=== PATIENT | female | born 1965 | race Native Hawaiian/Other Pacific Islander ===

== ENCOUNTER 2020-06-27 10:41 | Outpatient (REF) | payer OTHER, SELFPAY ==
--- NOTE | 2020-06-27 10:45 | MM_ITS ---
EXAMINATION: MM SCREENING DIGITAL BREAST TOMOSYNTHESIS, BILATERAL CLINICAL INFORMATION: Screening. Asymptomatic. The lifetime risk of breast cancer based on the Tyrer-Cuzick Model is 6%. COMPARISON: Mammography: 02/14/2019, 09/03/2016 TECHNIQUE: Digital breast tomosynthesis is performed in both the craniocaudal and mediolateral oblique views along with computer-aided detection (CAD). Synthesized 2D images are generated from the tomosynthesis. FINDINGS: The breasts are heterogeneously dense, which may obscure small masses (ACR BI-RADS breast composition Category c). There are no significant masses, abnormal calcifications, or other abnormalities. Breast tissue composition borders on average fibroglandular. No significant changes. MM/MM tomosynthesis screening BI IMPRESSION: No mammographic evidence of malignancy. ASSESSMENT: BI-RADS 1: Negative RECOMMENDATION: Routine annual mammography screening. This patient's information was entered into a reminder system with a target due date for their next mammogram.
== END 2020-06-27 10:42 | disposition home or self-care (01) ==
LOC: HO.MAMMO 10:41
PROVIDERS: PCP Internal Medicine; Visit Provider Internal Medicine
DX: Z12.31 Encounter for screening mammogram for malignant neoplasm of breast (principal)
CPT/HCPCS: 77063; 77067

== ENCOUNTER 2020-08-17 11:20 | Outpatient (REF) | payer OTHER, SELFPAY | END 2020-08-17 11:21 | disposition home or self-care (01) | LOC: HO.LNP 11:20 | PROVIDERS: Visit Provider Hospitalist | DX: Z20.822 Contact with and (suspected) exposure to COVID-19 (principal) | CPT/HCPCS: U0003; U0005 ==

== ENCOUNTER 2020-09-11 09:08 | Outpatient (REF) | payer OTHER, SELFPAY ==
[2020-09-11 11:33] LABS: Estimated Average Glucose 117 mg/dL; Hemoglobin A1c % 5.7 %
[2020-09-11 11:40] LABS: Alanine Aminotransferase 9 U/L (0-31); Anion Gap 10 (12-20); Aspartate Amino Transferase 20 U/L (5-31); Blood Urea Nitrogen 13 mg/dL (9-16); Calcium 9.2 mg/dL (8.4-10.2); Carbon Dioxide 27 mmol/L (22-29); Chloride 108 mmol/L (96-108); Cholesterol 188 mg/dL; Estimated Glomerular Filt Rate > 60; Glucose Fasting 96 mg/dL (60-99); HDL Cholesterol 51 mg/dL; LDL Cholesterol Calculated 113 mg/dl; Sodium 141 mmol/L (135-145); Triglycerides 122 mg/dL
[2020-09-11 12:07] LABS: Microalbum/Creatinine Ratio Ur 5.7 ug/mg cr
== END 2020-09-11 09:09 | disposition home or self-care (01) ==
LOC: HO.HMGCLDS 09:08
PROVIDERS: PCP Internal Medicine; Visit Provider Internal Medicine
DX: E11.9 Type 2 diabetes mellitus without complications (principal); I10 Essential (primary) hypertension; E78.5 Hyperlipidemia, unspecified; F41.1 Generalized anxiety disorder
CPT/HCPCS: 36415; 80048; 80061; 82043; 83036; 84450; 84460

== ENCOUNTER 2020-10-13 12:22 | Emergency (ER) | payer OTHER, SELFPAY ==
[2020-10-13 12:33] VITALS: BP 149/95; PULSE 90; RESP 16; TEMP 36.9; O2SAT 97; BMI 28.1
[2020-10-13 14:20] LABS: MANUAL DIFF FLAG NO
[2020-10-13 14:22] LABS: Basophils Percent Auto 0.5 % (0-2); Eosinophils Absolute Auto 0.1 X10*3/uL (0.0-0.4); Eosinophils Percent Auto 1.2 % (0-4); Hematocrit 40.8 % (37-47); Imm Gran Abs Auto 0.01 X10*3/uL (0.00-0.03); Imm Gran Pct Auto 0.2 % (0.0-0.4); Lymphocytes Absolute Auto 1.9 X10*3/uL (1.2-4.9); Lymphocytes Percent Auto 32.2 % (20-40); Mean Corpuscular HGB Conc 31.9 g/dl (31.0-35.0); Mean Corpuscular Volume 84.8 fL (80-98); Monocytes Absolute Auto 0.5 X10*3/uL (0.1-1.2); Monocytes Percent Auto 8.5 % (2-11); Neutrophils Absolute Auto 3.4 X10*3/uL (2.0-8.3); Neutrophils Percent Auto 57.4 % (45-73); Platelet Count 259 X10*3/uL (160-400); Red Blood Count 4.81 X10*6/uL (4.20-5.50); Red Cell Distribution Width 13.4 % (11.0-16.0); White Blood Count 5.9 X10*3/uL (4.8-10.8)
[2020-10-13 14:25] LABS: Glucose Urine UA NEG (NEG); Leukocyte Esterase Urine NEG (NEG); Nitrite Urine NEG (NEG); Specific Gravity - Urine 1.015 (1.005-1.025); Urine Blood NEG (NEG); Urine Ketones NEG (NEG); Urine Protein NEG (NEG-TRACE)
[2020-10-13 14:37] LABS: Appearance Urine CLEAR; Color Urine YELLOW
[2020-10-13 14:48] LABS: Anion Gap 11 (12-20); Blood Urea Nitrogen 15 mg/dL (9-16); Calcium 9.9 mg/dL (8.4-10.2); Carbon Dioxide 24 mmol/L (22-29); Chloride 113 mmol/L (96-108); Creatinine Clr Calc Pharmacy 74.6; Estimated Glomerular Filt Rate > 60; Glucose Random 83 mg/dL (60-115); Potassium 4.3 mmol/L (3.3-5.1); Sodium 144 mmol/L (135-145)
--- NOTE | 2020-10-13 16:07 | ED_ITS ---
HPI - Abdominal Pain General Chief Complaint: Abdominal Pain Stated Complaint: ABD PAIN Time Seen by Provider: 10/13/20 15:50 Source: patient Mode of arrival: ambulatory Limitations: no limitations History of Present Illness HPI narrative: 55 yo female with past medical history Dyslipidemia, Essential hypertension, GERD (gastroesophageal reflux disease), Insomnia , Migraine, Mild intermittent asthma, Osteoarthritis, NIDDM here with complaints of mid abdominal pain x 3 days described as burning with NO associated with vomiting, diarrhea, urinary problems, fevers, chills. Also c/o bilateral muscle aches in the lower legs with no swelling. Patient had J&J vaccine 7 days ago. Related Data Home Medications Medication Instructions Recorded Confirmed zolpidem 10 mg tablet 10 mg PO BEDTIME PRN 04/04/20 08/17/20 albuterol sulfate 90 mcg/actuation 0 mcg INHALATION 09/14/20 aerosol inhaler escitalopram oxalate 10 mg tablet 10 mg PO DAILY 09/14/20 Previous Rx's Medication Instructions Recorded lisinopril 20 mg tablet 20 mg PO DAILY #90 tab 06/19/20 pantoprazole 40 mg tablet,delayed 40 mg PO DAILY #90 tab 07/13/20 release clonazepam 0.5 mg tablet 0.5 mg PO DAILY PRN #10 tab 07/16/20 albuterol sulfate 2.5 mg INHALATION Q8H PRN #180 ml 07/25/20 topiramate 100 mg tablet 150 mg PO BEDTIME #135 tab 07/31/20 lijupdrraq-gkbowmirmlpag-wrtgakwu 1 cap PO Q8H PRN #10 cap 09/14/20 50 mg-300 mg-40 mg capsule fluticasone 250 mcg-salmeterol 50 1 inh INHALATION BID #60 ea 09/14/20 mcg/dose blistr powdr for inhalation lidocaine 5 % topical ointment 1 appl TOPICAL DAILY PRN #30 g 09/18/20 nabumetone 750 mg tablet 750 mg PO BID PRN #40 tab 09/27/20 atorvastatin 20 mg tablet 20 mg PO DAILY #90 tab 10/03/20 Allergies Allergy/AdvReac Type Severity Reaction Status Date / Time crab [CRAB] Allergy Severe MOURH Verified 10/13/20 11:46 SWELLING cyclobenzaprine Allergy Severe SEIZURE Verified 10/13/20 11:46 [From FLEXERIL] ibuprofen [From MOTRIN] Allergy Intermediate ITCHING, Verified 10/13/20 11:46 severe abdominal pain morphine [Morphine] Allergy Intermediate ITCHING/REDNESS, Verified 10/13/20 11:46 rash Flexeril Allergy Unknown shakey Verified 10/13/20 11:46 Review of Systems Review of Systems Yes all other systems are reviewed and are negative Constitutional: Reports no additional constitutional complaints, Denies body ache(s), Denies chills, Denies fever(s), Denies headache(s) and Denies weakness Eyes: Reports no additional eye complaints and Denies change in vision Reports system reviewed and no additional complaints, except as documented, Denies dizziness, Denies headache(s), Denies nasal congestion, Denies nasal discharge and Denies neck pain Cardiovascular: Reports no additional cardiovascular complaints, Denies chest pain, Denies leg edema and Denies dyspnea Respiratory: Reports no additional respiratory complaints, Denies cough and Denies dyspnea Gastrointestinal: Reports no additional gastrointestinal complaints, Reports abdominal pain, Denies diarrhea, Denies nausea and Denies vomiting Genitourinary: Reports no additional female genitourinary complaints and Denies urinary incontinence Musculoskeletal: Reports no additional musculoskeletal complaints, Denies back pain, Reports myalgias, Denies arthralgias, Denies joint swelling, Denies neck pain, Denies numbness and Denies tingling Comments: +muscle aches Skin/Breast: Reports system reviewed and no additional complaints, except as docu and Denies rash Reports system reviewed and no additional complaints, except as documented, Denies Abnormal speech present, Denies dizziness, Denies headache(s), Denies numbness, Denies tingling and Denies weakness Physical Exam Vital Signs: Vital Signs: Last Vital Signs Temp 98.4 F 10/13/20 17:06 Pulse 73 10/13/20 17:06 Resp 16 10/13/20 17:06 BP 148/74 H 10/13/20 17:06 Pulse Ox 98 10/13/20 17:06 Body Mass Index 28.1 Const: General: cooperative, healthy appearing, comfortable and no acute distress Orientation/consciousness: patient oriented x3 Limitations: no limitations HENMT: Head: Yes normal to inspection Ears: hearing grossly normal bilaterally General nose exam: Normal external nose present Face and sinus: Yes normal facial exam Mouth: Normal oral and palatal mucosa present Throat: Yes posterior oropharynx normal Eyes: General: appearance normal, both eyes and all related structures Pupils: Equal, round and reactive pupils present Neck: Neck: Yes normal visual inspection Chest: Chest palpation & inspection: normal inspection of the chest Resp: Effort & Inspection: normal respiratory effort Auscultation: clear to auscultation bilaterally Cardio: Rate: regular rate Rhythm: regular rhythm Peripheral pulses: Peripheral pulses 2+ throughout GI: Other: Unable to reproduce pain on exam. Inspection: Yes normal to inspection Palpation (GI): Soft to palpation and nontender Auscultation: normal bowel sounds Back/Spine/Pelvis: Thoracic/Lumbar Spine: thoracic and lumbar spine normal to inspection Skin: General skin exam: no rashes or lesions noted Neuro: General: patient oriented x3, no focal motor deficits and normal sensation to monofilament Cranial nerves: Yes Equal, round and reactive pupils present Cognition (Neuro): normal cognition Speech: No Abnormal speech present Gait exam (Neuro): Normal gait present Motor exam (neuro): 5/5 motor strength present throughout Extrem: Other: Tenderness over bilateral thighs with no swelling, erythema or deformity. No bony abnormalty General: Yes normal to inspection, Yes no pedal edema and Yes no calf tenderness Course Course Course Narrative: 55 yo female here with mid abdomen burning x 3 days despite protonix 40mg PO. No nausea, vomiting, diarrhea, urinary symptoms, fevers, chills. Also c/o muscle aches. No pedal edema or calf pain on exam. Will check labs, UA, GI cocktail. 1700-labs and urine are unremarkable. Pain is resolved with GI cocktail. Patient is tolerating p.o. and feels much improved. Reviewed worrisome signs and symptoms and when to return to the emergency department. Comfortable discharge home. MDM - Abdominal Pain MDM Narrative Medical decision making narrative: acute angie, gallstones, pancreatitis, gastritis, gerd rhabdo-less likely with negative cpk, normal renal functio Less likely DVT with no clinical signs.symptoms for dvt Medical Records Attestation: I reviewed the patient's medical records. Lab Data Attestation: I reviewed the patient's lab results. Result diagrams: 10/13/20 14:14 10/13/20 14:14 Labs: Lab Results 10/13/20 10/13/20 10/13/20 Range/Units 14:14 14:14 14:14 WBC 5.9 (4.8-10.8) X10*3/uL RBC 4.81 (4.20-5.50) X10*6/uL Hgb 13.0 (12.0-16.0) g/dl Hct 40.8 (37-47) % MCV 84.8 (80-98) fL MCH 27.0 (27.0-33.0) pg MCHC 31.9 (31.0-35.0) g/dl RDW 13.4 (11.0-16.0) % Plt Count 259 (160-400) X10*3/uL MPV 10.0 (9.4-12.3) fL Immature Gran % (Auto) 0.2 (0.0-0.4) % Neut % (Auto) 57.4 (45-73) % Lymph % (Auto) 32.2 (20-40) % Kinney % (Auto) 8.5 (2-11) % Eos % (Auto) 1.2 (0-4) % Baso % (Auto) 0.5 (0-2) % Lymph # (Auto) 1.9 (1.2-4.9) X10*3/uL Kinney # (Auto) 0.5 (0.1-1.2) X10*3/uL Eos # (Auto) 0.1 (0.0-0.4) X10*3/uL Baso # (Auto) 0.0 (0.0-0.2) X10*3/uL Abs Immat Gran (auto) 0.01 (0.00-0.03) X10*3/uL Absolute Neuts (auto) 3.4 (2.0-8.3) X10*3/uL Absolute Nucleated RBC 0.000 (0.0-0.012) X10*3/uL Nucleated RBC % (auto) 0.0 (0.0-0.2) /100WBC Hold Blue Top SEE NOTE Sodium 144 (135-145) mmol/L Potassium 4.3 (3.3-5.1) mmol/L Chloride 113 H (96-108) mmol/L Carbon Dioxide 24 (22-29) mmol/L Anion Gap 11 L (12-20) BUN 15 (9-16) mg/dL Creatinine 0.81 (0.5-1.4) mg/dL Estim Creat Clear Calc 74.6 Estimated GFR > 60 Random Glucose 83 (60-115) mg/dL Calcium 9.9 D (8.4-10.2) mg/dL Total Bilirubin 0.6 (0.0-1.0) mg/dL Direct Bilirubin 0.2 (0.0-0.5) mg/dL AST 20 (5-31) U/L ALT 12 (0-31) U/L Alkaline Phosphatase 81 (39-117) U/L Total Creatine Kinase 100 (26-140) U/L Total Protein 7.7 (6.5-8.0) g/dL Albumin 4.4 (3.5-5.0) g/dL Lipase 26 (8-78) U/L Urine Color Urine Appearance Urine pH (5.0-8.0) Ur Specific [place] (1.005-1.025) Urine Protein (NEG-TRACE) MG/DL Urine Glucose (UA) (NEG) MG/DL Urine Ketones (NEG) MG/DL Urine Blood (NEG) Urine Nitrite (NEG) Ur Leukocyte Esterase (NEG) 10/13/20 Range/Units 14:17 WBC (4.8-10.8) X10*3/uL RBC (4.20-5.50) X10*6/uL Hgb (12.0-16.0) g/dl Hct (37-47) % MCV (80-98) fL MCH (27.0-33.0) pg MCHC (31.0-35.0) g/dl RDW (11.0-16.0) % Plt Count (160-400) X10*3/uL MPV (9.4-12.3) fL Immature Gran % (Auto) (0.0-0.4) % Neut % (Auto) (45-73) % Lymph % (Auto) (20-40) % Kinney % (Auto) (2-11) % Eos % (Auto) (0-4) % Baso % (Auto) (0-2) % Lymph # (Auto) (1.2-4.9) X10*3/uL Kinney # (Auto) (0.1-1.2) X10*3/uL Eos # (Auto) (0.0-0.4) X10*3/uL Baso # (Auto) (0.0-0.2) X10*3/uL Abs Immat Gran (auto) (0.00-0.03) X10*3/uL Absolute Neuts (auto) (2.0-8.3) X10*3/uL Absolute Nucleated RBC (0.0-0.012) X10*3/uL Nucleated RBC % (auto) (0.0-0.2) /100WBC Hold Blue Top Sodium (135-145) mmol/L Potassium (3.3-5.1) mmol/L Chloride (96-108) mmol/L Carbon Dioxide (22-29) mmol/L Anion Gap (12-20) BUN (9-16) mg/dL Creatinine (0.5-1.4) mg/dL Estim Creat Clear Calc Estimated GFR Random Glucose (60-115) mg/dL Calcium (8.4-10.2) mg/dL Total Bilirubin (0.0-1.0) mg/dL Direct Bilirubin (0.0-0.5) mg/dL AST (5-31) U/L ALT (0-31) U/L Alkaline Phosphatase (39-117) U/L Total Creatine Kinase (26-140) U/L Total Protein (6.5-8.0) g/dL Albumin (3.5-5.0) g/dL Lipase (8-78) U/L Urine Color YELLOW Urine Appearance CLEAR Urine pH 6.0 (5.0-8.0) Ur Specific [place]orn 1.015 (1.005-1.025) Urine Protein NEG (NEG-TRACE) MG/DL Urine Glucose (UA) NEG (NEG) MG/DL Urine Ketones NEG (NEG) MG/DL Urine Blood NEG (NEG) Urine Nitrite NEG (NEG) Ur Leukocyte Esterase NEG (NEG) Discharge Plan Discharge Clinical Impression: GERD without esophagitis Patient Disposition: Home, Self-Care Instructions: Gastroesophageal Reflux Disease (ED) Additional Instructions: [place] diet and advance as tolerated Continue Protonix Follow-up with your doctor if continuing to have symptoms on Thursday Prescriptions: No Action zolpidem 10 mg tablet 10 mg PO BEDTIME PRN (Reason: insomnia) RF: 0 lisinopril 20 mg tablet 20 mg PO DAILY Qty: 90 RF: 1 pantoprazole 40 mg tablet,delayed release (DR/EC) 40 mg PO DAILY Qty: 90 RF: 2 clonazepam 0.5 mg tablet 0.5 mg PO DAILY PRN (Reason: anxiety attacks ) Qty: 10 RF: 0 albuterol sulfate 2.5 mg /3 mL (0.083 %) solution for nebulization 2.5 mg inhalation Q8H PRN (Reason: shortness of breath or wheezing) Qty: 180 RF: 0 topiramate 100 mg tablet 150 mg PO BEDTIME Qty: 135 RF: 1 lidocaine 5 % ointment 1 appl topical DAILY PRN (Reason: pain) Qty: 30 RF: 0 nabumetone 750 mg tablet 750 mg PO BID PRN (Reason: for pain) Qty: 40 RF: 0 atorvastatin 20 mg tablet 20 mg PO DAILY Qty: 90 RF: 0 escitalopram oxalate 10 mg tablet 10 mg PO DAILY RF: 0 albuterol sulfate 90 mcg/actuation HFA aerosol inhaler 0 mcg inhalation RF: 0 fluticasone propion-salmeterol [Wixela Inhub] 250-50 mcg/dose blister with device 1 inh inhalation BID Qty: 60 RF: 5 tsttufhlga-dkpqzcibwefkw-qyes 50-300-40 mg capsule 1 cap PO Q8H PRN (Reason: for headache) Qty: 10 RF: 0 Referrals: Rahel Diaz MD [Primary Care Provider] - 2 days Interventions: ED Discharge Assessment Last Done: 10/13/20 18:15 Discharge Date/Time: 10/13/20 18:16 [facility] Past Medical History Attestation statement: The following information was validated with the patient. Source: old records reviewed and nursing notes reviewed Medical History Dyslipidemia Essential hypertension GERD (gastroesophageal reflux disease) Insomnia Knee pain, right Migraine Mild intermittent asthma Osteoarthritis Type 2 diabetes mellitus without complication, without long-term current use of insulin Surgical History History of appendectomy History of partial hysterectomy Hx laparoscopic cholecystectomy Hx of total knee arthroplasty Family History Family History Father HTN (hypertension) Hyperlipidemia Lung cancer Mother HTN (hypertension) Hyperlipidemia Diabetes mellitus Social History Social History Alcohol intake: never Smoking Status: Never smoker Use of substances other than those prescribed or required for medical reasons: No Advance Directives: No Advance Directives Information Provided: Yes
[2020-10-13 16:28] LABS: Alanine Aminotransferase 12 U/L (0-31); Albumin Level 4.4 g/dL (3.5-5.0); Alkaline Phosphatase 81 U/L (39-117); Aspartate Amino Transferase 20 U/L (5-31); Bilirubin Direct 0.2 mg/dL (0.0-0.5); Bilirubin Total 0.6 mg/dL (0.0-1.0); Lipase 26 U/L (8-78); Total Protein 7.7 g/dL (6.5-8.0)
[2020-10-13] MEDS: Magnesium Hydrox/Alum Hydrox 30 ML ORAL.SUSP PO (17:05)
[2020-10-13] MEDS: Lidocaine HCl Viscous 2 % 15 ML SOLUTION MUCOUS MEM (17:05)
[2020-10-13 17:06] VITALS: BP 148/74; PULSE 73; RESP 16; TEMP 36.9; O2SAT 98
--- NOTE | 2020-10-13 17:34 | PC.NURSE ---
late entry 1700. pt continues to c/o epigastric burning. taking po meds w/o diff. LLE is WNL. strong steady gait.
== END 2020-10-13 18:16 | disposition home or self-care (01) ==
PROVIDERS: Nurse Practitioner Family; Emergency Provider Emergency Medicine; PCP Internal Medicine
DX: K21.9 Gastro-esophageal reflux disease without esophagitis (principal); M79.10 Myalgia, unspecified site; R10.9 Unspecified abdominal pain; Z79.899 Other long term (current) drug therapy
CPT/HCPCS: 36415; 80048; 80076; 81003; 82550; 83690; 85025; 99284

== ENCOUNTER 2020-11-26 14:57 | Emergency (ER) | payer OTHER, SELFPAY ==
--- NOTE | ~2020-11-26 | XR_ITS ---
EXAMINATION: XR HIP, RIGHT XR KNEE, RIGHT CLINICAL INFORMATION: Pain following fall. COMPARISON: Right hip radiographs dated 10/06/2017 as well as right hip and right knee radiographs dated 10/23/2015. TECHNIQUE: AP view of the pelvis as well as AP and frog-leg lateral views of the right hip. AP, bilateral oblique, and lateral views of the right knee. FINDINGS: RIGHT HIP: No acute fracture or dislocation. Lhrf-cc-wanlizsg bilateral hip joint space narrowing with small marginal osteophytes. No osseous erosion. Lobulated dystrophic calcification adjacent to the greater trochanter, increased when compared to the prior examination. New dystrophic calcification lateral to the proximal femoral diaphysis. Phleboliths within the pelvis. RIGHT KNEE: Total right knee arthroplasty. No acute hardware or osseous fracture. No perihardware lucency to suggest loosening or infection. No significant joint effusion. No abnormal soft tissue calcification. XR/XR hip RT min 2V IMPRESSION: Right hip: No acute fracture or dislocation. Kirf-ma-svgfkziz osteoarthritis. Right knee: Total right knee arthroplasty without evidence of complication.
--- NOTE | ~2020-11-26 | XR_ITS ---
EXAMINATION: XR HIP, RIGHT XR KNEE, RIGHT CLINICAL INFORMATION: Pain following fall. COMPARISON: Right hip radiographs dated 10/06/2017 as well as right hip and right knee radiographs dated 10/23/2015. TECHNIQUE: AP view of the pelvis as well as AP and frog-leg lateral views of the right hip. AP, bilateral oblique, and lateral views of the right knee. FINDINGS: RIGHT HIP: No acute fracture or dislocation. Prqa-je-fawkhdgy bilateral hip joint space narrowing with small marginal osteophytes. No osseous erosion. Lobulated dystrophic calcification adjacent to the greater trochanter, increased when compared to the prior examination. New dystrophic calcification lateral to the proximal femoral diaphysis. Phleboliths within the pelvis. RIGHT KNEE: Total right knee arthroplasty. No acute hardware or osseous fracture. No perihardware lucency to suggest loosening or infection. No significant joint effusion. No abnormal soft tissue calcification. XR/XR knee RT 4V IMPRESSION: Right hip: No acute fracture or dislocation. Mshd-ap-fajlkvbn osteoarthritis. Right knee: Total right knee arthroplasty without evidence of complication.
[2020-11-26 15:52] VITALS: BP 147/78; PULSE 72; RESP 18; TEMP 36.4; O2SAT 99; BMI 27.7
--- NOTE | 2020-11-26 17:13 | ED.LOWEXIN ---
HPI - Extremity Injury (Lower) General Chief Complaint: Extremity Injury, Lower Stated Complaint: FALL R LEG PAIN Time Seen by Provider: 11/26/20 16:50 Source: patient Mode of arrival: ambulatory Limitations: no limitations History of Present Illness HPI Narrative: 55-year-old female past medical history of asthma, type 2 diabetes insulin dependent, GERD, osteoarthritis, hypertension, hyperlipidemia presents with right-sided hip and knee pain after a mechanical fall. She was clean her floors yesterday, slipped on the water and landed on her right hip and knee. She does not report hitting her head or losing consciousness and does not report any injuries to any other portions of her body. She states that her hip is so painful that she can barely walk. MD complaint: hip injury, knee injury and fall Onset (ago): day(s) (1) Place: home Severity: moderate Severity scale (1-10): 8 Relieving factors: nothing Exacerbating factors: weight bearing, movement and palpation Context: fall Associated symptoms: able to partially bear weight Other symptoms: none Treatments prior to arrival: cold therapy and NSAIDS Related Data Home Medications Medication Instructions Recorded Confirmed zolpidem 10 mg tablet 10 mg PO BEDTIME PRN 04/04/20 08/17/20 albuterol sulfate 90 mcg/actuation 0 mcg INHALATION 09/14/20 aerosol inhaler escitalopram oxalate 10 mg tablet 10 mg PO DAILY 09/14/20 Previous Rx's Medication Instructions Recorded lisinopril 20 mg tablet 20 mg PO DAILY #90 tab 06/19/20 pantoprazole 40 mg tablet,delayed 40 mg PO DAILY #90 tab 07/13/20 release clonazepam 0.5 mg tablet 0.5 mg PO DAILY PRN #10 tab 07/16/20 topiramate 100 mg tablet 150 mg PO BEDTIME #135 tab 07/31/20 fluticasone 250 mcg-salmeterol 50 1 inh INHALATION BID #60 ea 09/14/20 mcg/dose blistr powdr for inhalation lidocaine 5 % topical ointment 1 appl TOPICAL DAILY PRN #30 g 09/18/20 nabumetone 750 mg tablet 750 mg PO BID PRN #40 tab 09/27/20 atorvastatin 20 mg tablet 20 mg PO DAILY #90 tab 10/03/20 ivymlepugy-evxnscqyqxfen-rgzgrhgl 1 cap PO Q8H PRN #10 cap 11/05/20 50 mg-300 mg-40 mg capsule albuterol sulfate 2.5 mg INHALATION Q8H PRN #180 ml 11/16/20 tramadol 50 mg PO BID PRN #5 tab 11/26/20 Allergies Allergy/AdvReac Type Severity Reaction Status Date / Time crab [CRAB] Allergy Severe MOURH Verified 11/26/20 15:52 SWELLING cyclobenzaprine Allergy Severe SEIZURE Verified 11/26/20 15:52 [From FLEXERIL] ibuprofen [From MOTRIN] Allergy Intermediate ITCHING, Verified 11/26/20 15:52 severe abdominal pain morphine [Morphine] Allergy Intermediate ITCHING/REDNESS, Verified 11/26/20 15:52 rash Flexeril Allergy Unknown shakey Verified 11/26/20 15:52 Review of Systems Review of Systems: Constitutional: No Fever, No Chills ENT/Mouth: No Ear Pain, No Hoarseness, No sore throat Eyes: No Eye Pain, No Swelling, No Redness, No Foreign Body Cardiovascular: No Chest Pain, No SOB Respiratory: No Cough, No Dyspnea Gastrointestinal: No Nausea, No Vomiting, No Diarrhea, No abdominal Pain Genitourinary: No Dysuria, No Hematuria Musculoskeletal: positive right hip and knee pain, No Myalgias, No Joint Swelling Skin: No Skin lacerations, No rash Neuro: No Weakness, No Numbness, No Paresthesias, No Loss of Consciousness, No Dizziness, No Headache Psych: No Anxiety/Panic, No Depression Heme/Lymph: no easy bruising, no Lymphadenopathy Endocrine: No Polyuria, No Polydipsia Yes all other systems are reviewed and are negative PMFSH Past Medical History Attestation statement: The following information was validated with the patient. Source: old records reviewed Medical History Dyslipidemia Essential hypertension GERD (gastroesophageal reflux disease) Insomnia Knee pain, right Migraine Mild intermittent asthma Osteoarthritis Type 2 diabetes mellitus without complication, without long-term current use of insulin Surgical History History of appendectomy History of partial hysterectomy Hx laparoscopic cholecystectomy Hx of total knee arthroplasty Family History Family History Father HTN (hypertension) Hyperlipidemia Lung cancer Mother HTN (hypertension) Hyperlipidemia Diabetes mellitus Social History Social History Alcohol intake: never Smoked in Last 30 Days: No Use of substances other than those prescribed or required for medical reasons: No Advance Directives: No Advance Directives Information Provided: Yes Patient : No Physical Exam Vital Signs: Vital Signs: Last Vital Signs Temp 97.6 F 11/26/20 15:52 Pulse 65 11/26/20 17:41 Resp 16 11/26/20 17:41 BP 148/71 H 11/26/20 17:41 Pulse Ox 99 11/26/20 17:41 Body Mass Index 27.7 Appearance: Alert. Oriented X3. No acute distress. Eyes: Pupils equal, round and reactive to light. ENT: Pharynx normal. Neck: Normal inspection. Neck supple. CVS: Normal heart rate and rhythm. Pulses normal. Respiratory: No respiratory distress. Breath sounds normal. Abdomen: Soft and nontender. Skin: Skin warm and dry. Normal skin color. Normal skin turgor. Extremities: No lower extremity edema. Neuro: No motor deficit. No sensory deficit. Course Course Course Narrative: 55-year-old female presents with injury sustained from a fall. She did not hit her head, lose consciousness, does not have any bruising noted to her body. She does experience significant pain on active and passive range of motion to the right hip, tenderness to flexion extension of the knee, and has hip and thigh tenderness when flexing extending the foot. She does not have any tenderness to the medial or lateral malleolar processes, has full extension flexion inversion and eversion of the ankle. And not appreciate any visible swelling, abrasions, lacerations, or bruising. X-rays are negative for acute findings. Does show some chronic osteoarthritis in the hip. Will send home with crutches. Patient is unable to utilize crutches. Will give walker, script for tramadol, patient is allergic to cyclobenzaprine, cannot take Motrin, and has allergies to morphine. She is advised to follow-up with orthopedics. Patient verbalized understanding of and agrees plan of care discharge home. MDM - Extremity Injury (Lower) Differential Diagnosis Differential diagnosis: Likely acute internal derangement of knee, fracture of femur and fracture of hip Medical Records Attestation: I reviewed the patient's medical records. Lab Data Attestation: I reviewed the patient's lab results. Imaging Data Hip and knee x-ray: Attestation: I personally reviewed and interpreted this imaging study as follows: Radiologist's impression: XR HIP, RIGHT XR KNEE, RIGHT CLINICAL INFORMATION: Pain following fall. COMPARISON: Right hip radiographs dated 10/06/2017 as well as right hip and right knee radiographs dated 10/23/2015. TECHNIQUE: AP view of the pelvis as well as AP and frog-leg lateral views of the right hip. AP, bilateral oblique, and lateral views of the right knee. FINDINGS: RIGHT HIP: No acute fracture or dislocation. Gbre-ju-zwbrfxhj bilateral hip joint space narrowing with small marginal osteophytes. No osseous erosion. Lobulated dystrophic calcification adjacent to the greater trochanter, increased when compared to the prior examination. New dystrophic calcification lateral to the proximal femoral diaphysis. Phleboliths within the pelvis. RIGHT KNEE: Total right knee arthroplasty. No acute hardware or osseous fracture. No perihardware lucency to suggest loosening or infection. No significant joint effusion. No abnormal soft tissue calcification. XR/XR hip RT min 2V IMPRESSION: Right hip: No acute fracture or dislocation. Rgvo-fy-vuzjqjye osteoarthritis. Right knee: Total right knee arthroplasty without evidence of complication. Discharge Plan Discharge Clinical Impression: Knee pain, right Qualifiers: Chronicity: chronic Qualified Code(s): M25.561 - Pain in right knee Contusion of hip, right Qualifiers: Encounter type: initial encounter Qualified Code(s): S70.01XA - Contusion of right hip, initial encounter Fall Qualifiers: Encounter type: initial encounter Qualified Code(s): W19.XXXA - Unspecified fall, initial encounter Patient Disposition: Home, Self-Care Instructions: Knee Pain (ED), Hip Contusion (ED) Additional Instructions: You were evaluated for injury sustained from a mechanical fall. Your x-rays of the hip and knee are negative for acute findings. You do not have any fractures. You have moderate osteoarthritis in the hip. Please follow-up with orthopedics for further care. You may need physical therapy. We prescribed tramadol for pain management. This medication is a narcotic and has high risk for addiction abuse. Do not drive or operate machinery while taking this medication. This medication is constipating, please use MiraLax or Colace as needed to soften stools. This medication can cause drowsiness, delayed reaction time, and increased risk falls. Do not drive or operate machinery while taking this medication. Thank you for choosing this emergency department for evaluation. Please follow-up with primary care physician as needed. Return to the emergency department for any new, concerning, or worsening symptoms. Prescriptions: New tramadol 50 mg tablet 50 mg PO BID PRN (Reason: pain) Qty: 5 RF: 0 No Action zolpidem 10 mg tablet 10 mg PO BEDTIME PRN (Reason: insomnia) RF: 0 lisinopril 20 mg tablet 20 mg PO DAILY Qty: 90 RF: 1 pantoprazole 40 mg tablet,delayed release (DR/EC) 40 mg PO DAILY Qty: 90 RF: 2 clonazepam 0.5 mg tablet 0.5 mg PO DAILY PRN (Reason: anxiety attacks ) Qty: 10 RF: 0 topiramate 100 mg tablet 150 mg PO BEDTIME Qty: 135 RF: 1 lidocaine 5 % ointment 1 appl topical DAILY PRN (Reason: pain) Qty: 30 RF: 0 nabumetone 750 mg tablet 750 mg PO BID PRN (Reason: for pain) Qty: 40 RF: 0 atorvastatin 20 mg tablet 20 mg PO DAILY Qty: 90 RF: 0 uyjcqqqbci-nbszbvnknefvi-syqd 50-300-40 mg capsule 1 cap PO Q8H PRN (Reason: for headache) Qty: 10 RF: 0 albuterol sulfate 2.5 mg /3 mL (0.083 %) solution for nebulization 2.5 mg inhalation Q8H PRN (Reason: shortness of breath or wheezing) Qty: 180 RF: 0 escitalopram oxalate 10 mg tablet 10 mg PO DAILY RF: 0 albuterol sulfate 90 mcg/actuation HFA aerosol inhaler 0 mcg inhalation RF: 0 fluticasone propion-salmeterol [Wixela Inhub] 250-50 mcg/dose blister with device 1 inh inhalation BID Qty: 60 RF: 5 Referrals: Cole Song MD [Physician] - 2 days (Right hip osteoarthritis and right knee pain after right total knee replacement) Interventions: ED Discharge Assessment Last Done: 11/26/20 17:49 Discharge Date/Time: 11/26/20 17:50
[2020-11-26] MEDS: traMADoL HCL 50 MG TABLET PO (17:40)
[2020-11-26 17:41] VITALS: BP 148/71; PULSE 65; RESP 16; O2SAT 99
== END 2020-11-26 17:50 | disposition home or self-care (01) ==
PROVIDERS: Emergency Provider Emergency Medicine; PCP Internal Medicine
DX: M25.561 Pain in right knee (principal); S70.01XA Contusion of right hip, initial encounter; W01.0XXA Fall on same level from slipping, tripping and stumbling without subsequent striking against object, initial encounter; M16.11 Unilateral primary osteoarthritis, right hip; E11.9 Type 2 diabetes mellitus without complications; I10 Essential (primary) hypertension; E78.5 Hyperlipidemia, unspecified; Z79.4 Long term (current) use of insulin; Y93.E5 Activity, floor mopping and cleaning; Y92.010 Kitchen of single-family (private) house as the place of occurrence of the external cause; Y99.9 Unspecified external cause status; Z96.651 Presence of right artificial knee joint
CPT/HCPCS: 73502; 73564; 99284

== ENCOUNTER → 2020-11-30 08:54 | Outpatient (BNVA) | payer OTHER, SELFPAY | PROVIDERS: Visit Provider Physician Assistant | DX: S80.01XA Contusion of right knee, initial encounter (principal); M16.11 Unilateral primary osteoarthritis, right hip; Z96.651 Presence of right artificial knee joint | CPT/HCPCS: 99202 ==

== ENCOUNTER 2020-12-29 07:49 | Outpatient (REF) | payer OTHER, SELFPAY ==
[2020-12-29 11:36] LABS: Estimated Average Glucose 117 mg/dL; Hemoglobin A1c % 5.7 %
[2020-12-29 11:38] LABS: Alanine Aminotransferase 13 U/L (0-31); Anion Gap 12 (12-20); Aspartate Amino Transferase 24 U/L (5-31); Blood Urea Nitrogen 13 mg/dL (9-16); Calcium 9.6 mg/dL (8.4-10.2); Carbon Dioxide 23 mmol/L (22-29); Chloride 112 mmol/L (96-108); Cholesterol 171 mg/dL; Estimated Glomerular Filt Rate > 60; Glucose Fasting 103 mg/dL (60-99); HDL Cholesterol 48 mg/dL; LDL Cholesterol Calculated 102 mg/dl; Sodium 143 mmol/L (135-145); Triglycerides 108 mg/dL
[2020-12-29 12:02] LABS: Vitamin D 25-OH Total 34.9 ng/mL (>30)
[2020-12-29 15:47] LABS: Creatinine Urine 221.39 mg/dL; Microalbum/Creatinine Ratio Ur 5.4 ug/mg cr
== END 2020-12-29 07:50 | disposition home or self-care (01) ==
LOC: HO.HMGCLDS 07:49
PROVIDERS: PCP Internal Medicine; Visit Provider Internal Medicine
DX: E11.9 Type 2 diabetes mellitus without complications (principal); E78.5 Hyperlipidemia, unspecified; I10 Essential (primary) hypertension
CPT/HCPCS: 36415; 80048; 80061; 82043; 82306; 83036; 84450; 84460

== ENCOUNTER 2021-06-12 08:37 | Outpatient (REF) | payer OTHER, SELFPAY ==
[2021-06-12 11:56] LABS: Estimated Average Glucose 120 mg/dL; Hemoglobin A1c % 5.8 %
[2021-06-12 12:24] LABS: Alanine Aminotransferase 10 U/L (0-31); Anion Gap 10 (12-20); Aspartate Amino Transferase 25 U/L (5-31); Blood Urea Nitrogen 15 mg/dL (9-16); Calcium 9.9 mg/dL (8.4-10.2); Carbon Dioxide 26 mmol/L (22-29); Chloride 109 mmol/L (96-108); Cholesterol 180 mg/dL; Estimated Glomerular Filt Rate 59; Glucose Fasting 100 mg/dL (60-99); HDL Cholesterol 49 mg/dL; LDL Cholesterol Calculated 109 mg/dl; Potassium 4.1 mmol/L (3.3-5.1); Sodium 141 mmol/L (135-145); Triglycerides 112 mg/dL
== END 2021-06-12 08:38 | disposition home or self-care (01) ==
LOC: HO.HMGCLDS 08:37
PROVIDERS: PCP Internal Medicine; Visit Provider Internal Medicine
DX: E11.9 Type 2 diabetes mellitus without complications (principal); I10 Essential (primary) hypertension; E78.5 Hyperlipidemia, unspecified
CPT/HCPCS: 36415; 80048; 80061; 83036; 84450; 84460

== ENCOUNTER 2021-06-20 16:00 | Emergency (ER) | payer OTHER, SELFPAY ==
[2021-06-20 16:34] VITALS: BP 170/76; PULSE 73; RESP 20; TEMP 36.8; O2SAT 100; BMI 27.6
[2021-06-20 18:12] VITALS: BP 177/77; PULSE 67; RESP 18; O2SAT 99
[2021-06-20] MEDS: diphenhydrAMINE HCL 25 MG TABLET 50 MG PO (19:06)
[2021-06-20] MEDS: Famotidine 20 MG TABLET PO (19:06)
[2021-06-20 19:27] VITALS: BP 169/77; PULSE 60; RESP 18; TEMP 36.7; O2SAT 100
--- NOTE | 2021-06-20 19:41 | ED_ITS ---
HPI - Allergic Reaction General Chief complaint: Allergic Reaction Stated complaint: allergic reaction Time Seen by Provider: 06/20/21 18:15 Source: patient Mode of arrival: ambulatory Limitations: no limitations History of Present Illness HPI narrative: 56-year-old female who states that yesterday morning at 8:30 a.m. she had cortisone injections in her bilateral hips for osteoarthritis. States she was okay yesterday, but when she woke up this morning her face was red hot and swollen in her hands were cold. 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 Spoke to her doctor who suggested she come to the emergency room. Patient has the allergy history to ibuprofen and morphine complaint: allergic reaction Onset (ago): day(s) (1) Exposure: medication Symptoms: rash, itching and facial swelling Severity: mild Treatment prior to arrival: none Related Data Home Medications Medication Instructions Recorded Confirmed zolpidem 10 mg tablet 10 mg PO BEDTIME PRN 04/04/20 01/03/21 albuterol sulfate 90 mcg/actuation 0 mcg INHALATION 09/14/20 01/03/21 aerosol inhaler escitalopram oxalate 10 mg tablet 10 mg PO DAILY 09/14/20 01/03/21 Previous Rx's Medication Instructions Recorded clonazepam 0.5 mg tablet 0.5 mg PO DAILY PRN #10 tab 07/16/20 albuterol sulfate 2.5 mg (3 mL) INHALATION Q8H PRN 11/16/20 #180 ml lisinopril 20 mg tablet 20 mg PO DAILY #90 tab 12/10/20 atorvastatin 20 mg tablet 20 mg PO DAILY #90 tab 01/04/21 erythromycin 5 mg/gram (0.5 %) eye 1 appl OPHTHALMIC (EYE) QID 7 Days 01/23/21 ointment #3.5 g valacyclovir 1 gram tablet 1,000 mg PO TID 7 Days #21 tab 01/23/21 pantoprazole 40 mg tablet,delayed 40 mg PO DAILY #90 tab 04/03/21 release eszmtayzlo-yxzyljeczwxab-mnpnqoce 1 cap PO Q8H PRN #10 cap 06/03/21 50 mg-300 mg-40 mg capsule celecoxib 200 mg capsule 200 mg PO DAILY PRN #30 cap 06/05/21 fluticasone 250 mcg-salmeterol 50 1 ea INHALATION BID #180 cap 06/05/21 mcg/dose blistr powdr for inhalation (Narcisa Gardner) lidocaine 5 % topical ointment 1 appl TOPICAL DAILY PRN #30 g 06/05/21 nabumetone 750 mg tablet 750 mg PO BID PRN #20 tab 06/05/21 topiramate 100 mg tablet 150 mg PO BEDTIME #135 tab 06/05/21 famotidine 20 mg tablet 20 mg PO DAILY 14 Days #14 tab 06/20/21 Allergies Allergy/AdvReac Type Severity Reaction Status Date / Time crab [CRAB] Allergy Severe MOURH Verified 01/10/21 01:38 SWELLING cyclobenzaprine Allergy Severe SEIZURE Verified 01/10/21 01:38 [From FLEXERIL] ibuprofen [From MOTRIN] Allergy Intermediate ITCHING, Verified 01/10/21 01:38 severe abdominal pain morphine [Morphine] Allergy Intermediate ITCHING/REDNESS, Verified 01/10/21 01:38 rash Flexeril Allergy Unknown shakey Verified 01/10/21 01:38 Review of Systems Constitutional: Constitutional: Denies body ache(s), Denies chills, Denies fatigue, Denies fever(s), Denies headache(s), Denies malaise and Denies weakness Eyes: Eyes: Denies diplopia ENT: Denies change in voice, Denies vertigo, Denies dizziness, Denies otalgia, Denies headache(s), Denies lip swelling, Denies mouth pain, Denies post nasal drip, Denies sinus pain, Denies sinus pressure, Denies sore throat, Denies throat swelling and Denies tongue swelling Cardiovascular: Cardiovascular: Denies chest pain, Denies syncope, Denies leg edema, Denies lightheadedness, Denies Loss of Consciousness, Denies palpitations and Denies dyspnea Respiratory: Respiratory: Denies chest congestion, Denies cough and Denies dyspnea Gastrointestinal: Gastrointestinal: Reports abdominal pain, Denies hematochezia, Denies constipation, Denies diarrhea and Denies vomiting Musculoskeletal: Musculoskeletal: Reports no additional musculoskeletal complaints Integumentary/Breasts: Comments: Red warm flushed cheeks, mild maculopapular rash on bilateral forearms Neurologic: Denies confusion, Denies vertigo, Denies dizziness, Denies syncope, Denies headache(s) and Denies weakness Psychiatric: Psychiatric: Denies anxiety, Denies confusion and Denies depression Endocrine: Endocrine: Denies fatigue and Denies palpitations Allergic/Immunologic: Allergic/Immunologic: Denies lip swelling, Denies throat swelling and Denies tongue swelling PMFSH Past Medical History Medical History Depressed Dyslipidemia Essential hypertension GERD (gastroesophageal reflux disease) Insomnia Knee pain, right Migraine Mild intermittent asthma Osteoarthritis Type 2 diabetes mellitus without complication, without long-term current use of insulin Surgical History History of appendectomy History of partial hysterectomy Hx laparoscopic cholecystectomy Hx of total knee arthroplasty Family History Family History Father HTN (hypertension) Hyperlipidemia Lung cancer Mother HTN (hypertension) Hyperlipidemia Diabetes mellitus Social History Social History Alcohol intake: never Patient Tobacco Use Status: Never used Tobacco Advance Directives: No Advance Directives Information Provided: No Patient : No Current occupational status: unemployed Current occupation: [employer] Handed Physical Exam Vital Signs: Vital Signs: Last Vital Signs Temp 98.1 F 06/20/21 19:27 Pulse 60 06/20/21 19:27 Resp 18 06/20/21 19:27 BP 169/77 H 06/20/21 19:27 Pulse Ox 100 06/20/21 19:27 BMI result Body Mass Index 27.6 Const: General: No confusion Nutritional Appearance: well nourished Orientation/consciousness: No confusion Limitations: no limitations HENMT: Head: Yes normal to inspection, Yes normocephalic and Yes atraumatic Ears: hearing grossly normal bilaterally, external ears normal, TM's normal bilaterally and EAC's normal General nose exam: Normal external nose present Face and sinus: Yes normal facial exam and Yes sinuses nontender Mouth: Normal oral and palatal mucosa present Throat: Yes posterior oropharynx normal Eyes: Conjunctivae: conjunctivae normal Pupils: Equal, round and reactive pupils present EOM: EOMs intact bilaterally Neck: Neck: Yes full ROM, Yes no lymphadenopathy and Yes supple Resp: Effort & Inspection: normal respiratory effort and able to speak in complete sentences Auscultation: clear to auscultation bilaterally, no crackles, no rales, no rhonchi and no wheezes Cardio: Rate: regular rate Rhythm: regular rhythm Heart sounds: S1 normal heart sound present and S2 normal heart sound present GI: Inspection: Yes normal to inspection Palpation (GI): Soft to palpation, nontender, no guarding and not rigid Percussion: Yes normal to percussion Auscultation: normal bowel sounds Skin: Other: Flush bilateral cheeks Mild erythematous maculopapular rash bilateral upper arms Neuro: General: No confusion Cranial nerves: Yes Equal, round and reactive pupils present Extrem: General: Yes normal to inspection and Yes full ROM Psych: Appearance: grossly normal Affect: normal affect Attitude: cooperative Thought process: Normal thought process present Course Course Course Narrative: 56-year-old female presents for mild allergic reaction possibly to cortisone injections in her bilateral hips yesterday. On exam, patient has a patent airway, lungs clear to auscultation bilaterally, has no tongue swelling, lip swelling, no angioedema. Patient is flushed in her bilateral cheeks, and has a very mild maculopapular erythematous rash in her bilateral upper arms. Will treat with Benadryl and famotidine, gave return precautions. Discharge Plan Discharge Clinical Impression: Allergic reaction Qualifiers: Encounter type: initial encounter Qualified Code(s): T78.40XA - Allergy, unspecified, initial encounter Patient Disposition: Home, Self-Care Additional Instructions: You may have had an allergic reaction to cortisone injections in both of your hips. Please take Benadryl at night for the next 3 days, you can buy it [id number]. Please fill the prescription I gave you for the other histamine cordell, famotidine, and take it as prescribed. If you have any shortness of breath, lip swelling, tongue swelling, wheezing, please return to emergency room immediately. Please follow-up with your primary care provider for your high blood pressure reading today Prescriptions: New famotidine 20 mg tablet 20 mg PO DAILY 14 Days Qty: 14 RF: 0 No Action zolpidem 10 mg tablet 10 mg PO BEDTIME PRN (Reason: insomnia) RF: 0 clonazepam 0.5 mg tablet 0.5 mg PO DAILY PRN (Reason: anxiety attacks ) Qty: 10 RF: 0 albuterol sulfate 2.5 mg /3 mL (0.083 %) solution for nebulization 2.5 mg inhalation Q8H PRN (Reason: shortness of breath or wheezing) Qty: 180 RF: 0 lisinopril 20 mg tablet 20 mg PO DAILY Qty: 90 RF: 2 atorvastatin 20 mg tablet 20 mg PO DAILY Qty: 90 RF: 1 pantoprazole 40 mg tablet,delayed release (DR/EC) 40 mg PO DAILY Qty: 90 RF: 2 ukvddsnmdg-piszhivfnliba-aujk 50-300-40 mg capsule 1 cap PO Q8H PRN (Reason: for headache) Qty: 10 RF: 0 fluticasone propion-salmeterol [Wixela Inhub] 250-50 mcg/dose blister with device 1 ea inhalation BID Qty: 180 RF: 1 topiramate 100 mg tablet 150 mg PO BEDTIME Qty: 135 RF: 1 celecoxib 200 mg capsule 200 mg PO DAILY PRN (Reason: pain) Qty: 30 RF: 0 lidocaine 5 % ointment 1 appl topical DAILY PRN (Reason: pain) Qty: 30 RF: 0 nabumetone 750 mg tablet 750 mg PO BID PRN (Reason: pain) Qty: 20 RF: 0 valacyclovir 1 gram tablet 1,000 mg PO TID 7 Days Qty: 21 RF: 0 erythromycin 5 mg/gram (0.5 %) ointment 1 appl ophthalmic (eye) QID 7 Days Qty: 3.5 RF: 0 escitalopram oxalate 10 mg tablet 10 mg PO DAILY RF: 0 albuterol sulfate 90 mcg/actuation HFA aerosol inhaler 0 mcg inhalation RF: 0 Interventions: ED Discharge Assessment Last Done: 06/20/21 19:55 Discharge Date/Time: 06/20/21 20:00
== END 2021-06-20 20:00 | disposition home or self-care (01) ==
PROVIDERS: Emergency Provider Internal Medicine; PCP Internal Medicine
DX: T78.40XA Allergy, unspecified, initial encounter (principal); X58.XXXA Exposure to other specified factors, initial encounter; I10 Essential (primary) hypertension; E11.9 Type 2 diabetes mellitus without complications; J45.20 Mild intermittent asthma, uncomplicated; M16.0 Bilateral primary osteoarthritis of hip; Z98.890 Other specified postprocedural states
CPT/HCPCS: 99283; Q0163

== ENCOUNTER 2021-07-04 13:18 | Emergency (ER) | payer OTHER, SELFPAY ==
--- NOTE | ~2021-07-04 | XR_ITS ---
EXAMINATION: XR CHEST CLINICAL INFORMATION: Chest pain COMPARISON: Chest CT of 09/26/2016, chest x-ray of 09/26/2016 and 05/28/2016 TECHNIQUE: 2 views of the chest were obtained. FINDINGS: The cardiomediastinal silhouette is stable and normal. The lungs are symmetrically well expanded. No focal consolidation, changes of congestion or pleural effusions are seen. No pneumothorax. Regional skeleton is intact. Multiple surgical clips are noted in the upper abdomen on lateral view. XR/XR chest 2V IMPRESSION: No acute pulmonary process. No radiographic evidence of pneumonia.
--- NOTE | 2021-07-04 13:29 | ECG_ITS ---
Test Reason : CHEST PAIN Blood Pressure : / mmHG Vent. Rate : 073 BPM Atrial Rate : 073 BPM P-R Int : 168 ms QRS Dur : 088 ms QT Int : 368 ms P-R-T Axes : 046 019 010 degrees QTc Int : 405 ms Normal sinus rhythm Normal ECG When compared to the previous EKG of Nonspecific T wave abnormality, improved in Anterior leads Referred By: Generic ED Physician Electronically Signed By:JULIANNA JANE MD
[2021-07-04 13:43] VITALS: BP 120/64; BP 123/64; PULSE 72; PULSE 76; RESP 18; TEMP 37.2; O2SAT 100; O2SAT 99; BMI 27.3
--- NOTE | 2021-07-04 14:01 | ED.CHESTPAIN ---
HPI - Chest Pain General Chief Complaint: Chest Pain Stated Complaint: CP Time Seen by Provider: 07/04/21 13:47 Source: patient Mode of arrival: ambulatory Limitations: no limitations History of Present Illness HPI narrative: 56-year-old female history of unstable angina presents to emergency department complaining of chest pain. States she has at home started feels she got 2 nitros by EMS and her pain went from a 9 to a 2. She states she used to be on nitroglycerin but has not had for some time. She denies any falls or injuries denies fevers or cough she is vaccinated back in September by [employer]. Chest pain radiates to her left jaw. She states her pain is never been this s MD complaint: chest pain, chest heaviness and chest discomfort Related Data Home Medications Medication Instructions Recorded Confirmed zolpidem 10 mg tablet 10 mg PO BEDTIME PRN 04/04/20 07/04/21 escitalopram oxalate 20 mg tablet 1 tab PO DAILY 07/04/21 07/04/21 famotidine 20 mg tablet 1 tab PO DAILY 07/04/21 07/04/21 Previous Rx's Medication Instructions Recorded clonazepam 0.5 mg tablet 0.5 mg PO DAILY PRN #10 tab 07/16/20 albuterol sulfate 2.5 mg (3 mL) INHALATION Q8H PRN 11/16/20 #180 ml pantoprazole 40 mg tablet,delayed 40 mg PO DAILY #90 tab 04/03/21 release apyttzoebc-lskadtkotqogf-yghexwvj 1 cap PO Q8H PRN #10 cap 06/03/21 50 mg-300 mg-40 mg capsule fluticasone 250 mcg-salmeterol 50 1 ea INHALATION BID #180 cap 06/05/21 mcg/dose blistr powdr for inhalation (Wixela Inhub) nabumetone 750 mg tablet 750 mg PO BID PRN #20 tab 06/05/21 topiramate 100 mg tablet 150 mg PO BEDTIME #135 tab 06/05/21 albuterol sulfate 90 mcg/actuation 2 inh INHALATION Q6H PRN #8.5 g 07/01/21 aerosol inhaler atorvastatin 20 mg tablet 20 mg PO DAILY #90 tab 07/01/21 benzonatate 200 mg capsule 200 mg PO TID PRN #20 cap 07/01/21 epinephrine 0.3 mg/0.3 mL 0.3 mg (0.3 mL) IM ONCE PRN #2 ea 07/01/21 injection, auto-injector (EpiPen 2-Abilio) lidocaine 5 % topical ointment 1 appl TOPICAL DAILY PRN #30 g 07/01/21 lisinopril 20 mg tablet 20 mg PO DAILY #90 tab 07/01/21 Allergies Allergy/AdvReac Type Severity Reaction Status Date / Time crab [CRAB] Allergy Severe MOURH Verified 07/04/21 13:43 SWELLING cyclobenzaprine Allergy Severe SEIZURE Verified 07/04/21 13:43 [From FLEXERIL] ibuprofen [From MOTRIN] Allergy Intermediate ITCHING, Verified 07/04/21 13:43 severe abdominal pain morphine [Morphine] Allergy Intermediate ITCHING/REDNESS, Verified 07/04/21 13:43 rash Flexeril Allergy Unknown shakey Verified 07/04/21 13:43 Review of Systems Review of Systems: Review of systems: General: Patient denies any fever chills recent illness or falls Musculoskeletal: Denies back pain or body aches or other injuries HEENT: denies headache, runny nose, ear pain Respiratory: denies shortness of breath, cough Cardiovascular: chest pain no palpitations : denies dysuria, frequency Abdomen: no nausea vomiting denies abdominal pain Extremities: no swelling, no pain Skin: no diaphoresis Yes all other systems are reviewed and are negative [facility] Past Medical History Medical History (Updated 07/04/21 @ 15:10 by Henri Dong DO) Allergic to shellfish Depressed Dyslipidemia Essential hypertension GERD (gastroesophageal reflux disease) Hx of renal calculi Insomnia Knee pain, right Migraine Mild intermittent asthma Osteoarthritis Type 2 diabetes mellitus without complication, without long-term current use of insulin Surgical History History of appendectomy History of partial hysterectomy Hx laparoscopic cholecystectomy Hx of total knee arthroplasty Family History Family History (Updated 07/01/21 @ 13:12 by Theresa Rivera CMA) Father HTN (hypertension) Hyperlipidemia Lung cancer Mother HTN (hypertension) Hyperlipidemia Diabetes mellitus Social History Social History Housing: Apartment Alcohol intake: never Patient Tobacco Use Status: Never used Tobacco e-Cigarette/Vaping Use: Never Used Advance Directives: No Advance Directives Information Provided: Yes service: No Current occupational status: unemployed Current occupation: [employer]ed Physical Exam Vital Signs: Vital Signs: Last Vital Signs Temp 99.0 F 07/04/21 13:43 Pulse 76 07/04/21 13:43 Resp 18 07/04/21 13:43 BP 123/64 07/04/21 13:43 Pulse Ox 99 07/04/21 13:43 BMI result Body Mass Index 27.3 General: Well-appearing well-nourished in no signs of distress HEENT: Normocephalic atraumatic Neck: No signs of JVD, no masses no tenderness or lymphadenopathy Cardiovascular: Regular rate and rhythm Respiratory: Clear to auscultation bilaterally Abdomen: Soft nontender no masses Extremities: Normal pedal pulses no signs of edema Skin: Dry warm no rashes Back: No tenderness full ROM MDM - Chest Pain MDM Narrative Medical decision making narrative: Patient with lower chest pain low heart score coming into the emergency department complaining of chest pain it was not responsive patient's last stress test was over 4 years ago. I will give patient fluids aspirin I will put on some nitropaste I will check labs and reassess the patient. patient's pain is well controlled x-ray and labs are unremarkable I will get a stat troponin at 17:00 hours patient will be signed out to Dr. Castillo Differential Diagnosis Differential diagnosis: Likely stable angina, unstable angina pectoris, st elevation myocardial infarction, chest pain and biliary colic Medical Records Data Attestation: I reviewed the patient's medical records. Lab Data Attestation: I reviewed the patient's lab results. Result diagrams: 07/04/21 14:28 07/04/21 14:28 Labs: Lab Results 07/04/21 07/04/21 07/04/21 Range/Units 14:28 14:28 14:28 WBC 7.6 (4.8-10.8) X10*3/uL RBC 4.69 (4.20-5.50) X10*6/uL Hgb 12.8 (12.0-16.0) g/dl Hct 40.2 (37.0-47.0) % MCV 85.7 (80.0-98.0) fL MCH 27.3 (27.0-33.0) pg MCHC 31.8 (31.0-35.0) g/dl RDW 14.2 (11.0-16.0) % Plt Count 271 (160-400) X10*3/uL MPV 10.4 (9.4-12.3) fL Immature Gran % (Auto) 0.1 (0.0-0.4) % Neut % (Auto) 73.5 H (45-73) % Lymph % (Auto) 16.2 L (20-40) % [place] % (Auto) 9.0 (2-11) % Eos % (Auto) 0.7 (0-4) % Baso % (Auto) 0.5 (0-2) % Lymph # (Auto) 1.2 (1.2-4.9) X10*3/uL [place] # (Auto) 0.7 (0.1-1.2) X10*3/uL Eos # (Auto) 0.1 (0.0-0.4) X10*3/uL Baso # (Auto) 0.0 (0.0-0.2) X10*3/uL Abs Immat Gran (auto) 0.01 (0.00-0.03) X10*3/uL Absolute Neuts (auto) 5.6 (2.0-8.3) x10*3/uL Absolute Nucleated RBC 0.000 (0.0-0.012) X10*3/uL Nucleated RBC % (auto) 0.0 (0.0-0.2) /100WBC PT (9.9-13.0) SEC INR (0.9-1.1) Sodium 142 (135-145) mmol/L Potassium 3.7 (3.3-5.1) mmol/L Chloride 109 H (96-108) mmol/L Carbon Dioxide 27 (22-29) mmol/L Anion Gap 10 L (12-20) BUN 19 H (9-16) mg/dL Creatinine 0.85 (0.5-1.4) mg/dL Estim Creat Clear Calc 69.3 Estimated GFR > 60 Random Glucose 100 (60-115) mg/dL Calcium 10.1 (8.4-10.2) mg/dL Total Bilirubin 0.4 (0.0-1.0) mg/dL Direct Bilirubin 0.2 (0.0-0.5) mg/dL AST 24 (5-31) U/L ALT 19 (0-31) U/L Alkaline Phosphatase 101 D (39-117) U/L Troponin I High Sens < 3.5 (<3.5-17.0) ng/L Total Protein 7.2 (6.5-8.0) g/dL Albumin 4.1 (3.5-5.0) g/dL Lipase 41 (8-78) U/L COVID-19 (GRIFFIN) (Negative) COVID-19 Clin Com 07/04/21 07/04/21 Range/Units 14:28 14:28 WBC (4.8-10.8) X10*3/uL RBC (4.20-5.50) X10*6/uL Hgb (12.0-16.0) g/dl Hct (37.0-47.0) % MCV (80.0-98.0) fL MCH (27.0-33.0) pg MCHC (31.0-35.0) g/dl RDW (11.0-16.0) % Plt Count (160-400) X10*3/uL MPV (9.4-12.3) fL Immature Gran % (Auto) (0.0-0.4) % Neut % (Auto) (45-73) % Lymph % (Auto) (20-40) % [place] % (Auto) (2-11) % Eos % (Auto) (0-4) % Baso % (Auto) (0-2) % Lymph # (Auto) (1.2-4.9) X10*3/uL [place] # (Auto) (0.1-1.2) X10*3/uL Eos # (Auto) (0.0-0.4) X10*3/uL Baso # (Auto) (0.0-0.2) X10*3/uL Abs Immat Gran (auto) (0.00-0.03) X10*3/uL Absolute Neuts (auto) (2.0-8.3) x10*3/uL Absolute Nucleated RBC (0.0-0.012) X10*3/uL Nucleated RBC % (auto) (0.0-0.2) /100WBC PT 12.0 (9.9-13.0) SEC INR 1.1 (0.9-1.1) Sodium (135-145) mmol/L Potassium (3.3-5.1) mmol/L Chloride (96-108) mmol/L Carbon Dioxide (22-29) mmol/L Anion Gap (12-20) BUN (9-16) mg/dL Creatinine (0.5-1.4) mg/dL Estim Creat Clear Calc Estimated GFR Random Glucose (60-115) mg/dL Calcium (8.4-10.2) mg/dL Total Bilirubin (0.0-1.0) mg/dL Direct Bilirubin (0.0-0.5) mg/dL AST (5-31) U/L ALT (0-31) U/L Alkaline Phosphatase (39-117) U/L Troponin I High Sens (<3.5-17.0) ng/L Total Protein (6.5-8.0) g/dL Albumin (3.5-5.0) g/dL Lipase (8-78) U/L COVID-19 (GRIFFIN) Negative (Negative) COVID-19 Clin Com See Note Scores Heart Score History: -1- moderately suspicious ECG: -0- normal Age: -0- < or = 45 Risk factory: -1- 1 or 2 risk factors Troponin: -0- < or = normal limit Score: 2 Risk: 1.7% Discharge Plan Discharge Clinical Impression: Chest pain Patient Disposition: Home, Self-Care Instructions: Chest Pain (ED) Additional Instructions: your x-ray and labs are all negative if you have any other concerns please do not hesitate to come back to emergency department. Prescriptions: No Action zolpidem 10 mg tablet 10 mg PO BEDTIME PRN (Reason: insomnia) RF: 0 clonazepam 0.5 mg tablet 0.5 mg PO DAILY PRN (Reason: anxiety attacks ) Qty: 10 RF: 0 albuterol sulfate 2.5 mg /3 mL (0.083 %) solution for nebulization 2.5 mg inhalation Q8H PRN (Reason: shortness of breath or wheezing) Qty: 180 RF: 0 pantoprazole 40 mg tablet,delayed release (DR/EC) 40 mg PO DAILY Qty: 90 RF: 2 hshlnfbfbr-zjgswesngghsu-muwr 50-300-40 mg capsule 1 cap PO Q8H PRN (Reason: for headache) Qty: 10 RF: 0 fluticasone propion-salmeterol [Wixela Inhub] 250-50 mcg/dose blister with device 1 ea inhalation BID Qty: 180 RF: 1 topiramate 100 mg tablet 150 mg PO BEDTIME Qty: 135 RF: 1 nabumetone 750 mg tablet 750 mg PO BID PRN (Reason: pain) Qty: 20 RF: 0 lidocaine 5 % ointment 1 appl topical DAILY PRN (Reason: pain) Qty: 30 RF: 0 lisinopril 20 mg tablet 20 mg PO DAILY Qty: 90 RF: 2 atorvastatin 20 mg tablet 20 mg PO DAILY Qty: 90 RF: 1 famotidine 20 mg tablet 1 tab PO DAILY RF: 0 escitalopram oxalate 20 mg tablet 1 tab PO DAILY RF: 0 albuterol sulfate 90 mcg/actuation HFA aerosol inhaler 2 inh inhalation Q6H PRN (Reason: shortness of breath or wheezing) Qty: 8.5 RF: 3 epinephrine [EpiPen 2-Abilio] 0.3 mg/0.3 mL auto-injector 0.3 mg IM ONCE PRN (Reason: anaphylaxis) Qty: 2 RF: 1 benzonatate 200 mg capsule 200 mg PO TID PRN (Reason: cough) Qty: 20 RF: 0
[2021-07-04 14:37] LABS: MANUAL DIFF FLAG NO
[2021-07-04 14:39] LABS: Basophils Percent Auto 0.5 % (0-2); Eosinophils Absolute Auto 0.1 X10*3/uL (0.0-0.4); Eosinophils Percent Auto 0.7 % (0-4); Hematocrit 40.2 % (37.0-47.0); Hemoglobin 12.8 g/dl (12.0-16.0); Imm Gran Abs Auto 0.01 X10*3/uL (0.00-0.03); Imm Gran Pct Auto 0.1 % (0.0-0.4); Lymphocytes Absolute Auto 1.2 X10*3/uL (1.2-4.9); Lymphocytes Percent Auto 16.2 % (20-40); Mean Corpuscular HGB Conc 31.8 g/dl (31.0-35.0); Mean Corpuscular Hemoglobin 27.3 pg (27.0-33.0); Mean Corpuscular Volume 85.7 fL (80.0-98.0); Mean Platelet Volume 10.4 fL (9.4-12.3); Monocytes Absolute Auto 0.7 X10*3/uL (0.1-1.2); Neutrophils Absolute Auto 5.6 x10*3/uL (2.0-8.3); Neutrophils Percent Auto 73.5 % (45-73); Platelet Count 271 X10*3/uL (160-400); Red Blood Count 4.69 X10*6/uL (4.20-5.50); Red Cell Distribution Width 14.2 % (11.0-16.0); White Blood Count 7.6 X10*3/uL (4.8-10.8)
[2021-07-04 14:45] LABS: INTERNATIONAL NORM RATIO 1.1 (0.9-1.1)
[2021-07-04 14:53] LABS: COVID-19 Test Negative (Negative)
[2021-07-04 14:55] LABS: Alanine Aminotransferase 19 U/L (0-31); Albumin Level 4.1 g/dL (3.5-5.0); Alkaline Phosphatase 101 U/L (39-117); Anion Gap 10 (12-20); Aspartate Amino Transferase 24 U/L (5-31); Bilirubin Direct 0.2 mg/dL (0.0-0.5); Bilirubin Total 0.4 mg/dL (0.0-1.0); Blood Urea Nitrogen 19 mg/dL (9-16); Calcium 10.1 mg/dL (8.4-10.2); Carbon Dioxide 27 mmol/L (22-29); Chloride 109 mmol/L (96-108); Creatinine Clr Calc Pharmacy 69.3; Estimated Glomerular Filt Rate > 60; Glucose Random 100 mg/dL (60-115); Lipase 41 U/L (8-78); Potassium 3.7 mmol/L (3.3-5.1); Sodium 142 mmol/L (135-145); Total Protein 7.2 g/dL (6.5-8.0)
[2021-07-04 14:59] LABS: Troponin-I High Sensitivity < 3.5 ng/L (<3.5-17.0)
[2021-07-04 15:30] VITALS: BP 135/77; PULSE 80; RESP 18; O2SAT 99
[2021-07-04 15:34] VITALS: BP 135/77; PULSE 78
[2021-07-04] MEDS: Nitroglycerin 2 % Oint 1 GM Packet 0.5 INCH TRANSDERMA (15:34)
[2021-07-04] MEDS: 0.9 % Sodium Chloride 1,000 ML 999 ML IV (15:37)
--- NOTE | 2021-07-04 15:52 | PHA.MEDREC ---
Pharmacy Consult ? Medication Reconciliation Pharmacy has completed the medication reconciliation. Patient states that she takes her fluticasone-salmeterol only once a day even though it is prescribed BID. Patient seemed confident in her medications.
[2021-07-04 15:59] VITALS: BP 136/73; PULSE 72; RESP 12; TEMP 37.1; O2SAT 98
[2021-07-04 18:55] LABS: Troponin-I High Sensitivity < 3.5 ng/L (<3.5-17.0)
[2021-07-04 19:02] LABS: Anion Gap 9 (12-20); Blood Urea Nitrogen 17 mg/dL (9-16); Carbon Dioxide 27 mmol/L (22-29); Chloride 110 mmol/L (96-108); Creatinine Clr Calc Pharmacy 70.9; Estimated Glomerular Filt Rate > 60; Glucose Random 109 mg/dL (60-115); Potassium 5.1 mmol/L (3.3-5.1); Sodium 141 mmol/L (135-145)
[2021-07-04 19:27] VITALS: BP 127/70; PULSE 77; RESP 14; O2SAT 96
[2021-07-04 19:55] VITALS: BP 130/79; PULSE 70; RESP 14; O2SAT 100
== END 2021-07-04 19:58 | disposition home or self-care (01) ==
PROVIDERS: Student in an Organized Health Care Education/Training Program; Emergency Provider Emergency Medicine; PCP Internal Medicine
DX: R07.9 Chest pain, unspecified (principal); E78.5 Hyperlipidemia, unspecified; I10 Essential (primary) hypertension; E11.9 Type 2 diabetes mellitus without complications; Z20.822 Contact with and (suspected) exposure to COVID-19; Z79.899 Other long term (current) drug therapy; Z79.02 Long term (current) use of antithrombotics/antiplatelets
CPT/HCPCS: 36415; 71046; 80048; 80076; 83690; 84484; 85025; 85610; 87635; 93005; 96360; 99284

== ENCOUNTER 2021-08-30 07:49 | Outpatient (REF) | payer OTHER, SELFPAY ==
--- NOTE | ~2021-08-30 | US_ITS ---
EXAMINATION: US RETROPERITONEAL LIMITED (RENAL ONLY) CLINICAL INFORMATION: Unspecified abdominal pain. COMPARISON: CT abdomen and pelvis 06/17/2018. Renal ultrasound 12/10/2016. TECHNIQUE: Real-time imaging of the kidneys. FINDINGS: RIGHT KIDNEY: 10.8 x 5.0 x 4.0 cm (SAG x AP x TRV). The kidney is normal in size, contour, and echogenicity. Renal cortical thickness is normal. No calculi or focal parenchymal lesions. No hydronephrosis. LEFT KIDNEY: 11.1 x 5.5 x 5.1 cm (SAG x AP x TRV). The kidney is normal in size, contour, and echogenicity. Renal cortical thickness is normal. No calculi or focal parenchymal lesions. No hydronephrosis. US/US renal BI IMPRESSION: Normal renal ultrasound..
== END 2021-08-30 07:50 | disposition home or self-care (01) ==
LOC: HO.US 07:49
PROVIDERS: Visit Provider Internal Medicine
DX: R10.9 Unspecified abdominal pain (principal); Z87.442 Personal history of urinary calculi
CPT/HCPCS: 76775

== ENCOUNTER 2021-12-09 09:21 | Outpatient (REF) | payer OTHER, SELFPAY ==
[2021-12-09 13:08] LABS: Alanine Aminotransferase 12 U/L (0-31); Anion Gap 10 (12-20); Aspartate Amino Transferase 20 U/L (5-31); Blood Urea Nitrogen 14 mg/dL (9-16); Calcium 9.4 mg/dL (8.4-10.2); Carbon Dioxide 24 mmol/L (22-29); Chloride 110 mmol/L (96-108); Cholesterol 179 mg/dL; Estimated Glomerular Filt Rate > 60; Glucose Fasting 102 mg/dL (60-99); HDL Cholesterol 54 mg/dL; LDL Cholesterol Calculated 109 mg/dl; Potassium 4.2 mmol/L (3.3-5.1); Sodium 140 mmol/L (135-145); Triglycerides 81 mg/dL
[2021-12-09 13:17] LABS: Estimated Average Glucose 117 mg/dL; Hemoglobin A1c % 5.7 %
[2021-12-09 13:32] LABS: Microalbumin Urine < 5.0 mg/L
[2021-12-09 13:33] LABS: Vitamin D 25-OH Total 32.2 ng/mL (>30)
== END 2021-12-09 09:22 | disposition home or self-care (01) ==
LOC: HO.HMGCLDS 09:21
PROVIDERS: Visit Provider Internal Medicine
DX: E89.40 Asymptomatic postprocedural ovarian failure (principal); E78.5 Hyperlipidemia, unspecified; I10 Essential (primary) hypertension; E11.9 Type 2 diabetes mellitus without complications
CPT/HCPCS: 36415; 80048; 80061; 82043; 82306; 83036; 84450; 84460

== ENCOUNTER 2022-03-25 12:33 | Emergency (ER) | payer OTHER, SELFPAY ==
--- NOTE | ~2022-03-25 | XR_ITS ---
EXAMINATION: XR SHOULDER, LEFT CLINICAL INFORMATION: Status post fall COMPARISON: Left shoulder radiograph 02/16/2020 TECHNIQUE: 3 views of the left shoulder FINDINGS: No acute visible fracture or dislocation. Joint spaces and alignment are maintained. Soft tissues are unremarkable. Visualized portions of the left chest are unremarkable. XR/XR shoulder LT min 2V IMPRESSION: No acute visible fracture or dislocation.
--- NOTE | ~2022-03-25 | XR_ITS ---
EXAMINATION: XR ANKLE, LEFT CLINICAL INFORMATION: Fall COMPARISON: None TECHNIQUE: AP, lateral, and mortise views of the left ankle. FINDINGS: No fracture or dislocation. The ankle mortise is congruent. No ankle joint effusion. Moderate hypertrophic spurring of the plantar aponeurosis and Achilles insertion to the calcaneus. The soft tissues appear unremarkable. XR/XR ankle LT 2V IMPRESSION: No fracture or malalignment. Heel spurs.
[2022-03-25 12:51] VITALS: BP 168/75; PULSE 66; RESP 18; TEMP 36.9; O2SAT 98; BMI 26.5
[2022-03-25 18:44] VITALS: BP 172/80; PULSE 88; RESP 18; TEMP 36.8; O2SAT 100
--- NOTE | 2022-03-25 19:15 | ED.EXTPRO ---
HPI - Extremity Problem General Chief complaint: Extremity Problem Stated complaint: left ankle inj and left shoulder injury Time Seen by Provider: 03/25/22 18:51 Source: patient Mode of arrival: ambulatory Limitations: no limitations History of Present Illness HPI Narrative: The patient is a 57 year old female presenting for a complain of left shoulder pain and left ankle pain. The patient reports that 5 days ago, her ankle inverted and she fell against a wall. She reports the pain started immediately after. Left Ankle: She reports while weight bearing she feels a sharp shoot pain at the base of her left heel. Ankle pain currently a 7/10, though increase to a 10/10 pain when weight bearing. She reports that due to the pain she is not able weight bear. Left Shoulder: Shoulder pain is a 6/10 pain though increases to a 10/10 pain with movement. Patient states that her shoulder pain is like a line , and points from the base of the neck across the top of the to the edge of the shoulder. The paint does not radiate down the arm. MD Complaint: joint pain Onset (ago): day(s) (5) Pain Consistency: constant Location: left and other (shoulder and ankle ) Severity scale (1-10): 7 Quality: aching and sharp Radiation: none Relieving factors: immobilization and rest Exacerbating factors: range of motion, weight bearing and walking Associated symptoms: denies other symptoms Related Data Home Medications Medication Instructions Recorded Confirmed zolpidem 10 mg tablet 10 mg PO BEDTIME 04/04/20 07/22/21 clonazepam 0.5 mg tablet 0.5 mg PO BEDTIME 07/04/21 07/22/21 duloxetine 20 mg capsule,delayed 0 mg PO 12/11/21 release Previous Rx's Medication Instructions Recorded epinephrine 0.3 mg/0.3 mL 0.3 mg (0.3 mL) IM ONCE PRN 07/01/21 injection, auto-injector (EpiPen anaphylaxis #2 ea 2-Abilio) lisinopril 20 mg tablet 20 mg PO DAILY #90 tabs 07/01/21 nitroglycerin 0.4 mg sublingual 0.4 mg sublingual Q5M PRN chest 07/04/21 tablet pain #7 tabs dkoaljflzk-nuwpldtzhshfl-rjbbnetg 1 cap PO Q8H PRN for headache #10 09/26/21 50 mg-300 mg-40 mg capsule caps albuterol sulfate 90 mcg/actuation 2 inh inhalation Q6H PRN shortness 10/16/21 aerosol inhaler of breath or wheezing #8.5 grams lidocaine 5 % topical ointment 1 appl topical DAILY PRN pain #30 12/11/21 grams fluticasone 250 mcg-salmeterol 50 1 ea inhalation QAM #60 ea 12/15/21 mcg/dose blistr powdr for inhalation (Wixela Inhub) atorvastatin 20 mg tablet 20 mg PO DAILY #90 tabs 01/01/22 nabumetone 750 mg tablet 750 mg PO BID PRN pain #20 tabs 01/01/22 pantoprazole 40 mg tablet,delayed 40 mg PO DAILY #90 tabs 01/01/22 release topiramate 100 mg tablet 150 mg PO BEDTIME #135 tabs 01/01/22 sucralfate 1 gram tablet (Carafate) 1 g PO BID #60 tabs 02/24/22 acetaminophen 500 mg tablet 1,000 mg PO QID PRN fever or pain 03/25/22 (Tylenol Extra Strength) #14 tabs oxycodone 5 mg tablet 5 mg PO Q6H PRN pain #10 tabs 03/25/22 Allergies Allergy/AdvReac Type Severity Reaction Status Date / Time crab [CRAB] Allergy Severe MOURH Verified 02/24/22 16:24 SWELLING cyclobenzaprine Allergy Severe SEIZURE Verified 02/24/22 16:24 [From FLEXERIL] ibuprofen [From MOTRIN] Allergy Intermediate ITCHING, Verified 02/24/22 16:24 severe abdominal pain morphine [Morphine] Allergy Intermediate ITCHING/REDNESS, Verified 02/24/22 16:24 rash Flexeril Allergy Unknown shakey Verified 02/24/22 16:24 Review of Systems Review of Systems: Constitutional : No Fever, No Night Sweats, No Fatigue, No Malaise Cardiovascular : No Chest Pain, No SOB, No Dyspnea on Exertion, Respiratory : No Cough, No Sputum, No Wheezing, No Smoke Exposure, No Dyspnea Musculoskeletal : + Left shoulder pain, + Left ankle pain, + Left heel pain, No Myalgias, No Joint Swelling, + pain with limit weight bearing Skin : No Skin Lesions, No rash Neuro : No Weakness, No Numbness, No Paresthesias, No Loss of Consciousness, No Dizziness, No Headache Yes all other systems are reviewed and are negative [facility] Past Medical History Attestation statement: The following information was validated with the patient. Source: old records reviewed and nursing notes reviewed Medical History Allergic to shellfish Anxiety and depression Depressed Dyslipidemia Essential hypertension GERD (gastroesophageal reflux disease) Hx of renal calculi Insomnia Knee pain, right Migraine Mild intermittent asthma Osteoarthritis Type 2 diabetes mellitus without complication, without long-term current use of insulin Surgical History History of appendectomy History of partial hysterectomy Hx laparoscopic cholecystectomy Hx of total knee arthroplasty Family History Family History Father HTN (hypertension) Hyperlipidemia Lung cancer Mother HTN (hypertension) Hyperlipidemia Diabetes mellitus Social History Social History Housing: Apartment Alcohol intake: never Patient Tobacco Use Status: Never used Tobacco e-Cigarette/Vaping Use: Never Used Use of substances other than those prescribed or required for medical reasons: No Advance Directives: No Advance Directives Information Provided: Yes service: No Current occupational status: unemployed Current occupation: [employer] Cognitive needs: No Hearing needs: No Vision needs: No Physical Exam Vital Signs: Vital Signs: Last Vital Signs Temp 98.3 F 03/25/22 18:44 Pulse 88 03/25/22 18:44 Resp 18 03/25/22 18:44 BP 172/80 H 03/25/22 18:44 Pulse Ox 100 03/25/22 18:44 O2 Del Method 03/25/22 18:44 BMI result Body Mass Index 26.5 vital signs have been reviewed as normal and appeared to be correct. Blood pressure normal Heart rate normal. Respiration rate normal. Temperature normal. Oxygen saturation normal. Appearance: Alert. Oriented X3. No acute distress. Head: Normal external exam. Normocephalic. Atraumatic. Eyes: EOMI. Conjunctiva and sclera normal. Eyelids normal. ENT: Moist mucous membranes. Neck: Normal inspection. Neck supple. FROM. CVS: Normal heart rate and rhythm. Respiratory: No respiratory distress. Painless inspiration. Skin: Skin warm and dry. Normal skin color. Normal skin turgor. No rashes/lesions/lacerations noted. Extremities: No lower extremity edema. Exam limited due to pain, limited ROM in left ankle and left shoulder. Strength limited in left ankle and left shoulder due to pain. Joint lie tenderness, focal tenderness on heel. No obvious ligamentous or tendon injury noted. Not consistent muscle rupture noted. Not consistent with Achilles tendon rupture. Negative Dorsey's test. Neuro: Oriented X 3. No motor deficit. No sensory deficit. Reflexes normal. Normal steady gait. No focal neuro deficits noted. Vascular: + radial pulses/+ 2 distal pedal pulses/+2 dorsalis pedis b/l. Normal cap refill. No cyanosis noted to upper extremity nails and lower extremity toes nails. Course Course Course Narrative: 7pm -The patient is a 57 year old female presenting for a complaint of left shoulder pain and left ankle pain. The patient reports that 5 days ago, her ankle inverted and she fell against a wall on her shoulder. Left Ankle: She reports while weight bearing she feels a sharp shoot pain at the base of her left heel. Ankle pain currently a 7/10, though increase to a 10/10 pain when weight bearing. She reports that due to the pain she is not able weight bear. Patient's ROM is limited due to pain. Left Shoulder: Shoulder pain is a 6/10 pain though increases to a 10/10 pain with movement. Patient states that her shoulder pain is like a line , and points from the base of the neck across the top of the to the edge of the shoulder. The paint does not radiate down the arm. Patients ROM is limited due to pain. X ray of the shoulder showed no fractures or dislocation. X ray of the ankle significant for a heel spur. Patient was given a walking boot. Will treat symptomatic pain instructed follow-up with PCP and orthopedics if symptoms persist for longer than 3 weeks. Patient understands agrees with this plan. MDM - Extremity (Nontraumatic) Medical Records Attestation: I reviewed the patient's medical records. Imaging Data Left shoulder and left ankle x-ray: Attestation: I personally reviewed and interpreted this imaging study as follows: Radiologist's impression: FINDINGS: No acute visible fracture or dislocation. Joint spaces and alignment are maintained. Soft tissues are unremarkable. Visualized portions of the left chest are unremarkable.? XR/XR shoulder LT min 2V IMPRESSION: No acute visible fracture or dislocation. FINDINGS: No fracture or dislocation. The ankle mortise is congruent. No ankle joint effusion. Moderate hypertrophic spurring of the plantar aponeurosis and Achilles insertion to the calcaneus. The soft tissues appear unremarkable.? XR/XR ankle LT 2V IMPRESSION: No fracture or malalignment. Heel spurs. Procedures Orthopedic Splinting/Casting Injury #1: Side: left Lower Extremity Injury Location: ankle and foot Lower Extremity Immobilizer: post-op shoe Other Orthopedic Equipment: crutches Discharge Plan Discharge Clinical Impression: Heel spur, Sprain of ankle, left, Sprain of left shoulder Patient Disposition: Home, Self-Care Instructions: Crutch Instructions (ED), Sprain (ED), How to Use an Elastic Bandage (ED), R.I.C.E. Treatment (ED), Heel Spur (ED) Prescriptions: New acetaminophen [Tylenol Extra Strength] 500 mg tablet 1,000 mg PO QID PRN (Reason: fever or pain) Qty: 14 0RF oxycodone 5 mg tablet 5 mg PO Q6H PRN (Reason: pain) Qty: 10 0RF Rx Instructions: Partial Fill upon patient request. No Action zolpidem 10 mg tablet 10 mg PO BEDTIME lisinopril 20 mg tablet 20 mg PO DAILY Qty: 90 2RF curieorisu-wtmvnlrphxorn-qtwe 50-300-40 mg capsule 1 cap PO Q8H PRN (Reason: for headache) Qty: 10 0RF albuterol sulfate 90 mcg/actuation HFA aerosol inhaler 2 inh inhalation Q6H PRN (Reason: shortness of breath or wheezing) Qty: 8.5 3RF fluticasone propion-salmeterol [Wixela Inhub] 250-50 mcg/dose blister with device 1 ea inhalation QAM Qty: 60 5RF nabumetone 750 mg tablet 750 mg PO BID PRN (Reason: pain) Qty: 20 0RF pantoprazole 40 mg tablet,delayed release (DR/EC) 40 mg PO DAILY Qty: 90 2RF topiramate 100 mg tablet 150 mg PO BEDTIME Qty: 135 1RF atorvastatin 20 mg tablet 20 mg PO DAILY Qty: 90 1RF clonazepam 0.5 mg tablet 0.5 mg PO BEDTIME nitroglycerin 0.4 mg tablet, sublingual 0.4 mg sublingual Q5M PRN (Reason: chest pain) Qty: 7 0RF Rx Instructions: do not exceed 3 doses per episode sucralfate [Carafate] 1 gram tablet 1 g PO BID Qty: 60 0RF epinephrine [EpiPen 2-Abilio] 0.3 mg/0.3 mL auto-injector 0.3 mg IM ONCE PRN (Reason: anaphylaxis) Qty: 2 1RF duloxetine 20 mg capsule,delayed release(DR/EC) 0 mg PO lidocaine 5 % ointment 1 appl topical DAILY PRN (Reason: pain) Qty: 30 0RF Referrals: [facility] [Provider Group] (If symptoms persist for longer than 2-3 weeks make a follow-up appointMENT) Rahel Diaz MD [Primary Care Provider] - 3 days Zachary Borjas [Physician] - (Follow-up for your heel spurs) Stand Alone Forms: Work/School Release Interventions: ED Discharge Assessment Last Done: 03/25/22 20:01 Discharge Date/Time: 03/25/22 20:01 Print Language: Stateless
== END 2022-03-25 20:01 | disposition home or self-care (01) ==
PROVIDERS: Emergency Provider Emergency Medicine; PCP Internal Medicine
DX: S93.402A Sprain of unspecified ligament of left ankle, initial encounter (principal); S43.402A Unspecified sprain of left shoulder joint, initial encounter; M77.32 Calcaneal spur, left foot; W01.0XXA Fall on same level from slipping, tripping and stumbling without subsequent striking against object, initial encounter; Y93.9 Activity, unspecified; Y92.9 Unspecified place or not applicable; Y99.9 Unspecified external cause status; Z79.899 Other long term (current) drug therapy
CPT/HCPCS: 29515; 73030; 73600; 99283; 99284

== ENCOUNTER → 2022-04-11 10:15 | Outpatient (BNVA) | payer OTHER, SELFPAY | PROVIDERS: PCP Internal Medicine; Visit Provider Physician Assistant | DX: M79.18 Myalgia, other site (principal); M77.8 Other enthesopathies, not elsewhere classified | CPT/HCPCS: 99202 ==

== ENCOUNTER 2022-05-01 13:44 | Outpatient (RCR) | payer OTHER, SELFPAY ==
--- NOTE | 2022-05-01 15:54 | MHC.PT.EP ---
[facility] [place] Office [place] Office [place] Office [address] [phone] F: [phone] F: [phone] F: [phone] F: [phone] Physical Therapy Plan of Care Date of Evaluation: Date of Surgery: Diagnosis: L shoulder Assessment: Pt is a 55 y/o RHD female referred to PT for eval and treat of R shoulder tendonitis who presents with L shoulder dysfunction resulting in decreased tolerance for reaching high shelves, reaching into abduction, reaching her neck and back for hygiene and dressing, as well as lifting, pushing, pulling objects of weight and disturbed sleep secondary to decreased L shoulder ROM and strength, elevation L scapular protective posturing, TTP of superior L shoulder, and pain. Pt is deemed an appropriate candidate to receive skilled PT services in order to address her physical impairments to improve her functional ability. Frequency and Duration: The patient will be seen 2 x / wk x 5 wks. Short Term Goals: Initiate HEP. Improve baseline pain improved to < 5/10; initial: 8/10. [facility] Goals: I with HEP. Pt will be able to reach high shelves with managed Sx; initial: 9/10 pain and difficulty. Pt will be able to dress pullovers with managed Sx; initial: 8/10 pain and difficulty. Symmetrical B shoulder flexion AROM achieved; initial: R 165; L 45 Treatment Plan: Modalities to reduce pain, spasms and effusion. Manual therapy to restore motion and function. Therapeutic exercise to improve strength and flexibility. Neuromuscular re-education for posture and balance. Therapeutic activities to return to functional activities of daily living. Electronically signed by: Rikki Burt PT Please sign and return to therapist. Thank you for your referral.
--- NOTE | 2022-08-20 15:51 | MHC.PT.DC ---
[facility] [place] Office [place] Office [place] Office [address]hil At[address] [phone] F: [phone] F: [phone] F: [phone] F: [phone] Physical Therapy Discharge Report Diagnosis: L shoulder Date of Surgery: Date of Evaluation: 05/01/22 Date of Discharge: 08/20/22 Treatments to Date: 1 Cancellations to Date: No Shows to Date: Discharge Status: Patient Elected to Stop Discharge Summary: Pt did not trial therapy. Electronically signed by: Rikki Burt PT. Please sign and return to therapist. Thank you for your referral.
== END 2022-08-20 15:50 | disposition home or self-care (01) ==
LOC: HO.PTCHIC 13:44
PROVIDERS: PCP Internal Medicine; Visit Provider Physician Assistant
DX: M79.18 Myalgia, other site (principal); M77.8 Other enthesopathies, not elsewhere classified
CPT/HCPCS: 97110; 97161

== ENCOUNTER 2022-05-26 09:10 | Outpatient (REF) | payer OTHER, SELFPAY ==
[2022-05-26 12:01] LABS: Estimated Average Glucose 120 mg/dL; Hemoglobin A1c % 5.8 %
[2022-05-26 12:50] LABS: Alanine Aminotransferase 15 U/L (0-31); Anion Gap 10 (12-20); Aspartate Amino Transferase 30 U/L (5-31); Blood Urea Nitrogen 16 mg/dL (9-16); Calcium 9.9 mg/dL (8.4-10.2); Carbon Dioxide 26 mmol/L (22-29); Chloride 108 mmol/L (96-108); Cholesterol 180 mg/dL; Estimated Glomerular Filt Rate > 60; Glucose Fasting 77 mg/dL (60-99); HDL Cholesterol 55 mg/dL; LDL Cholesterol Calculated 107 mg/dl; Potassium 3.8 mmol/L (3.3-5.1); Sodium 140 mmol/L (135-145); Triglycerides 94 mg/dL; Vitamin D 25-OH Total 22.3 ng/mL (>30)
== END 2022-05-26 09:11 | disposition home or self-care (01) ==
LOC: HO.HMGCLDS 09:10
PROVIDERS: PCP Internal Medicine; Visit Provider Internal Medicine
DX: E11.9 Type 2 diabetes mellitus without complications (principal); E78.5 Hyperlipidemia, unspecified; I10 Essential (primary) hypertension; Z78.0 Asymptomatic menopausal state
CPT/HCPCS: 36415; 80048; 80061; 82306; 83036; 84450; 84460

== ENCOUNTER 2022-07-28 07:21 | Emergency (ER) | payer OTHER, SELFPAY ==
[2022-07-28 07:36] VITALS: BP 127/66; PULSE 92; RESP 17; TEMP 35.9; O2SAT 97; BMI 26.9
--- NOTE | 2022-07-28 08:11 | ED.SKABFB ---
HPI - Skin/Abscess/Foreign Bdy General Chief complaint: Skin/Abscess/Foreign Body Stated complaint: growth in groin area Time Seen by Provider: 07/28/22 07:35 Source: patient Mode of arrival: ambulatory History of Present Illness HPI narrative: 57-year-old female presents with very small ?ball? at the left groin crease that is not been associated with any fever, chills, nausea, vomiting. This is been there for numerous weeks. Related Data Home Medications Medication Instructions Recorded Confirmed zolpidem 10 mg tablet 10 mg PO BEDTIME 04/04/20 07/22/21 clonazepam 0.5 mg tablet 0.5 mg PO BEDTIME 07/04/21 07/22/21 duloxetine 20 mg capsule,delayed 0 mg PO 12/11/21 release Previous Rx's Medication Instructions Recorded epinephrine 0.3 mg/0.3 mL 0.3 mg (0.3 mL) IM ONCE PRN 07/01/21 injection, auto-injector (EpiPen anaphylaxis #2 ea 2-Abilio) nitroglycerin 0.4 mg sublingual 0.4 mg sublingual Q5M PRN chest 07/04/21 tablet pain #7 tabs zbmngejilt-icovkahmwmwqb-hsgldqkv 1 cap PO Q8H PRN for headache #10 09/26/21 50 mg-300 mg-40 mg capsule caps albuterol sulfate 90 mcg/actuation 2 inh inhalation Q6H PRN shortness 10/16/21 aerosol inhaler of breath or wheezing #8.5 grams lidocaine 5 % topical ointment 1 appl topical DAILY PRN pain #30 12/11/21 grams pantoprazole 40 mg tablet,delayed 40 mg PO DAILY #90 tabs 01/01/22 release acetaminophen 500 mg tablet 1,000 mg PO QID PRN fever or pain 03/25/22 (Tylenol Extra Strength) #14 tabs lisinopril 20 mg tablet 20 mg PO DAILY #90 tabs 04/01/22 fluticasone 250 mcg-salmeterol 50 1 ea inhalation QAM #60 ea 06/09/22 mcg/dose blistr powdr for inhalation (Wixela Inhub) Trulance 3 mg tablet (plecanatide) 3 mg PO DAILY #30 tabs 06/11/22 cholecalciferol (vitamin D3) 1,250 1,250 mcg PO QWEEK 3 months #13 06/11/22 mcg (50,000 unit) capsule caps nabumetone 750 mg tablet 750 mg PO BID PRN pain #20 tabs 06/11/22 albuterol sulfate 2.5 mg/3 mL 2.5 mg (3 mL) inhalation Q6H PRN 06/17/22 (0.083 %) solution for nebulization shortness of breath or wheezing #75 mL atorvastatin 20 mg tablet 20 mg PO DAILY #90 tabs 06/27/22 topiramate 100 mg tablet 150 mg PO BEDTIME #135 tabs 06/27/22 sucralfate 1 gram tablet (Carafate) 1 g PO BID #60 tabs 07/06/22 Allergies Allergy/AdvReac Type Severity Reaction Status Date / Time crab [CRAB] Allergy Severe MOURH Verified 06/11/22 10:51 SWELLING cyclobenzaprine Allergy Severe SEIZURE Verified 06/11/22 10:51 [From FLEXERIL] ibuprofen [From MOTRIN] Allergy Intermediate ITCHING, Verified 06/11/22 10:51 severe abdominal pain morphine [Morphine] Allergy Intermediate ITCHING/REDNESS, Verified 06/11/22 10:51 rash Flexeril Allergy Unknown shakey Verified 06/11/22 10:51 Review of Systems Review of Systems: Pertinent positives and negatives as stated in HPI [facility] Past Medical History Source: nursing notes reviewed Medical History Allergic to shellfish Anxiety and depression Constipation Depressed Dyslipidemia Essential hypertension GERD (gastroesophageal reflux disease) Hx of renal calculi Insomnia Knee pain, right Migraine Mild intermittent asthma Osteoarthritis Type 2 diabetes mellitus without complication, without long-term current use of insulin Vitamin D deficiency Surgical History History of appendectomy History of partial hysterectomy Hx laparoscopic cholecystectomy Hx of total knee arthroplasty Family History Family History Father HTN (hypertension) Hyperlipidemia Lung cancer Mother HTN (hypertension) Hyperlipidemia Diabetes mellitus Social History Social History Housing: Apartment Alcohol intake: never Patient Tobacco Use Status: Never used Tobacco Smoked in Last 30 Days: No e-Cigarette/Vaping Use: Never Used Use of substances other than those prescribed or required for medical reasons: No Advance Directives: Yes Advance Directives on File: No service: No Current occupational status: unemployed Current occupation: [employer] Cognitive needs: No Hearing needs: No Vision needs: No Physical Exam Vital Signs: Vital Signs: Last Vital Signs Temp 96.7 F L 07/28/22 07:36 Pulse 92 07/28/22 07:36 Resp 17 07/28/22 07:36 BP 127/66 07/28/22 07:36 Pulse Ox 97 07/28/22 07:36 O2 Del Method 07/28/22 07:36 BMI result Body Mass Index 26.9 VITAL SIGNS: Reviewed. GENERAL: Well developed, well nourished, in no acute distress. HEAD: Normocephalic/atraumatic EYES: PERRLA, EOMI LUNGS: Normal breath sounds. CARDIOVASCULAR: Regular rate and rhythm without noted murmurs ABDOMEN: Soft, non-tender, non-distended with bowel sounds. LEFT GROIN: There is a subcentimeter area at the left groin crease that appears to be a partial ingrown hair verses black comedone. SKIN: Inspection of the skin reveals no rashes NEUROLOGIC: Alert and oriented x 4. Medical Decision Making Medical Decision Making MDM Narrative: 57-year-old female who presents for what appears to be an ingrown hair and ?blackhead?. After significant manipulation I was able to express approximate 1 cc of sebaceous material. Patient tolerated the procedure well and was discharged home with instructions to continue to apply warm compresses and expressed the remaining contents herself. Differential Diagnosis Differential Diagnoses: The differential diagnosis associated with the presentation includes Please see discussion above Discharge Plan Discharge Clinical Impression: Closed follicle comedo Patient Disposition: Home, Self-Care Instructions: Abscess (ED) Additional Instructions: Apply warm compresses and continue to express remaining material from your follicle. Return to the ER for any worsening symptoms. Prescriptions: No Action zolpidem 10 mg tablet 10 mg PO BEDTIME sgpodazijg-ppphfxrhgydnq-lccz 50-300-40 mg capsule 1 cap PO Q8H PRN (Reason: for headache) Qty: 10 0RF albuterol sulfate 90 mcg/actuation HFA aerosol inhaler 2 inh inhalation Q6H PRN (Reason: shortness of breath or wheezing) Qty: 8.5 3RF pantoprazole 40 mg tablet,delayed release (DR/EC) 40 mg PO DAILY Qty: 90 2RF lisinopril 20 mg tablet 20 mg PO DAILY Qty: 90 1RF fluticasone propion-salmeterol [Wixela Inhub] 250-50 mcg/dose blister with device 1 ea inhalation QAM Qty: 60 5RF albuterol sulfate 2.5 mg /3 mL (0.083 %) solution for nebulization 2.5 mg inhalation Q6H PRN (Reason: shortness of breath or wheezing) Qty: 75 0RF atorvastatin 20 mg tablet 20 mg PO DAILY Qty: 90 1RF topiramate 100 mg tablet 150 mg PO BEDTIME Qty: 135 1RF sucralfate [Carafate] 1 gram tablet 1 g PO BID Qty: 60 0RF acetaminophen [Tylenol Extra Strength] 500 mg tablet 1,000 mg PO QID PRN (Reason: fever or pain) Qty: 14 0RF clonazepam 0.5 mg tablet 0.5 mg PO BEDTIME nitroglycerin 0.4 mg tablet, sublingual 0.4 mg sublingual Q5M PRN (Reason: chest pain) Qty: 7 0RF Rx Instructions: do not exceed 3 doses per episode Trulance 3 mg tablet 3 mg PO DAILY Qty: 30 0RF cholecalciferol (vitamin D3) 1,250 mcg (50,000 unit) capsule 1,250 mcg PO QWEEK 90 Days Qty: 13 0RF nabumetone 750 mg tablet 750 mg PO BID PRN (Reason: pain) Qty: 20 0RF epinephrine [EpiPen 2-Abilio] 0.3 mg/0.3 mL auto-injector 0.3 mg IM ONCE PRN (Reason: anaphylaxis) Qty: 2 1RF duloxetine 20 mg capsule,delayed release(DR/EC) 0 mg PO lidocaine 5 % ointment 1 appl topical DAILY PRN (Reason: pain) Qty: 30 0RF Referrals: Rahel Diaz MD [Primary Care Provider] - Interventions: ED Discharge Assessment Last Done: 07/28/22 08:27 Discharge Date/Time: 07/28/22 08:27
== END 2022-07-28 08:27 | disposition home or self-care (01) ==
PROVIDERS: Emergency Provider Student in an Organized Health Care Education/Training Program; PCP Internal Medicine
DX: L70.0 Acne vulgaris (principal); Z79.899 Other long term (current) drug therapy
CPT/HCPCS: 99282; 99283

== ENCOUNTER 2022-08-29 02:26 | Emergency (ER) | payer OTHER, SELFPAY ==
--- NOTE | ~2022-08-29 | XR_ITS ---
EXAMINATION: XR CHEST CLINICAL INFORMATION: Chest pain COMPARISON: 07/04/2021 TECHNIQUE: Frontal view of the chest was obtained. FINDINGS: The lungs are clear with no focal consolidation. No evidence of pneumothorax, pulmonary edema, or pleural effusions. The cardiomediastinal silhouette is unremarkable. No acute osseous findings. XR/XR chest 1V IMPRESSION: No acute cardiopulmonary findings.
--- NOTE | ~2022-08-29 | CT_ITS ---
EXAMINATION: CT ABDOMEN AND PELVIS WITHOUT CONTRAST CLINICAL INFORMATION: Abdominal pain, bloody stools COMPARISON: 06/17/2018 TECHNIQUE: Multidetector volumetric imaging was performed from the superior aspect of the liver through the pubic symphysis. Sagittal and coronal reformatted images were obtained on the technologist's workstation. This CT examination was performed using dose optimization techniques as appropriate, variously including the following: *Automated exposure control *Adjustment of mA and/or kV according to patient size (this includes techniques or standardized protocols for targeted exams where dose is matched to indication/reason for exam; i.e. extremities or head) *Use of iterative reconstruction technique DLP: 556 mGy-cm FINDINGS: LUNG BASES: The visualized lung bases are unremarkable. LIVER, GALLBLADDER, AND BILIARY TREE: The liver is normal in size, shape, and attenuation. No focal hepatic lesion or biliary ductal dilatation is identified. Patient is status post cholecystectomy. PANCREAS: Unremarkable. SPLEEN: Unremarkable. ADRENAL GLANDS: Unremarkable. KIDNEYS AND URETERS: The kidneys are normal in size, shape, and attenuation. No hydronephrosis, hydroureter, or obstructing calculi seen. There is a punctate calculus in the mid left kidney. No perinephric stranding. BLADDER: Unremarkable. GASTROINTESTINAL TRACT: No evidence of bowel obstruction. Fluid is present in the relatively collapsed descending colon, and a component of mild wall thickening is difficult to exclude in this setting. No free fluid or free air is seen. ABDOMINAL WALL: No significant hernia is appreciated. LYMPH NODES: Normal. VASCULAR: Mild atherosclerotic calcification. PELVIC VISCERA: Patient is status post hysterectomy. OSSEOUS STRUCTURES: Unremarkable. CT/CT abdomen pelvis wo IV con IMPRESSION: 1. Fluid is present in the relatively collapsed descending colon, and a component of mild wall thickening from colitis is difficult to entirely exclude in this setting. 2. Punctate left renal calculus without hydronephrosis.
[2022-08-29 02:43] VITALS: BP 130/65; PULSE 83; RESP 17; TEMP 37.1; O2SAT 97; BMI 27.1
--- NOTE | 2022-08-29 02:45 | ECG_ITS ---
Test Reason : CHEST PAIN Blood Pressure : / mmHG Vent. Rate : 084 BPM Atrial Rate : 084 BPM P-R Int : 156 ms QRS Dur : 090 ms QT Int : 366 ms P-R-T Axes : 055 045 010 degrees QTc Int : 432 ms Normal sinus rhythm ST & T wave abnormality, consider inferior ischemia Abnormal ECG When compared with ECG of 04-JUL-2021 13:49, No significant change was found Referred By: Generic ED Physician Electronically Signed By:JULIANNA JANE MD
[2022-08-29 03:09] LABS: MANUAL DIFF FLAG NO
[2022-08-29 03:13] LABS: Basophils Percent Auto 0.6 % (0-2); Eosinophils Absolute Auto 0.1 X10*3/uL (0.0-0.4); Eosinophils Percent Auto 1.6 % (0-4); Hematocrit 40.1 % (37.0-47.0); Hemoglobin 12.8 g/dl (12.0-16.0); Imm Gran Abs Auto 0.01 X10*3/uL (0.00-0.03); Imm Gran Pct Auto 0.2 % (0.0-0.4); Lymphocytes Percent Auto 31.6 % (20-40); Mean Corpuscular HGB Conc 31.9 g/dl (31.0-35.0); Mean Corpuscular Hemoglobin 26.7 pg (27.0-33.0); Mean Corpuscular Volume 83.5 fL (80.0-98.0); Mean Platelet Volume 9.9 fL (9.4-12.3); Monocytes Absolute Auto 0.6 X10*3/uL (0.1-1.2); Monocytes Percent Auto 8.6 % (2-11); Neutrophils Absolute Auto 3.7 x10*3/uL (2.0-8.3); Neutrophils Percent Auto 57.4 % (45-73); Platelet Count 235 X10*3/uL (160-400); Red Cell Distribution Width 13.2 % (11.0-16.0); White Blood Count 6.4 X10*3/uL (4.8-10.8)
[2022-08-29 03:27] LABS: Anion Gap 13 (12-20); Blood Urea Nitrogen 12 mg/dL (9-16); Calcium 9.4 mg/dL (8.4-10.2); Carbon Dioxide 24 mmol/L (22-29); Chloride 110 mmol/L (96-108); Creatinine Clr Calc Pharmacy 76.2; Estimated Glomerular Filt Rate > 60; Glucose Random 120 mg/dL (60-115); Potassium 3.7 mmol/L (3.3-5.1); Sodium 143 mmol/L (135-145)
[2022-08-29 06:14] VITALS: BP 135/67; PULSE 77; RESP 18; TEMP 36.6; O2SAT 98
--- NOTE | 2022-08-29 06:25 | ED.NAVMDI ---
HPI - Nausea/Vomiting/Diarrhea General Chief complaint: Abdominal Pain Stated complaint: Chest/Abd pain Rectal bleeding Time Seen by Provider: 08/29/22 06:22 Source: patient Mode of arrival: ambulatory Limitations: no limitations History of Present Illness HPI Narrative: 57-year-old female who presents emergency department for evaluation of abdominal pain, nausea, bloody stools. The patient states that she got sick yesterday around 07:00 hours. She states that she woke up and went to the bathroom and noticed diarrhea with bright red blood. She states she felt sweaty, dizzy and lightheaded. She had nausea with no vomiting. She then developed abdominal pain. She states the pain is located diffusely throughout her abdomen is increased in the left lower quadrant of her abdomen. The pain is a constant, cramping sensation which waxes and wanes in intensity. The pain is 9/10 at its worst. This is the patient's 1st episode of this type of abdominal pain with bloody diarrhea. She states she did check her blood pressure at home and it was normal. She also checked her glucose and it was normal at 128. She is also complaining of chest pain. She points to her right chest area when asked to localize the pain. States this sharp pain which is worse with breathing and with movement. She denied fever, chills, rhinorrhea, or sore throat. She denied shortness of breath, dyspnea on exertion, cough. She denied myalgias arthralgias. Related Data Home Medications Medication Instructions Recorded Confirmed zolpidem 10 mg tablet 10 mg PO BEDTIME 04/04/20 07/22/21 clonazepam 0.5 mg tablet 0.5 mg PO BEDTIME 07/04/21 07/22/21 duloxetine 20 mg capsule,delayed 0 mg PO 12/11/21 release Previous Rx's Medication Instructions Recorded epinephrine 0.3 mg/0.3 mL 0.3 mg (0.3 mL) IM ONCE PRN 07/01/21 injection, auto-injector (EpiPen anaphylaxis #2 ea 2-Abilio) nitroglycerin 0.4 mg sublingual 0.4 mg sublingual Q5M PRN chest 07/04/21 tablet pain #7 tabs bbnrlrfeep-khjaqytzmwmay-bensxizf 1 cap PO Q8H PRN for headache #10 09/26/21 50 mg-300 mg-40 mg capsule caps albuterol sulfate 90 mcg/actuation 2 inh inhalation Q6H PRN shortness 10/16/21 aerosol inhaler of breath or wheezing #8.5 grams lidocaine 5 % topical ointment 1 appl topical DAILY PRN pain #30 12/11/21 grams pantoprazole 40 mg tablet,delayed 40 mg PO DAILY #90 tabs 01/01/22 release acetaminophen 500 mg tablet 1,000 mg PO QID PRN fever or pain 03/25/22 (Tylenol Extra Strength) #14 tabs lisinopril 20 mg tablet 20 mg PO DAILY #90 tabs 04/01/22 fluticasone 250 mcg-salmeterol 50 1 ea inhalation QAM #60 ea 06/09/22 mcg/dose blistr powdr for inhalation (Wixela Inhub) cholecalciferol (vitamin D3) 1,250 1,250 mcg PO QWEEK 3 months #13 06/11/22 mcg (50,000 unit) capsule caps nabumetone 750 mg tablet 750 mg PO BID PRN pain #20 tabs 06/11/22 albuterol sulfate 2.5 mg/3 mL 2.5 mg (3 mL) inhalation Q6H PRN 06/17/22 (0.083 %) solution for nebulization shortness of breath or wheezing #75 mL atorvastatin 20 mg tablet 20 mg PO DAILY #90 tabs 06/27/22 topiramate 100 mg tablet 150 mg PO BEDTIME #135 tabs 06/27/22 Trulance 3 mg tablet (plecanatide) 3 mg PO DAILY #30 tabs 08/06/22 sucralfate 1 gram tablet (Carafate) 1 g PO BID #60 tabs 08/18/22 ciprofloxacin HCl 500 mg tablet 500 mg PO Q12H 7 days #14 tabs 08/29/22 (Cipro) metronidazole 500 mg tablet 500 mg PO TID 7 days #21 tabs 08/29/22 ondansetron 4 mg disintegrating 4 mg PO Q6-8H PRN nausea and 08/29/22 tablet vomiting #14 tabs oxycodone 5 mg tablet 5 mg PO Q4H PRN pain #10 tabs 08/29/22 Allergies Allergy/AdvReac Type Severity Reaction Status Date / Time crab [CRAB] Allergy Severe MOURH Verified 06/11/22 10:51 SWELLING cyclobenzaprine Allergy Severe SEIZURE Verified 06/11/22 10:51 [From FLEXERIL] ibuprofen [From MOTRIN] Allergy Intermediate ITCHING, Verified 06/11/22 10:51 severe abdominal pain morphine [Morphine] Allergy Intermediate ITCHING/REDNESS, Verified 06/11/22 10:51 rash Flexeril Allergy Unknown shakey Verified 06/11/22 10:51 Review of Systems Review of Systems: Yes all other systems are reviewed and are negative [facility] Past Medical History [facility] Narrative: Social history: She denies tobacco, alcohol and drug use. Medical History Allergic to shellfish Anxiety and depression Constipation Depressed Dyslipidemia Essential hypertension GERD (gastroesophageal reflux disease) Hx of renal calculi Insomnia Knee pain, right Migraine Mild intermittent asthma Osteoarthritis Type 2 diabetes mellitus without complication, without long-term current use of insulin Vitamin D deficiency Surgical History History of appendectomy History of partial hysterectomy Hx laparoscopic cholecystectomy Hx of total knee arthroplasty Family History Family History Father HTN (hypertension) Hyperlipidemia Lung cancer Mother HTN (hypertension) Hyperlipidemia Diabetes mellitus Social History Social History Housing: Apartment Alcohol intake: never Patient Tobacco Use Status: Never used Tobacco Smoked in Last 30 Days: No e-Cigarette/Vaping Use: Never Used Use of substances other than those prescribed or required for medical reasons: No Advance Directives: No Advance Directives Information Provided: Yes Patient : No service: No Current occupational status: unemployed Current occupation: [employer] Cognitive needs: No Hearing needs: No Vision needs: No Physical Exam Vital Signs: Vital Signs: Last Vital Signs Temp 97.8 F 08/29/22 06:14 Pulse 77 08/29/22 06:14 Resp 16 08/29/22 07:00 BP 135/67 08/29/22 06:14 Pulse Ox 98 08/29/22 06:14 O2 Del Method 08/29/22 06:14 BMI result Body Mass Index 27.1 Const: General: cooperative and no acute distress Orientation/consciousness: oriented to person and oriented to place Limitations: no limitations HEENT: Head: Yes normal to inspection, Yes normocephalic and Yes atraumatic Ears: external ears normal General nose exam: Normal external nose present Face and sinus: Yes normal facial exam Mouth: Normal oral and palatal mucosa present Throat: Yes posterior oropharynx normal Eyes: General: appearance normal, both eyes and all related structures Pupils: Equal, round and reactive pupils present Neck: Neck: Yes normal visual inspection, Yes no lymphadenopathy, Yes trachea midline and Yes supple Chest: Chest palpation & inspection: normal inspection of the chest and normal palpation of entire chest wall Resp: Effort & Inspection: normal respiratory effort and able to speak in complete sentences Auscultation: clear to auscultation bilaterally Cardio: Rate: regular rate Rhythm: regular rhythm Heart sounds: S1 normal heart sound present, S2 normal heart sound present and no murmurs GI: Inspection: Yes normal to inspection Palpation (GI): Soft to palpation, Tenderness to palpation present (GI) (Diffuse tenderness) in the LLQ (Moderate) and in the LUQ (Vucy-xh-syzkbngo) and no guarding Auscultation: normal bowel sounds Rectal Exam - Female: visual inspection normal, normal sphincter tone and Abnormal stool present (Watery, brown stool, no obvious blood) : General: Yes no CVA tenderness Back/Spine/Pelvis: Back: no CVA tenderness Skin: General skin exam: no rashes or lesions noted Neuro: General: oriented to person and oriented to place Cranial nerves: Yes Equal, round and reactive pupils present Cognition (Neuro): normal cognition Motor exam (neuro): 5/5 motor strength present throughout Extrem: General: Yes normal to inspection Psych: Appearance: grossly normal Speech and movement: Normal speech and movement present Affect: normal affect Attitude: cooperative Medications Administered Discontinued Medications Generic Name Dose Route Start Last Admin Trade Name Freq PRN Reason Stop Dose Admin Diphenhydramine HCl 25 mg 08/29/22 06:39 08/29/22 07:02 Diphenhydramine Hcl 50 Mg/Ml Vial IVPUSH 08/29/22 06:40 25 mg ONCE STA Administration Hydromorphone HCl 1 mg 08/29/22 06:39 08/29/22 07:00 Hydromorphone Hcl 1 Mg/Ml Syringe IVPUSH 08/29/22 06:40 1 mg ONCE STA Administration Protocol Sodium Chloride 1,000 mls @ 999 mls/hr 08/29/22 06:39 08/29/22 06:54 Ns IV 08/29/22 07:39 999 mls/hr .Q1H1M STA Administration Levofloxacin 500 mg 08/29/22 06:39 08/29/22 06:58 Levofloxacin 500 Mg Tablet PO 08/29/22 06:40 500 mg ONCE ONE Administration Metronidazole 500 mg 08/29/22 06:39 08/29/22 06:58 Metronidazole 500 Mg Tablet PO 08/29/22 06:40 500 mg ONCE ONE Administration Ondansetron HCl 4 mg 08/29/22 06:39 08/29/22 06:58 Ondansetron Hcl 4 Mg/2 Ml Vial IVPUSH 08/29/22 06:40 4 mg ONCE ONE Administration Medical Decision Making Medical Decision Making [facility] Narrative: 57-year-old female who presents emergency department for evaluation diffuse abdominal pain increased in the left lower abdomen with bloody diarrhea times multiple episodes, symptoms starting yesterday at 07:30 hours. Patient's vital signs were normal. Physical examination did reveal diffuse abdominal tenderness and increased left-sided and left lower quadrant tenderness. Rectal exam did reveal brown loose stool, this was sent for occult blood testing. 0649: Patient's physical examination did reveal diffuse abdominal tenderness with increased tenderness in left lower quadrant. Rectal exam revealed loose brown watery stool which was sent for occult testing. There was no external hemorrhoids or obvious blood noted in stool at this time. Patient's laboratory evaluation was unremarkable. Twelve EKG was unchanged from previous 1, high sensitive troponin I was detectable but not elevated-I do not think the patient's pain is caused by cardiac ischemia. The patient's CT scan of the abdomen pelvis without IV contrast is consistent with colitis pain. I did discuss this with the patient. The patient was treated with normal saline IV x1 L, Dilaudid 1 mg IV, Benadryl 25 mg IV and Zofran 4 mg IV. Patient was given Levaquin 500 mg orally and metronidazole 500 mg orally. Patient will be treated for nonspecific colitis with ciprofloxacin 500 mg q.12 hours x7 days and metronidazole 500 mg 3 times a day for 7 days. She was advised to take Tylenol for pain and pain not relieved by Tylenol she was prescribed oxycodone 5 mg every 4-6 hours as needed for pain. She was advised to follow-up with her PCP and her power builder developer for re-evaluation and return if her symptoms get worse. 0642: Stool Hemoccult test was negative. Patient states that her pain went from 10/10 to 5/10. She will be given a 2nd dose of Dilaudid 1 mg IV and discharged home. Differential Diagnosis Differential diagnosis includes was not limited to viral syndrome, viral colitis, bacterial colitis, inflammatory bowel disease, ischemic colitis, internal hemorrhoids, external hemorrhoids, STEMI, NSTEMI Lab Data MDM Lab Attestation statement: I reviewed the patient's lab results. My independent review the patient's laboratory evaluation is as follows: CBC was normal. CMP revealed an elevated chloride of 110 elevated glucose of 120. Troponin was detectable but not elevated at 13. 08/29/22 03:04 08/29/22 03:04 Labs: Lab Results 08/29/22 08/29/22 08/29/22 Range/Units 03:04 03:04 03:04 WBC 6.4 (4.8-10.8) X10*3/uL RBC 4.80 (4.20-5.50) X10*6/uL Hgb 12.8 (12.0-16.0) g/dl Hct 40.1 (37.0-47.0) % MCV 83.5 (80.0-98.0) fL MCH 26.7 L (27.0-33.0) pg MCHC 31.9 (31.0-35.0) g/dl RDW 13.2 (11.0-16.0) % Plt Count 235 (160-400) X10*3/uL MPV 9.9 (9.4-12.3) fL Immature Gran % (Auto) 0.2 (0.0-0.4) % Neut % (Auto) 57.4 (45-73) % Lymph % (Auto) 31.6 (20-40) % [place] % (Auto) 8.6 (2-11) % Eos % (Auto) 1.6 (0-4) % Baso % (Auto) 0.6 (0-2) % Lymph # (Auto) 2.0 (1.2-4.9) X10*3/uL [place] # (Auto) 0.6 (0.1-1.2) X10*3/uL Eos # (Auto) 0.1 (0.0-0.4) X10*3/uL Baso # (Auto) 0.0 (0.0-0.2) X10*3/uL Abs Immat Gran (auto) 0.01 (0.00-0.03) X10*3/uL Absolute Neuts (auto) 3.7 (2.0-8.3) x10*3/uL Absolute Nucleated RBC 0.000 (0.0-0.012) X10*3/uL Nucleated RBC % (auto) 0.0 (0.0-0.2) /100WBC Sodium 143 (135-145) mmol/L Potassium 3.7 (3.3-5.1) mmol/L Chloride 110 H (96-108) mmol/L Carbon Dioxide 24 (22-29) mmol/L Anion Gap 13 (12-20) BUN 12 (9-16) mg/dL Creatinine 0.76 (0.5-1.4) mg/dL Estim Creat Clear Calc 76.2 Estimated GFR > 60 Random Glucose 120 H (60-115) mg/dL Calcium 9.4 (8.4-10.2) mg/dL Troponin I High Sens 13.0 (<3.5-17.0) ng/L Stool Occult Blood (NEGATIVE) 08/29/22 Range/Units 06:42 WBC (4.8-10.8) X10*3/uL RBC (4.20-5.50) X10*6/uL Hgb (12.0-16.0) g/dl Hct (37.0-47.0) % MCV (80.0-98.0) fL MCH (27.0-33.0) pg MCHC (31.0-35.0) g/dl RDW (11.0-16.0) % Plt Count (160-400) X10*3/uL MPV (9.4-12.3) fL Immature Gran % (Auto) (0.0-0.4) % Neut % (Auto) (45-73) % Lymph % (Auto) (20-40) % [place] % (Auto) (2-11) % Eos % (Auto) (0-4) % Baso % (Auto) (0-2) % Lymph # (Auto) (1.2-4.9) X10*3/uL [place] # (Auto) (0.1-1.2) X10*3/uL Eos # (Auto) (0.0-0.4) X10*3/uL Baso # (Auto) (0.0-0.2) X10*3/uL Abs Immat Gran (auto) (0.00-0.03) X10*3/uL Absolute Neuts (auto) (2.0-8.3) x10*3/uL Absolute Nucleated RBC (0.0-0.012) X10*3/uL Nucleated RBC % (auto) (0.0-0.2) /100WBC Sodium (135-145) mmol/L Potassium (3.3-5.1) mmol/L Chloride (96-108) mmol/L Carbon Dioxide (22-29) mmol/L Anion Gap (12-20) BUN (9-16) mg/dL Creatinine (0.5-1.4) mg/dL Estim Creat Clear Calc Estimated GFR Random Glucose (60-115) mg/dL Calcium (8.4-10.2) mg/dL Troponin I High Sens (<3.5-17.0) ng/L Stool Occult Blood NEGATIVE (NEGATIVE) Independent Interpretation I performed an independent interpretation of an: EKG Interpretation: Twelve EKG done at 025: My independent interpretation is as follows, normal sinus rhythm rate of 84, normal AL interval, QRS duration QTC interval, no ST segment elevation, no ST segment depression, inverted T-wave in lead 1 and AVF and V1, no PACs, no PVCs. Compared to EKG dated 07/04/2021 inverted T-waves in lead 3, AVF and V1 are old. Radiology Impression Discussion of test interpretation with radiology: I have reviewed the radiologist's reading. Radiologist Impression: CT abdomen pelvis wo IV con IMPRESSION: 1. Fluid is present in the relatively collapsed descending colon, and a component of mild wall thickening from colitis is difficult to entirely exclude in this setting. 2. Punctate left renal calculus without hydronephrosis. Dictated By:Rafiq Morin MDSigned By:<Electronically signed by Rafiq Morin MD in [place]>08/29/22 0337 External Record Review External record reviewed: Other ([place] prescription monitoring program was reviewed, patient has had prescriptions for Zofran term and oxycodone in the past) Discharge Plan Discharge Clinical Impression: Colitis Patient Disposition: Home, Self-Care Additional Instructions: Your laboratory evaluation was unremarkable. The CT scan of your abdomen pelvis did reveal inflammation of your left descending colon which is consistent with colitis. Colitis can sometimes be caused by a bacterial infection therefore I am treating you with antibiotics Take ciprofloxacin 500 mg, 1 pill every 12 hours x7 days Take metronidazole 500 mg, 1 pill 3 times a day (every 6 hours while awake) for 7 days.. Take Tylenol (acetaminophen) 500 mg pills, 2 pills every 4-6 hours as needed for pain. For pain not relieved by Tylenol take oxycodone 5 mg pills, 1 pill every 4 hours as needed for pain. Do not drive or work while taking this medication since they can cause sleepiness. Oxycodone is a narcotic medication that can be addicting. If you are concerned about addiction you can ask the pharmacist for less pills or do not get this prescription filled. Follow-up with your doctor in 2 days. Please return to the emergency department if your symptoms get worse or if you develop any symptoms that are concerning to you. Prescriptions: New metronidazole 500 mg tablet 500 mg PO TID 7 Days Qty: 21 0RF ciprofloxacin HCl [Cipro] 500 mg tablet 500 mg PO Q12H 7 Days Qty: 14 0RF ondansetron 4 mg tablet,disintegrating 4 mg PO Q6-8H PRN (Reason: nausea and vomiting) Qty: 14 0RF oxycodone 5 mg tablet 5 mg PO Q4H PRN (Reason: pain) Qty: 10 0RF Rx Instructions: Patient may request partial fill; Partial Fill upon patient request. No Action zolpidem 10 mg tablet 10 mg PO BEDTIME cedanzbvog-cnefmzofhbfss-kdlg 50-300-40 mg capsule 1 cap PO Q8H PRN (Reason: for headache) Qty: 10 0RF albuterol sulfate 90 mcg/actuation HFA aerosol inhaler 2 inh inhalation Q6H PRN (Reason: shortness of breath or wheezing) Qty: 8.5 3RF pantoprazole 40 mg tablet,delayed release (DR/EC) 40 mg PO DAILY Qty: 90 2RF lisinopril 20 mg tablet 20 mg PO DAILY Qty: 90 1RF fluticasone propion-salmeterol [Wixela Inhub] 250-50 mcg/dose blister with device 1 ea inhalation QAM Qty: 60 5RF albuterol sulfate 2.5 mg /3 mL (0.083 %) solution for nebulization 2.5 mg inhalation Q6H PRN (Reason: shortness of breath or wheezing) Qty: 75 0RF atorvastatin 20 mg tablet 20 mg PO DAILY Qty: 90 1RF topiramate 100 mg tablet 150 mg PO BEDTIME Qty: 135 1RF Trulance 3 mg tablet 3 mg PO DAILY Qty: 30 0RF sucralfate [Carafate] 1 gram tablet 1 g PO BID Qty: 60 0RF acetaminophen [Tylenol Extra Strength] 500 mg tablet 1,000 mg PO QID PRN (Reason: fever or pain) Qty: 14 0RF clonazepam 0.5 mg tablet 0.5 mg PO BEDTIME nitroglycerin 0.4 mg tablet, sublingual 0.4 mg sublingual Q5M PRN (Reason: chest pain) Qty: 7 0RF Rx Instructions: do not exceed 3 doses per episode cholecalciferol (vitamin D3) 1,250 mcg (50,000 unit) capsule 1,250 mcg PO QWEEK 90 Days Qty: 13 0RF nabumetone 750 mg tablet 750 mg PO BID PRN (Reason: pain) Qty: 20 0RF epinephrine [EpiPen 2-Abilio] 0.3 mg/0.3 mL auto-injector 0.3 mg IM ONCE PRN (Reason: anaphylaxis) Qty: 2 1RF duloxetine 20 mg capsule,delayed release(DR/EC) 0 mg PO lidocaine 5 % ointment 1 appl topical DAILY PRN (Reason: pain) Qty: 30 0RF
--- NOTE | 2022-08-29 06:34 | PC.NURSE ---
Pt A&Ox4, reports 10/10 constant sharp L sided ABD pain, starting yesterday morning. Reports nausea, no vomiting. Reports last BM was last night and was black in color. States there was blood in her stool. Pt guarding ABD and tender to touch.
[2022-08-29 06:46] LABS: OBS Int Ctl Valid YES; OBS1 NEGATIVE (NEGATIVE)
[2022-08-29] MEDS: 0.9 % Sodium Chloride 1,000 ML 999 ML IV (06:54)
[2022-08-29] MEDS: metroNIDAZOLE 500 MG TABLET PO (06:58)
[2022-08-29] MEDS: ondansetron HCL 4 MG/2 ML VIAL IVPUSH (06:58)
[2022-08-29] MEDS: levoFLOXacin 500 MG TABLET PO (06:58)
[2022-08-29 07:00] VITALS: RESP 16
[2022-08-29] MEDS: HYDROmorphone HCl 1 MG/ML SYRINGE IVPUSH ×2 (07:00→08:25)
[2022-08-29] MEDS: diphenhydrAMINE HCL 50 MG/ML VIAL 25 MG IVPUSH ×2 (07:02→08:26)
[2022-08-29 08:29] LABS: Appearance Urine Clear; Color Urine Yellow; Glucose Urine UA Negative (Negative); Leukocyte Esterase Urine Negative (Negative); Nitrite Urine Negative (Negative); Specific Gravity - Urine <= 1.005 (1.005-1.025); Urine Blood Negative (Negative); Urine Ketones Negative (Negative); Urine Protein Negative (Neg-Trace)
[2022-08-29 08:41] VITALS: BP 145/70; PULSE 79; RESP 16; TEMP 36.6; O2SAT 97
== END 2022-08-29 09:00 | disposition home or self-care (01) ==
PROVIDERS: Nurse Practitioner Family; Emergency Provider Emergency Medicine Emergency Medical Services; PCP Internal Medicine
DX: K52.9 Noninfective gastroenteritis and colitis, unspecified (principal); R07.89 Other chest pain; R10.32 Left lower quadrant pain; Z79.899 Other long term (current) drug therapy
CPT/HCPCS: 36415; 71045; 74176; 80048; 81003; 82272; 84484; 85025; 93005; 96374; 96375; 96376; 99284; 99285; J1170; J1200; J2405

== ENCOUNTER 2022-09-11 09:59 | Outpatient (REF) | payer OTHER, SELFPAY ==
[2022-09-11 11:06] LABS: MANUAL DIFF FLAG NO
[2022-09-11 11:18] LABS: Basophils Percent Auto 0.8 % (0-2); Eosinophils Absolute Auto 0.2 X10*3/uL (0.0-0.4); Eosinophils Percent Auto 3.2 % (0-4); Hematocrit 42.3 % (37.0-47.0); Hemoglobin 13.4 g/dl (12.0-16.0); Imm Gran Abs Auto 0.01 X10*3/uL (0.00-0.03); Imm Gran Pct Auto 0.2 % (0.0-0.4); Lymphocytes Absolute Auto 1.7 X10*3/uL (1.2-4.9); Lymphocytes Percent Auto 35.4 % (20-40); Mean Corpuscular HGB Conc 31.7 g/dl (31.0-35.0); Mean Corpuscular Hemoglobin 26.9 pg (27.0-33.0); Mean Corpuscular Volume 84.9 fL (80.0-98.0); Mean Platelet Volume 10.4 fL (9.4-12.3); Monocytes Absolute Auto 0.4 X10*3/uL (0.1-1.2); Monocytes Percent Auto 8.4 % (2-11); Neutrophils Absolute Auto 2.5 x10*3/uL (2.0-8.3); Platelet Count 284 X10*3/uL (160-400); Red Blood Count 4.98 X10*6/uL (4.20-5.50); Red Cell Distribution Width 13.6 % (11.0-16.0); White Blood Count 4.8 X10*3/uL (4.8-10.8)
[2022-09-11 12:30] LABS: Vitamin D 25-OH Total 28.8 ng/mL (>30)
== END 2022-09-11 10:00 | disposition home or self-care (01) ==
LOC: HO.HMGCLDS 09:59
PROVIDERS: PCP Internal Medicine; Visit Provider Internal Medicine
DX: K52.9 Noninfective gastroenteritis and colitis, unspecified (principal); E55.9 Vitamin D deficiency, unspecified
CPT/HCPCS: 36415; 82306; 85025

== ENCOUNTER 2022-09-18 08:05 | Outpatient (REF) | payer OTHER, SELFPAY ==
--- NOTE | ~2022-09-18 | MM_ITS ---
EXAMINATION: MM SCREENING DIGITAL BREAST TOMOSYNTHESIS, BILATERAL CLINICAL INFORMATION: Screening. Asymptomatic. The lifetime risk of breast cancer based on the Tyrer-Cuzick Model is 4.3%. COMPARISON: Mammography: 06/27/2020 and studies dating back to 04/09/2012 TECHNIQUE: Digital breast tomosynthesis is performed in both the craniocaudal and mediolateral oblique views along with computer-aided detection (CAD). Synthesized 2D images are generated from the tomosynthesis. FINDINGS: The breasts are heterogeneously dense, which may obscure small masses (ACR BI-RADS breast composition Category c). There is a stable parenchymal pattern of the left breast. Within the superior aspect of the right breast on mediolateral oblique projection, there is an asymmetric density for which spot compression film in mediolateral oblique projection as well as 90 degree mediolateral view is recommended. MM/MM tomosynthesis screening BI IMPRESSION: Right breast density for further evaluation as described. ASSESSMENT: BI-RADS 0: Incomplete - Need Additional Imaging Evaluation RECOMMENDATION: Routine annual mammography screening. This patient's information was entered into a reminder system with a target due date for their next mammogram.
== END 2022-09-18 08:06 | disposition home or self-care (01) ==
LOC: HO.MAMMO 08:05
PROVIDERS: Visit Provider Internal Medicine
DX: Z12.31 Encounter for screening mammogram for malignant neoplasm of breast (principal)
CPT/HCPCS: 77063; 77067

== ENCOUNTER → 2022-09-19 13:56 | Outpatient (BNVA) | payer OTHER, SELFPAY | PROVIDERS: PCP Internal Medicine; Visit Provider Internal Medicine | DX: K62.5 Hemorrhage of anus and rectum (principal); R19.4 Change in bowel habit; R10.32 Left lower quadrant pain | CPT/HCPCS: 99202 ==

== ENCOUNTER 2022-09-19 15:01 | Outpatient (REF) | payer OTHER, SELFPAY ==
[2022-09-19 18:26] LABS: C Reactive Protein < 0.10 mg/dL (< or = 0.50)
== END 2022-09-19 15:02 | disposition home or self-care (01) ==
LOC: HO.LAB 15:01
PROVIDERS: PCP Internal Medicine; Visit Provider Internal Medicine
DX: R19.7 Diarrhea, unspecified (principal); R19.4 Change in bowel habit; K62.5 Hemorrhage of anus and rectum; R10.32 Left lower quadrant pain
CPT/HCPCS: 36415; 86140

== ENCOUNTER 2022-09-22 09:13 | Outpatient (REF) | payer OTHER, SELFPAY ==
[2022-09-28 18:59] LABS: Calprotectin, Fecal 34 mcg/g
== END 2022-09-22 09:14 | disposition home or self-care (01) ==
LOC: HO.LNP 09:13
PROVIDERS: Visit Provider Internal Medicine
DX: R19.7 Diarrhea, unspecified (principal)
CPT/HCPCS: 83993; 87507

== ENCOUNTER 2022-10-14 12:57 | Outpatient (REF) | payer OTHER, SELFPAY ==
--- NOTE | ~2022-10-14 | MM_ITS ---
EXAMINATION: MM DIAGNOSTIC DIGITAL BREAST TOMOSYNTHESIS, RIGHT CLINICAL INFORMATION: Density superior aspect mediolateral oblique view COMPARISON: Mammography: September 18, 2022 and studies dating back to July 07, 2014 TECHNIQUE: Digital breast tomosynthesis is performed. 2D images are generated from the tomosynthesis. The following views are obtained: 90 degree mediolateral view and spot compression mediolateral oblique view FINDINGS: The breasts are heterogeneously dense, which may obscure small masses (ACR BI-RADS breast composition Category c). Additional views show no significant mass, architectural abnormality, or abnormal calcifications. Results are provided to the patient at time of visit by the technologist. MM/MM tomosynthesis added views R IMPRESSION: No mammographic evidence of malignancy. ASSESSMENT: BI-RADS 1: Negative RECOMMENDATION: Routine annual mammography screening due in 12 months. This patient's information was entered into a reminder system with a target due date for their next mammogram.
== END 2022-10-14 12:58 | disposition home or self-care (01) ==
LOC: HO.MAMMO 12:57
PROVIDERS: PCP Internal Medicine; Visit Provider Internal Medicine
DX: R92.2 Inconclusive mammogram (principal)
CPT/HCPCS: 77061; 77065

== ENCOUNTER 2022-11-28 13:09 | Outpatient (AMB) | payer OTHER, SELFPAY ==
--- NOTE | 2022-11-28 13:13 | A.OFFPC_ITS ---
Vital Signs 11/28/22 13:46 Height 5 ft 3 in Weight 161 lb BMI 28.5 BP 138/86 Blood Pressure Location Lt brachial Position Sitting Pulse 79 Pulse Source Pulse Oximeter Pulse Oximetry (%) 97 Oxygen Delivery Method Room Air Intake Visit Reasons: 5 month f/u lipids, htn, arthritis, dm Intake Note: Pt is here today for her 5mo. f/u lipids, HTN arthritis and DM Allergies crab [CRAB] Allergy (Severe, Verified 08/04/23 08:59) MOURH SWELLING cyclobenzaprine [From FLEXERIL] Allergy (Severe, Verified 08/04/23 08:59) SEIZURE/shakey ibuprofen [From MOTRIN] Allergy (Intermediate, Verified 08/04/23 08:59) ITCHING, severe abdominal pain morphine [Morphine] Allergy (Intermediate, Verified 08/04/23 08:59) ITCHING/REDNESS, rash Medication List - Last Reconciled 11/28/22 by Rahel Diaz MD albuterol sulfate 90 mcg/actuation 2 inhalations inhalation Q6H PRN albuterol sulfate 2.5 mg (3 mL) inhalation Q6H PRN atorvastatin 20 mg PO DAILY zkawiurydl-tuplutibehxdj-vhgp 50-300-40 mg 1 cap PO Q8H PRN clonazepam 0.5 mg PO BEDTIME dicyclomine 10 mg PO TID PRN duloxetine 0 mg PO epinephrine (EpiPen 2-Abilio) 0.3 mg (0.3 mL) IM ONCE PRN fluticasone propion-salmeterol 250-50 mcg/dose (Wixela Inhub) 1 ea inhalation QAM lidocaine 5% 1 appl topical DAILY PRN lisinopril 20 mg PO DAILY nitroglycerin 0.4 mg sublingual Q5M PRN pantoprazole 40 mg PO DAILY peg 3350-electrolytes 236-22.74-6.74 -5.86 gram (Golytely) 240 mL PO Q10M sucralfate (Carafate) 1 g PO BID topiramate 150 mg (1.5 x 100 mg) PO BEDTIME Trulance (plecanatide) 3 mg PO DAILY NS zolpidem 10 mg PO BEDTIME Tobacco use date assessed: 11/28/22 HPI 5 month f/u lipids, htn, arthritis, dm HPI Details 58-year-old lady here today for follow-u p on her hyperlipidemia, hypertension, and diabetes mellitus. She has been compliant with taking medications, but admits to not getting regular exercise these past few months. She has been feeling well with no complaints at present time [facility] Medical History (Updated 08/12/23 @ 01:17 by Rahel Diaz MD) Osteoarthritis of right knee Acute hemorrhagic colitis Vitamin D deficiency Anxiety and depression Hx of renal calculi Allergic to shellfish Insomnia Mild intermittent asthma Type 2 diabetes mellitus without complication, without long-term current use of insulin Migraine GERD (gastroesophageal reflux disease) Osteoarthritis Essential hypertension Dyslipidemia Surgical History (Updated 08/11/23 @ 17:15 by Rahel Diaz MD) H/O colonoscopy History of total right knee replacement Hx laparoscopic cholecystectomy History of appendectomy Hx of total knee arthroplasty History of partial hysterectomy Family History Father HTN (hypertension) Hyperlipidemia Lung cancer Mother HTN (hypertension) Hyperlipidemia Diabetes mellitus Social History Housing: Apartment Alcohol intake: never Patient Tobacco Use Status: Never used Tobacco e-Cigarette/Vaping Use: Never Used service: No Current occupational status: unemployed Current occupation: [employer] Cognitive needs: No Hearing needs: No Vision needs: No Questionnaire Thrive Questionnaire Date Thrive assessed: 12/11/21 AUDIT C Alcohol Use Questionnaire (AUDIT-C) 1. How often do you have a drink containing alcohol?: Never Total Score: 0 RIMA-7 AMB Questionnaire RIMA-7 Date RIMA - 7 assessed: 12/11/21 Source: Developed by Drs. Claudio Courtney, Hannah Mullins, Simón Castro and colleagues, with an educational luis from [employer]. Review of Systems Const Denies fever(s), Denies headache(s) and Denies weakness Eyes Details: Goes to [facility] in [place] for her routine eye exam Denies change in vision ENT Denies dizziness, Denies headache(s), Denies nasal congestion, Denies nasal discharge and Denies sore throat Card Denies chest pain, Denies lightheadedness and Denies dyspnea Resp Denies chest congestion, Denies cough and Denies dyspnea GI Reports as per HPI, Denies abdominal pain, Reports bloating, Reports hematochezia (Due to hemorrhoids, when constipated) and Denies heartburn Denies hematuria, Denies difficulty voiding, Denies nocturia, Denies genital pruritis, Denies genital lesions, Denies nipple discharge, Denies urinary incontinence and Denies urinary urgency Musc Reports arthralgias (Recurrent in knees), Denies joint swelling and Reports stiffness Skin/Breast Denies breast pain, Denies breast mass and Denies nipple discharge Neuro Denies dizziness, Denies headache(s), Denies Sensory deficit (Neuro) and Denies weakness Psych Reports no additional complaints Endo Reports no additional complaints Hilton/Lymph Reports no additional complaints Aller/Immun Reports no additional complaints Physical exam (Primary Care) Vital Signs: Last Vital Signs Pulse 79 11/28/22 13:46 BP 138/86 11/28/22 13:46 Pulse Ox 97 11/28/22 13:46 Oxygen Delivery Method Room Air 11/28/22 13:46 BMI result Body Mass Index 28.5 Tobacco/Smoking Status: Tobacco use Status Tobacco use date assessed 11/28/22 11/28/22 13:52 Patient Tobacco Use Status Never used Tobacco 11/28/22 13:15 e-Cigarette/Vaping Use Never Used 11/28/22 13:15 Thrive Assessment: Date of Thrive Assessment Date Thrive assessed 12/11/21 11/28/22 13:15 Const Other: Alert oriented x3, in mild pain distress , ambulatory normal gait Orientation/consciousness: patient oriented x3 [facility] Mouth: Normal oral and palatal mucosa present, oropharynx normal and moist mucous membranes Eyes General: appearance normal, both eyes and all related structures Neck Neck: Yes full ROM, Yes no lymphadenopathy and Yes supple Chest Breast/axilla palpation: normal palpation of the breasts Resp Auscultation: clear to auscultation bilaterally Cardio Other: S1-S2 present regular rate and rhythm GI Other: Hypoactive bowel sounds, Palpation (GI): Soft to palpation, nontender, no guarding and no masses General: Yes no CVA tenderness Back/Spine/Pelvis Back: no CVA tenderness and No back tenderness Skin Lesions: no lesions Rashes: no rashes Neuro General: patient oriented x3, gait normal, tone normal, Normal light touch and pain sensation, no focal motor deficits and CN's II-XI intact bilaterally Sensory Exam: No Sensory deficit (Neuro) Extrem Other: Decreased range of motion of right knee joint due to pain and stiffness, no joint swelling seen Psych Appearance: grossly normal and well kempt Mental Status: mental status grossly normal Speech and movement: Normal speech and movement present Affect: normal affect Thought process: Normal thought process present Thought content: Normal thought content present Assessment and Plan Assessment & Plan (1) Essential hypertension: Code(s): I10 - Essential (primary) hypertension Plan: Blood pressure goal is less than 130/80. Continue with current medication. Reinforced importance of following a low sodium diet, getting regular exercise, and lowering stress levels. (2) Dyslipidemia: Code(s): E78.5 - Hyperlipidemia, unspecified Plan: Fasting lipid panel ordered today, continue with atorvastatin 20 mg daily in addition to adherence to low-cholesterol diet and getting at least 30 minutes of cardio exercise 3 to 4 times a week to begin with (3) Migraine: Code(s): G43.909 - Migraine, unspecified, not intractable, without status migrainosus Qualifiers: Migraine type: unspecified Status migrainosus presence: without status migrainosus Intractability: not intractable Qualified Code(s): G43.909 - Migraine, unspecified, not intractable, without status migrainosus Plan: Refill prescription sent for butalbital-acetaminophen and caffeine, to be taken only as needed for severe episodes of migraine/headache. Prescription refill sent for topiramate (4) Type 2 diabetes mellitus without complication, without long-term current use of insulin: Code(s): E11.9 - Type 2 diabetes mellitus without complications Plan: Fasting labs ordered. In the meantime continued on adherence to a low carb diet and getting regular exercise. (5) Mild intermittent asthma: Code(s): J45.20 - Mild intermittent asthma, uncomplicated Qualifiers: Asthma complication type: uncomplicated Qualified Code(s): J45.20 - Mild intermittent asthma, uncomplicated Plan: Continue albuterol inhaler as needed for episodes of bronchospasm and wheezing she also has albuterol solutions to use in her nebulizer. Medications: Refilled Trulance (plecanatide) 3 mg PO DAILY 30 tabs 5RF NS K59.00 - Constipation, unspecified topiramate 150 mg (1.5 x 100 mg) PO BEDTIME 135 tabs 1RF asoxfkswhc-uwzypxgihkhom-ikdx 50-300-40 mg 1 cap PO Q8H PRN 10 caps 0RF for headache Coding Level of Care Code Est Pt Level 4 (69750) Est Pt Prev Care 40-64y(52661) Diagnoses Essential hypertension I10 Dyslipidemia E78.5 Migraine without status migrainosus, not intractable, unspecified migraine type G43.909 Migraine type: unspecified Status migrainosus presence: without status migrainosus Intractability: not intractable Type 2 diabetes mellitus without complication, without long-term current use of insulin E11.9 Mild intermittent asthma without complication J45.20 Asthma complication type: uncomplicated
[2022-11-28 13:46] VITALS: BP 138/86; PULSE 79; O2SAT 97; BMI 28.5
== END 2022-11-28 14:45 | disposition home or self-care (01) ==
PROVIDERS: PCP Internal Medicine; Visit Provider Internal Medicine
DX: I10 Essential (primary) hypertension (principal); E78.5 Hyperlipidemia, unspecified; G43.909 Migraine, unspecified, not intractable, without status migrainosus; E11.9 Type 2 diabetes mellitus without complications; J45.20 Mild intermittent asthma, uncomplicated; Z00.01 Encounter for general adult medical examination with abnormal findings
CPT/HCPCS: 99214; 99499

== ENCOUNTER 2022-11-29 07:57 | Outpatient (REF) | payer OTHER, SELFPAY ==
[2022-11-29 11:47] LABS: Estimated Average Glucose 114 mg/dL; Hemoglobin A1c % 5.6 %
[2022-11-29 11:49] LABS: Alanine Aminotransferase 12 U/L (0-31); Anion Gap 12 (12-20); Aspartate Amino Transferase 22 U/L (5-31); Blood Urea Nitrogen 15 mg/dL (9-16); Calcium 9.8 mg/dL (8.4-10.2); Carbon Dioxide 23 mmol/L (22-29); Chloride 114 mmol/L (96-108); Cholesterol 182 mg/dL; Estimated Glomerular Filt Rate > 60; Glucose Fasting 134 mg/dL (60-99); HDL Cholesterol 57 mg/dL; LDL Cholesterol Calculated 107 mg/dl; Potassium 3.8 mmol/L (3.3-5.1); Sodium 145 mmol/L (135-145); Triglycerides 90 mg/dL
[2022-11-29 12:07] LABS: Vitamin D 25-OH Total 24.6 ng/mL (>30)
[2022-11-29 14:09] LABS: Creatinine Urine 175.89 mg/dL; Microalbum/Creatinine Ratio Ur 5.6 ug/mg cr
== END 2022-11-29 07:58 | disposition home or self-care (01) ==
LOC: HO.HMGCLDS 07:57
PROVIDERS: PCP Internal Medicine; Visit Provider Internal Medicine
DX: E11.9 Type 2 diabetes mellitus without complications (principal); E55.9 Vitamin D deficiency, unspecified; I10 Essential (primary) hypertension; K59.00 Constipation, unspecified; E78.5 Hyperlipidemia, unspecified
CPT/HCPCS: 36415; 80048; 80061; 82043; 82306; 83036; 84450; 84460

== ENCOUNTER 2023-01-01 07:46 | Day surgery (SDC) | payer OTHER, SELFPAY ==
[2022-12-29 11:34] VITALS: BMI 28.5
[2023-01-01 08:01] VITALS: BP 139/74; PULSE 71; RESP 16; TEMP 37.2; O2SAT 100; BMI 28.3
--- NOTE | 2023-01-01 08:35 | MHC.SHP ---
Pre-Procedural Eval Section A Date of Service: 01/01/23 Section B Chief Complaint: Change in bowel habits, BRBPR Details of Present Illness: PMH: Acute hemorrhagic colitis Allergic to shellfish Anxiety and depression Constipation Depressed Dyslipidemia Essential hypertension GERD (gastroesophageal reflux disease) Hx of renal calculi Insomnia Knee pain, right Migraine Mild intermittent asthma Osteoarthritis Type 2 diabetes mellitus without complication, without long-term current use of insulin Vitamin D deficiency Surgical History: History of appendectomy History of partial hysterectomy Hx laparoscopic cholecystectomy Hx of total knee arthroplasty Family History: Father HTN (hypertension) Hyperlipidemia Lung cancer Mother HTN (hypertension) Hyperlipidemia Diabetes mellitus Present Medications: see Short Stay Collaborative assessment History of Previous Operations: No relevant previous surgery Allergies: Allergies Allergy/AdvReac Type Severity Reaction Status Date / Time crab [CRAB] Allergy Severe MOURH Verified 11/28/22 13:57 SWELLING cyclobenzaprine Allergy Severe SEIZURE/sha Verified 12/31/22 12:35 [From FLEXERIL] godoy ibuprofen [From MOTRIN] Allergy Intermediate ITCHING, Verified 11/28/22 13:57 severe abdominal pain morphine [Morphine] Allergy Intermediate ITCHING/REDNESS, Verified 11/28/22 13:57 rash Review of Systems Review of Systems Comment: 10 point ROS negative Exam Exam Comment: Gen appear: No acute distress, well nourished Chest: No overt resp distress CVS: S1/S2, regular Abd: soft, nontender, nondistended Ext: no peripheral edema Plan Diagnosis/Plan: Unchanged I have reviewed the history and physical and performed a pertinent physical examination on my patient. No changes have occurred unless specified. Time Spent With Patient Time: Total time managing care of this patient today ____ minutes.
--- NOTE | 2023-01-01 09:38 | W.PM.OPN ---
Operative Note Operative Note Date of Service: 01/01/23 Narrative: Procedure: Colonoscopy Indication: Change in bowel habits, BRBPR Endoscopist: Echo Bansal MD Anesthesia Provider: Dr Shanon Cuba Anesthesia type: MAC Instrument: Olympus [id number]-H190L Consent: Indication, risks vs benefits, and alternatives were discussed with the patient who gave written informed consent to proceed. EKG, pulse, pulse oximetry and blood pressure were monitored throughout the procedure. Please see anesthesia flowsheet. Procedure: The patient was brought to the procedure room and placed in the left lateral decubitus position. IV medications were administered by the anesthesia provider in attendance. A digital rectal exam was performed which was abnormal due to finding of hemorrhoids. A distal attachment cap was then affixed to the tip of the scope and the colonoscope was then inserted through the anus and advanced through the colon to the cecum at 80 cm,and terminal ileum. Appendiceal orifice and ileocecal valve identified. Mucosa was carefully examined under high definition white light as the instrument was slowly withdrawn in a retrograde panoramic fashion. Retroflexion was performed in rectum. The procedure was not difficult. There were no immediate obvious complications. The quality of the prep was BBPS: 2+3+2 = adequate Withdrawal time 13 minutes. Limitations: No limitations. Findings: Mucosa: Normal to cecum and terminal ileum. Random multibite forceps biopsies were taken from right, left colon and rectum to r/o microscopic colitis Protruding lesions: Medium internal hemorrhoids [without] stigmata of recent bleeding. Impression: 1. Normal colon and terminal ileum mucosa (biopsy) 2.External and internal hemorrhoids Recommendations: - Follow path results. - Repeat colonoscopy in 10 years for asymptomatic CRC screening.
[2023-01-01 10:33] VITALS: BP 146/75; PULSE 76; RESP 16; TEMP 36.1; O2SAT 99
[2023-01-01 10:48] VITALS: BP 147/79; PULSE 67; RESP 16; TEMP 36.4; O2SAT 99
--- NOTE | 2023-01-01 13:30 | HO.ANESPROP2 ---
[facility], [facility] Active Problems Active Problems: All Active Problems (Updated 11/28/22 @ 14:12 by Rahel Diaz MD) Primary osteoarthritis of right hip (Acute) GERD (gastroesophageal reflux disease) (Acute) Vitamin D deficiency (Acute) Constipation (Acute) Anxiety and depression (Acute) Allergic to shellfish (Acute) Insomnia (Acute) Mild intermittent asthma (Acute) Type 2 diabetes mellitus without complication, without long-term current use of insulin (Acute) Migraine (Acute) GERD (gastroesophageal reflux disease) (Acute) Osteoarthritis (Acute) Essential hypertension (Acute) Dyslipidemia (Acute) Past Medical History Medical History (Updated 11/28/22 @ 14:12 by Rahel Diaz MD) Acute hemorrhagic colitis Allergic to shellfish Anxiety and depression Constipation Depressed Dyslipidemia Essential hypertension GERD (gastroesophageal reflux disease) Hx of renal calculi Insomnia Knee pain, right Migraine Mild intermittent asthma Osteoarthritis Type 2 diabetes mellitus without complication, without long-term current use of insulin Vitamin D deficiency Family History Family History Father HTN (hypertension) Hyperlipidemia Lung cancer Mother HTN (hypertension) Hyperlipidemia Diabetes mellitus Family history of problems with anesthesia: No Surgical History Surgical History (Updated 12/29/22 @ 11:33 by Ami Burris RN) H/O colonoscopy History of appendectomy History of partial hysterectomy History of total right knee replacement Hx laparoscopic cholecystectomy Hx of total knee arthroplasty History of Problems with Anesthesia: No Social History Social History Housing: Apartment Alcohol intake: never Patient Tobacco Use Status: Never used Tobacco e-Cigarette/Vaping Use: Never Used service: No Current occupational status: unemployed Current occupation: [employer] Cognitive needs: No Hearing needs: No Vision needs: No Meds Allergies Allergy/AdvReac Type Severity Reaction Status Date / Time crab [CRAB] Allergy Severe MOURH Verified 11/28/22 13:57 SWELLING cyclobenzaprine Allergy Severe SEIZURE/sha Verified 12/31/22 12:35 [From FLEXERIL] godoy ibuprofen [From MOTRIN] Allergy Intermediate ITCHING, Verified 11/28/22 13:57 severe abdominal pain morphine [Morphine] Allergy Intermediate ITCHING/REDNESS, Verified 11/28/22 13:57 rash Home Medications Medication Instructions Recorded Confirmed Last Taken Type zolpidem 10 mg tablet 10 mg PO BEDTIME 04/04/20 12/29/22 07/03/21 History clonazepam 0.5 mg tablet 0.5 mg PO BEDTIME 07/04/21 12/29/22 07/03/21 History duloxetine 20 mg capsule,delayed 40 mg PO DAILY 12/11/21 12/29/22 Unknown History release Exam Exam Date and Time: January 01, 2023 1330 Height,Weight and Vital Signs: Height 5 ft 3 in Weight 72.575 kg Last Vital Signs Temp 97.6 F 01/01/23 10:48 Pulse 67 01/01/23 10:48 Resp 16 01/01/23 10:48 BP 147/79 H 01/01/23 10:48 Pulse Ox 99 01/01/23 10:48 O2 Del Method Room Air 01/01/23 10:48 Airway Mallampati Class: II Neck ROM: Full Loose/Missing/Broken Teeth: No Heart: rr Lungs: cta Assessment and Plan Assessment Anesthesia Assessment: Anesthesia Plan Discussed Final Anesthetic Review Family History of Problems with Anesthesia: No History of Problems with Anesthesia: No NPO: Yes ASA Class: II Final Preanesthetic Review: No Changes in Pt Med Stat, Meds/Allgs Chart Reviewed, Consent Obtained/Reviewed and Anes Risks/Benef Reviewed Patient Risk: Low Procedure Risk: Low Anesthetic Plan Anesthetic Plan: MAC: Disposition: Standard PACU
== END 2023-01-01 10:59 | disposition home or self-care (01) ==
PROVIDERS: PCP Internal Medicine; Visit Provider Internal Medicine
PROC: 0DJD8ZZ Inspection of Lower Intestinal Tract, Via Natural or Artificial Opening Endoscopic (ICD-10-PCS; CPT 45378; principal; 2023-01-01 09:40)
DX: K62.5 Hemorrhage of anus and rectum (principal); R19.4 Change in bowel habit; K64.4 Residual hemorrhoidal skin tags; K64.8 Other hemorrhoids; I10 Essential (primary) hypertension; E11.9 Type 2 diabetes mellitus without complications; J45.20 Mild intermittent asthma, uncomplicated; Z86.010 Personal history of colon polyps
CPT/HCPCS: 45380; 88305

== ENCOUNTER 2023-01-19 09:16 | Outpatient (AMB) | payer OTHER, SELFPAY ==
--- NOTE | 2023-01-19 09:22 | A.OFFVIS_ITS ---
Intake Vital Signs 01/19/23 09:24 Height 5 ft 3 in Weight 158 lb 11.725 oz BMI 28.1 BP 128/61 Blood Pressure Location Lt brachial Position Sitting Pulse 73 Intake Visit Reasons: S/P [place]; Dr. Bansal Intake Note: Lyric presents in the office as a follow up colonoscopy. CC: She states that she has bloating all the time in her stomach. Past 4 days she has a BM in the AM - 2 days in a row there was blood in her stool. Blood in the toilet was bright red and she thinks she may have her internal hemorrhoids again. 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 Allergies crab [CRAB] Allergy (Severe, Verified 01/19/23 09:25) MOURH SWELLING cyclobenzaprine [From FLEXERIL] Allergy (Severe, Verified 01/19/23 09:25) SEIZURE/shakey ibuprofen [From MOTRIN] Allergy (Intermediate, Verified 01/19/23 09:25) ITCHING, severe abdominal pain morphine [Morphine] Allergy (Intermediate, Verified 01/19/23 09:25) ITCHING/REDNESS, rash HPI HPI Comments History of Present Illness Details This is a 57-year-old female with past medical history of GERD, colon polyps, type 2 diabetes, anxiety, hypertension, who was seen in the emergency room earlier this month for abdominal pain and hematochezia and found to have possible colitis. 09/19/22: Patient reports that her symptoms initially started back in June, when she had to cut short her trip to [place] due to severe abdominal pain with diarrhea. At that time, there was no blood in stool. Since then, she has continued to have intermittent abdominal cramping specially localized to the left lower quadrant. On the day of presentation to the hospital, her pain had gotten very severe, associated with nausea, chills and multiple episodes of loose bowel movements with blood in it. When she was seen in the emergency room, she was noted to be afebrile and vitally stable. Labs were significant for normal white count and Chem 7. CT abdomen and pelvis was done that was inconclusive due to collapsed colon. She was empirically treated for infectious colitis. Patient states that she felt minimally better with the antibiotics, and continues to have crampy abdominal pain. Diarrhea has resolved, but stools are softer than her baseline. Also continues to see blood streaked on top of the stools, and on wiping. Last colonoscopy October 2018: Terminal Ileum ? Not evaluated Cecum ? Patchy erythema in the right colon - random biopsies were obtained to check for microscopic colitis Ascending Colon ? Patchy erythema in the right colon - random biopsies were obtained Transverse Colon - A 2-3 mm sessile polyp removed with a cold biopsy Descending Colon ? Normal Sigmoid Colon ? Normal Rectum ? Normal Anorectum - Moderate internal hemorrhoids and hypertrophied anal papillae Colon preparation: Good after copious irrigation Path: normal colon mucosa. HP. 01/01/23: Colonoscopy: Impression: 1. Normal colon and terminal ileum mucosa (biopsy) 2.External and internal hemorrhoids Path: A.? Colon, right, biopsy:? Colonic mucosa within normal limits; negative for microscopic colitis. B.? Colon, left, biopsy:? Colonic mucosa within normal limits; negative for microscopic colitis. C.? Rectum, biopsy:? Rectal mucosa within normal limits; negative for microscopic colitis. 01/19/23: Reports intermittent bloating kiki after breakfast. Tries to eat mostly oatmeal as feels its easier on her stomach. Also avoiding spicy food for this reason. Cont to have intermittent diarrhea with BRBPR on wiping. [place] findings reviewd and pt reassured that no evidence of chronic inflammation noted on this exam. She does however have sizeable internal and external hemorrhoids. [facility] Medical History Acute hemorrhagic colitis Allergic to shellfish Anxiety and depression Constipation Depressed Dyslipidemia Essential hypertension GERD (gastroesophageal reflux disease) Hx of renal calculi Insomnia Knee pain, right Migraine Mild intermittent asthma Osteoarthritis Type 2 diabetes mellitus without complication, without long-term current use of insulin Vitamin D deficiency Surgical History H/O colonoscopy History of appendectomy History of partial hysterectomy History of total right knee replacement Hx laparoscopic cholecystectomy Hx of total knee arthroplasty Family History Father HTN (hypertension) Hyperlipidemia Lung cancer Mother HTN (hypertension) Hyperlipidemia Diabetes mellitus Social History Housing: Apartment Alcohol intake: never Patient Tobacco Use Status: Never used Tobacco e-Cigarette/Vaping Use: Never Used service: No Current occupational status: unemployed Current occupation: [employer] Cognitive needs: No Hearing needs: No Vision needs: No Review of Systems Const All systems reviewed & are unremarkable except as noted in HPI and below Physical Exam Vital Signs: Last Vital Signs Pulse 73 01/19/23 09:24 BP 128/61 01/19/23 09:24 BMI result Body Mass Index 28.1 Gen appear: NAD HEENT: nonicteric, no cervical lymphadenopathy Chest: CTA CVS: Regular S1/S2 Abd: soft, nontender, nondistended, bowel sounds + Ext: no peripheral edema Neuro: A/Ox3, noted to move all extremities spontaneously Psych: interacting appropriately Assessment & Plan Assessment & Plan (1) Rectal bleeding: Code(s): K62.5 - Hemorrhage of anus and rectum (2) Bloating: Code(s): R14.0 - Abdominal distension (gaseous) (3) Diarrhea: Code(s): R19.7 - Diarrhea, unspecified (4) Hemorrhoids: Code(s): K64.9 - Unspecified hemorrhoids Plan 1. Bloating and change in bowel habits: Sx of abd bloating with fluctuating diarrhea and constipation most consistent with IBS. She was again reassured re the normal findings on colo and path. Recommend fiber supplementation - can take soluble fiber to reduce bloating Low FODMAP diet reviewed IF sx persist despite above, can consider trial of Rifaximin 2. BRBPR Most likely 2/2 hemorrhoidal bleeding based on colo findings and clinical description. Again fiber supplementation will help Sitz baths Lidocaine-hydrocortisone topical cream Rxed to be applied MD at bedtime x 7-10 days Deferring referrak to surgery for now, will trial medical management first Follow up in 6 weeks. Medications: New lidocaine HCl-hydrocortison ac 3 %-2.5 % (7 gram) 1 appl MD BEDTIME 7 grams 0RF Coding Level of Care Code Est Pt Level 4 (45739) Diagnoses Rectal bleeding K62.5 Bloating R14.0 Diarrhea R19.7 Hemorrhoids K64.9
[2023-01-19 09:24] VITALS: BP 128/61; PULSE 73; BMI 28.1
== END 2023-01-19 09:50 | disposition home or self-care (01) ==
PROVIDERS: Visit Provider Internal Medicine
DX: K62.5 Hemorrhage of anus and rectum (principal); R14.0 Abdominal distension (gaseous); R19.7 Diarrhea, unspecified; K64.9 Unspecified hemorrhoids
CPT/HCPCS: 99214

== ENCOUNTER → 2023-01-19 09:16 | Outpatient (BNVA) | payer OTHER, SELFPAY | PROVIDERS: Visit Provider Internal Medicine | DX: K62.5 Hemorrhage of anus and rectum (principal); K64.9 Unspecified hemorrhoids; R14.0 Abdominal distension (gaseous); R19.7 Diarrhea, unspecified | CPT/HCPCS: 99212 ==

== ENCOUNTER 2023-03-31 13:19 | Outpatient (AMB) | payer OTHER, SELFPAY ==
[2023-03-31 14:00] VITALS: BP 132/68; PULSE 71; O2SAT 97; BMI 28.3
--- NOTE | 2023-03-31 14:00 | MHC.PC.OV ---
Vital Signs 03/31/23 14:00 Height 5 ft 3 in Weight 160 lb BMI 28.3 BP 132/68 Blood Pressure Location Rt brachial Position Sitting Pulse 71 Pulse Source Pulse Oximeter Pulse Oximetry (%) 97 Oxygen Delivery Method Room Air Intake Visit Reasons: Followup migraines Intake Note: patient is here today for migraine f/u Allergies crab [CRAB] Allergy (Severe, Verified 11/04/23 12:21) MOURH SWELLING cyclobenzaprine [From FLEXERIL] Allergy (Severe, Verified 11/04/23 12:21) SEIZURE/shakey ibuprofen [From MOTRIN] Allergy (Intermediate, Verified 11/04/23 12:21) ITCHING, severe abdominal pain morphine [Morphine] Allergy (Intermediate, Verified 11/04/23 12:21) ITCHING/REDNESS, rash Medication List - Last Reconciled 03/31/23 by Rahel Diaz MD albuterol sulfate 90 mcg/actuation 2 inhalations inhalation Q6H PRN albuterol sulfate 2.5 mg (3 mL) inhalation Q6H PRN atorvastatin 20 mg PO DAILY epnjkwipri-kgedajuxzifkj-zozl 50-300-40 mg 1 cap PO Q8H clonazepam 0.5 mg PO BEDTIME dicyclomine 10 mg PO TID PRN duloxetine 40 mg PO DAILY epinephrine (EpiPen 2-Abilio) 0.3 mg (0.3 mL) IM ONCE PRN ergocalciferol (vitamin D2) 1,250 mcg PO QWEEK fluticasone propion-salmeterol 250-50 mcg/dose (Wixela Inhub) 1 ea inhalation QAM lidocaine 5% 1 appl topical DAILY PRN lidocaine HCl-hydrocortison ac 3 %-2.5 % (7 gram) 1 appl MD BEDTIME lisinopril 20 mg PO DAILY nitroglycerin 0.4 mg sublingual Q5M PRN pantoprazole 40 mg PO DAILY PRN sucralfate (Carafate) 1 g PO BID topiramate 150 mg (1.5 x 100 mg) PO BEDTIME Trulance (plecanatide) 3 mg PO DAILY NS zolpidem 10 mg PO BEDTIME Tobacco use date assessed: 03/31/23 Dental Screening Dental Screen Date: 03/31/23 Did you have a dental visit in the last 12 months?: Yes Was dental information given to patient?: Patient has dentist HPI Followup migraines HPI Details 50-year-old lady with history of migraine headaches, here today for follow-up. She has been been having it more frequently and states that even taking Fioricet is not helping anymore. Denies any accompanying change in speech, no weakness, no numbness or tingling reported. [facility] Medical History (Updated 11/04/23 @ 12:23 by Rahel Diaz MD) Mild intermittent asthma with (acute) exacerbation Osteoarthritis of right knee Acute hemorrhagic colitis Vitamin D deficiency Anxiety and depression Hx of renal calculi Allergic to shellfish Insomnia Mild intermittent asthma Type 2 diabetes mellitus without complication, without long-term current use of insulin Migraine GERD (gastroesophageal reflux disease) Osteoarthritis Essential hypertension Dyslipidemia Surgical History H/O colonoscopy History of total right knee replacement Hx laparoscopic cholecystectomy History of appendectomy Hx of total knee arthroplasty History of partial hysterectomy Family History Father HTN (hypertension) Hyperlipidemia Lung cancer Mother HTN (hypertension) Hyperlipidemia Diabetes mellitus Social History Housing: Apartment Alcohol intake: never Patient Tobacco Use Status: Never used Tobacco e-Cigarette/Vaping Use: Never Used Advance Directives Date on File: 09/11/23 service: No Current occupational status: unemployed Current occupation: [employer] Cognitive needs: No Hearing needs: No Vision needs: No Questionnaire PHQ-9 Over the last 2 weeks, how often have you been bothered by any of the following problems? 1. Little interest or pleasure in doing things: several days 2. Feeling down, depressed, or hopeless: several days 3. Trouble falling or staying asleep, or sleeping too much: several days 4. Feeling tired or having little energy: several days 5. Poor appetite or overeating: several days 6. Feeling bad about yourself - or that you are a failure or have let yourself or your family down: several days 7. Trouble concentrating on things, such as reading the newspaper or watching television: several days 8. Moving or speaking so slowly that other people could have noticed. Or the opposite - being so fidgety or restless that you have been moving around a lot more than usual: several days 9. Thoughts that you would be better off or of hurting yourself in some way: not at all Total score: 8 Depression Screening Interpretation: Positive (Followed by Ramón Davis) Depression Screening Follow-up: Existing condition, In treatment and Community Mental Health Worker F/U Depression Screening Done: Yes 26243 - PHQ-9 Billing: Yes Source: Developed by Drs. Claudio Courtney, Hannah Mullins, Simón Castro and colleagues, with an educational luis from [employer]. Thrive Questionnaire Date Thrive assessed: 03/31/23 I am a: Patient What is your living situation today?: I have a steady place to live Within the past 12 months, did the food you bought not last and you didn't have the money to get more?: Never true Within the past 12 months, did you worry whether your food would run out before you got money to buy more?: Never true Do you have trouble paying for medicines?: No Do you have trouble getting transportation to medical appointments?: No Do you have trouble paying your heating and electricity bill?: No Do you have trouble taking care of your child, family member or friend?: No Do you have trouble with day-to-day activities such as bathing, preparing meals, shopping, managing finances, etc.?: No Are you currently unemployed and looking for a job?: No Are you interested in more education?: No Please select the resources that you would like help with: None AUDIT C Alcohol Use Questionnaire (AUDIT-C) 1. How often do you have a drink containing alcohol?: Never Total Score: 0 RIMA-7 AMB Questionnaire RIMA-7 Date IRMA - 7 assessed: 03/31/23 Feeling nervous, anxious, or on edge: 1 = Several days Not being able to stop or control worryin = Several days Worrying too much about different things: 1 = Several days Trouble relaxin = Several days Being so restless that it is hard to sit still: 0 = Not at all Becoming easily annoyed or irritable: 1 = Several days Feeling afraid as if something awful might happen: 1 = Several days Total RIMA-7 score (0-4 normal; 5-9 mild; 10-14 moderate; 15-21 severe): 6 Source: Developed by Drs. Claudio Courtney, Hannah Mullins, Simón Castro and colleagues, with an educational luis from [employer]. RIMA-7 Assessment Billing RIMA-7 Assessment Tool: RIMA-7 Assessment 76387 Review of Systems Const Denies fever(s) and Denies weakness Eyes Details: Goes to [facility] in [place] for her routine eye exam Denies change in vision ENT Denies dizziness, Denies nasal congestion, Denies nasal discharge and Denies sore throat Card Denies chest pain, Denies lightheadedness and Denies dyspnea Resp Denies chest congestion, Denies cough and Denies dyspnea Reports no additional complaints, Denies hematuria, Denies difficulty voiding, Denies nocturia, Denies genital pruritis, Denies genital lesions, Denies nipple discharge, Denies urinary incontinence and Denies urinary urgency Musc Reports arthralgias (Recurrent in knees), Denies joint swelling and Reports stiffness Skin/Breast Denies breast pain, Denies breast mass and Denies nipple discharge Neuro Denies dizziness, Denies Sensory deficit (Neuro) and Denies weakness Psych Reports no additional complaints Endo Reports no additional complaints Hilton/Lymph Reports no additional complaints Aller/Immun Reports no additional complaints Physical exam (Primary Care) Vital Signs: Last Vital Signs Pulse 71 03/31/23 14:00 BP 132/68 03/31/23 14:00 Pulse Ox 97 03/31/23 14:00 Oxygen Delivery Method Room Air 03/31/23 14:00 BMI result Body Mass Index 28.3 Tobacco/Smoking Status: Tobacco use Status Tobacco use date assessed 03/31/23 03/31/23 14:09 Patient Tobacco Use Status Never used Tobacco 03/31/23 14:09 e-Cigarette/Vaping Use Never Used 03/31/23 14:09 PHQ-9: PHQ-9 Score PHQ-9: Total score 8 03/31/23 14:43 Depression Screening Interpretation: Positive (Followed by Ramón Davis) Depression Screening Follow-up: Existing condition, In treatment and Community Mental Health Worker F/U Thrive Assessment: Date of Thrive Assessment Date Thrive assessed 03/31/23 03/31/23 14:43 Const Other: Alert oriented x3, in mild pain distress , ambulatory normal gait Orientation/consciousness: patient oriented x3 HENMT Mouth: Normal oral and palatal mucosa present, oropharynx normal and moist mucous membranes Eyes General: appearance normal, both eyes and all related structures Neck Neck: Yes full ROM, Yes no lymphadenopathy and Yes supple Chest Breast/axilla palpation: normal palpation of the breasts Resp Auscultation: clear to auscultation bilaterally Cardio Other: S1-S2 present regular rate and rhythm GI Palpation (GI): Soft to palpation, nontender, no guarding, no masses and No Rebound tenderness present General: Yes no CVA tenderness Back/Spine/Pelvis Back: no CVA tenderness and No back tenderness Skin Lesions: no lesions Rashes: no rashes Neuro General: patient oriented x3, gait normal, tone normal, Normal light touch and pain sensation, no focal motor deficits and CN's II-XI intact bilaterally Sensory Exam: No Sensory deficit (Neuro) Extrem Other: Decreased range of motion of right knee joint due to pain and stiffness, no joint swelling seen Psych Appearance: grossly normal and well kempt Mental Status: mental status grossly normal Speech and movement: Normal speech and movement present Affect: normal affect Thought process: Normal thought process present Thought content: Normal thought content present Assessment and Plan Assessment & Plan (1) Recurrent headache: Code(s): R51.9 - Headache, unspecified Plan: Patient states headaches no longer responding to Fioricet, or Tylenol. Will refer to neurology clinic for further evaluation management. (2) Migraine: Code(s): G43.909 - Migraine, unspecified, not intractable, without status migrainosus Plan: Patient states headaches no longer responding to Fioricet, or Tylenol. Will refer to neurology clinic for further evaluation management. Orders: Referrals Neurology Referral R51.9 - Headache, unspecified, G43.909 - Migraine, unspecified, not intractable, without status migrainosus Coding Level of Care Code Est Pt Level 4 (74920) Diagnoses Recurrent headache R51.9 Migraine G43.909 Additional Codes RIMA-7 Assessment Billing - RIMA-7 Assessment Tool: RIMA-7 Assessment 94537 ([id number])
== END 2023-03-31 14:53 | disposition home or self-care (01) ==
PROVIDERS: PCP Internal Medicine; Visit Provider Internal Medicine
DX: R51.9 Headache, unspecified (principal); G43.909 Migraine, unspecified, not intractable, without status migrainosus
CPT/HCPCS: 99499

== ENCOUNTER 2023-04-07 08:12 | Outpatient (AMB) | payer OTHER, SELFPAY ==
--- NOTE | 2023-04-07 09:03 | MHC.OFFWIV ---
Intake Vital Signs 04/07/23 09:04 Height 5 ft 3 in Weight 160 lb BMI 28.3 BP 132/80 Blood Pressure Location Lt brachial Position Sitting Pulse 76 Pulse Source Pulse Oximeter Temp 97.6 F Temp Source Temporal Artery Scan Pulse Oximetry (%) 98 Intake Visit Reasons: EP, Low back pain due to fall Intake Note: pt is here for c/o low back pain due to fall Patient Tobacco Use Status: Never used Tobacco Allergies crab [CRAB] Allergy (Severe, Verified 04/07/23 09:36) MOURH SWELLING cyclobenzaprine [From FLEXERIL] Allergy (Severe, Verified 04/07/23 09:36) SEIZURE/shakey ibuprofen [From MOTRIN] Allergy (Intermediate, Verified 04/07/23 09:36) ITCHING, severe abdominal pain morphine [Morphine] Allergy (Intermediate, Verified 04/07/23 09:36) ITCHING/REDNESS, rash Medication List - Last Reconciled 04/07/23 by Dima Garcia MD albuterol sulfate 90 mcg/actuation 2 inhalations inhalation Q6H PRN albuterol sulfate 2.5 mg (3 mL) inhalation Q6H PRN atorvastatin 20 mg PO DAILY qiakvtghwb-qwlqsjglykijt-htgx 50-300-40 mg 1 cap PO Q8H clonazepam 0.5 mg PO BEDTIME dicyclomine 10 mg PO TID PRN duloxetine 40 mg PO DAILY epinephrine (EpiPen 2-Abilio) 0.3 mg (0.3 mL) IM ONCE PRN ergocalciferol (vitamin D2) 1,250 mcg PO QWEEK fluticasone propion-salmeterol 250-50 mcg/dose (Wixela Inhub) 1 ea inhalation QAM lidocaine 5% 1 appl topical DAILY PRN lidocaine HCl-hydrocortison ac 3 %-2.5 % (7 gram) 1 appl NV BEDTIME lisinopril 20 mg PO DAILY meloxicam 15 mg PO DAILY nitroglycerin 0.4 mg sublingual Q5M PRN pantoprazole 40 mg PO DAILY PRN sucralfate (Carafate) 1 g PO BID topiramate 150 mg (1.5 x 100 mg) PO BEDTIME Trulance (plecanatide) 3 mg PO DAILY NS zolpidem 10 mg PO BEDTIME Do you need a note to return to daycare/school/sports/work: Yes HPI EP, Low back pain due to fall HPI Details 58-year-old female presents to the office for a sick visit. Four days ago, patient tripped and fell and landed on her back. She could get up without assistance and walk without any limp. She has noticed a bruise over her right buttock and she would like it examined. Complaining of pain in the lower back. [facility] Medical History (Updated 03/31/23 @ 14:29 by Rahel Diaz MD) Recurrent headache Acute hemorrhagic colitis Vitamin D deficiency Constipation Anxiety and depression Hx of renal calculi Allergic to shellfish Depressed Knee pain, right Insomnia Mild intermittent asthma Type 2 diabetes mellitus without complication, without long-term current use of insulin Migraine GERD (gastroesophageal reflux disease) Osteoarthritis Essential hypertension Dyslipidemia Surgical History H/O colonoscopy History of total right knee replacement Hx laparoscopic cholecystectomy History of appendectomy Hx of total knee arthroplasty History of partial hysterectomy Family History Father HTN (hypertension) Hyperlipidemia Lung cancer Mother HTN (hypertension) Hyperlipidemia Diabetes mellitus Social History Housing: Apartment Alcohol intake: never Patient Tobacco Use Status: Never used Tobacco e-Cigarette/Vaping Use: Never Used service: No Current occupational status: unemployed Current occupation: [employer] Cognitive needs: No Hearing needs: No Vision needs: No Physical Exam Vital Signs: Last Vital Signs Temp 97.6 F 04/07/23 09:04 Pulse 76 04/07/23 09:04 BP 132/80 04/07/23 09:04 Pulse Ox 98 04/07/23 09:04 BMI result Body Mass Index 28.3 Const General: cooperative and healthy appearing Nutritional Appearance: well nourished Orientation/consciousness: patient oriented x3 Limitations: no limitations HEENT Head: Yes normal to inspection Eyes General: appearance normal, both eyes and all related structures Neck Neck: Yes normal visual inspection Chest Chest palpation & inspection: normal palpation of entire chest wall Resp Effort & Inspection: normal respiratory effort Skin Other: Right buttock: Large bruise. Range of motion: Right hip: Full, including flexion extension internal and external rotation. Neuro General: patient oriented x3 Assessment & Plan Assessment & Plan (1) Contusion of hip, right: Code(s): S70.01XA - Contusion of right hip, initial encounter Qualifiers: Encounter type: initial encounter Qualified Code(s): S70.01XA - Contusion of right hip, initial encounter Plan: Meloxicam has been added to the regimen. Skin bruising will take time to resolve. If symptoms do not improve to follow-up here. Patient gives allergies to cyclobenzaprine and therefore muscle relaxant was not ordered. Medications: New meloxicam 15 mg PO DAILY 14 tabs 0RF Coding Level of Care Code Est Pt Level 3 (24288) Diagnoses Contusion of hip, right S70.01XA Encounter type: initial encounter
[2023-04-07 09:04] VITALS: BP 132/80; PULSE 76; TEMP 36.4; O2SAT 98; BMI 28.3
== END 2023-04-07 09:41 | disposition home or self-care (01) ==
PROVIDERS: PCP Internal Medicine; Visit Provider Internal Medicine
DX: S70.01XA Contusion of right hip, initial encounter (principal)
CPT/HCPCS: 99213

== ENCOUNTER 2023-05-13 08:53 | Emergency (ER) | payer OTHER, SELFPAY ==
--- NOTE | ~2023-05-13 | XR_ITS ---
EXAMINATION: XR CHEST CLINICAL INFORMATION: Shortness of breath COMPARISON: 08/29/2022 TECHNIQUE: 2 views of the chest were obtained. FINDINGS: Lungs clear. No pleural effusions. Heart and great vessels are normal. Surgical clips are seen in the right upper quadrant. XR/XR chest 2V IMPRESSION: No active disease.
[2023-05-13 08:59] VITALS: BP 142/74; PULSE 88; RESP 18; TEMP 37.4; O2SAT 99; BMI 29.0
--- NOTE | 2023-05-13 09:01 | ED.GENADULT ---
HPI - General Adult General Chief complaint: Upper Respiratory Symptoms Stated complaint: Back pain, trouble breathing - asthma Time Seen by Provider: 05/13/23 09:00 Source: patient Mode of arrival: ambulatory Limitations: no limitations History of Present Illness HPI narrative: Patient is a 58 year old assigned female at with a history of asthma and GERD presenting to the emergency department today with left sided back pain and wheezing. Patient states that over the last 3 weeks she has had intermittent left sided back pain worse with movement and the last few days she has had increased wheezing. Patient denies any dizziness, lightheadedness, abdominal pain, nausea, vomiting, fever, chills, blurry vision, double vision, loss of vision, chest pain, night sweats, pain with urination, increased urinary frequency, increased urinary urgency, blood in her urine or stool, syncope or a near syncopal episode, recent trauma or falls, bowel incontinence, bladder incontinence, bowel retention, bladder retention, or any other complaints at this time. Onset (ago): week(s) (3) Location: back Severity: mild Severity scale (1-10): 3 Quality: aching and dull Pain Consistency: intermittent Relieving factors: none Exacerbating factors: movement Associated symptoms: shortness of breath Treatments prior to arrival: none Related Data Home Medications Medication Instructions Recorded Confirmed zolpidem 10 mg tablet 10 mg PO BEDTIME 04/04/20 12/29/22 clonazepam 0.5 mg tablet 0.5 mg PO BEDTIME 07/04/21 12/29/22 duloxetine 20 mg capsule,delayed 40 mg PO DAILY 12/11/21 12/29/22 release ergocalciferol (vitamin D2) 1,250 1,250 mcg PO QWEEK 01/19/23 mcg (50,000 unit) capsule Previous Rx's Medication Instructions Recorded epinephrine 0.3 mg/0.3 mL 0.3 mg (0.3 mL) IM ONCE PRN 07/01/21 injection, auto-injector (EpiPen anaphylaxis #2 ea 2-Abilio) nitroglycerin 0.4 mg sublingual 0.4 mg sublingual Q5M PRN chest 07/04/21 tablet pain #7 tabs lidocaine 5 % topical ointment 1 appl topical DAILY PRN pain #30 12/11/21 grams albuterol sulfate 2.5 mg/3 mL 2.5 mg (3 mL) inhalation Q6H PRN 06/17/22 (0.083 %) solution for nebulization shortness of breath or wheezing #75 mL sucralfate 1 gram tablet (Carafate) 1 g PO BID #60 tabs 09/14/22 dicyclomine 10 mg capsule 10 mg PO TID PRN Abd cramping #20 09/19/22 caps lisinopril 20 mg tablet 20 mg PO DAILY #90 tabs 10/23/22 Trulance 3 mg tablet (plecanatide) 3 mg PO DAILY #30 tabs 11/28/22 topiramate 100 mg tablet 150 mg (1.5 x 100 mg) PO BEDTIME 11/28/22 #135 tabs fluticasone 250 mcg-salmeterol 50 1 ea inhalation QAM #60 ea 12/20/22 mcg/dose blistr powdr for inhalation (Wixela Inhub) atorvastatin 20 mg tablet 20 mg PO DAILY #90 tabs 01/01/23 lidocaine 3 %-hydrocortisone 2.5 % 1 appl DE BEDTIME #7 grams 01/19/23 (7 gram) rectal gel pantoprazole 40 mg tablet,delayed 40 mg PO DAILY PRN Heartburn 04/02/23 release symptoms #90 tabs meloxicam 15 mg tablet 15 mg PO DAILY #14 tabs 04/07/23 albuterol sulfate 90 mcg/actuation 2 inh inhalation Q6H PRN shortness 04/26/23 aerosol inhaler of breath or wheezing #8.5 grams [id number]-[id number] 1 cap PO Q8H for headache #10 caps 04/28/23 50 mg-300 mg-40 mg capsule cyclobenzaprine 5 mg tablet 5 mg PO TID PRN muscle spasm 7 05/13/23 days #21 tabs prednisone 20 mg tablet 20 mg PO DAILY 7 days #7 tabs 05/13/23 Allergies Allergy/AdvReac Type Severity Reaction Status Date / Time crab [CRAB] Allergy Severe MOURH Verified 04/07/23 09:36 SWELLING cyclobenzaprine Allergy Severe SEIZURE/sha Verified 04/07/23 09:36 [From FLEXERIL] godoy ibuprofen [From MOTRIN] Allergy Intermediate ITCHING, Verified 04/07/23 09:36 severe abdominal pain morphine [Morphine] Allergy Intermediate ITCHING/REDNESS, Verified 04/07/23 09:36 rash Review of Systems Constitutional: Constitutional: Reports no additional constitutional complaints, Denies chills, Denies fever(s) and Denies night sweats Eyes: Eyes: Reports no additional eye complaints, Denies blurry vision, Denies change in vision, Denies diplopia, Denies eye discharge, Denies loss of vision and Denies eye pain ENT: Denies dizziness Cardiovascular: Cardiovascular: Reports no additional cardiovascular complaints, Denies chest pain, Denies lightheadedness and Denies Loss of Consciousness Respiratory: Respiratory: Reports no additional respiratory complaints and Reports wheezing Gastrointestinal: Gastrointestinal: Reports no additional gastrointestinal complaints, Denies abdominal pain, Denies melena, Denies hematochezia, Denies change in bowel habits and Denies change in stool character Genitourinary: Genitourinary: Denies hematuria, Denies urinary frequency, Denies dysuria, Denies urinary incontinence, Denies urinary hesitancy and Denies urinary urgency Musculoskeletal: Musculoskeletal: Reports no additional musculoskeletal complaints, Reports back pain, Denies numbness and Denies tingling Neurologic: Denies dizziness, Denies loss of vision, Denies numbness and Denies tingling Psychiatric: Psychiatric: Reports no additional psychiatric complaints Endocrine: Endocrine: Reports no additional endocrine complaints Hematologic/Lymphatic: Hematologic/Lymphatic: Reports no additional hematologic/lymphatic complaints Allergic/Immunologic: Allergic/Immunologic: Reports no additional allergic/immunologic complaints and Reports wheezing PMFSH Past Medical History Attestation statement: The following information was validated with the patient. Source: old records reviewed and nursing notes reviewed Medical History Diarrhea Bloating Recurrent headache Acute hemorrhagic colitis Vitamin D deficiency Constipation Anxiety and depression Hx of renal calculi Allergic to shellfish Depressed Knee pain, right Insomnia Mild intermittent asthma Type 2 diabetes mellitus without complication, without long-term current use of insulin Migraine GERD (gastroesophageal reflux disease) Osteoarthritis Essential hypertension Dyslipidemia Surgical History H/O colonoscopy History of total right knee replacement Hx laparoscopic cholecystectomy History of appendectomy Hx of total knee arthroplasty History of partial hysterectomy Family History Family History Father HTN (hypertension) Hyperlipidemia Lung cancer Mother HTN (hypertension) Hyperlipidemia Diabetes mellitus Social History Social History Housing: Apartment Alcohol intake: never Patient Tobacco Use Status: Never used Tobacco Smoked in Last 30 Days: No e-Cigarette/Vaping Use: Never Used Use of substances other than those prescribed or required for medical reasons: No Advance Directives: No Advance Directives Information Provided: Yes service: No Current occupational status: unemployed Current occupation: [employer] Cognitive needs: No Hearing needs: No Vision needs: No Physical Exam ED Vital Signs: Vital Signs - 24 hr 05/13/23 08:59 05/13/23 09:02 05/13/23 09:46 Temperature 99.3 F Pulse Rate 88 80 Respiratory Rate 18 22 H Blood Pressure 142/74 H Pulse Oximetry 99 99 Oxygen Delivery Method Room Air Room Air 05/13/23 10:00 Temperature Pulse Rate Respiratory Rate 18 Blood Pressure Pulse Oximetry 97 Oxygen Delivery Method Room Air BMI result Body Mass Index 29.0 Const General: cooperative, no acute distress, alert and awake Nutritional Appearance: well nourished Orientation/consciousness: patient oriented x3 Limitations: no limitations HENMT Head: Yes normal to inspection and Yes atraumatic Ears: hearing grossly normal bilaterally and external ears normal General nose exam: Normal external nose present, no nasal discharge noted and no epistaxis Face and sinus: Yes normal facial exam, No abrasion and No laceration Mouth: Normal oral and palatal mucosa present, no drooling and no muffled voice Eyes General: appearance normal, both eyes and all related structures Periorbital: periorbital findings normal Eyelids: Yes eyelids normal Conjunctivae: conjunctivae normal Pupils: Equal, round and reactive pupils present EOM: EOMs intact bilaterally Neck Neck: Yes normal visual inspection, Yes full ROM and Yes no lymphadenopathy Chest Chest palpation & inspection: normal inspection of the chest Resp Effort & Inspection: normal respiratory effort and able to speak in complete sentences Auscultation: wheezes throughout Cardio Rate: regular rate Rhythm: regular rhythm GI Inspection: Yes normal to inspection General: Yes no CVA tenderness Back/Spine/Pelvis Back: no CVA tenderness Cervical Spine: normal cervical lordosis and cervical ROM normal Thoracic/Lumbar Spine: thoracic and lumbar spine normal to inspection and thoraco-lumbar ROM normal Neuro General: patient oriented x3 and moves all extremities Cranial nerves: Yes Equal, round and reactive pupils present Cognition (Neuro): normal cognition Motor exam (neuro): 5/5 motor strength present throughout Sensory Exam: Normal double simultaneous stimulation for sensation Coordination: [id number] test normal Extrem General: Yes normal to inspection, Yes full ROM and Yes capillary refill normal Psych Appearance: grossly normal Mental Status: mental status grossly normal Affect: normal affect Attitude: cooperative Thought process: Normal thought process present Thought content: Normal thought content present Insight: Good insight present (Psych) Medications Administered Discontinued Medications Generic Name Dose Route Start Last Admin Trade Name Levi PRN Reason Stop Dose Admin Albuterol Sulfate 2.5 mg/ 0 mg 05/13/23 09:20 05/13/23 09:27 Albuterol/Ipratropium 3 ml INHALE 05/13/23 09:21 2 dose ONCE ONE Administration Ketorolac Tromethamine 15 mg 05/13/23 09:09 05/13/23 09:24 Ketorolac Tromethamine 15 Mg/Ml Vial IM 05/13/23 09:10 15 mg ONCE ONE Administration Methylprednisolone Sodium Succinate 60 mg 05/13/23 09:09 05/13/23 09:24 Methylprednisolone Sod Succ 125 Mg/2 Ml Vial IM 05/13/23 09:10 60 mg ONCE ONE Administration Medical Decision Making Medical Decision Making [facility] Narrative: Patient is a 58 year old assigned female at with a history of asthma and GERD presenting to the emergency department today with intermittent left sided back pain and increased wheezing. Patient's physical exam was as noted in the physical exam portion of this note. Patient's chest x-ray showed no acute process. Patient's COVID/RSV/Influenza test was negative. I explained my physical exam findings as well as all test results to the patient. I answered all questions asked by the patient. Patient received IM toradol, solu-medrol, and a breathing treatment which she stated helped her symptoms significantly. I stressed the importance of the patient taking her medication as prescribed. I stressed the importance of the patient following up with her primary care provider. I stressed the importance of the patient returning to the emergency department immediately if her symptoms were to worsen or if she were to develop any dizziness, shortness of breath, difficulty breathing, chest pain, blurry vision, loss of vision, nausea, vomiting, abdominal pain, fever, chills, back pain, or any other complaints. Patient verbalized agreement and understanding with this treatment plan and discharge. Differential Diagnosis Differential Diagnoses: The differential diagnosis associated with the presentation includes Back pain Muscle spasm Asthma exacerbation COVID-19 RSV Influenza Admission/Observation Consideration of admission/observation: Escalation of care including admission/observation considered Patient would have been admitted to the hospital had her work up had any findings where hospital admission was appropriate and her clinical presentation warranted hospital admission. Lab Data MDM Lab Attestation statement: I reviewed the patient's lab results. My interpretation of these studies and their corresponding values is that they are grossly normal. Labs: Lab Results 05/13/23 Range/Units 09:21 Influenza Type A (PCR) NEGATIVE (Negative) Influenza Type B (PCR) NEGATIVE (Negative) RSV RNA Qual (PCR) NEGATIVE (Negative) SARS-CoV-2 RNA (RT-PCR) NEGATIVE (Negative) Independent Interpretation I performed an independent interpretation of an: Plain X-Ray Interpretation: My interpretation is in agreement with the radiologist's impression of this imaging study. EXAMINATION: XR CHEST CLINICAL INFORMATION: Shortness of breath COMPARISON: 08/29/2022 TECHNIQUE: 2 views of the chest were obtained. FINDINGS: Lungs clear. No pleural effusions. Heart and great vessels are normal. Surgical clips are seen in the right upper quadrant. XR/XR chest 2V IMPRESSION: No active disease. Dictated By: Garry Waller MD Signed By: Electronically signed by Garry Waller MD 05/13/23 1100 Radiology Impression Discussion of test interpretation with radiology: I have reviewed the radiologist's reading. Prescription Management I considered prescription management with: Pain Medication (patient prescribed pain medication.) and Other (patient prescribed prednisone.) Discharge Plan Discharge Clinical Impression: Mild intermittent asthma, Back pain Patient Disposition: Home, Self-Care Instructions: Back Pain (ED) Additional Instructions: Follow up with your primary care provider. Return to the emergency department immediately if your symptoms worsen or if you develop any dizziness, shortness of breath, difficulty breathing, chest pain, blurry vision, loss of vision, nausea, vomiting, abdominal pain, fever, chills, back pain, or any other complaints. Prescriptions: New cyclobenzaprine 5 mg tablet 5 mg PO TID PRN (Reason: muscle spasm) 7 Days Qty: 21 0RF prednisone 20 mg tablet 20 mg PO DAILY 7 Days Qty: 7 0RF No Action zolpidem 10 mg tablet 10 mg PO BEDTIME albuterol sulfate 2.5 mg /3 mL (0.083 %) solution for nebulization 2.5 mg inhalation Q6H PRN (Reason: shortness of breath or wheezing) Qty: 75 0RF sucralfate [Carafate] 1 gram tablet 1 g PO BID Qty: 60 0RF lisinopril 20 mg tablet 20 mg PO DAILY Qty: 90 3RF fluticasone propion-salmeterol [Wixela Inhub] 250-50 mcg/dose blister with device 1 ea inhalation QAM Qty: 60 5RF atorvastatin 20 mg tablet 20 mg PO DAILY Qty: 90 1RF pantoprazole 40 mg tablet,delayed release (DR/EC) 40 mg PO DAILY PRN (Reason: Heartburn symptoms) Qty: 90 0RF albuterol sulfate 90 mcg/actuation HFA aerosol inhaler 2 inh inhalation Q6H PRN (Reason: shortness of breath or wheezing) Qty: 8.5 3RF dhiejftefd-amuujutwufgjm-cjxm 50-300-40 mg capsule 1 cap PO Q8H Qty: 10 0RF clonazepam 0.5 mg tablet 0.5 mg PO BEDTIME nitroglycerin 0.4 mg tablet, sublingual 0.4 mg sublingual Q5M PRN (Reason: chest pain) Qty: 7 0RF Rx Instructions: do not exceed 3 doses per episode Trulance 3 mg tablet 3 mg PO DAILY Qty: 30 5RF topiramate 100 mg tablet 150 mg PO BEDTIME Qty: 135 1RF epinephrine [EpiPen 2-Abilio] 0.3 mg/0.3 mL auto-injector 0.3 mg IM ONCE PRN (Reason: anaphylaxis) Qty: 2 1RF duloxetine 20 mg capsule,delayed release(DR/EC) 40 mg PO DAILY lidocaine 5 % ointment 1 appl topical DAILY PRN (Reason: pain) Qty: 30 0RF meloxicam 15 mg tablet 15 mg PO DAILY Qty: 14 0RF dicyclomine 10 mg capsule 10 mg PO TID PRN (Reason: Abd cramping) Qty: 20 0RF ergocalciferol (vitamin D2) 1,250 mcg (50,000 unit) capsule 1,250 mcg PO QWEEK lidocaine HCl-hydrocortison ac 3 %-2.5 % (7 gram) gel 1 appl DE BEDTIME Qty: 7 0RF Referrals: Rahel Diaz MD [Primary Care Provider] - Interventions: ED Discharge Assessment Last Done: 05/13/23 11:42 Discharge Date/Time: 05/13/23 11:49 Print Language: Greenlandic
[2023-05-13 09:02] VITALS: O2SAT 99
--- NOTE | 2023-05-13 09:04 | PC.NURSE ---
Patient reports has had left sided flank and back pain for 3 weeks. Stated had a new onset of cough and sob. Has had hx of kidney stones but reports no pain with urination. Denies chest pain, states hx of migraines that have been worse lately.
[2023-05-13] MEDS: Ketorolac Tromethamine 15 MG/ML VIAL IM (09:24)
[2023-05-13] MEDS: methylPREDNISolone Sod Succ 125 MG/2 ML VIAL 60 MG IM (09:24)
[2023-05-13] MEDS: Albuterol Sulfate 2.5 MG, Albuterol/Iprat 2.5/0.5MG 3 ML 3 ML INHALE (09:27)
[2023-05-13 09:46] VITALS: PULSE 80; RESP 22; O2SAT 97
[2023-05-13 10:00] VITALS: RESP 18; O2SAT 97
[2023-05-13 10:04] LABS: Influenza A PCR NEGATIVE (Negative); Influenza B PCR NEGATIVE (Negative); Resp Syncy Virus RNA Qual PCR NEGATIVE (Negative); SARS COV2 PCR INHOUSE NEGATIVE (Negative)
--- NOTE | 2023-05-13 11:49 | PC.NURSE ---
Discharge plan reviewed with patient who verbalized understanding
== END 2023-05-13 11:49 | disposition home or self-care (01) ==
PROVIDERS: Physician Assistant Medical; Emergency Provider Emergency Medicine Emergency Medical Services; PCP Internal Medicine
DX: J45.20 Mild intermittent asthma, uncomplicated (principal); M54.50 Low back pain, unspecified; R06.02 Shortness of breath; Z20.822 Contact with and (suspected) exposure to COVID-19; Z20.828 Contact with and (suspected) exposure to other viral communicable diseases; Z79.899 Other long term (current) drug therapy
CPT/HCPCS: 0241U; 71046; 94640; 96372; 99284; 99285; J1885; J2930

== ENCOUNTER 2023-07-14 13:16 | Outpatient (AMB) | payer OTHER, SELFPAY ==
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
[2023-07-14 13:19] VITALS: BP 124/78; PULSE 92; O2SAT 98; BMI 28.4
== END 2023-07-14 14:41 | disposition home or self-care (01) ==
PROVIDERS: PCP Internal Medicine; Visit Provider Nurse Practitioner Family
DX: R51.9 Headache, unspecified (principal); G40.109 Localization-related (focal) (partial) symptomatic epilepsy and epileptic syndromes with simple partial seizures, not intractable, without status epilepticus; G43.109 Migraine with aura, not intractable, without status migrainosus; G47.00 Insomnia, unspecified; R25.2 Cramp and spasm
CPT/HCPCS: 99204

== ENCOUNTER → 2023-07-14 13:16 | Outpatient (BNVA) | payer OTHER, SELFPAY | PROVIDERS: PCP Internal Medicine; Visit Provider Nurse Practitioner Family | DX: G43.109 Migraine with aura, not intractable, without status migrainosus (principal); G40.109 Localization-related (focal) (partial) symptomatic epilepsy and epileptic syndromes with simple partial seizures, not intractable, without status epilepticus; G47.00 Insomnia, unspecified; R25.2 Cramp and spasm | CPT/HCPCS: 99202 ==

== ENCOUNTER 2023-07-22 15:08 | Outpatient (REF) | payer OTHER, SELFPAY ==
[2023-07-22 16:16] LABS: MANUAL DIFF FLAG NO
[2023-07-22 16:41] LABS: Estimated Average Glucose 117 mg/dL; Hemoglobin A1c % 5.7 % (<6.0)
[2023-07-22 17:10] LABS: Rheumatoid Factor 18.6 IU/mL (<15.0)
[2023-07-22 17:12] LABS: Basophils Percent Auto 0.7 % (0-2); Eosinophils Absolute Auto 0.1 X10*3/uL (0.0-0.4); Eosinophils Percent Auto 1.8 % (0-4); Hematocrit 38.7 % (37.0-47.0); Hemoglobin 12.5 g/dl (12.0-16.0); Imm Gran Abs Auto 0.01 X10*3/uL (0.00-0.03); Imm Gran Pct Auto 0.2 % (0.0-0.4); Lymphocytes Absolute Auto 2.3 X10*3/uL (1.2-4.9); Lymphocytes Percent Auto 40.9 % (20-40); Mean Corpuscular HGB Conc 32.3 g/dl (31.0-35.0); Mean Corpuscular Hemoglobin 27.4 pg (27.0-33.0); Mean Corpuscular Volume 84.9 fL (80.0-98.0); Mean Platelet Volume 10.9 fL (9.4-12.3); Monocytes Absolute Auto 0.6 X10*3/uL (0.1-1.2); Monocytes Percent Auto 10.5 % (2-11); Neutrophils Absolute Auto 2.5 x10*3/uL (2.0-8.3); Neutrophils Percent Auto 45.9 % (45-73); Platelet Count 230 X10*3/uL (160-400); Red Blood Count 4.56 X10*6/uL (4.20-5.50); Red Cell Distribution Width 13.3 % (11.0-16.0); White Blood Count 5.5 X10*3/uL (4.8-10.8)
[2023-07-22 17:13] LABS: Alanine Aminotransferase 10 U/L (0-31); Alkaline Phosphatase 80 U/L (39-117); Anion Gap 11 (12-20); Aspartate Amino Transferase 21 U/L (5-31); Bilirubin Total 0.4 mg/dL (0.0-1.0); Blood Urea Nitrogen 12 mg/dL (9-16); Calcium 9.7 mg/dL (8.4-10.2); Carbon Dioxide 23 mmol/L (22-29); Chloride 110 mmol/L (96-108); Estimated Glomerular Filt Rate > 60; Glucose Random 97 mg/dL (60-115); Magnesium 2.3 mg/dL (1.6-2.6); Potassium 3.7 mmol/L (3.3-5.1); Sodium 140 mmol/L (135-145); Total Protein 7.4 g/dL (6.5-8.0)
[2023-07-22 17:18] LABS: Erythrocyte Sedimentation Rate 19 MM/HR (0-20)
[2023-07-22 17:30] LABS: TSH reflex Free T4 0.36 uIU/mL (0.32-4.0)
[2023-07-22 17:43] LABS: Folate 12.2 ng/mL (> or = 4.0); Vitamin B12 176 pg/mL (200-900)
[2023-07-27 15:18] LABS: Vitamin B1 17 nmol/L (8-30)
[2023-07-29 11:03] LABS: Anti Nuclear Antibody Screen NEGATIVE (NEGATIVE)
[2023-07-29 23:18] LABS: Nicotinamide <20 ng/mL; Vit B3 - Nicotinic Acid <20 ng/mL
[2023-07-29 23:18] LABS: Vitamin B5 (Pantothenic Acid) <40 ng/mL (<275)
== END 2023-07-22 15:09 | disposition home or self-care (01) ==
LOC: HO.HMGCLDS 15:08
PROVIDERS: PCP Internal Medicine; Visit Provider Nurse Practitioner Family
DX: R51.9 Headache, unspecified (principal); F41.9 Anxiety disorder, unspecified; F32.A Depression, unspecified; E11.9 Type 2 diabetes mellitus without complications; I10 Essential (primary) hypertension; M25.50 Pain in unspecified joint; L65.9 Nonscarring hair loss, unspecified; E78.5 Hyperlipidemia, unspecified; R25.2 Cramp and spasm
CPT/HCPCS: 36415; 80053; 82550; 82607; 82746; 83036; 83735; 84207; 84425; 84443; 84591; 85025; 85652; 86038; 86141; 86431

== ENCOUNTER 2023-08-04 08:06 | Outpatient (AMB) | payer OTHER, SELFPAY ==
[2023-08-04 08:24] VITALS: BP 110/76; PULSE 84; O2SAT 97; BMI 28.0
--- NOTE | 2023-08-04 08:24 | A.OFFPC_ITS ---
Vital Signs 08/04/23 08:24 Height 5 ft 3 in Weight 158 lb BMI 28.0 BP 110/76 Blood Pressure Location Lt brachial Position Sitting Pulse 84 Pulse Source Pulse Oximeter Pulse Oximetry (%) 97 Oxygen Delivery Method Room Air Intake Visit Reasons: Annual PE Intake Note: Pt is here today for her PE: Last mammogram 10/14/22, colonoscopy 11/04/18: hx hysterectomy Allergies crab [CRAB] Allergy (Severe, Verified 08/04/23 08:59) MOURH SWELLING cyclobenzaprine [From FLEXERIL] Allergy (Severe, Verified 08/04/23 08:59) SEIZURE/shakey ibuprofen [From MOTRIN] Allergy (Intermediate, Verified 08/04/23 08:59) ITCHING, severe abdominal pain morphine [Morphine] Allergy (Intermediate, Verified 08/04/23 08:59) ITCHING/REDNESS, rash Medication List - Last Reconciled 08/04/23 by Rahel Diaz MD albuterol sulfate 90 mcg/actuation 2 inhalations inhalation Q6H PRN albuterol sulfate 2.5 mg (3 mL) inhalation Q6H PRN atorvastatin 20 mg PO DAILY bupropion HCl (Wellbutrin SR) 100 mg PO DAILY thkubzqkqn-dmmgiberopzxw-pewa 50-300-40 mg 1 cap PO Q6H PRN 30 days MDD 2 clonazepam 0.5 mg PO BEDTIME dicyclomine 10 mg PO TID PRN duloxetine 40 mg PO DAILY epinephrine (EpiPen 2-Abilio) 0.3 mg (0.3 mL) IM ONCE PRN fluticasone propion-salmeterol 250-50 mcg/dose (Wixela Inhub) 1 ea inhalation QAM galcanezumab-gnlm (Emgality Pen) 240 mg (2 mL) subcut ONCE 30 days lidocaine 5% 1 appl topical DAILY PRN lisinopril 20 mg PO DAILY naratriptan take 1/2 - 1 tab at onset of headache; if no relief may repeat 1 tab after at least 4 hrs; max = 2 tabs/24 hrs orally PRN; 30 days nitroglycerin 0.4 mg sublingual Q5M PRN pantoprazole 40 mg PO DAILY PRN sucralfate (Carafate) 1 g PO BID topiramate 150 mg (1.5 x 100 mg) PO BEDTIME Trulance (plecanatide) 3 mg PO DAILY NS zolpidem 10 mg PO BEDTIME Tobacco use date assessed: 08/04/23 Dental Screening Dental Screen Date: 08/04/23 Did you have a dental visit in the last 12 months?: Yes Did you have a dental problem in the last 6 months where you did not have access to dental care?: No Was dental information given to patient?: Patient has dentist HPI Annual PE HPI Details 58-year-old lady here today for her phys ical exam. She has hyperlipidemia, hypertension, history of migraine with aura, osteoarthritis, chronic GERD and mild intermittent asthma as well as type 2 diabetes mellitus. She sees Ryan Guerrero for treatment of for anxiety and depression. Has primary insomnia, currently on zolpidem taken as needed She is up-to-date with her screening mammogram, done September 2022 with negative findings. Up-to-date with her screening colonoscopy done in 2018, and does not get Pap smears anymore as she has had a hysterectomy . Complains of progressive pain stiffness in her right knee, she underwent right total knee arthroplasty at [facility] several years ago, would like a referral to see an orthopedic provider there at [facility] she had her surgery. No no pain relief afforded with Tylenol arthritis, massaging arthritis cream on affected joint PFSH Medical History (Updated 08/11/23 @ 17:15 by Rahel Diaz MD) Osteoarthritis of right knee Acute hemorrhagic colitis Vitamin D deficiency Anxiety and depression Hx of renal calculi Allergic to shellfish Insomnia Mild intermittent asthma Type 2 diabetes mellitus without complication, without long-term current use of insulin Migraine GERD (gastroesophageal reflux disease) Osteoarthritis Essential hypertension Dyslipidemia Surgical History (Updated 08/11/23 @ 17:15 by Rahel Diaz MD) H/O colonoscopy History of total right knee replacement Hx laparoscopic cholecystectomy History of appendectomy Hx of total knee arthroplasty History of partial hysterectomy Family History Father HTN (hypertension) Hyperlipidemia Lung cancer Mother HTN (hypertension) Hyperlipidemia Diabetes mellitus Social History Housing: Apartment Alcohol intake: never Patient Tobacco Use Status: Never used Tobacco e-Cigarette/Vaping Use: Never Used service: No Current occupational status: unemployed Current occupation: [employer] Cognitive needs: No Hearing needs: No Vision needs: No Questionnaire PHQ-9 Over the last 2 weeks, how often have you been bothered by any of the following problems? 1. Little interest or pleasure in doing things: more than half the days 2. Feeling down, depressed, or hopeless: more than half the days 3. Trouble falling or staying asleep, or sleeping too much: several days 4. Feeling tired or having little energy: more than half the days 5. Poor appetite or overeating: more than half the days 6. Feeling bad about yourself - or that you are a failure or have let yourself or your family down: more than half the days 7. Trouble concentrating on things, such as reading the newspaper or watching television: several days 8. Moving or speaking so slowly that other people could have noticed. Or the opposite - being so fidgety or restless that you have been moving around a lot more than usual: several days 9. Thoughts that you would be better off or of hurting yourself in some way: not at all Total score: 13 Depression Screening Interpretation: Positive Depression Screening Follow-up: Existing condition, In treatment and Community Mental Health Worker F/U (Followed by Ryan Guerrero) Depression Screening Done: Yes 72608 - PHQ-9 Billing: Yes Source: Developed by Drs. Claudio Courtney, Hannah Mullins, Simón Castro and colleagues, with an educational luis from [employer]. Thrive Questionnaire Date Thrive assessed: 08/04/23 I am a: Patient What is your living situation today?: I have a steady place to live Within the past 12 months, did the food you bought not last and you didn't have the money to get more?: Never true Within the past 12 months, did you worry whether your food would run out before you got money to buy more?: Never true Do you have trouble paying for medicines?: No Do you have trouble getting transportation to medical appointments?: No Do you have trouble paying your heating and electricity bill?: No Do you have trouble taking care of your child, family member or friend?: No Do you have trouble with day-to-day activities such as bathing, preparing meals, shopping, managing finances, etc.?: No Are you currently unemployed and looking for a job?: No Are you interested in more education?: No THRIVE Score: 0 AUDIT C Alcohol Use Questionnaire (AUDIT-C) 1. How often do you have a drink containing alcohol?: Never Total Score: 0 RIMA-7 AMB Questionnaire RIMA-7 Date RIMA - 7 assessed: 08/04/23 Feeling nervous, anxious, or on edge: 2 = More than half the days Not being able to stop or control worryin = Several days Worrying too much about different things: 2 = More than half the days Trouble relaxin = Several days Being so restless that it is hard to sit still: 1 = Several days Becoming easily annoyed or irritable: 2 = More than half the days Feeling afraid as if something awful might happen: 1 = Several days Total RIMA-7 score (0-4 normal; 5-9 mild; 10-14 moderate; 15-21 severe): 10 Source: Developed by Drs. Claudio Courtney, Hannah Mullins, Simón Castro and colleagues, with an educational luis from [employer]. RIMA-7 Assessment Billing RIMA-7 Assessment Tool: RIMA-7 Assessment 59850 ACT Questionnaire In the past 4 weeks, how much of the time did your asthma keep you from getting as much done at work, school or at home?: A little of the time During the past 4 weeks, how often have you had shortness of breath?: 1-2 times a week During the past 4 weeks, how often did your asthma symptoms wake you up at night or earlier than usual in the morning?: Not at all During the past 4 weeks, how often have you had to use your rescue inhaler or nebulizer medication?: Once a week or less How would you rate your asthma control during the past 4 weeks?: Well controlled Score: 21 Review of Systems Const Denies fever(s), Denies headache(s) and Denies weakness Eyes Details: Goes to [facility] in [place] for her routine eye exam Denies change in vision ENT Denies dizziness, Denies headache(s), Denies nasal congestion, Denies nasal discharge and Denies sore throat Card Denies chest pain, Denies lightheadedness and Denies dyspnea Resp Denies chest congestion, Denies cough and Denies dyspnea GI Reports as per HPI, Denies abdominal pain, Reports bloating, Reports hematochezia (Due to hemorrhoids, when constipated) and Denies heartburn Denies hematuria, Denies difficulty voiding, Denies nocturia, Denies genital pruritis, Denies genital lesions, Denies nipple discharge, Denies urinary incontinence and Denies urinary urgency Musc Reports arthralgias (Recurrent in knees), Denies joint swelling and Reports stiffness Skin/Breast Denies breast pain, Denies breast mass and Denies nipple discharge Neuro Denies dizziness, Denies headache(s), Denies Sensory deficit (Neuro) and Denies weakness Psych Reports no additional complaints Endo Reports no additional complaints Hilton/Lymph Reports no additional complaints Aller/Immun Reports no additional complaints Physical exam (Primary Care) Vital Signs: Last Vital Signs Pulse 84 08/04/23 08:24 BP 110/76 08/04/23 08:24 Pulse Ox 97 08/04/23 08:24 Oxygen Delivery Method Room Air 08/04/23 08:24 BMI result Body Mass Index 28.0 Tobacco/Smoking Status: Tobacco use Status Tobacco use date assessed 08/04/23 08/04/23 08:26 Patient Tobacco Use Status Never used Tobacco 08/04/23 08:26 e-Cigarette/Vaping Use Never Used 08/04/23 08:26 PHQ-9: PHQ-9 Score PHQ-9: Total score 13 08/04/23 09:05 Depression Screening Interpretation: Positive Depression Screening Follow-up: Existing condition, In treatment and Community Mental Health Worker F/U (Followed by Ryan Guerrero) Thrive Assessment: Date of Thrive Assessment Date Thrive assessed 08/04/23 08/04/23 08:44 Const Other: Alert oriented x3, in mild pain distress , ambulatory normal gait Orientation/consciousness: patient oriented x3 HENMT Mouth: Normal oral and palatal mucosa present, oropharynx normal and moist mucous membranes Eyes General: appearance normal, both eyes and all related structures Neck Neck: Yes full ROM, Yes no lymphadenopathy and Yes supple Chest Breast/axilla palpation: normal palpation of the breasts Resp Auscultation: clear to auscultation bilaterally Cardio Other: S1-S2 present regular rate and rhythm GI Other: Hypoactive bowel sounds, Palpation (GI): Soft to palpation, nontender, no guarding, no masses and No Rebound tenderness present Auscultation: Hypoactive bowel sounds present General: Yes no CVA tenderness Back/Spine/Pelvis Back: no CVA tenderness and No back tenderness Skin Lesions: no lesions Rashes: no rashes Neuro General: patient oriented x3, gait normal, tone normal, Normal light touch and pain sensation, no focal motor deficits and CN's II-XI intact bilaterally Sensory Exam: No Sensory deficit (Neuro) Extrem Other: Decreased range of motion of right knee joint due to pain and stiffness, no joint swelling seen Psych Appearance: grossly normal and well kempt Mental Status: mental status grossly normal Speech and movement: Normal speech and movement present Affect: normal affect Thought process: Normal thought process present Thought content: Normal thought content present Results Reviewed Results Reviewed: PEC : [id number] MARII: 07/22/23 STATUS: COMP REQ : [id number] RECD: 07/22/23 [facility] DR: Kenisha Washington COMP: 07/22/23 ENTERED: 07/22/[address]: Rahel Diaz MD ORDERED: CBC Auto Diff Test Result Flag Reference WBC 5.5 4.8-10.8 X10*3/uL RBC 4.56 4.20-5.50 X10*6/uL HGB 12.5 12.0-16.0 g/dl HCT 38.7 37.0-47.0 % MCV 84.9 80.0-98.0 fL MCH 27.4 27.0-33.0 pg MCHC 32.3 31.0-35.0 g/dl RDW 13.3 11.0-16.0 % PLT 230 160-400 X10*3/uL MPV 10.9 9.4-12.3 fL Neut Pct Auto 45.9 45-73 % ImGran Pct Auto 0.2 0.0-0.4 % Lymp Pct Auto 40.9 H 20-40 % [place] Pct Auto 10.5 2-11 % Eos Pct Auto 1.8 0-4 % Baso Pct Auto 0.7 0-2 % NRBC Pct Auto 0.0 0.0-0.2 /100WBC ANC Neut Abs # 2.5 2.0-8.3 x10*3/uL ImGran Abs Auto 0.01 0.00-0.03 X10*3/uL Lymph Abs Auto 2.3 1.2-4.9 X10*3/uL [place] Abs Auto 0.6 0.1-1.2 X10*3/uL Eos Abs Auto 0.1 0.0-0.4 X10*3/uL Baso Abs Auto 0.0 0.0-0.2 X10*3/uL NRBC Abs Auto 0.000 0.0-0.012 X10*3/uL RECD: 07/22/23-[address]: Kenisha Washington DIETARY CLERK COMP: 07/22/23-1729 ENTERED: 07/22/23-[address]: Rahel Diaz MD ORDERED: CMP, MG, CK Total, TSH Rflx Test Result Flag Reference Sodium 140 135-145 mmol/L Potassium 3.7 3.3-5.1 mmol/L CL 110 H 96-108 mmol/L CO2 23 22-29 mmol/L Gap 11 L 12-20 BUN 12 9-16 mg/dL Creat 0.84 0.5-1.4 mg/dL EGFR > 60 NOTE: For -Australian individuals, multiply the result by 1.210. Chronic Kidney Disease: Estimated GFR < 60 mL/min/1.73m2 Severe Kidney Disease: Estimated GFR < 15 mL/min/1.73m2 Glucose, Random 97 60-115 mg/dL CA 9.7 8.4-10.2 mg/dL Magnesium 2.3 1.6-2.6 mg/dL Total Bili 0.4 0.0-1.0 mg/dL AST (GOT) 21 5-31 U/L ALT (GPT) 10 0-31 U/L CK Total 116 26-140 U/L Protein, Total 7.4 6.5-8.0 g/dL Alb 4.0 3.5-5.0 g/dL Alk Phos 80 39-117 U/L TSH 0.36 0.32-4.0 uIU/mL Assessment and Plan Assessment & Plan (1) Annual visit for general adult medical examination with abnormal findings: Code(s): Z00.01 - Encounter for general adult medical examination with abnormal findings Plan: Will check appropriate labs. Recommended dental visit every 6 months and yearly eye exams, up-to-date goes to [facility]. Continue taking calcium from dietary sources and vitamin-D 3 at 2000 IU per cap once a day, in addition to weight-bearing exercises to help maintain good muscle tone and weight control. Instructed to do self-breast exam, and continue with yearly mammogram. Up-to-date with her screening colonoscopy due again in 2028. She is also up-to-date with all her vaccines except for RSV vaccine which she does not want to get at present time (2) Vitamin D deficiency: Code(s): E55.9 - Vitamin D deficiency, unspecified Plan: Will check another vitamin-D level, in the meantime advised to take over -the-counter vitamin-D 3 at 2000 units daily (3) Type 2 diabetes mellitus without complication, without long-term current use of insulin: Code(s): E11.9 - Type 2 diabetes mellitus without complications Plan: Ordered hemoglobin A1c, continued adherence to healthy eating habits and getting regular exercise. (4) Dyslipidemia: Code(s): E78.5 - Hyperlipidemia, unspecified Plan: Fasting lipid panel ordered today. Currently taking atorvastatin 20 mg daily (5) Essential hypertension: Code(s): I10 - Essential (primary) hypertension Plan: Blood pressure at goal of less than 130/80. Continue with current medication. Reinforced importance of following a low sodium diet, getting regular exercise, and lowering stress levels. (6) Osteoarthritis of right knee: Code(s): M17.11 - Unilateral primary osteoarthritis, right knee Qualifiers: Osteoarthritis type: primary Qualified Code(s): M17.11 - Unilateral primary osteoarthritis, right knee Plan: Referred to orthopedics at [facility], per patient request a status where she had her right total knee replacement done 10 years ago (7) Hx of total knee arthroplasty: Comment: At age 48 [address] Yrn Hernandez in [facility] Code(s): Z96.659 - Presence of unspecified artificial knee joint Qualifiers: Laterality: right Qualified Code(s): Z96.651 - Presence of right artificial knee joint (8) Mild intermittent asthma: Code(s): J45.20 - Mild intermittent asthma, uncomplicated Qualifiers: Asthma complication type: uncomplicated Qualified Code(s): J45.20 - Mild intermittent asthma, uncomplicated Plan: Prescription sent for nebulizer Orders: Orders Microalbumin, Random (w Creat) 08/05/23 E11.9 - Type 2 diabetes mellitus without complications, E55.9 - Vitamin D deficiency, unspecified, E78.5 - Hyperlipidemia, unspecified, I10 - Essential (primary) hypertension Vitamin D 25-OH Total 08/05/23 E11.9 - Type 2 diabetes mellitus without compl ications, E55.9 - Vitamin D deficiency, unspecified, E78.5 - Hyperlipidemia, unspecified, I10 - Essential (primary) hypertension Hemoglobin A1c 08/05/23 E11.9 - Type 2 diabetes mellitus without complications, E55.9 - Vitamin D deficiency, unspecified, E78.5 - Hyperlipidemia, unspecified, I10 - Essential (primary) hypertension Lipid Panel 08/05/23 E11.9 - Type 2 diabetes mellitus without complications, E55.9 - Vitamin D deficiency, unspecified, E78.5 - Hyperlipidemia, unspecified, I10 - Essential (primary) hypertension Referrals Orthopedics Referral M17.11 - Unilateral primary osteoarthritis, right knee, Z96.659 - Presence of unspecified artificial knee joint Medications: New lancets As directed 100 ea 5RF E11.9 - Type 2 diabetes mellitus without complications capsaicin-menthol 0.025-1.25 % (Salonpas (capsaicin-menthol)) may leave on area for up to 8 hrs 1 patch topical DAILY 7 days PRN 30 ea 4RF pain M19.90 - Unspecified osteoarthritis, unspecified site nebulizers (AeroEclipse II Nebulizer) As directed 1 ea 0RF J45.20 - Mild intermittent asthma, uncomplicated blood-glucose meter As directed 1 ea 0RF E11.9 - Type 2 diabetes mellitus without complications blood sugar diagnostic As directed 50 ea 5RF E11.9 - Type 2 diabetes mellitus without complications lancets (FreeStyle Lancets) Check fasting glucose once a day 100 ea 5RF E11.9 - Type 2 diabetes mellitus without complications blood-glucose meter (FreeStyle Lite Meter kit) Check fasting glucose once a day 1 ea 0RF E11.9 - Type 2 diabetes mellitus without complications blood sugar diagnostic (FreeStyle Lite Strips) Check fasting glucose once a day 50 ea 5RF E11.9 - Type 2 diabetes mellitus without complications Coding Level of Care Code Est Pt Prev Care 40-64y(70263) Diagnoses Annual visit for general adult medical examination with abnormal findings Z00.01 Vitamin D deficiency E55.9 Type 2 diabetes mellitus without complication, without long-term current use of insulin E11.9 Dyslipidemia E78.5 Essential hypertension I10 Primary osteoarthritis of right knee M17.11 Osteoarthritis type: primary History of total right knee replacement Z96.651 Laterality: right Mild intermittent asthma without complication J45.20 Asthma complication type: uncomplicated Additional Codes RIMA-7 Assessment Billing - RIMA-7 Assessment Tool: RIMA-7 Assessment 19590 ([id number])
== END 2023-08-04 09:32 | disposition home or self-care (01) ==
PROVIDERS: PCP Internal Medicine; Visit Provider Internal Medicine
DX: Z00.00 Encounter for general adult medical examination without abnormal findings (principal); E55.9 Vitamin D deficiency, unspecified; E11.9 Type 2 diabetes mellitus without complications; E78.5 Hyperlipidemia, unspecified; I10 Essential (primary) hypertension; M17.11 Unilateral primary osteoarthritis, right knee; Z96.651 Presence of right artificial knee joint; J45.20 Mild intermittent asthma, uncomplicated
CPT/HCPCS: 99396

== ENCOUNTER 2023-08-05 08:37 | Outpatient (REF) | payer OTHER, SELFPAY ==
[2023-08-05 12:03] LABS: Estimated Average Glucose 117 mg/dL; Hemoglobin A1c % 5.7 % (<6.0)
[2023-08-05 12:50] LABS: Cholesterol 175 mg/dL (<200); HDL Cholesterol 56 mg/dL (>40); LDL Cholesterol Calculated 99 mg/dL (<100); Triglycerides 100 mg/dL (<150)
[2023-08-05 14:14] LABS: Vitamin D 25-OH Total 26.8 ng/mL (>30)
[2023-08-05 14:28] LABS: Creatinine Urine 174.05 mg/dL; Microalbum/Creatinine Ratio Ur 5.1 ug/mg cr (<30)
== END 2023-08-05 08:38 | disposition home or self-care (01) ==
LOC: HO.HMGCLDS 08:37
PROVIDERS: PCP Internal Medicine; Visit Provider Internal Medicine
DX: E55.9 Vitamin D deficiency, unspecified (principal); E11.9 Type 2 diabetes mellitus without complications; E78.5 Hyperlipidemia, unspecified; I10 Essential (primary) hypertension
CPT/HCPCS: 36415; 80061; 82043; 82306; 82570; 83036

== ENCOUNTER 2023-08-18 09:42 | Outpatient (REF) | payer OTHER, SELFPAY ==
--- NOTE | ~2023-08-18 | MR_ITS ---
EXAMINATION: MR BRAIN WITHOUT CONTRAST CLINICAL INFORMATION: Headache COMPARISON: MR brain 11-14 TECHNIQUE: MRI of the brain was obtained using routine sequences without contrast. FINDINGS: There is no reduced diffusion to suggest acute infarct. Susceptibility weighted sequence is within normal limits. No mass effect, extra-axial collection, midline shift, or other herniation. Faintly T1 hyperintense lesion along the central/right aspect of the pituitary gland is suboptimally characterized on this examination. The ventricles and sulci are normal in size and configuration. Periventricular and subcortical T2 hyperintense foci are nonspecific but likely represent chronic microvascular ischemic change. Intracranial flow voids are preserved. Trace ethmoid air cell mucosal thickening. Small left mastoid effusion. No focal expansile/destructive osseous lesion. MR/MR head/brain wo con IMPRESSION: No acute infarction. Mild chronic microvascular ischemic change. Faintly T1 hyperintense lesion along the central/right aspect of the pituitary gland is suboptimally characterized on this examination. 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
== END 2023-08-18 09:43 | disposition home or self-care (01) ==
LOC: HO.MRI 09:42
PROVIDERS: PCP Internal Medicine; Visit Provider Nurse Practitioner Family
DX: R51.9 Headache, unspecified (principal); G40.109 Localization-related (focal) (partial) symptomatic epilepsy and epileptic syndromes with simple partial seizures, not intractable, without status epilepticus; I10 Essential (primary) hypertension; E78.5 Hyperlipidemia, unspecified
CPT/HCPCS: 70551

== ENCOUNTER 2023-09-11 09:31 | Emergency (ER) | payer OTHER, SELFPAY ==
--- NOTE | ~2023-09-11 | XR_ITS ---
EXAMINATION: XR ELBOW, RIGHT CLINICAL INFORMATION: Fall COMPARISON: None available. TECHNIQUE: AP, lateral, and oblique views of the right elbow. FINDINGS: There is mild soft tissue swelling dorsal to the region of the olecranon. Otherwise, soft tissues are unremarkable. Bones and joints are normal. No elbow joint effusion. No arthritic deformity. There appears to be an old small 0.2 cm calcification in region of humeral attachment of the common extensor tendon. XR/XR elbow RT min 3V IMPRESSION: Mild posttraumatic soft tissue swelling is seen dorsal to the ulna/proximal olecranon. Otherwise, unremarkable radiographic examination of the right elbow.
[2023-09-11 09:36] VITALS: BP 126/71; PULSE 89; RESP 18; TEMP 35.9; O2SAT 97; BMI 26.6
--- NOTE | 2023-09-11 10:31 | MHC.CM.ED ---
Received notification from Mary of registration that patient interested in completing HCP. HCP completed, signed and witnessed. Original given to patient. Copy placed in chart.
--- NOTE | 2023-09-11 11:43 | ED_ITS ---
HPI - Extremity Problem General Chief complaint: Extremity Injury, Upper Stated complaint: fall 09/09, elbow pain Time Seen by Provider: 09/11/23 09:46 History of Present Illness HPI Narrative: Patient complains of right elbow pain after she slipped at home on the floor and fell down banging her right elbow, no other injury no headache no head strike no neck pain no numbness weakness or tingling no other extremity injuries or pain Related Data Home Medications Medication Instructions Recorded Confirmed zolpidem 10 mg tablet 10 mg PO BEDTIME 04/04/20 08/04/23 clonazepam 0.5 mg tablet 0.5 mg PO BEDTIME 07/04/21 08/04/23 duloxetine 20 mg capsule,delayed 40 mg PO DAILY 12/11/21 08/04/23 release bupropion HCl 100 mg tablet,12 hr 100 mg PO DAILY 07/14/23 08/04/23 sustained-release (Wellbutrin SR) Previous Rx's Medication Instructions Recorded epinephrine 0.3 mg/0.3 mL 0.3 mg (0.3 mL) IM ONCE PRN 07/01/21 injection, auto-injector (EpiPen anaphylaxis #2 ea 2-Abilio) nitroglycerin 0.4 mg sublingual 0.4 mg sublingual Q5M PRN chest 07/04/21 tablet pain #7 tabs lidocaine 5 % topical ointment 1 appl topical DAILY PRN pain #30 12/11/21 grams albuterol sulfate 2.5 mg/3 mL 2.5 mg (3 mL) inhalation Q6H PRN 06/17/22 (0.083 %) solution for nebulization shortness of breath or wheezing #75 mL sucralfate 1 gram tablet (Carafate) 1 g PO BID #60 tabs 09/14/22 dicyclomine 10 mg capsule 10 mg PO TID PRN Abd cramping #20 09/19/22 caps lisinopril 20 mg tablet 20 mg PO DAILY #90 tabs 10/23/22 Trulance 3 mg tablet (plecanatide) 3 mg PO DAILY #30 tabs 11/28/22 fluticasone 250 mcg-salmeterol 50 1 ea inhalation QAM #60 ea 12/20/22 mcg/dose blistr powdr for inhalation (Wixela Inhub) topiramate 100 mg tablet 150 mg (1.5 x 100 mg) PO BEDTIME 05/22/23 #135 tabs atorvastatin 20 mg tablet 20 mg PO DAILY #90 tabs 07/02/23 pantoprazole 40 mg tablet,delayed 40 mg PO DAILY PRN Heartburn 07/02/23 release symptoms #90 tabs dkfjxhtuxi-uzohmzxhfktyl-ynepnwyd 1 cap PO Q6H PRN for headache 30 07/14/23 50 mg-300 mg-40 mg capsule days #30 caps galcanezumab-gnlm 120 mg/mL 240 mg (2 mL) subcut ONCE 30 days 07/14/23 subcutaneous pen injector #2 mL (Emgality Pen) naratriptan 2.5 mg tablet See Rx Instructions PO .COMPLEX 07/14/23 PRN migraine headache 30 days #12 tabs albuterol sulfate 90 mcg/actuation 2 inh inhalation Q6H PRN shortness 08/03/23 aerosol inhaler of breath or wheezing #8.5 grams blood sugar diagnostic (FreeStyle #50 ea 08/04/23 Lite Strips) blood-glucose meter (FreeStyle #1 ea 08/04/23 Lite Meter kit) capsaicin-menthol 0.025 %-1.25 % 1 patch topical DAILY PRN pain 7 08/04/23 topical patch (Salonpas days #30 ea (capsaicin-menthol)) lancets 28 gauge (FreeStyle #100 ea 08/04/23 Lancets) nebulizers (AeroEclipse II #1 ea 08/04/23 Nebulizer) cholecalciferol (vitamin D3) 1,250 1,250 mcg PO QWEEK 3 months #13 08/12/23 mcg (50,000 unit) capsule caps Allergies Allergy/AdvReac Type Severity Reaction Status Date / Time crab [CRAB] Allergy Severe MOURH Verified 08/04/23 08:59 SWELLING cyclobenzaprine Allergy Severe SEIZURE/sha Verified 08/04/23 08:59 [From FLEXERIL] godoy ibuprofen [From MOTRIN] Allergy Intermediate ITCHING, Verified 08/04/23 08:59 severe abdominal pain morphine [Morphine] Allergy Intermediate ITCHING/REDNESS, Verified 08/04/23 08:59 rash PMFSH Past Medical History Source: nursing notes reviewed Medical History (Updated 09/11/23 @ 11:53 by Kb B Jose D, PA) Osteoarthritis of right knee Acute hemorrhagic colitis Vitamin D deficiency Anxiety and depression Hx of renal calculi Allergic to shellfish Insomnia Mild intermittent asthma Type 2 diabetes mellitus without complication, without long-term current use of insulin Migraine GERD (gastroesophageal reflux disease) Osteoarthritis Essential hypertension Dyslipidemia Surgical History (Updated 08/11/23 @ 17:15 by Rahel Diaz MD) H/O colonoscopy History of total right knee replacement Hx laparoscopic cholecystectomy History of appendectomy Hx of total knee arthroplasty History of partial hysterectomy Family History Family History Father HTN (hypertension) Hyperlipidemia Lung cancer Mother HTN (hypertension) Hyperlipidemia Diabetes mellitus Social History Social History Housing: Apartment Alcohol intake: never Patient Tobacco Use Status: Never used Tobacco e-Cigarette/Vaping Use: Never Used Advance Directives: Yes Advance Directives on File: Yes Advance Directives Date on File: 09/11/23 service: No Current occupational status: unemployed Current occupation: [employer] Cognitive needs: No Hearing needs: No Vision needs: No Physical Exam Vital Signs: Vital Signs: Last Vital Signs Temp 96.7 F L 09/11/23 09:36 Pulse 89 09/11/23 09:36 Resp 18 09/11/23 09:36 BP 126/71 09/11/23 09:36 Pulse Ox 97 09/11/23 09:36 O2 Del Method Room Air 09/11/23 09:36 BMI result Body Mass Index 26.6 General appearance comfortable cooperative no acute distress Head is normocephalic atraumatic Neck is supple nontender Chest wall nontender The back full range of motion Extremities the right elbow has mild distal tenderness, there is no swelling no effusion, there is full range of motion on extension flexion and rotation, there is no laceration, skin is normal, no redness or warmth Right upper extremity the shoulder has full range motion no tenderness, the wrist and hand had full range of motion without tenderness swelling or deformity, neurovascular intact distal Lower extremities are normal gait and balance are normal Course Course Course Narrative: Well-appearing patient who fell on her elbow yesterday and continues to have discomfort had full range of motion, skin was normal neurovascular intact My reading of the x-ray was a normal x-ray, as there was a delay in the reading I discharge the patient and will call her if when the reading is available there is a discrepancy She is discharged diagnosis right elbow contusion Discharge Plan Discharge Clinical Impression: Contusion of elbow Patient Disposition: Home, Self-Care Additional Instructions: I did not see any abnormality on your elbow x-ray It will be read by a radiologist in the coming hours and I will call you if he sees anything that I may have missed A contusion to the elbow usually gets better within a week If not improving follow with habilitation training specialist Return any time any worse condition or concern For treatment you can use Tylenol or Motrin and apply ice if needed Prescriptions: No Action zolpidem 10 mg tablet 10 mg PO BEDTIME albuterol sulfate 2.5 mg /3 mL (0.083 %) solution for nebulization 2.5 mg inhalation Q6H PRN (Reason: shortness of breath or wheezing) Qty: 75 0RF sucralfate [Carafate] 1 gram tablet 1 g PO BID Qty: 60 0RF lisinopril 20 mg tablet 20 mg PO DAILY Qty: 90 3RF fluticasone propion-salmeterol [Wixela Inhub] 250-50 mcg/dose blister with device 1 ea inhalation QAM Qty: 60 5RF topiramate 100 mg tablet 150 mg PO BEDTIME Qty: 135 1RF pantoprazole 40 mg tablet,delayed release (DR/EC) 40 mg PO DAILY PRN (Reason: Heartburn symptoms) Qty: 90 0RF atorvastatin 20 mg tablet 20 mg PO DAILY Qty: 90 1RF albuterol sulfate 90 mcg/actuation HFA aerosol inhaler 2 inh inhalation Q6H PRN (Reason: shortness of breath or wheezing) Qty: 8.5 3RF cholecalciferol (vitamin D3) 1,250 mcg (50,000 unit) capsule 1,250 mcg PO QWEEK 90 Days Qty: 13 0RF clonazepam 0.5 mg tablet 0.5 mg PO BEDTIME nitroglycerin 0.4 mg tablet, sublingual 0.4 mg sublingual Q5M PRN (Reason: chest pain) Qty: 7 0RF Rx Instructions: do not exceed 3 doses per episode Trulance 3 mg tablet 3 mg PO DAILY Qty: 30 5RF Salonpas (capsaicin-menthol) 0.025-1.25 % adhesive patch,medicated 1 patch topical DAILY PRN (Reason: pain) 7 Days Qty: 30 4RF Rx Instructions: may leave on area for up to 8 hrs (DME) nebulizers [AeroEclipse II Nebulizer] Misc See Rx Instructions .Route Qty: 1 0RF Rx Instructions: As directed (DME) lancets [FreeStyle Lancets] 28 gauge misc See Rx Instructions .Route Qty: 100 5RF Rx Instructions: Check fasting glucose once a day (DME) blood-glucose meter [FreeStyle Lite Meter] Kit See Rx Instructions .Route Qty: 1 0RF Rx Instructions: Check fasting glucose once a day (DME) FreeStyle Lite Strips Strip See Rx Instructions .Route Qty: 50 5RF Rx Instructions: Check fasting glucose once a day epinephrine [EpiPen 2-Abilio] 0.3 mg/0.3 mL auto-injector 0.3 mg IM ONCE PRN (Reason: anaphylaxis) Qty: 2 1RF duloxetine 20 mg capsule,delayed release(DR/EC) 40 mg PO DAILY lidocaine 5 % ointment 1 appl topical DAILY PRN (Reason: pain) Qty: 30 0RF dicyclomine 10 mg capsule 10 mg PO TID PRN (Reason: Abd cramping) Qty: 20 0RF bupropion HCl [Wellbutrin SR] 100 mg tablet sustained-release 12 hr 100 mg PO DAILY Emgality Pen 120 mg/mL pen injector 240 mg subcut ONCE 30 Days Qty: 2 0RF novruthxxs-xhsvqtnxhkybx-jbnr 50-300-40 mg capsule 1 cap PO Q6H MDD 2 PRN (Reason: for headache) 30 Days Qty: 30 0RF naratriptan 2.5 mg tablet See Rx Instructions PO .COMPLEX PRN (Reason: migraine headache) 30 Days Qty: 12 6RF Rx Instructions: take 1/2 - 1 tab at onset of headache; if no relief may repeat 1 tab after at least 4 hrs; max = 2 tabs/24 hrs orally PRN; Referrals: Rancho Mendez MD [Physician] - (Elbow injury)
[2023-09-11 12:07] VITALS: BP 147/81; PULSE 64; RESP 18; TEMP 36.2
== END 2023-09-11 12:07 | disposition home or self-care (01) ==
PROVIDERS: Emergency Provider Emergency Medicine Emergency Medical Services; PCP Internal Medicine
DX: S50.01XA Contusion of right elbow, initial encounter (principal); I10 Essential (primary) hypertension; E11.9 Type 2 diabetes mellitus without complications; W01.0XXA Fall on same level from slipping, tripping and stumbling without subsequent striking against object, initial encounter; Y93.9 Activity, unspecified; Y92.009 Unspecified place in unspecified non-institutional (private) residence as the place of occurrence of the external cause; Y99.9 Unspecified external cause status
CPT/HCPCS: 73080; 99282; 99283

== ENCOUNTER 2023-09-14 12:39 | Outpatient (AMB) | payer OTHER, SELFPAY ==
--- NOTE | 2023-09-14 12:42 | A.OFFVIS_ITS ---
Intake Vital Signs 09/14/23 12:44 Height 5 ft 3 in Weight 154 lb 5.177 oz BMI 27.3 BP 143/66 H Blood Pressure Location Lt brachial Position Sitting Pulse 70 Intake Visit Reasons: stomach ulcer, stomach pain Intake Note: Lyric presents in the office for pains in her stomach and stomach ulcers. CC: Bowels are okay but she gets a lot of pains in her stomach. She states that it does not matter what it is - if she eats she will have pains. [employer] Required: No Allergies crab [CRAB] Allergy (Severe, Verified 09/14/23 12:45) MOURH SWELLING cyclobenzaprine [From FLEXERIL] Allergy (Severe, Verified 09/14/23 12:45) SEIZURE/shakey ibuprofen [From MOTRIN] Allergy (Intermediate, Verified 09/14/23 12:45) ITCHING, severe abdominal pain morphine [Morphine] Allergy (Intermediate, Verified 09/14/23 12:45) ITCHING/REDNESS, rash HPI HPI Comments History of Present Illness Details This is a 57-year-old female with past medical history of GERD, colon polyps, type 2 diabetes, anxiety, hypertension, who was seen in the emergency room earlier this month for abdominal pain and hematochezia and found to have possible colitis. 09/19/22: Patient reports that her symptoms initially started back in June, when she had to cut short her trip to [place] due to severe abdominal pain with diarrhea. At that time, there was no blood in stool. Since then, she has continued to have intermittent abdominal cramping specially localized to the left lower quadrant. On the day of presentation to the hospital, her pain had gotten very severe, associated with nausea, chills and multiple episodes of loose bowel movements with blood in it. When she was seen in the emergency room, she was noted to be afebrile and vitally stable. Labs were significant for normal white count and Chem 7. CT abdomen and pelvis was done that was inconclusive due to collapsed colon. She was empirically treated for infectious colitis. Patient states that she felt minimally better with the antibiotics, and continues to have crampy abdominal pain. Diarrhea has resolved, but stools are softer than her baseline. Also continues to see blood streaked on top of the stools, and on wiping. Last colonoscopy October 2018: Terminal Ileum ? Not evaluated Cecum ? Patchy erythema in the right colon - random biopsies were obtained to check for microscopic colitis Ascending Colon ? Patchy erythema in the right colon - random biopsies were obtained Transverse Colon - A 2-3 mm sessile polyp removed with a cold biopsy Descending Colon ? Normal Sigmoid Colon ? Normal Rectum ? Normal Anorectum - Moderate internal hemorrhoids and hypertrophied anal papillae Colon preparation: Good after copious irrigation Path: normal colon mucosa. HP. 01/01/23: Colonoscopy: Impression: 1. Normal colon and terminal ileum mucos a (biopsy) 2.External and internal hemorrhoids Path: A.? Colon, right, biopsy:? Colonic mucosa within normal limits; negative for microscopic colitis. B.? Colon, left, biopsy:? Colonic mucosa within normal limits; negative for microscopic colitis. C.? Rectum, biopsy:? Rectal mucosa within normal limits; negative for microscopic colitis. 01/19/23: Reports intermittent bloating kiki after breakfast. Tries to eat mostly oatmeal as feels its easier on her stomach. Also avoiding spicy food for this reason. Cont to have intermittent diarrhea with BRBPR on wiping. Rosalia findings reviewd and pt reassured that no evidence of chronic inflammation noted on this exam. She does however have sizeable internal and external hemorrhoids. 09/14/23: Pt here for abd pain and unintentional weight loss x 3 months. Most of her pain is epigastric and is assoc with loss of appetite and gets worse on eating. Notices it mostly in the day than at night time. Has lost almost 8 lbs since Jun 2023. No change in bowel movements. Reports a hx of gastric ulcer and pain remiscent of that. No NSAID use. DOes not smoke. Has been taking omeprazole 20 daily. [facility] Medical History (Updated 09/14/23 @ 19:04 by Echo Bansal MD) Osteoarthritis of right knee Acute hemorrhagic colitis Vitamin D deficiency Anxiety and depression Hx of renal calculi Allergic to shellfish Insomnia Mild intermittent asthma Type 2 diabetes mellitus without complication, without long-term current use of insulin Migraine GERD (gastroesophageal reflux disease) Osteoarthritis Essential hypertension Dyslipidemia Surgical History (Updated 08/11/23 @ 17:15 by Rahel Diaz MD) H/O colonoscopy History of total right knee replacement Hx laparoscopic cholecystectomy History of appendectomy Hx of total knee arthroplasty History of partial hysterectomy Family History Father HTN (hypertension) Hyperlipidemia Lung cancer Mother HTN (hypertension) Hyperlipidemia Diabetes mellitus Social History Housing: Apartment Alcohol intake: never Patient Tobacco Use Status: Never used Tobacco e-Cigarette/Vaping Use: Never Used Advance Directives Date on File: 09/11/23 service: No Current occupational status: unemployed Current occupation: [employer] Cognitive needs: No Hearing needs: No Vision needs: No Review of Systems Const All systems reviewed & are unremarkable except as noted in HPI and below Physical Exam Vital Signs: Last Vital Signs Pulse 70 09/14/23 12:44 BP 143/66 H 09/14/23 12:44 BMI result Body Mass Index 27.3 NAD Abd soft, nontender on exam, no guarding, nondistended No resp distress A/Ox3, normal gait Assessment & Plan Assessment & Plan (1) Unintentional weight loss: Code(s): R63.4 - Abnormal weight loss (2) History of gastric ulcer: Code(s): Z87.11 - Personal history of peptic ulcer disease (3) Epigastric pain: Code(s): R10.13 - Epigastric pain Plan Ddx include PUD kiki given prior hx, chronic mesenteric ischemia, celiac, malignancy. Plan: - CBC and iron studies - celiac serologies - CT Abd/pel with contrast urgent - EGD to be booked in a few weeks - Omeprazole switched to nexium in the meantime FOllow up after EGD Orders: Orders Complete Blood Count no Diff Today Z87.11 - Personal history of peptic ulcer disease Ferritin Today Z87.11 - Personal history of peptic ulcer disease Immunoglobulin A Today Z87.11 - Personal history of peptic ulcer disease Transglutaminase IgA Today Z87.11 - Personal history of peptic ulcer disease CT abdomen pelvis w IV con Today R63.4 - Abnormal weight loss, Z87.11 - Personal history of peptic ulcer disease Medications: New esomeprazole magnesium (Nexium) 20 mg PO BID 60 caps 1RF Z87.11 - Personal history of peptic ulcer disease Discontinued sucralfate (Carafate) Discontinued Reason: Doctor's Order 1 g PO BID 60 tabs 0RF pantoprazole Discontinued Reason: Doctor's Order 40 mg PO DAILY PRN 90 tabs 0RF Heartburn symptoms Coding Level of Care Code Est Pt Level 4 (67655) Diagnoses Unintentional weight loss R63.4 History of gastric ulcer Z87.11 Epigastric pain R10.13
[2023-09-14 12:44] VITALS: BP 143/66; PULSE 70; BMI 27.3
== END 2023-09-14 14:03 | disposition home or self-care (01) ==
PROVIDERS: PCP Internal Medicine; Visit Provider Internal Medicine
DX: R63.4 Abnormal weight loss (principal); Z87.11 Personal history of peptic ulcer disease; R10.13 Epigastric pain
CPT/HCPCS: 99214

== ENCOUNTER → 2023-09-14 12:39 | Outpatient (BNVA) | payer OTHER, SELFPAY | PROVIDERS: PCP Internal Medicine; Visit Provider Internal Medicine | DX: R63.4 Abnormal weight loss (principal); R10.13 Epigastric pain; Z87.11 Personal history of peptic ulcer disease | CPT/HCPCS: 99212 ==

== ENCOUNTER 2023-09-21 07:57 | Outpatient (REF) | payer OTHER, SELFPAY ==
--- NOTE | ~2023-09-21 | MM_ITS ---
EXAMINATION: MM SCREENING DIGITAL BREAST TOMOSYNTHESIS, BILATERAL CLINICAL INFORMATION: Screening. Asymptomatic. COMPARISON: Mammography: 10/14/2022, 09/18/2022, 06/27/2020, 02/14/2019, and dating back to 2012. TECHNIQUE: Digital breast tomosynthesis is performed in both the craniocaudal and mediolateral oblique views along with computer-aided detection (CAD). Synthesized 2D images are generated from the tomosynthesis. FINDINGS: The breasts are heterogeneously dense, which may obscure small masses (ACR BI-RADS breast composition Category c). There are no suspicious masses, suspicious grouped calcifications, or areas of architectural distortion in either breast. The parenchymal pattern is stable from prior exams. No axillary or skin abnormalities. MM/MM tomosynthesis screening BI IMPRESSION: No mammographic evidence of malignancy. ASSESSMENT: BI-RADS BI-RADS 1 - Negative RECOMMENDATION: Routine annual mammography screening. 1 year F/U This examination should not preclude the clinical evaluation of a suspicious palpable abnormality. This patient's information was entered into a reminder system with a target due date for their next mammogram.
== END 2023-09-21 07:58 | disposition home or self-care (01) ==
LOC: HO.MAMMO 07:57
PROVIDERS: PCP Internal Medicine; Visit Provider Internal Medicine
DX: Z12.31 Encounter for screening mammogram for malignant neoplasm of breast (principal)
CPT/HCPCS: 77063; 77067

== ENCOUNTER → 2023-09-21 08:15 | Outpatient (BNV) | payer OTHER, SELFPAY | PROVIDERS: PCP Internal Medicine; Visit Provider Radiology Diagnostic Radiology | DX: Z12.31 Encounter for screening mammogram for malignant neoplasm of breast (principal) | CPT/HCPCS: 77063; 77067 ==

== ENCOUNTER 2023-09-30 09:06 | Outpatient (REF) | payer OTHER, SELFPAY ==
[2023-09-30 10:02] LABS: Hematocrit 43.3 % (37.0-47.0); Hemoglobin 13.6 g/dl (12.0-16.0); Mean Corpuscular HGB Conc 31.4 g/dl (31.0-35.0); Mean Corpuscular Volume 85.9 fL (80.0-98.0); Mean Platelet Volume 10.3 fL (9.4-12.3); Platelet Count 232 X10*3/uL (160-400); Red Blood Count 5.04 X10*6/uL (4.20-5.50); Red Cell Distribution Width 13.2 % (11.0-16.0); White Blood Count 4.4 X10*3/uL (4.8-10.8)
[2023-09-30 11:39] LABS: Blood Urea Nitrogen 11 mg/dL (9-16); Estimated Glomerular Filt Rate > 60; Ferritin 57 ng/mL (10-250)
[2023-10-01 16:54] LABS: Immunoglobulin A 188 mg/dL (47-310)
== END 2023-09-30 09:07 | disposition home or self-care (01) ==
LOC: HO.LAB 09:06
PROVIDERS: PCP Internal Medicine; Visit Provider Internal Medicine
DX: R63.4 Abnormal weight loss (principal); R10.13 Epigastric pain; Z87.11 Personal history of peptic ulcer disease
CPT/HCPCS: 36415; 82565; 82728; 82784; 84520; 85027; 86364

== ENCOUNTER 2023-10-02 08:01 | Outpatient (REF) | payer OTHER, SELFPAY ==
--- NOTE | ~2023-10-02 | MR_ITS ---
EXAMINATION: MR BRAIN WITHOUT AND WITH CONTRAST CLINICAL INFORMATION: Pituitary cyst COMPARISON: MRI of the brain without contrast 08/18/2023 TECHNIQUE: Multiplanar multisequence MR imaging of the brain was obtained without and following the administration of 3.5 mL Gadavist intravenous contrast. FINDINGS: The pituitary gland is normal in overall size and contour on precontrast imaging. There is a region of hypoenhancement with intrinsic T1 hyperintense and T2 hypointense signal centered in the right central pituitary gland measuring up to 4 x 5 x 8 mm (AP X CC X TR). The infundibulum remains midline and the optic chiasm is in a normal location. The cavernous sinus enhances normally. There is no acute infarct on diffusion-weighted imaging. No extra-axial collection or mass effect/herniation. Scattered periventricular and deep white matter T2 FLAIR hyperintensities consistent with mild underlying microangiopathy. Low No hydrocephalus. The ventricles are normal in morphology and size. No abnormal parenchymal or extra-axial enhancement. The major flow voids at the skull base are preserved. The midline structures are normal. The cerebellar tonsils are normally positioned. The craniocervical junction is normal. Marrow signal is within normal limits. The visualized soft tissues are without significant abnormality. Small left mastoid fluid. Mild ethmoid sinus mucosal thickening. 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
[2023-10-02] MEDS: gadobutroL 7.5 ML VIAL IVPUSH (09:08)
== END 2023-10-02 08:02 | disposition home or self-care (01) ==
LOC: HO.MRI 08:01
PROVIDERS: PCP Internal Medicine; Visit Provider Nurse Practitioner Family
DX: E23.6 Other disorders of pituitary gland (principal)
CPT/HCPCS: 70553; A9585

== ENCOUNTER 2023-10-13 09:48 | Outpatient (AMB) | payer OTHER, SELFPAY ==
[2023-10-13 09:53] VITALS: BP 124/82; PULSE 79; O2SAT 98; BMI 28.0
--- NOTE | 2023-10-13 09:53 | A.OFFVIS_ITS ---
Intake Vital Signs 10/13/23 09:53 Height 5 ft 3 in Weight 158 lb BMI 28.0 BP 124/82 Blood Pressure Location Rt brachial Position Sitting Pulse 79 Pulse Source Pulse Oximeter Pulse Oximetry (%) 98 Oxygen Delivery Method Room Air Intake Visit Reasons: 3 mnts f/u - conf Intake Note: Patient presents for 3 month follow up. Allergies crab [CRAB] Allergy (Severe, Verified 09/14/23 12:45) MOURH SWELLING cyclobenzaprine [From FLEXERIL] Allergy (Severe, Verified 09/14/23 12:45) SEIZURE/shakey ibuprofen [From MOTRIN] Allergy (Intermediate, Verified 09/14/23 12:45) ITCHING, severe abdominal pain morphine [Morphine] Allergy (Intermediate, Verified 09/14/23 12:45) ITCHING/REDNESS, rash Medication List - Last Reconciled 10/13/23 by RJ Bergman albuterol sulfate 90 mcg/actuation 2 inhalations inhalation Q6H PRN albuterol sulfate 2.5 mg (3 mL) inhalation Q6H PRN atorvastatin 20 mg PO DAILY blood sugar diagnostic (FreeStyle Lite Strips) Check fasting glucose once a day blood-glucose meter (FreeStyle Lite Meter kit) Check fasting glucose once a day bupropion HCl SR (Wellbutrin SR) 100 mg PO DAILY voykwzacbt-jkxoqirobaxof-mjpp 50-300-40 mg 1 cap PO Q6H PRN 30 days MDD 2 capsaicin-menthol 0.025-1.25 % (Salonpas (capsaicin-menthol)) 1 patch topical DAILY PRN 7 days cholecalciferol (vitamin D3) 1,250 mcg PO QWEEK 3 months clonazepam 0.5 mg PO BEDTIME dicyclomine 10 mg PO TID PRN duloxetine 30 mg PO BID epinephrine (EpiPen 2-Abilio) 0.3 mg (0.3 mL) IM ONCE PRN esomeprazole magnesium (Nexium) 20 mg PO BID fluticasone propion-salmeterol 250-50 mcg/dose (Wixela Inhub) 1 ea inhalation QAM galcanezumab-gnlm (Emgality Pen) 240 mg (2 mL) subcut ONCE 30 days lancets (FreeStyle Lancets) Check fasting glucose once a day lidocaine 5% 1 appl topical DAILY PRN lisinopril 20 mg PO DAILY naratriptan take 1/2 - 1 tab at onset of headache; if no relief may repeat 1 tab after at least 4 hrs; max = 2 tabs/24 hrs orally PRN; 30 days nebulizers (AeroEclipse II Nebulizer) As directed nitroglycerin 0.4 mg sublingual Q5M PRN topiramate 150 mg (1.5 x 100 mg) PO BEDTIME Trulance (plecanatide) 3 mg PO DAILY NS zolpidem 10 mg PO BEDTIME HPI HPI Comments History of Present Illness Details 58-yr-old female presents for f/u visit. Pt denies any significant interval medical changes. She is having 2-3 migraines per week, not all severe, typically 2 severe days per week. She is still very easily triggered by smells. 07/2023, MR/MR head/brain wo con: No acute infarction. Mild chronic microvascular ischemic change. Faintly T1 hyperintense lesion along the central/right aspect of the pituitary gland is suboptimally characterized on this examination. Follow-up brain MRI w/wo done, results pending. Labs results were notable for low B-12 level- 176 L. She has not rec'd the Emgality yet- requires a PA. Pt tried Naratriptan caused excessive sleepiness and nausea. So she resumed Fioricet 1 cap prn- usually using 2 x's per week. Baseline headache characteristics: Aura: Sees flashing lights for a few seconds before the headache starts Mild to Severe, Unilateral facial, eye, temporal sharp pain. Usually right- sided but can be left-sided. A/w photophobia, phonophobia, Osmophobia, nausea, difficulty concentrating, allodynia, activity intolerance, ipsilateral red eye (right or left but always ipsilateral to the head pain). Postdrome: The day after headache attack, will have red eye ipsilateral to the headache pain PFS Medical History (Updated 10/13/23 @ 21:37 by RJ Begrman) Osteoarthritis of right knee Acute hemorrhagic colitis Vitamin D deficiency Anxiety and depression Hx of renal calculi Allergic to shellfish Insomnia Mild intermittent asthma Type 2 diabetes mellitus without complication, without long-term current use of insulin Migraine GERD (gastroesophageal reflux disease) Osteoarthritis Essential hypertension Dyslipidemia Surgical History (Updated 08/11/23 @ 17:15 by Rahel Diaz MD) H/O colonoscopy History of total right knee replacement Hx laparoscopic cholecystectomy History of appendectomy Hx of total knee arthroplasty History of partial hysterectomy Family History Father HTN (hypertension) Hyperlipidemia Lung cancer Mother HTN (hypertension) Hyperlipidemia Diabetes mellitus Social History Housing: Apartment Alcohol intake: never Patient Tobacco Use Status: Never used Tobacco e-Cigarette/Vaping Use: Never Used Advance Directives Date on File: 09/11/23 service: No Current occupational status: unemployed Current occupation: [employer] Handed Cognitive needs: No Hearing needs: No Vision needs: No Physical Exam Vital Signs: Last Vital Signs Pulse 79 10/13/23 09:53 BP 124/82 10/13/23 09:53 Pulse Ox 98 10/13/23 09:53 Oxygen Delivery Method Room Air 10/13/23 09:53 BMI result Body Mass Index 28.0 Const General: cooperative and no acute distress Orientation/consciousness: patient oriented x3 Resp Effort & Inspection: normal respiratory effort and able to speak in complete sentences Neuro General: patient oriented x3 Cranial nerves: Yes CN's II-XII intact bilaterally Cognition (Neuro): normal cognition Psych Appearance: grossly normal Mental Status: mental status grossly normal Speech and movement: Normal speech and movement present Affect: normal affect Attitude: cooperative Assessment & Plan Assessment & Plan (1) Migraine: Code(s): G43.909 - Migraine, unspecified, not intractable, without status migrainosus Qualifiers: Migraine type: unspecified Status migrainosus presence: without status migrainosus Intractability: not intractable Qualified Code(s): G43.909 - Migraine, unspecified, not intractable, without status migrainosus (2) Vitamin B12 deficiency: Code(s): E53.8 - Deficiency of other specified B group vitamins (3) Cyst of pituitary gland: Code(s): E23.6 - Other disorders of pituitary gland Plan Reviewed brain MRI w/o: Mild chronic microvascular ischemic change. Suboptimally visualized faintly T1 hyperintense lesion along the central/right aspect of the pituitary gland. Reviewed follow-up Brain MRI w/wo images- full report pending. Reviewed labs- noatble for B-12 def- will supplement B-12. ? For overall headache management: Optimize good self-care, including but not limited to maintaining a healthy diet, adequate fluid intake, adequate sleep, and engaging in regular physical activity. Track headaches. ? For acute headache treatment: May continue Fioricet capsule p.r.n. for now. Stop naratriptan 2.5 mg p.r.n. Reviewed potential adverse effects of Fioricet, including but not limited to fatigue, medication overuse headaches. Previous acute migraine medication trials: Sumatriptan caused GI upset. Naproxen caused GI upset. Naratriptan- not tolerated. Acute migraine medication contraindications: None at this time ? For headache prevention medication: Start Riboflavin 400mg qam. Will f/u on order to start Emgality: Loading dose 120mg x's 2 mg subcu injection x1, followed by 120 mg subcu injection q.month. Continue topiramate 150 mg q.h.s.. Would not increase further due to question of history of kidney stones. Reviewed potential adverse effects of Emgality, including but not limited to injection site reactions. Previous migraine prevention medication trials: Amitriptyline: not tolerate it, Depakote: Not tolerated, Celebrex: Not tolerated, flexeril: Not tolerated, metoprolol: Not tolerated. Migraine prevention medication contraindications: Beta-blockers due to asthma diagnosis. Would use caution with Aimovig due to risk for worsening constipation and leg cramps. ? Pt to follow-up in 3 months or sooner prn. Medications: New cyanocobalamin (vitamin B-12) 500 mcg PO DAILY 30 tabs 6RF 30 days riboflavin (vitamin B2) 400 mg PO DAILY 30 tabs 6RF 30 days Coding Level of Care Code Est Pt Level 4 (88643) Diagnoses Migraine without status migrainosus, not intractable, unspecified migraine type G43.909 Migraine type: unspecified Status migrainosus presence: without status migrainosus Intractability: not intractable Vitamin B12 deficiency E53.8 Cyst of pituitary gland E23.6
== END 2023-10-13 10:47 | disposition home or self-care (01) ==
LOC: HO.HSMS 09:49
PROVIDERS: PCP Internal Medicine; Visit Provider Nurse Practitioner Family
DX: G43.909 Migraine, unspecified, not intractable, without status migrainosus (principal); E53.8 Deficiency of other specified B group vitamins; E23.6 Other disorders of pituitary gland
CPT/HCPCS: 99214

== ENCOUNTER → 2023-10-13 09:48 | Outpatient (BNVA) | payer OTHER, SELFPAY | PROVIDERS: PCP Internal Medicine; Visit Provider Nurse Practitioner Family | DX: G43.909 Migraine, unspecified, not intractable, without status migrainosus (principal); E53.8 Deficiency of other specified B group vitamins; E23.6 Other disorders of pituitary gland | CPT/HCPCS: 99212 ==

== ENCOUNTER 2023-10-22 07:57 | Outpatient (REF) | payer OTHER, SELFPAY ==
[2023-10-22 09:35] LABS: Cortisol Random 23.9 ug/dL
[2023-10-22 09:37] LABS: Free T4 (Free Thyroxine) 0.98 ng/dL (0.71-1.85); Thyroid Stimulating Hormone 1.03 uIU/mL (0.32-4.0)
[2023-10-23 07:38] LABS: Prolactin 9.2 ng/mL
[2023-10-23 08:08] LABS: Triiodothyronine T3 Free 2.9 pg/mL (2.3-4.2); Triiodothyronine T3 Total 102 ng/dL (76-181)
[2023-10-23 11:39] LABS: Human Growth Hormone <0.1 ng/mL (< OR = 7.1)
[2023-10-28 23:27] LABS: Estradiol Ultra Sensitive 4 pg/mL
[2023-10-30 12:29] LABS: IGF-1 (Somatomedin C) 101 ng/mL (50-317); IGF-1 Z Score (Female) -0.6 SD (-2.0 - +2.0)
== END 2023-10-22 07:58 | disposition home or self-care (01) ==
LOC: HO.LAB 07:57
PROVIDERS: Visit Provider Nurse Practitioner Family
DX: E23.6 Other disorders of pituitary gland (principal); L65.9 Nonscarring hair loss, unspecified; R23.2 Flushing
CPT/HCPCS: 36415; 82533; 82670; 83003; 84146; 84305; 84439; 84443; 84480; 84481

== ENCOUNTER 2023-10-23 20:09 | Emergency (ER) | payer OTHER, SELFPAY ==
--- NOTE | ~2023-10-23 | XR_ITS ---
EXAMINATION: XR CHEST CLINICAL INFORMATION: Shortness of breath and cough COMPARISON: Previous chest x-ray most recent April 2023 TECHNIQUE: Frontal view of the chest was obtained. FINDINGS: The cardiac and mediastinal contours are stable. The lungs are clear. No pleural effusion or pneumothorax. Degenerative changes of the spine. XR/XR chest 1V IMPRESSION: No evidence for acute disease in the chest.
[2023-10-23 20:11] VITALS: BP 146/74; PULSE 85; RESP 22; TEMP 36.6; O2SAT 99; BMI 27.6
--- NOTE | 2023-10-23 20:12 | ED_ITS ---
HPI - General Adult General Chief complaint: Dyspnea Stated complaint: Asthma Time Seen by Provider: 10/23/23 20:23 Source: patient Mode of arrival: ambulatory Limitations: no limitations History of Present Illness HPI narrative: Patient history of asthma been feeling short of breath for last few hours use her inhaler without much relief does not have any nebulizer at home usually her asthma stable get episode seasonally Related Data Home Medications ?Medication ?Instructions ?Recorded ?Confirmed zolpidem 10 mg tablet 10 mg PO BEDTIME 04/04/20 10/13/23 clonazepam 0.5 mg tablet 0.5 mg PO BEDTIME 07/04/21 10/13/23 bupropion HCl 100 mg tablet,12 hr 100 mg PO DAILY 07/14/23 10/13/23 sustained-release (Wellbutrin SR) duloxetine 30 mg capsule,delayed 30 mg PO BID 09/14/23 10/13/23 release Previous Rx's ?Medication ?Instructions ?Recorded epinephrine 0.3 mg/0.3 mL 0.3 mg (0.3 mL) IM ONCE PRN 07/01/21 injection, auto-injector (EpiPen anaphylaxis #2 ea 2-Abilio) nitroglycerin 0.4 mg sublingual 0.4 mg sublingual Q5M PRN chest 07/04/21 tablet pain #7 tabs lidocaine 5 % topical ointment 1 appl topical DAILY PRN pain #30 12/11/21 grams albuterol sulfate 2.5 mg/3 mL 2.5 mg (3 mL) inhalation Q6H PRN 06/17/22 (0.083 %) solution for nebulization shortness of breath or wheezing #75 mL dicyclomine 10 mg capsule 10 mg PO TID PRN Abd cramping #20 09/19/22 caps Trulance 3 mg tablet (plecanatide) 3 mg PO DAILY #30 tabs 11/28/22 fluticasone 250 mcg-salmeterol 50 1 ea inhalation QAM #60 ea 12/20/22 mcg/dose blistr powdr for inhalation (Wixela Inhub) topiramate 100 mg tablet 150 mg (1.5 x 100 mg) PO BEDTIME 05/22/23 #135 tabs atorvastatin 20 mg tablet 20 mg PO DAILY #90 tabs 07/02/23 galcanezumab-gnlm 120 mg/mL 240 mg (2 mL) subcut ONCE 30 days 07/14/23 subcutaneous pen injector #2 mL (Emgality Pen) naratriptan 2.5 mg tablet See Rx Instructions PO .COMPLEX 07/14/23 PRN migraine headache 30 days #12 tabs albuterol sulfate 90 mcg/actuation 2 inh inhalation Q6H PRN shortness 08/03/23 aerosol inhaler of breath or wheezing #8.5 grams blood sugar diagnostic (FreeStyle #50 ea 08/04/23 Lite Strips) blood-glucose meter (FreeStyle #1 ea 08/04/23 Lite Meter kit) capsaicin-menthol 0.025 %-1.25 % 1 patch topical DAILY PRN pain 7 08/04/23 topical patch (Salonpas days #30 ea (capsaicin-menthol)) lancets 28 gauge (FreeStyle #100 ea 08/04/23 Lancets) nebulizers (AeroEclipse II #1 ea 08/04/23 Nebulizer) cholecalciferol (vitamin D3) 1,250 1,250 mcg PO QWEEK 3 months #13 08/12/23 mcg (50,000 unit) capsule caps esomeprazole magnesium 20 mg 20 mg PO BID #60 caps 09/14/23 capsule,delayed release (Nexium) cyanocobalamin (vitamin B-12) 500 500 mcg PO DAILY 30 days #30 tabs 10/13/23 mcg tablet riboflavin (vitamin B2) 400 mg 400 mg PO DAILY 30 days #30 tabs 10/13/23 tablet xknpbhxorq-diehvtqejcvsr-omgkltzp 1 cap PO Q6H PRN for headache 30 10/14/23 50 mg-300 mg-40 mg capsule days #30 caps lisinopril 20 mg tablet 20 mg PO DAILY #90 tabs 10/15/23 albuterol sulfate 90 mcg/actuation 2 puff inhalation Q4-6H PRN 10/24/23 aerosol inhaler (ProAir HFA) shortness of breath or wheezing #8.5 grams benzonatate 200 mg capsule 200 mg PO TID PRN cough #20 caps 10/24/23 prednisone 20 mg tablet 40 mg (2 x 20 mg) PO DAILY #10 tabs 10/24/23 Allergies Allergy/AdvReac Type Severity Reaction Status Date / Time crab [CRAB] Allergy Severe MOURH Verified 10/23/23 20:14 SWELLING cyclobenzaprine Allergy Severe SEIZURE/sha Verified 10/23/23 20:14 [From FLEXERIL] [place] ibuprofen [From MOTRIN] Allergy Intermediate ITCHING, Verified 10/23/23 20:14 severe abdominal pain morphine [Morphine] Allergy Intermediate ITCHING/REDNESS, Verified 10/23/23 20:14 rash Review of Systems 2 Review of Systems: Yes all other systems are reviewed and are negative PMFSH Past Medical History Medical History Osteoarthritis of right knee Acute hemorrhagic colitis Vitamin D deficiency Anxiety and depression Hx of renal calculi Allergic to shellfish Insomnia Mild intermittent asthma Type 2 diabetes mellitus without complication, without long-term current use of insulin Migraine GERD (gastroesophageal reflux disease) Osteoarthritis Essential hypertension Dyslipidemia Surgical History H/O colonoscopy History of total right knee replacement Hx laparoscopic cholecystectomy History of appendectomy Hx of total knee arthroplasty History of partial hysterectomy Family History Family History Father HTN (hypertension) Hyperlipidemia Lung cancer Mother HTN (hypertension) Hyperlipidemia Diabetes mellitus Social History Social History Housing: Apartment Alcohol intake: never Patient Tobacco Use Status: Never used Tobacco Smoked in Last 30 Days: No e-Cigarette/Vaping Use: Never Used Use of substances other than those prescribed or required for medical reasons: No Advance Directives: Yes Advance Directives on File: Yes Advance Directives Date on File: 09/11/23 Do you have a plan to hurt others: No Plan Patient : No service: No Current occupational status: unemployed Current occupation: [employer] Handed Cognitive needs: No Hearing needs: No Vision needs: No Physical Exam ED Vital Signs: Vital Signs - 24 hr 10/23/23 20:11 10/23/23 20:31 10/23/23 22:00 Temperature 97.9 F 98.0 F Pulse Rate 85 70 67 Respiratory Rate 22 H 15 16 Blood Pressure 146/74 H 161/85 H Pulse Oximetry 99 97 Oxygen Delivery Method Room Air Room Air 10/23/23 23:39 10/24/23 00:33 10/24/23 00:34 Temperature 97.9 F 97.9 F Pulse Rate 67 78 78 Respiratory Rate 16 15 15 Blood Pressure 132/72 132/72 Pulse Oximetry 96 96 Oxygen Delivery Method Room Air Room Air BMI result Body Mass Index 27.6 Appearance: Alert. Oriented X3. No acute distress. Eyes: PERRLA, No Nystagmus ENT: Pharynx normal. Oral Mucosa moist Neck: Normal inspection. Neck supple. CVS: Normal heart rate and rhythm. Pulses normal. Respiratory: No respiratory distress. Equal air entry bilateral, prolonged expiration with wheezing Abdomen: Soft and nontender. Bowel sounds are present, no mass palpable, no CVA tenderness Skin: Skin warm and dry. Normal skin color. Normal skin turgor. Extremities: No lower extremity edema. No calf tenderness Neuro: Oriented X 3. No motor deficit. Course Course Course Narrative: RME performed by Farheen Da Silva PA-C. Patient is a 58 year old assigned female at presenting to the emergency department with an asthma exacerbation. Detailed physical exam and review of systems are deferred to the rubber goods cutter finisher. Labs, imaging, and swabs ordered. Patient brought to the back. Medications Administered Discontinued Medications Generic Name Dose Route Start Last Admin Trade Name Freq PRN Reason Stop Dose Admin Albuterol Sulfate 5 mg 10/23/23 23:29 10/23/23 23:37 Albuterol Sulfate (0.083%) 2.5 Mg/3 Ml Vial.Neb INHALE 10/23/23 23:30 5 mg ONCE ONE Administration Albuterol/Ipratropium 3 ml 10/23/23 20:26 10/23/23 20:29 Albuterol/Iprat 2.5/0.5mg 3 Ml Ampul.Neb INHALE 10/23/23 20:27 3 ml ONCE ONE Administration Guaifenesin/Codeine Phosphate 10 ml 10/23/23 23:29 10/24/23 00:05 Guaifen/Codeine Sf 200/20/10ml 10 Ml Liquid PO 10/23/23 23:30 10 ml ONCE ONE Administration Magnesium Sulfate/Dextrose 1 gm in 100 mls @ 300 mls/hr 10/23/23 20:13 10/23/23 20:56 Magnesium Sulfate/D5w IV 10/23/23 20:32 Infused ONCE ONE Infusion Methylprednisolone Sodium Succinate 125 mg 10/23/23 20:35 10/23/23 20:39 Methylprednisolone Sod Succ 125 Mg/2 Ml Vial IVPUSH 10/23/23 20:36 125 mg ONCE ONE Administration Medical Decision Making Medical Decision Making [facility] Narrative: Patient with asthma exacerbation responded to IV prednisone and magnesium listed to nebulizing treatment and feels much better will discharge patient home on prednisone and advised to continue albuterol inhaler and will give syrup chest pain likely musculoskeletal Differential Diagnosis Differential Diagnoses: The differential diagnosis associated with the presentation includes Asthma exacerbation/bronchitis/pneumonia/rib fracture/pneumothorax Lab Data [facility] Lab Attestation statement: I reviewed the patient's lab results. 10/23/23 20:22 10/23/23 20:22 Labs: Lab Results 10/23/23 Range/Units 20:22 WBC 6.0 (4.8-10.8) X10*3/uL RBC 4.93 (4.20-5.50) X10*6/uL Hgb 13.3 (12.0-16.0) g/dl Hct 40.9 (37.0-47.0) % MCV 83.0 (80.0-98.0) fL MCH 27.0 (27.0-33.0) pg MCHC 32.5 (31.0-35.0) g/dl RDW 13.3 (11.0-16.0) % Plt Count 243 (160-400) X10*3/uL MPV 10.4 (9.4-12.3) fL Immature Gran % (Auto) 0.0 (0.0-0.4) % Neut % (Auto) 27.6 L (45-73) % Lymph % (Auto) 59.6 H (20-40) % [place] % (Auto) 8.9 (2-11) % Eos % (Auto) 3.4 (0-4) % Baso % (Auto) 0.5 (0-2) % Lymph # (Auto) 3.6 (1.2-4.9) X10*3/uL [place] # (Auto) 0.5 (0.1-1.2) X10*3/uL Eos # (Auto) 0.2 (0.0-0.4) X10*3/uL Baso # (Auto) 0.0 (0.0-0.2) X10*3/uL Abs Immat Gran (auto) 0.00 (0.00-0.03) X10*3/uL Absolute Neuts (auto) 1.7 L (2.0-8.3) x10*3/uL Absolute Nucleated RBC 0.000 (0.0-0.012) X10*3/uL Nucleated RBC % (auto) 0.0 (0.0-0.2) /100WBC Sodium 145 (135-145) mmol/L Potassium 3.3 (3.3-5.1) mmol/L Chloride 110 H (96-108) mmol/L Carbon Dioxide 27 (22-29) mmol/L Anion Gap 11 L (12-20) BUN 15 (9-16) mg/dL Creatinine 0.94 (0.5-1.4) mg/dL Estim Creat Clear Calc 61.5 Estimated GFR > 60 Random Glucose 87 (60-115) mg/dL Calcium 9.7 (8.4-10.2) mg/dL Magnesium 2.2 (1.6-2.6) mg/dL Total Bilirubin 0.2 (0.0-1.0) mg/dL AST 27 (5-31) U/L ALT 11 (0-31) U/L Alkaline Phosphatase 86 (39-117) U/L Troponin I High Sens < 2.7 D (<3.5-17.0) ng/L Total Protein 8.4 H (6.5-8.0) g/dL Albumin 4.5 (3.5-5.0) g/dL Influenza Type A (PCR) NEGATIVE (Negative) Influenza Type B (PCR) NEGATIVE (Negative) RSV RNA Qual (PCR) NEGATIVE (Negative) SARS-CoV-2 RNA (RT-PCR) NEGATIVE (Negative) Independent Interpretation I performed an independent interpretation of an: Plain X-Ray Radiology Impression Discussion of test interpretation with radiology: I have reviewed the radiologist's reading. Discharge Plan Discharge Clinical Impression: Asthma exacerbation Patient Disposition: Home, Self-Care Instructions: Asthma (ED) Additional Instructions: Usually inhaler as prescribed, 2 puffs every 4 hours as needed Prednisone as prescribed Cough drops as prescribed Follow with PCP if not better Prescriptions: New benzonatate 200 mg capsule 200 mg PO TID PRN (Reason: cough) Qty: 20 0RF prednisone 20 mg tablet 40 mg PO DAILY Qty: 10 0RF albuterol sulfate [ProAir HFA] 90 mcg/actuation HFA aerosol inhaler 2 puff inhalation Q4-6H PRN (Reason: shortness of breath or wheezing) Qty: 8.5 0RF No Action zolpidem 10 mg tablet 10 mg PO BEDTIME albuterol sulfate 2.5 mg /3 mL (0.083 %) solution for nebulization 2.5 mg inhalation Q6H PRN (Reason: shortness of breath or wheezing) Qty: 75 0RF fluticasone propion-salmeterol [Wixela Inhub] 250-50 mcg/dose blister with device 1 ea inhalation QAM Qty: 60 5RF topiramate 100 mg tablet 150 mg PO BEDTIME Qty: 135 1RF atorvastatin 20 mg tablet 20 mg PO DAILY Qty: 90 1RF albuterol sulfate 90 mcg/actuation HFA aerosol inhaler 2 inh inhalation Q6H PRN (Reason: shortness of breath or wheezing) Qty: 8.5 3RF cholecalciferol (vitamin D3) 1,250 mcg (50,000 unit) capsule 1,250 mcg PO QWEEK 90 Days Qty: 13 0RF dskycpyuil-faawphmrpbqer-uqar 50-300-40 mg capsule 1 cap PO Q6H MDD 2 PRN (Reason: for headache) 30 Days Qty: 30 1RF lisinopril 20 mg tablet 20 mg PO DAILY Qty: 90 3RF clonazepam 0.5 mg tablet 0.5 mg PO BEDTIME nitroglycerin 0.4 mg tablet, sublingual 0.4 mg sublingual Q5M PRN (Reason: chest pain) Qty: 7 0RF Rx Instructions: do not exceed 3 doses per episode Trulance 3 mg tablet 3 mg PO DAILY Qty: 30 5RF Salonpas (capsaicin-menthol) 0.025-1.25 % adhesive patch,medicated 1 patch topical DAILY PRN (Reason: pain) 7 Days Qty: 30 4RF Rx Instructions: may leave on area for up to 8 hrs (DME) nebulizers [AeroEclipse II Nebulizer] Misc See Rx Instructions .Route Qty: 1 0RF Rx Instructions: As directed (DME) lancets [FreeStyle Lancets] 28 gauge misc See Rx Instructions .Route Qty: 100 5RF Rx Instructions: Check fasting glucose once a day (DME) blood-glucose meter [FreeStyle Lite Meter] Kit See Rx Instructions .Route Qty: 1 0RF Rx Instructions: Check fasting glucose once a day (DME) FreeStyle Lite Strips Strip See Rx Instructions .Route Qty: 50 5RF Rx Instructions: Check fasting glucose once a day epinephrine [EpiPen 2-Abilio] 0.3 mg/0.3 mL auto-injector 0.3 mg IM ONCE PRN (Reason: anaphylaxis) Qty: 2 1RF lidocaine 5 % ointment 1 appl topical DAILY PRN (Reason: pain) Qty: 30 0RF dicyclomine 10 mg capsule 10 mg PO TID PRN (Reason: Abd cramping) Qty: 20 0RF bupropion HCl [Wellbutrin SR] 100 mg tablet sustained-release 12 hr 100 mg PO DAILY Emgality Pen 120 mg/mL pen injector 240 mg subcut ONCE 30 Days Qty: 2 0RF naratriptan 2.5 mg tablet See Rx Instructions PO .COMPLEX PRN (Reason: migraine headache) 30 Days Qty: 12 6RF Rx Instructions: take 1/2 - 1 tab at onset of headache; if no relief may repeat 1 tab after at least 4 hrs; max = 2 tabs/24 hrs orally PRN; cyanocobalamin (vitamin B-12) 500 mcg tablet 500 mcg PO DAILY 30 Days Qty: 30 6RF riboflavin (vitamin B2) 400 mg tablet 400 mg PO DAILY 30 Days Qty: 30 6RF duloxetine 30 mg capsule,delayed release(DR/EC) 30 mg PO BID esomeprazole magnesium [Nexium] 20 mg capsule,delayed release(DR/EC) 20 mg PO BID Qty: 60 1RF Interventions: ED Discharge Assessment Last Done: 10/24/23 00:34 Discharge Date/Time: 10/24/23 00:35 Print Language: Arabic
--- NOTE | 2023-10-23 20:13 | ECG_ITS ---
Test Reason : CHEST PAIN Blood Pressure : / mmHG Vent. Rate : 081 BPM Atrial Rate : 081 BPM P-R Int : 130 ms QRS Dur : 086 ms QT Int : 358 ms P-R-T Axes : 032 027 005 degrees QTc Int : 415 ms Normal sinus rhythm Nonspecific ST and T wave abnormality Abnormal ECG When compared with ECG of 29-AUG-2022 02:57, No significant change was found Referred By: Farheen Da Silva Electronically Signed By:JULIANNA JANE MD
--- NOTE | 2023-10-23 20:25 | PC.NURSE ---
IV established, labs obtained. EKG obtained by earth moving technician.
[2023-10-23] MEDS: Albuterol/Iprat 2.5/0.5MG 3 ML AMPUL.NEB INHALE (20:29)
[2023-10-23 20:31] VITALS: PULSE 70; RESP 15; O2SAT 98
[2023-10-23 20:35] LABS: MANUAL DIFF FLAG NO
[2023-10-23] MEDS: Magnesium Sulfate/D5W 1 GM/100 ML PIGGYBACK IV (20:36)
--- NOTE | 2023-10-23 20:38 | MHC.EDTECH ---
this pct just assumed care of patient ,vitals taken ,ekg done and was read by Provider ,blood drawn and sent to lab ,rsv/covid swab collected and sent to lab .
[2023-10-23] MEDS: methylPREDNISolone Sod Succ 125 MG/2 ML VIAL IVPUSH (20:39)
[2023-10-23 20:43] LABS: Basophils Percent Auto 0.5 % (0-2); Eosinophils Absolute Auto 0.2 X10*3/uL (0.0-0.4); Eosinophils Percent Auto 3.4 % (0-4); Hematocrit 40.9 % (37.0-47.0); Hemoglobin 13.3 g/dl (12.0-16.0); Lymphocytes Absolute Auto 3.6 X10*3/uL (1.2-4.9); Lymphocytes Percent Auto 59.6 % (20-40); Mean Corpuscular HGB Conc 32.5 g/dl (31.0-35.0); Mean Platelet Volume 10.4 fL (9.4-12.3); Monocytes Absolute Auto 0.5 X10*3/uL (0.1-1.2); Monocytes Percent Auto 8.9 % (2-11); Neutrophils Absolute Auto 1.7 x10*3/uL (2.0-8.3); Neutrophils Percent Auto 27.6 % (45-73); Platelet Count 243 X10*3/uL (160-400); Red Blood Count 4.93 X10*6/uL (4.20-5.50); Red Cell Distribution Width 13.3 % (11.0-16.0)
[2023-10-23 21:01] LABS: Alanine Aminotransferase 11 U/L (0-31); Albumin Level 4.5 g/dL (3.5-5.0); Alkaline Phosphatase 86 U/L (39-117); Anion Gap 11 (12-20); Aspartate Amino Transferase 27 U/L (5-31); Bilirubin Total 0.2 mg/dL (0.0-1.0); Blood Urea Nitrogen 15 mg/dL (9-16); Calcium 9.7 mg/dL (8.4-10.2); Carbon Dioxide 27 mmol/L (22-29); Chloride 110 mmol/L (96-108); Creatinine Clr Calc Pharmacy 61.5; Estimated Glomerular Filt Rate > 60; Glucose Random 87 mg/dL (60-115); Magnesium 2.2 mg/dL (1.6-2.6); Potassium 3.3 mmol/L (3.3-5.1); Sodium 145 mmol/L (135-145); Total Protein 8.4 g/dL (6.5-8.0)
--- NOTE | 2023-10-23 21:04 | PC.NURSE ---
this rn assumed care of pt. pt respirations even and unlabored. pt reporting increasing SOB x4 days, reports SOB increased today. pt denies cough and being in with sick contacts. respiratory at bedside preforming breathing treatment, pt medciated per aug. pt normal sinus on tele 80-83bpm, sating 94-96% on room air. 20G placed in left ac.
[2023-10-23 21:22] LABS: Troponin-I High Sensitivity < 2.7 ng/L (<3.5-17.0)
[2023-10-23 21:25] LABS: Influenza A PCR NEGATIVE (Negative); Influenza B PCR NEGATIVE (Negative); Resp Syncy Virus RNA Qual PCR NEGATIVE (Negative); SARS COV2 PCR INHOUSE NEGATIVE (Negative)
[2023-10-23 22:00] VITALS: BP 161/85; PULSE 67; RESP 16; TEMP 36.7; O2SAT 97
[2023-10-23] MEDS: Albuterol Sulfate (0.083%) 2.5 MG/3 ML VIAL.NEB 5 MG INHALE (23:37)
[2023-10-23 23:39] VITALS: PULSE 67; RESP 16; O2SAT 97
[2023-10-24] MEDS: guaiFEN/Codeine SF 200/20/10ML 10 ML LIQUID PO (00:05)
[2023-10-24 00:33] VITALS: BP 132/72; PULSE 78; RESP 15; TEMP 36.6; O2SAT 96
[2023-10-24 00:34] VITALS: BP 132/72; PULSE 78; RESP 15; TEMP 36.6; O2SAT 96
== END 2023-10-24 00:35 | disposition home or self-care (01) ==
PROVIDERS: Physician Assistant Medical; Emergency Provider Internal Medicine; PCP Internal Medicine
DX: J45.901 Unspecified asthma with (acute) exacerbation (principal); R06.02 Shortness of breath; E11.9 Type 2 diabetes mellitus without complications; I10 Essential (primary) hypertension; E78.5 Hyperlipidemia, unspecified; Z79.899 Other long term (current) drug therapy; Z79.02 Long term (current) use of antithrombotics/antiplatelets; Z11.52 Encounter for screening for COVID-19; Z20.828 Contact with and (suspected) exposure to other viral communicable diseases
CPT/HCPCS: 0241U; 71045; 80053; 83735; 84484; 85025; 93005; 94640; 96365; 96375; 99284; 99285; J2919; J3475

== ENCOUNTER → 2023-10-23 20:13 | Outpatient (BNV) | payer OTHER, SELFPAY | PROVIDERS: Emergency Provider Internal Medicine; PCP Internal Medicine; Visit Provider Internal Medicine Cardiovascular Disease | DX: R94.31 Abnormal electrocardiogram [ECG] [EKG] (principal); R07.9 Chest pain, unspecified | CPT/HCPCS: 93010 ==

== ENCOUNTER 2023-11-04 10:53 | Outpatient (AMB) | payer OTHER, SELFPAY ==
--- NOTE | 2023-11-04 11:51 | A.OFFPC_ITS ---
Vital Signs 11/04/23 11:52 Height 5 ft 3 in Weight 155 lb BMI 27.5 BP 130/70 Blood Pressure Location Rt brachial Position Sitting Pulse 70 Pulse Source Pulse Oximeter Pulse Oximetry (%) 96 Oxygen Delivery Method Room Air Intake Visit Reasons: 3 month follow up Intake Note: pt is here for 3 month follow up, DM Allergies crab [CRAB] Allergy (Severe, Verified 11/04/23 12:21) MOURH SWELLING cyclobenzaprine [From FLEXERIL] Allergy (Severe, Verified 11/04/23 12:21) SEIZURE/shakey ibuprofen [From MOTRIN] Allergy (Intermediate, Verified 11/04/23 12:21) ITCHING, severe abdominal pain morphine [Morphine] Allergy (Intermediate, Verified 11/04/23 12:21) ITCHING/REDNESS, rash Medication List - Last Reconciled 11/04/23 by Rahel Diaz MD albuterol sulfate 90 mcg/actuation (ProAir HFA) 2 puffs inhalation Q4-6H PRN albuterol sulfate 90 mcg/actuation 2 inhalations inhalation Q6H PRN albuterol sulfate 2.5 mg (3 mL) inhalation Q6H PRN atorvastatin 20 mg PO DAILY benzonatate 200 mg PO TID PRN blood sugar diagnostic (FreeStyle Lite Strips) Check fasting glucose once a day blood-glucose meter (FreeStyle Lite Meter kit) Check fasting glucose once a day bupropion HCl SR (Wellbutrin SR) 100 mg PO DAILY ubjntvyakf-qyynuifhjvvqx-yzmn 50-300-40 mg 1 cap PO Q6H PRN 30 days MDD 2 capsaicin-menthol 0.025-1.25 % (Salonpas (capsaicin-menthol)) 1 patch topical DAILY PRN 7 days cholecalciferol (vitamin D3) 1,250 mcg PO QWEEK 3 months clonazepam 0.5 mg PO BEDTIME cyanocobalamin (vitamin B-12) 500 mcg PO DAILY 30 days dicyclomine 10 mg PO TID PRN duloxetine 30 mg PO BID epinephrine (EpiPen 2-Abilio) 0.3 mg (0.3 mL) IM ONCE PRN esomeprazole magnesium (Nexium) 20 mg PO BID fluticasone propion-salmeterol 250-50 mcg/dose (Wixela Inhub) 1 ea inhalation QAM galcanezumab-gnlm (Emgality Pen) 240 mg (2 mL) subcut ONCE 30 days lancets (FreeStyle Lancets) Check fasting glucose once a day lidocaine 5% 1 appl topical DAILY PRN lisinopril 20 mg PO DAILY naratriptan take 1/2 - 1 tab at onset of headache; if no relief may repeat 1 tab after at least 4 hrs; max = 2 tabs/24 hrs orally PRN; 30 days nebulizers (AeroEclipse II Nebulizer) As directed nitroglycerin 0.4 mg sublingual Q5M PRN riboflavin (vitamin B2) 400 mg PO DAILY 30 days topiramate 150 mg (1.5 x 100 mg) PO BEDTIME Trulance (plecanatide) 3 mg PO DAILY NS zolpidem 10 mg PO BEDTIME Tobacco use date assessed: 08/04/23 Dental Screening Dental Screen Date: 08/04/23 HPI 3 month follow up HPI Details 58-year-old lady here today for her 3 mo [facility] follow up. . She has hyperlipidemia, hypertension, chronic GERD, mild intermittent asthma , and type 2 diabetes mellitus. She sees Ryan Guerrero for treatment of for anxiety and depression. Has primary insomnia, currently on zolpidem taken as needed. Has been feeling well with no complaints at present time other than what was mentioned earlier. Latest fasting labs showed hemoglobin A1c at 6.1% but LDL cholesterol is not at goal of less than 100 mg/dL. [facility] Medical History (Updated 11/04/23 @ 12:23 by Rahel Diaz MD) Mild intermittent asthma with (acute) exacerbation Osteoarthritis of right knee Acute hemorrhagic colitis Vitamin D deficiency Anxiety and depression Hx of renal calculi Allergic to shellfish Insomnia Mild intermittent asthma Type 2 diabetes mellitus without complication, without long-term current use of insulin Migraine GERD (gastroesophageal reflux disease) Osteoarthritis Essential hypertension Dyslipidemia Surgical History H/O colonoscopy History of total right knee replacement Hx laparoscopic cholecystectomy History of appendectomy Hx of total knee arthroplasty History of partial hysterectomy Family History Father HTN (hypertension) Hyperlipidemia Lung cancer Mother HTN (hypertension) Hyperlipidemia Diabetes mellitus Social History (Reviewed 11/04/23 @ 11:53 by Yuriy Montiel [facility] Housing: Apartment Alcohol intake: never Patient Tobacco Use Status: Never used Tobacco e-Cigarette/Vaping Use: Never Used Advance Directives Date on File: 09/11/23 service: No Current occupational status: unemployed Current occupation: [employer] Cognitive needs: No Hearing needs: No Vision needs: No Questionnaire Thrive Questionnaire Date Thrive assessed: 08/04/23 RIMA-7 AMB Questionnaire RIMA-7 Date RIMA - 7 assessed: 08/04/23 Source: Developed by Drs. Claudio Courtney, Hannah Mullins, Simón Castro and colleagues, with an educational luis from [employer]. Review of Systems Const Denies fever(s), Denies headache(s) and Denies weakness Eyes Details: Goes to [facility] in [place] for her routine eye exam Denies change in vision ENT Denies dizziness, Denies headache(s), Denies nasal congestion, Denies nasal discharge and Denies sore throat Card Denies chest pain, Denies lightheadedness and Denies dyspnea Resp Denies chest congestion, Denies cough and Denies dyspnea GI Reports as per HPI, Denies abdominal pain, Reports bloating, Reports hematochezia (Due to hemorrhoids, when constipated) and Denies heartburn Denies hematuria, Denies difficulty voiding, Denies nocturia, Denies genital pruritis, Denies genital lesions, Denies nipple discharge, Denies urinary incontinence and Denies urinary urgency Musc Reports arthralgias (Recurrent in knees), Denies joint swelling and Reports stiffness Skin/Breast Denies breast pain, Denies breast mass and Denies nipple discharge Neuro Denies dizziness, Denies headache(s), Denies Sensory deficit (Neuro) and Denies weakness Psych Reports no additional complaints Endo Reports no additional complaints Hilton/Lymph Reports no additional complaints Aller/Immun Reports no additional complaints Physical exam (Primary Care) Vital Signs: Last Vital Signs Pulse 70 11/04/23 11:52 BP 130/70 11/04/23 11:52 Pulse Ox 96 11/04/23 11:52 Oxygen Delivery Method Room Air 11/04/23 11:52 BMI result Body Mass Index 27.5 Tobacco/Smoking Status: Tobacco use Status Tobacco use date assessed 08/04/23 11/04/23 11:51 Patient Tobacco Use Status Never used Tobacco 11/04/23 11:51 e-Cigarette/Vaping Use Never Used 11/04/23 11:51 Thrive Assessment: Date of Thrive Assessment Date Thrive assessed 08/04/23 11/04/23 11:51 Const Other: Alert oriented x3, in mild pain distress , ambulatory normal gait Orientation/consciousness: patient oriented x3 HENMT Mouth: Normal oral and palatal mucosa present, oropharynx normal and moist mucous membranes Eyes General: appearance normal, both eyes and all related structures Neck Neck: Yes full ROM, Yes no lymphadenopathy and Yes supple Chest Breast/axilla palpation: normal palpation of the breasts Resp Auscultation: clear to auscultation bilaterally Cardio Other: S1-S2 present regular rate and rhythm GI Palpation (GI): Soft to palpation, nontender, no guarding, no masses and No Rebound tenderness present General: Yes no CVA tenderness Back/Spine/Pelvis Back: no CVA tenderness and No back tenderness Skin Lesions: no lesions Rashes: no rashes Neuro General: patient oriented x3, gait normal, tone normal, Normal light touch and pain sensation, no focal motor deficits and CN's II-XI intact bilaterally Sensory Exam: No Sensory deficit (Neuro) Extrem Other: Decreased range of motion of right knee joint due to pain and stiffness, no joint swelling seen Psych Appearance: grossly normal and well kempt Mental Status: mental status grossly normal Speech and movement: Normal speech and movement present Affect: normal affect Thought process: Normal thought process present Thought content: Normal thought content present Results AMB Hemoglobin A1c AMB Hemoglobin A1c 6.1 % Last Edit by Yuriy Montiel CMA on 11/04/23 12: 10 Results Reviewed Results Reviewed: Laboratory Last Values Hgb A1c (Clinic) 6.1 % (4.0-6.0) H 11/04/23 12:09 Name: Lyric Peña I Age/Sex: 58/F : 1965 Unit#: [id number] Attend Dr: Bhaskar Call MD Re10/23/23 Status: DEP ER Location: [facility] Disch: SPEC : [id number] MARII: 10/23/23-2021 STATUS: COMP REQ : [id number] RECD: 10/23/23-[address]: Farheen Da Silva COMP: 10/23/23 ENTERED: 10/23/[address] [facility] [address]: Rahel Diaz MD ORDERED: CBC Auto Diff Test Result Flag Reference WBC 6.0 4.8-10.8 X10*3/uL RBC 4.93 4.20-5.50 X10*6/uL HGB 13.3 12.0-16.0 g/dl HCT 40.9 37.0-47.0 % MCV 83.0 80.0-98.0 fL MCH 27.0 27.0-33.0 pg MCHC 32.5 31.0-35.0 g/dl RDW 13.3 11.0-16.0 % PLT 243 160-400 X10*3/uL MPV 10.4 9.4-12.3 fL Neut Pct Auto 27.6 L 45-73 % ImGran Pct Auto 0.0 0.0-0.4 % Lymp Pct Auto 59.6 H 20-40 % Storey Pct Auto 8.9 2-11 % Eos Pct Auto 3.4 0-4 % Baso Pct Auto 0.5 0-2 % NRBC Pct Auto 0.0 0.0-0.2 /100WBC ANC Neut Abs # 1.7 L 2.0-8.3 x10*3/uL ImGran Abs Auto 0.00 0.00-0.03 X10*3/uL Lymph Abs Auto 3.6 1.2-4.9 X10*3/uL Storey Abs Auto 0.5 0.1-1.2 X10*3/uL Eos Abs Auto 0.2 0.0-0.4 X10*3/uL Baso Abs Auto 0.0 0.0-0.2 X10*3/uL NRBC Abs Auto 0.000 0.0-0.012 X10*3/uL Name: Chauncey LoweryLyric Roe Age/Sex: 58/F : 1965 Unit#: [id number] Attend Dr: Bhaskar Call MD Re10/23/23 Status: DEP ER Location: .ED Disch: SPEC : [id number] MARII: 10/23/23 STATUS: COMP REQ : [id number] RECD: 10/23/[address] [facility] [address]: Farheen Da Silva COMP: 10/23/23 ENTERED: 10/23/[address] [facility] [address]: Rahel Diaz MD ORDERED: CMP, MG Test Result Flag Reference Sodium 145 135-145 mmol/L Potassium 3.3 3.3-5.1 mmol/L CL 110 H 96-108 mmol/L CO2 27 22-29 mmol/L Gap 11 L 12-20 BUN 15 9-16 mg/dL Creat 0.94 0.5-1.4 mg/dL Estimated CrCl 61.5 Provided height and weight: 160.02 cm, 70.76 kg. eGFR (calculated from the MDRD study equation) and eCrCl (calculated from the Cockcroft-Gault equation) are based on different parameters and may not yield comparable results. If eCrCl result is absurd, please check patient's height/weight. EGFR > 60 NOTE: For -[place] individuals, multiply the result by 1.210. Chronic Kidney Disease: Estimated GFR < 60 mL/min/1.73m2 Severe Kidney Disease: Estimated GFR < 15 mL/min/1.73m2 Glucose, Random 87 60-115 mg/dL CA 9.7 8.4-10.2 mg/dL Magnesium 2.2 1.6-2.6 mg/dL Total Bili 0.2 0.0-1.0 mg/dL AST (GOT) 27 5-31 U/L ALT (GPT) 11 0-31 U/L Protein, Total 8.4 H 6.5-8.0 g/dL Alb 4.5 3.5-5.0 g/dL Alk Phos 86 39-117 U/L Assessment and Plan Assessment & Plan (1) Type 2 diabetes mellitus without complication, without long-term current use of insulin: Code(s): E11.9 - Type 2 diabetes mellitus without complications Plan: Diabetes mellitus stable controlled on present treatment, with latest hemoglobin A1c at 5.9%. Advised to continue metformin ER 500 mg per tablet taken once at night with supper. Stressed importance of following recommended diabetic diet and getting regular exercise. (2) Mild intermittent asthma with (acute) exacerbation: Code(s): J45.21 - Mild intermittent asthma with (acute) exacerbation Plan: Prescription sent for albuterol inhaler, nebulizer solution and nebulizer machine to use at home as needed for severe episodes of bronchospasm and wheezing. (3) Dyslipidemia: Code(s): E78.5 - Hyperlipidemia, unspecified Plan: Continue atorvastatin 20 mg daily (4) Essential hypertension: Code(s): I10 - Essential (primary) hypertension Plan: Blood pressure at goal of less than 130/80. Continue with lisinopril 20 mg daily,. Reinforced importance of following a low sodium diet, getting regular exercise, and lowering stress levels. Orders: Orders Hemoglobin A1c 02/22/24 E11.9 - Type 2 diabetes mellitus without complications, I10 - Essential (primary) hypertension, E78.5 - Hyperlipidemia, unspecified, E55.9 - Vitamin D deficiency, unspecified Microalbumin, Random (w Creat) 02/22/24 E11.9 - Type 2 diabetes mellitus without complications, I10 - Essential (primary) hypertension, E78.5 - Hyperlipidemia, unspecified, E55.9 - Vitamin D deficiency, unspecified Lipid Panel 02/22/24 E11.9 - Type 2 diabetes mellitus without complications, I10 - Essential (primary) hypertension, E78.5 - Hyperlipidemia, unspecified, E55.9 - Vitamin D deficiency, unspecified Alanine Aminotransferase 02/22/24 E11.9 - Type 2 diabetes mellitus without complications, I10 - Essential (primary) hypertension, E78.5 - Hyperlipidemia, unspecified, E55.9 - Vitamin D deficiency, unspecified AMB Hemoglobin A1c 11/04/23 Z13.9 - Encounter for screening, unspecified Basic Metabolic Panel Fasting 02/22/24 E11.9 - Type 2 diabetes mellitus without complications, I10 - Essential (primary) hypertension, E78.5 - Hyperlipidemia, unspecified, E55.9 - Vitamin D deficiency, unspecified Aspartate Amino Transferase 02/22/24 E11.9 - Type 2 diabetes mellitus without complications, I10 - Essential (primary) hypertension, E78.5 - Hyperlipidemia, unspecified, E55.9 - Vitamin D deficiency, unspecified Vitamin D 25-OH Total 02/22/24 E11.9 - Type 2 diabetes mellitus without complications, I10 - Essential (primary) hypertension, E78.5 - Hyperlipidemia, unspecified, E55.9 - Vitamin D deficiency, unspecified Medications: New loratadine (Allergy Relief (loratadine)) 10 mg PO DAILY PRN 30 tabs 0RF allergy symptoms metformin ER 500 mg PO QPM 90 tabs 1RF E11.9 - Type 2 diabetes mellitus without complications Changed From nebulizers As directed 1 ea 0RF J45.21 - Mild intermittent asthma with (acute) exacerbation To nebulizers (AeroEclipse II Nebulizer) As directed 1 ea 0RF J45.21 - Mild intermittent asthma with (acute) exacerbation Refilled albuterol sulfate 2.5 mg (3 mL) inhalation Q6H PRN 90 mL 0RF shortness of breath or wheezing J45.21 - Mild intermittent asthma with (acute) exacerbation Coding Level of Care Code Tele Est Pt Level 4 (35760) Complex EM visit Add On G2211 Diagnoses Type 2 diabetes mellitus without complication, without long-term current use of insulin E11.9 Mild intermittent asthma with (acute) exacerbation J45.21 Dyslipidemia E78.5 Essential hypertension I10
[2023-11-04 11:52] VITALS: BP 130/70; PULSE 70; O2SAT 96; BMI 27.5
== END 2023-11-04 12:31 | disposition home or self-care (01) ==
PROVIDERS: PCP Internal Medicine; Visit Provider Internal Medicine
DX: E11.9 Type 2 diabetes mellitus without complications (principal)
CPT/HCPCS: 83036; 99214; G2211

== ENCOUNTER 2023-11-09 09:07 | Outpatient (REF) | payer OTHER, SELFPAY ==
--- NOTE | ~2023-11-09 | CT_ITS ---
EXAMINATION: CT ABDOMEN AND PELVIS WITH CONTRAST CLINICAL INFORMATION: Personal history of peptic ulcer disease. COMPARISON: CT abdomen and pelvis 08/29/2022. TECHNIQUE: Multidetector volumetric images were obtained from the superior aspect of the liver through the pubic symphysis following administration 85 mL of Omnipaque 350 intravenous contrast. Sagittal and coronal reformatted images were obtained on the technologist's workstation. Oral contrast: No This CT examination was performed using dose optimization techniques as appropriate, variously including the following: *Automated exposure control *Adjustment of mA and/or kV according to patient size (this includes techniques or standardized protocols for targeted exams where dose is matched to indication/reason for exam; i.e. extremities or head) *Use of iterative reconstruction technique DLP: 391 mGy-cm FINDINGS: LUNG BASES: The visualized lung bases are unremarkable. LIVER, GALLBLADDER, AND BILIARY TREE: The liver is normal in size, shape, and attenuation. No focal hepatic lesion or biliary ductal dilatation is present. Cholecystectomy. PANCREAS: No visible pancreatic mass or pancreatic ductal dilatation. SPLEEN: Unremarkable. ADRENAL GLANDS: No adrenal mass. KIDNEYS AND URETERS: The kidneys are normal in size, shape, and attenuation. No hydronephrosis, hydroureter, or calculi seen. No perinephric stranding. BLADDER: Unremarkable. GASTROINTESTINAL TRACT: Small hiatal hernia. No inflammatory changes around the stomach or duodenum to suggest peptic ulcer disease by CT. There is no free air. The small bowel is normal in caliber. The large bowel is normal in caliber. Minimal sigmoid diverticulosis. ABDOMINAL WALL: Surgical changes in the right upper quadrant consistent with cholecystectomy. No significant hernia. LYMPH NODES: No lymphadenopathy. VASCULAR: No aortic aneurysm. PELVIC VISCERA: Hysterectomy. No pelvic mass. OSSEOUS STRUCTURES: Mild degenerative changes in the spine. CT/CT abdomen pelvis w IV con IMPRESSION: No acute inflammatory changes around the stomach or duodenum to suggest peptic ulcer disease by CT. Endoscopy is recommended.
[2023-11-09] MEDS: iohexoL 350 MG/ML 100 ML INFUS..BTL 85 ML IV (10:18)
== END 2023-11-09 09:08 | disposition home or self-care (01) ==
LOC: HO.CT 09:07
PROVIDERS: PCP Internal Medicine; Visit Provider Internal Medicine
DX: R63.4 Abnormal weight loss (principal); Z87.11 Personal history of peptic ulcer disease
CPT/HCPCS: 74177; Q9967

== ENCOUNTER 2024-03-03 09:13 | Outpatient (REF) | payer OTHER, SELFPAY ==
[2024-03-03 13:53] LABS: Estimated Average Glucose 114 mg/dL; Hemoglobin A1c % 5.6 % (<6.0)
[2024-03-03 14:06] LABS: Creatinine Urine 169.01 mg/dL; Microalbum/Creatinine Ratio Ur 4.1 ug/mg cr (<30)
[2024-03-03 14:14] LABS: Alanine Aminotransferase 14 U/L (0-31); Anion Gap 11 (12-20); Aspartate Amino Transferase 30 U/L (5-31); Blood Urea Nitrogen 11 mg/dL (9-16); Carbon Dioxide 24 mmol/L (22-29); Chloride 112 mmol/L (96-108); Cholesterol 166 mg/dL (<200); Estimated Glomerular Filt Rate > 60; Glucose Fasting 98 mg/dL (60-99); HDL Cholesterol 52 mg/dL (>40); LDL Cholesterol Calculated 98 mg/dL (<100); Potassium 3.9 mmol/L (3.3-5.1); Sodium 143 mmol/L (135-145); Triglycerides 82 mg/dL (<150); Vitamin D 25-OH Total 54.9 ng/mL (>30)
== END 2024-03-03 09:14 | disposition home or self-care (01) ==
LOC: HO.HMGCLDS 09:13
PROVIDERS: PCP Internal Medicine; Visit Provider Internal Medicine
DX: E11.9 Type 2 diabetes mellitus without complications (principal); I10 Essential (primary) hypertension; E78.5 Hyperlipidemia, unspecified; E55.9 Vitamin D deficiency, unspecified
CPT/HCPCS: 36415; 80048; 80061; 82043; 82306; 82570; 83036; 84450; 84460

== ENCOUNTER 2024-03-15 09:46 | Outpatient (AMB) | payer OTHER, SELFPAY ==
--- NOTE | 2024-03-15 09:59 | MHC.OFFWIV ---
Intake Vital Signs 03/15/24 10:02 Height 5 ft 3 in Weight 150 lb BMI 26.6 BP 110/68 Blood Pressure Location Rt brachial Position Sitting Pulse 65 Pulse Source Pulse Oximeter Temp 98.1 F Temp Source Oral Pulse Oximetry (%) 98 Oxygen Delivery Method Room Air Intake Visit Reasons: EP Lower Lt side back pain Intake Note: pt c/o LT lower back pain. Started Thursday Morning Patient Tobacco Use Status: Never used Tobacco Allergies crab [CRAB] Allergy (Severe, Verified 03/15/24 10:00) MOURH SWELLING cyclobenzaprine [From FLEXERIL] Allergy (Severe, Verified 03/15/24 10:00) SEIZURE/shakey ibuprofen [From MOTRIN] Allergy (Intermediate, Verified 03/15/24 10:00) ITCHING, severe abdominal pain morphine [Morphine] Allergy (Intermediate, Verified 03/15/24 10:00) ITCHING/REDNESS, rash Do you need a note to return to daycare/school/sports/work: No HPI HPI Comments History of Present Illness Details This is a 59-year-old female with a past medical history [id number] diabetes, asthma and migraine headaches presenting for evaluation of injuries sustained in a fall on Thursday03.13.2024. Patient states she was descending her stairs when she slipped and fell down the last 2 stairs, falling backwards onto her low back. Patient was able to get up on her own and denies any head injury or loss of consciousness as a result of this fall. Patient is reporting an aching pain in her left low back that does not radiate. Patient has been taking Tylenol and Relafen without relief of her discomfort. [facility] Medical History Mild intermittent asthma with (acute) exacerbation Osteoarthritis of right knee Acute hemorrhagic colitis Vitamin D deficiency Anxiety and depression Hx of renal calculi Allergic to shellfish Insomnia Mild intermittent asthma Type 2 diabetes mellitus without complication, without long-term current use of insulin Migraine GERD (gastroesophageal reflux disease) Osteoarthritis Essential hypertension Dyslipidemia Surgical History H/O colonoscopy History of total right knee replacement Hx laparoscopic cholecystectomy History of appendectomy Hx of total knee arthroplasty History of partial hysterectomy Family History Father HTN (hypertension) Hyperlipidemia Lung cancer Mother HTN (hypertension) Hyperlipidemia Diabetes mellitus Social History Housing: Apartment Alcohol intake: never Patient Tobacco Use Status: Never used Tobacco e-Cigarette/Vaping Use: Never Used Advance Directives Date on File: 09/11/23 service: No Current occupational status: unemployed Current occupation: [employer] Cognitive needs: No Hearing needs: No Vision needs: No Review of Systems Const All systems reviewed & are unremarkable except as noted in HPI and below Reports no additional complaints, Denies frequent falls, Denies headache(s) and Denies weakness Eyes Reports no additional complaints ENT Reports no additional complaints, Denies vertigo, Denies dizziness and Denies headache(s) Card Reports no additional complaints and Denies syncope Resp Reports no additional complaints Reports no additional complaints Musc Reports back pain (left low back pain), Denies numbness and Denies tingling Skin/Breast Reports system reviewed and no additional complaints, except as documented Neuro Reports no additional complaints, Denies confusion, Denies vertigo, Denies dizziness, Denies syncope, Denies frequent falls, Denies headache(s), Denies lack of coordination, Denies numbness, Denies radicular pain, Denies tingling, Denies paresthesias and Denies weakness Psych Reports no additional complaints and Denies confusion Endo Reports no additional complaints Physical Exam Vital Signs: Last Vital Signs Temp 98.1 F 03/15/24 10:02 Pulse 65 03/15/24 10:02 BP 110/68 03/15/24 10:02 Pulse Ox 98 03/15/24 10:02 Oxygen Delivery Method Room Air 03/15/24 10:02 BMI result Body Mass Index 26.6 Const General: cooperative, healthy appearing, comfortable, no acute distress, well developed, alert, awake and Physically active; No acute distress or confusion Nutritional Appearance: average body habitus Orientation/consciousness: patient oriented x3 and No confusion Limitations: no limitations Neck Neck: No no meningeal signs Back/Spine/Pelvis Cervical Spine: cervical ROM normal, No cervical muscular tenderness and No Cervical spine tenderness Thoracic/Lumbar Spine: thoracic and lumbar spine normal to inspection, thoraco-lumbar ROM normal, pain with thoraco-lumbar ROM, paraspinal muscle tenderness (left lumbar paraspinal tenderness) on the left, No thoraco-lumbar spasm, No thoracic spinal tenderness, No lumbar spinal tenderness and No straight leg raise positive Pelvis: no buttock tenderness, no unilateral elevation of iliac crest and no sciatic notch tenderness Skin General skin exam: no rashes or lesions noted Neuro General: patient oriented x3, moves all extremities, No no meningeal signs, No no focal motor deficits and No confusion Gait exam (Neuro): Normal gait present Psych Appearance: grossly normal Mental Status: mental status grossly normal Insight: Good insight present (Psych) Judgement: Good judgement present (Psych) Assessment & Plan Assessment & Plan (1) Lumbar strain: Comment: Patient's history coupled with her examination is consistent with a left lumbar strain. Patient is educated regarding hyperglycemia with prednisone use and will continue checking her blood glucose twice daily. Patient states her highest blood glucose has been 180 mg/dL and she checks twice daily every day. Code(s): S39.012A - Strain of muscle, fascia and tendon of lower back, initial encounter Qualifiers: Encounter type: initial encounter Qualified Code(s): S39.012A - Strain of muscle, fascia and tendon of lower back, initial encounter Plan: Prednisone 40 mg daily x4 days. Patient will follow up with her primary care provider as an outpatient. Medications: New prednisone 40 mg (2 x 20 mg) PO DAILY 8 tabs 0RF Coding Level of Care Code Est Pt Level 3 (60094) Diagnoses Strain of lumbar region, initial encounter S39.012A Encounter type: initial encounter Time Spent (min) 20
[2024-03-15 10:02] VITALS: BP 110/68; PULSE 65; TEMP 36.7; O2SAT 98; BMI 26.6
== END 2024-03-15 11:11 | disposition home or self-care (01) ==
PROVIDERS: PCP Internal Medicine; Visit Provider Physician Assistant
DX: S39.012A Strain of muscle, fascia and tendon of lower back, initial encounter (principal)

== ENCOUNTER → 2024-03-15 09:46 | Outpatient (BNVA) | payer OTHER, SELFPAY | PROVIDERS: PCP Internal Medicine | DX: S39.012A Strain of muscle, fascia and tendon of lower back, initial encounter (principal) | CPT/HCPCS: 99212 ==

== ENCOUNTER 2024-03-18 09:00 | Outpatient (AMB) | payer OTHER, SELFPAY ==
--- NOTE | 2024-03-18 08:56 | A.OFFPC_ITS ---
Intake Visit Reasons: Results of blood work Allergies crab [CRAB] Allergy (Severe, Verified 03/18/24 09:49) MOURH SWELLING cyclobenzaprine [From FLEXERIL] Allergy (Severe, Verified 03/18/24 09:49) SEIZURE/shakey ibuprofen [From MOTRIN] Allergy (Intermediate, Verified 03/18/24 09:49) ITCHING, severe abdominal pain morphine [Morphine] Allergy (Intermediate, Verified 03/18/24 09:49) ITCHING/REDNESS, rash Medication List - Last Reconciled 03/18/24 by Rahel Diaz MD albuterol sulfate 90 mcg/actuation (ProAir HFA) 2 puffs inhalation Q4-6H PRN albuterol sulfate 2.5 mg (3 mL) inhalation Q6H PRN atorvastatin 20 mg PO DAILY blood sugar diagnostic (FreeStyle Lite Strips) Check fasting glucose once a day blood-glucose meter (FreeStyle Lite Meter kit) Check fasting glucose once a day bupropion HCl SR 150 mg PO BID iaflsamfpr-wahqzakxbbcnz-cbsg 50-300-40 mg 1 cap PO Q6H PRN 30 days MDD 2 capsaicin-menthol 0.025-1.25 % (Salonpas (capsaicin-menthol)) 1 patch topical DAILY PRN 7 days clonazepam 0.5 mg PO BEDTIME cyanocobalamin (vitamin B-12) 500 mcg PO DAILY 30 days duloxetine 30 mg PO BID epinephrine (EpiPen 2-Abilio) 0.3 mg (0.3 mL) IM ONCE PRN esomeprazole magnesium 20 mg PO BID fluticasone propion-salmeterol 250-50 mcg/dose (Wixela Inhub) 1 ea inhalation QAM lancets (FreeStyle Lancets) Check fasting glucose once a day lisinopril 20 mg PO DAILY loratadine (Allergy Relief (loratadine)) 10 mg PO DAILY PRN metformin ER 500 mg PO QPM naratriptan take 1/2 - 1 tab at onset of headache; if no relief may repeat 1 tab after at least 4 hrs; max = 2 tabs/24 hrs orally PRN; 30 days nebulizers (AeroEclipse II Nebulizer) As directed nitroglycerin 0.4 mg sublingual Q5M PRN riboflavin (vitamin B2) 400 mg PO DAILY 30 days topiramate 150 mg (1.5 x 100 mg) PO BEDTIME Trulance (plecanatide) 3 mg PO DAILY NS zolpidem 10 mg PO BEDTIME Tobacco use date assessed: 03/18/24 Dental Screening Dental Screen Date: 03/18/24 Did you have a dental visit in the last 12 months?: Yes Did you have a dental problem in the last 6 months where you did not have access to dental care?: No Was dental information given to patient?: Patient has dentist HPI Results of blood work HPI Details 59-year-old lady with past medical histo ry of hyperlipidemia, hypertension, chronic GERD, mild intermittent asthma , and type 2 diabetes mellitus, here today for follow-up. She has been compliant with taking her medications, has been following recommended diet and has been trying to exercise regularly. Latest fasting labs showed hemoglobin A1c at 5.6% with lipids, vitamin-D level , liver enzymes renal function and electrolytes within normal limits. Patient also requesting prescription for Salonpas patch with lidocaine and Tylenol arthritis 650 mg which he takes as needed to be sent to her pharmacy. Patient however states Salonpas patch has to be sent to the pharmacy that [facility] uses. [facility] Medical History (Updated 03/18/24 @ 10:15 by Rahel Diaz MD) Mild intermittent asthma with (acute) exacerbation Osteoarthritis of right knee Acute hemorrhagic colitis Vitamin D deficiency Anxiety and depression Hx of renal calculi Allergic to shellfish Insomnia Mild intermittent asthma Type 2 diabetes mellitus without complication, without long-term current use of insulin Migraine GERD (gastroesophageal reflux disease) Osteoarthritis Essential hypertension Dyslipidemia Surgical History H/O colonoscopy History of total right knee replacement Hx laparoscopic cholecystectomy History of appendectomy Hx of total knee arthroplasty History of partial hysterectomy Family History Father HTN (hypertension) Hyperlipidemia Lung cancer Mother HTN (hypertension) Hyperlipidemia Diabetes mellitus Social History Housing: Apartment Alcohol intake: never Patient Tobacco Use Status: Never used Tobacco e-Cigarette/Vaping Use: Never Used Advance Directives Date on File: 09/11/23 service: No Current occupational status: unemployed Current occupation: [employer] Cognitive needs: No Hearing needs: No Vision needs: No Questionnaire Thrive Questionnaire Date Thrive assessed: 03/02/24 RIMA-7 AMB Questionnaire RIMA-7 Date RIMA - 7 assessed: 08/04/23 Source: Developed by Drs. Claudio Courtney, Hannah Mullins, Simón Castro and colleagues, with an educational luis from [employer]. Review of Systems Const Denies fever(s), Denies headache(s) and Denies weakness Eyes Details: Goes to [facility] in [place] for her routine eye exam Denies change in vision ENT Denies dizziness, Denies headache(s), Denies nasal congestion, Denies nasal discharge and Denies sore throat Card Denies chest pain, Denies lightheadedness and Denies dyspnea Resp Denies chest congestion, Denies cough and Denies dyspnea GI Denies abdominal pain and Denies heartburn Denies hematuria, Denies difficulty voiding, Denies nocturia and Denies urinary incontinence Musc Reports back pain (Lower back), Reports arthralgias (Recurrent in knees), Denies joint swelling and Reports stiffness Skin/Breast Denies breast pain and Denies breast mass Neuro Denies dizziness, Denies headache(s), Denies Sensory deficit (Neuro) and Denies weakness Psych Reports no additional complaints Endo Reports no additional complaints Hilton/Lymph Reports no additional complaints Aller/Immun Reports no additional complaints Physical exam (Primary Care) Tobacco/Smoking Status: Tobacco use Status Tobacco use date assessed 03/18/24 03/18/24 09:00 Patient Tobacco Use Status Never used Tobacco 03/18/24 09:00 e-Cigarette/Vaping Use Never Used 03/18/24 09:00 Thrive Assessment: Date of Thrive Assessment Date Thrive assessed 03/02/24 03/18/24 09:00 Neuro Sensory Exam: No Sensory deficit (Neuro) Telehealth Telehealth Telehealth Platform: [facility] Location of provider rendering services: practice address Location of patient: address on file Patient Identification confirmed using: Name, : Yes Telehealth method: video Patient verbally consented to treatment: Yes Patient verbally consented to billing insurance company: Yes Patient informed of any privacy concerns related to visit: Yes Minutes spent on Phone/Video with Pt.: 15 Results Reviewed Results Reviewed: alberto: Lyric Peña I Age/Sex: 59/F : 1965 Unit#: [id number] Attend Dr: Rahel Diaz MD Re03/03/24 Status: DEP REF Location: [email or web address] Disch: SPEC : [id number] MARII: 03/03/24 STATUS: COMP REQ : [id number] RECD: 03/03/24-[address]: Rahel Diaz MD COMP: 03/03/24-1413 ENTERED: 03/03/[address] [facility] [address]: ORDERED: Met Prof Fast, AST, ALT, Lipid Panel, Vitamin D 25-OH Test Result Flag Reference Sodium 143 135-145 mmol/L Potassium 3.9 3.3-5.1 mmol/L CL 112 H 96-108 mmol/L CO2 24 22-29 mmol/L Gap 11 L 12-20 BUN 11 9-16 mg/dL Creat 0.87 0.5-1.4 mg/dL EGFR > 60 NOTE: For -Citizen Of [place] individuals, multiply the result by 1.210. Chronic Kidney Disease: Estimated GFR < 60 mL/min/1.73m2 Severe Kidney Disease: Estimated GFR < 15 mL/min/1.73m2 FBS 98 60-99 mg/dL CA 10.0 8.4-10.2 mg/dL AST (GOT) 30 5-31 U/L ALT (GPT) 14 0-31 U/L Triglyceride 82 <150 mg/dL Desirable Triglyceride: less than 150 mg/dL Borderline High Triglyceride 150-199 mg/dL High Triglyceride: 200-499 mg/dL Very High Triglyceride: greater than or equal to 5OO mg/dL Cholesterol 166 <200 mg/dL Desirable Cholesterol: less than 200 mg/dL Borderline High Cholesterol: 200-239 mg/dL High Cholesterol: greater than 239 mg/dL LDL Calculated 98 <100 mg/dL Desirable LDL: less than 100 mg/dL Near Optimal/Above Optimal LDL: 110-129 mg/dL Borderline High LDL: 130-159 mg/dL High LDL: 160-189 mg/dL Very High LDL: greater than or equal to 190 mg/dL HDL 52 >40 mg/dL Desirable HDL: greater than 40 mg/dL Note: This HDL assay may give artificially low results in patients with liver disease. Vit D 25-OH Tot 54.9 >30 ng/mL Health Based Reference Values* < 20 ng/mL Deficient 20-30 ng/mL Insufficient > 30 ng/mL Sufficient Laboratory Tests 08/05/23 11/04/23 03/03/24 08:51 12:09 09:30 Estimat Average Glucose 117 114 Hgb A1c (Clinic) 6.1 H Hemoglobin A1c % 5.7 5.6 Triglycerides 100 25-OH Vitamin D Total 26.8 L Assessment and Plan Assessment & Plan (1) Type 2 diabetes mellitus without complication, without long-term current use of insulin: Code(s): E11.9 - Type 2 diabetes mellitus without complications Plan: Recent lab results reviewed with patient, with sugar and hemoglobin A1c stable and at goal. Continue with metformin ER 500 mg 1 daily, continue to check fasting blood sugar at home, maintain log and bring to next appointment for review. Reinforced diabetic diet and regular exercise with patient. Counseled regarding importance of yearly diabetes retinopathy screening. Patient advised to inspect feet daily, for any signs of injury, callus or infection. Compliance with diet and regular exercise again stressed. Blood pressure goal is less than 130/80, goal LDL is less than 100 and goal hemoglobin A1c is less than 7% follow-up appointment made in--5-months, after fasting labs done. (2) Dyslipidemia: Code(s): E78.5 - Hyperlipidemia, unspecified Plan: Reviewed recent fasting lipid profile with patient with levels within normal limits. . Continue atorvastatin 20 mg daily , in addition to adherence to low-cholesterol diet and regular exercise, at least 30 minutes 3 to 4 times a week. Advised patient to make healthy food choices, eat more fruits, vegetables, whole grains, wild caught fish and low-fat dairy. Limit amount of meat and fried or fatty food products, as well as processed foods and fast foods. Follow-up scheduled with repeat fasting lipid panel in 5 months. (3) Lumbar strain: Code(s): S39.012A - Strain of muscle, fascia and tendon of lower back, initial encounter Qualifiers: Encounter type: initial encounter Qualified Code(s): S39.012A - Strain of muscle, fascia and tendon of lower back, initial encounter Plan: Printed prescription for Salonpas patch with lidocaine, patient states that her insurance will pay for this , needs to be faxed to the [facility] pharmacy. Prescription sent for Tylenol arthritis 650 mg to take 1 tablet twice a day as needed for joint pain and muscle pain, prescription sent to pharmacy (4) Mild intermittent asthma: Code(s): J45.20 - Mild intermittent asthma, uncomplicated Qualifiers: Asthma complication type: uncomplicated Qualified Code(s): J45.20 - Mild intermittent asthma, uncomplicated Plan: Refill prescription sent for albuterol inhaler to use as needed for episodes of bronchospasm and wheezing Orders: Orders Lipid Panel 07/30/24 E11.9 - Type 2 diabetes mellitus without complications, E78.5 - Hyperlipidemia, unspecified, I10 - Essential (primary) hypertension Alanine Aminotransferase 07/30/24 E11.9 - Type 2 diabetes mellitus without complications, E78.5 - Hyperlipidemia, unspecified, I10 - Essential (primary) hypertension Vitamin D 25-OH Total 07/30/24 E11.9 - Type 2 diabetes mellitus without complications, E78.5 - Hyperlipidemia, unspecified, I10 - Essential (primary) hypertension Hemoglobin A1c 07/30/24 E11.9 - Type 2 diabetes mellitus without complications Basic Metabolic Panel Fasting 07/30/24 E11.9 - Type 2 diabetes mellitus without complications, E78.5 - Hyperlipidemia, unspecified, I10 - Essential (primary) hypertension Aspartate Amino Transferase 07/30/24 E11.9 - Type 2 diabetes mellitus without complications, E78.5 - Hyperlipidemia, unspecified, I10 - Essential (primary) hypertension Microalbumin, Random (w Creat) 07/30/24 E11.9 - Type 2 diabetes mellitus without complications, E78.5 - Hyperlipidemia, unspecified, I10 - Essential (primary) hypertension Medications: New acetaminophen ER (Tylenol Arthritis Pain) 650 mg PO Q12H PRN 60 tabs 1RF pain, moderate Salonpas (lidocaine) 4% (lidocaine) 1 patch topical BID PRN 60 ea 1RF pain, moderate NS M16.11 - Unilateral primary osteoarthritis, right hip, S39.012A - Strain of muscle, fascia and tendon of lower back, initial encounter Changed From albuterol sulfate 90 mcg/actuation (ProAir HFA) 2 puffs inhalation Q4-6H PRN 8.5 grams 0RF shortness of breath or wheezing To albuterol sulfate 90 mcg/actuation 2 puffs inhalation Q4-6H PRN 8.5 grams 3RF shortness of breath or wheezing Coding Level of Care Code Tele Est Pt Level 4 (09523) Complex EM visit Add On G2211 Diagnoses Type 2 diabetes mellitus without complication, without long-term current use of insulin E11.9 Dyslipidemia E78.5 Strain of lumbar region, initial encounter S39.012A Encounter type: initial encounter Mild intermittent asthma without complication J45.20 Asthma complication type: uncomplicated
== END 2024-03-18 10:36 | disposition home or self-care (01) ==
PROVIDERS: PCP Internal Medicine; Visit Provider Internal Medicine
DX: E11.9 Type 2 diabetes mellitus without complications (principal); E78.5 Hyperlipidemia, unspecified; S39.012A Strain of muscle, fascia and tendon of lower back, initial encounter; J45.20 Mild intermittent asthma, uncomplicated

== ENCOUNTER → 2024-03-18 09:00 | Outpatient (BNVA) | payer OTHER, SELFPAY | PROVIDERS: PCP Internal Medicine; Visit Provider Internal Medicine ==

== ENCOUNTER 2024-04-19 10:20 | Outpatient (AMB) | payer OTHER, SELFPAY ==
--- NOTE | 2024-04-19 10:52 | A.OFFVIS_ITS ---
Vital Signs 04/19/24 10:53 Height 5 ft 3 in Weight 154 lb BMI 27.3 BP 116/78 Blood Pressure Location Rt brachial Position Sitting Intake Visit Reasons: Follow up Intake Note: Patient presents for follow up. patient still having migraines Allergies crab [CRAB] Allergy (Severe, Verified 04/19/24 10:56) MOURH SWELLING cyclobenzaprine [From FLEXERIL] Allergy (Severe, Verified 04/19/24 10:56) SEIZURE/shakey ibuprofen [From MOTRIN] Allergy (Intermediate, Verified 04/19/24 10:56) ITCHING, severe abdominal pain morphine [Morphine] Allergy (Intermediate, Verified 04/19/24 10:56) ITCHING/REDNESS, rash Medication List - Last Reconciled 04/19/24 by RJ Bergman acetaminophen ER (Tylenol Arthritis Pain) 650 mg PO Q12H PRN albuterol sulfate 2.5 mg (3 mL) inhalation Q6H PRN albuterol sulfate 90 mcg/actuation 2 puffs inhalation Q4-6H PRN atorvastatin 20 mg PO DAILY blood sugar diagnostic (FreeStyle Lite Strips) Check fasting glucose once a day blood-glucose meter (FreeStyle Lite Meter kit) Check fasting glucose once a day bupropion HCl SR 150 mg PO BID msphqiepjz-zgolveekbtpml-lges 50-300-40 mg 1 cap PO Q6H PRN 30 days MDD 2 capsaicin-menthol 0.025-1.25 % (Salonpas (capsaicin-menthol)) 1 patch topical DAILY PRN 7 days clonazepam 0.5 mg PO BEDTIME cyanocobalamin (vitamin B-12) 500 mcg PO DAILY 30 days duloxetine 30 mg PO BID epinephrine (EpiPen 2-Abilio) 0.3 mg (0.3 mL) IM ONCE PRN esomeprazole magnesium 20 mg PO BID fluticasone propion-salmeterol 250-50 mcg/dose (Wixela Inhub) 1 ea inhalation QAM lancets (FreeStyle Lancets) Check fasting glucose once a day lisinopril 20 mg PO DAILY loratadine (Allergy Relief (loratadine)) 10 mg PO DAILY PRN metformin ER 500 mg PO QPM naratriptan take 1/2 - 1 tab at onset of headache; if no relief may repeat 1 tab after at least 4 hrs; max = 2 tabs/24 hrs orally PRN; 30 days nebulizers (AeroEclipse II Nebulizer) As directed nitroglycerin 0.4 mg sublingual Q5M PRN riboflavin (vitamin B2) 400 mg PO DAILY 30 days Salonpas (lidocaine) 4% (lidocaine) 1 patch topical BID PRN NS topiramate 150 mg (1.5 x 100 mg) PO BEDTIME Trulance (plecanatide) 3 mg PO DAILY NS zolpidem 10 mg PO BEDTIME HPI Comments Details: 58-yr-old female presents for f/u visit of migraine and pituitary region cyst. Pt denies any significant interval medical changes. 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 07/2023, MR/MR head/brain wo con: No acute infarction. Mild chronic microvascular ischemic change. Faintly T1 hyperintense lesion along the central/right aspect of the pituitary gland is suboptimally characterized on this examination. This was noted to look fairly similar to previous finding in 2013. She denies nipple discharge, change in shoe size. She may have diplopia during her migraine attacks. She is having 2 migraine days per week, usually severe about once a week. Last week she had increased migraine frequency- 3 days per week d/t stress r/t yr 22 yo autistic son. She is using Fioricet 1-2 days per week, but last week needed to use it 3 days. She never started Emgality- pharmacy would not fill it. She is still very easily triggered by smells. Baseline headache characteristics: Aura: Sees flashing lights for a few seconds before the headache starts Mild to Severe, Unilateral facial, eye, temporal sharp pain. Usually right- sided but can be left-sided. A/w photophobia, phonophobia, Osmophobia, nausea, difficulty concentrating, allodynia, activity intolerance, ipsilateral red eye (right or left but always ipsilateral to the head pain). Postdrome: The day after headache attack, will have red eye ipsilateral to the headache pain [facility] Medical History Mild intermittent asthma with (acute) exacerbation Osteoarthritis of right knee Acute hemorrhagic colitis Vitamin D deficiency Anxiety and depression Hx of renal calculi Allergic to shellfish Insomnia Mild intermittent asthma Type 2 diabetes mellitus without complication, without long-term current use of insulin Migraine GERD (gastroesophageal reflux disease) Osteoarthritis Essential hypertension Dyslipidemia Surgical History H/O colonoscopy History of total right knee replacement Hx laparoscopic cholecystectomy History of appendectomy Hx of total knee arthroplasty History of partial hysterectomy Family History Father HTN (hypertension) Hyperlipidemia Lung cancer Mother HTN (hypertension) Hyperlipidemia Diabetes mellitus Social History Housing: Apartment Alcohol intake: never Patient Tobacco Use Status: Never used Tobacco e-Cigarette/Vaping Use: Never Used Advance Directives Date on File: 09/11/23 service: No Current occupational status: unemployed Current occupation: [employer] Cognitive needs: No Hearing needs: No Vision needs: No Physical Exam Vital Signs: Last Vital Signs BP 116/78 04/19/24 10:53 BMI result Body Mass Index 27.3 Const General: cooperative and no acute distress Orientation/consciousness: patient oriented x3 Resp Effort & Inspection: normal respiratory effort and able to speak in complete sentences Neuro General: patient oriented x3 Cranial nerves: Yes CN's II-XII intact bilaterally Cognition (Neuro): normal cognition Psych Appearance: grossly normal Mental Status: mental status grossly normal Speech and movement: Normal speech and movement present Affect: normal affect Attitude: cooperative Assessment & Plan Assessment & Plan (1) Migraine: Code(s): G43.909 - Migraine, unspecified, not intractable, without status migrainosus Category: Medical Qualifiers: Migraine type: unspecified Status migrainosus presence: without status migrainosus Intractability: not intractable Qualified Code(s): G43.909 - Migraine, unspecified, not intractable, without status migrainosus (2) Vitamin B12 deficiency: Code(s): E53.8 - Deficiency of other specified B group vitamins Category: Medical (3) Cyst of pituitary gland: Code(s): E23.6 - Other disorders of pituitary gland Category: Medical Plan Reviewed follow-up Brain MRI w/wo images- 4 x 5 x 8 mm (AP X CC X TR) right central pituitary gland cyst, Rathke's cleft cyst versus cystic microadenoma) w/ midline infundibulum remains midline and normal optic chiasm. Offered referal to endocrinology and/or neurosurgery- pt declines at this time. Check pituitary labs. Follow-up brain MRI w/wo in 1-2 yrs. For Vit B-12 def: Continue B-12 supplement. Recheck level. ? For overall headache management: Optimize good self-care, including but not limited to maintaining a healthy diet, adequate fluid intake, adequate sleep, and engaging in regular physical activity. Track headaches. ? For acute headache treatment: May continue Fioricet capsule p.r.n. for now. Previous acute migraine medication trials: Sumatriptan caused GI upset. Naproxen caused GI upset. Naratriptan- not tolerated. Acute migraine medication contraindications: None at this time ? For headache prevention medication: Riboflavin 400mg qam. Again, start Emgality: Loading dose 120mg x's 2 mg subcu injection x1, followed by 120 mg subcu injection q.month. PA approval documentation shared w/ pt. Order sent to [facility]. Pt will need injection training. Continue topiramate 150 mg q.h.s.. Would not increase further due to question of history of kidney stones. Reviewed potential adverse effects of Emgality, including but not limited to injection site reactions. Previous migraine prevention medication trials: Amitriptyline: not tolerate it, Depakote: Not tolerated, Celebrex: Not tolerated, flexeril: Not tolerated, metop rolol: Not tolerated. Migraine prevention medication contraindications: Beta-blockers due to asthma diagnosis. Would use caution with Aimovig due to risk for worsening constipation and leg cramps. ? Pt to follow-up in 3 months or sooner prn. Orders: Orders Follicle Stimulating Hormone Today E23.6 - Other disorders of pituitary gland, E53.8 - Deficiency of other specified B group vitamins Free T4 (Free Thyroxine) Today E23.6 - Other disorders of pituitary gland, E53.8 - Deficiency of other specified B group vitamins Prolactin Today E23.6 - Other disorders of pituitary gland, E53.8 - Deficiency of other specified B group vitamins Cortisol Random Today E23.6 - Other disorders of pituitary gland, E53.8 - Deficiency of other specified B group vitamins Estrad Free (Tot Ultra + Free) Today E23.6 - Other disorders of pituitary gland, E53.8 - Deficiency of other specified B group vitamins Human Growth Hormone Today E23.6 - Other disorders of pituitary gland, E53.8 - Deficiency of other specified B group vitamins Adrenocorticotropic Hormone Today E23.6 - Other disorders of pituitary gland, E53.8 - Deficiency of other specified B group vitamins JARED Reflex Titer and Pattern Today E23.6 - Other disorders of pituitary gland, E53.8 - Deficiency of other specified B group vitamins Rheumatoid Factor Today E23.6 - Other disorders of pituitary gland, E53.8 - Deficiency of other specified B group vitamins Erythrocyte Sedimentation Rate Today E23.6 - Other disorders of pituitary gland, E53.8 - Deficiency of other specified B group vitamins CRP High Sensitivity Today E23.6 - Other disorders of pituitary gland, E53.8 - Deficiency of other specified B group vitamins Complete Blood Count Auto Diff Today E23.6 - Other disorders of pituitary gland, E53.8 - Deficiency of other specified B group vitamins Comprehensive Met. Panel Today E23.6 - Other disorders of pituitary gland, E53.8 - Deficiency of other specified B group vitamins Thyroid Stimulating Hormone Today E23.6 - Other disorders of pituitary gland, E53.8 - Deficiency of other specified B group vitamins IGF-1 (Somatomedin C) Today E23.6 - Other disorders of pituitary gland, E53.8 - Deficiency of other specified B group vitamins Lutenizing Hormone Today E23.6 - Other disorders of pituitary gland, E53.8 - Deficiency of other specified B group vitamins Vitamin B12 and Folate Today E23.6 - Other disorders of pituitary gland, E53.8 - Deficiency of other specified B group vitamins Medications: New galcanezumab-gnlm (Emgality Pen) Loading dose: 120 mg subcu injection x2 in alternate sites (total 240 mg). To be followed by maintenance dose of 120 mg subcu q.month. 240 mg (2 mL) subcut ONCE 30 days 2 mL 0RF Coding Level of Care Code Est Pt Level 4 (81180) Diagnoses Migraine without status migrainosus, not intractable, unspecified migraine type G43.909 Migraine type: unspecified Status migrainosus presence: without status migrainosus Intractability: not intractable Vitamin B12 deficiency E53.8 Cyst of pituitary gland E23.6
[2024-04-19 10:53] VITALS: BP 116/78; BMI 27.3
== END 2024-04-19 12:16 | disposition home or self-care (01) ==
PROVIDERS: PCP Internal Medicine; Visit Provider Nurse Practitioner Family
DX: G43.909 Migraine, unspecified, not intractable, without status migrainosus (principal); E53.8 Deficiency of other specified B group vitamins; E23.6 Other disorders of pituitary gland
CPT/HCPCS: 99214

== ENCOUNTER → 2024-04-19 10:20 | Outpatient (BNVA) | payer OTHER, SELFPAY | PROVIDERS: PCP Internal Medicine; Visit Provider Nurse Practitioner Family | DX: G43.909 Migraine, unspecified, not intractable, without status migrainosus (principal); E53.8 Deficiency of other specified B group vitamins; E23.6 Other disorders of pituitary gland | CPT/HCPCS: 99212 ==

== ENCOUNTER → 2024-05-09 10:19 | Outpatient (BNVA) | payer OTHER, SELFPAY | PROVIDERS: PCP Internal Medicine; Visit Provider Nurse Practitioner Family ==

== ENCOUNTER 2024-08-05 09:38 | Outpatient (REF) | payer OTHER, SELFPAY ==
--- OUTSIDE RECORDS SUMMARY | 2024-08-05 10:19 | XMS_ITS | Clinical Summary ---
Author Organization [facility] ity Address [address] [place] [address] Care Team Providers Care Engineer [employer] Name Role Phone Rahel Diaz MD Primary Care Provider Social History Tobacco Use Types Packs/Day Years Used Date Smoking Tobacco: Never Assessed Sex and Gender Information Value Date Recorded Sex Assigned at Not on file Gender Identity Not on file Sexual Orientation Not on file Plan of Treatment Health Maintenance Due Date Last Done Comments Breast Cancer Screening 1965 DTaP,Tdap,and Td Vaccines (1 - Tdap) 01/29/1984 Hepatitis B Vaccines (1 of 3 - 19+ 3-dose series) 01/29/1984 Cervical Cancer Screening: P ap Smear 1986 Zoster Vaccines (1 of 2) 2015 COVID-19 Vaccine (2023-2 5 season) 2024 Influenza Vaccine (#1) 2024 RSV Immunization Patients 60 + Years Old (1 - 1-dose 75+ series) 01/29/2040 HIB Vaccines Aged Out No longer eligi ble based on patient's age to complete this topic HPV Vaccines Aged Out No longer eligi ble based on patient's age to complete this topic Hepatitis A Vaccines Aged Out No long er eligible based on patient's age to complete this topic IPV Vaccines Aged Out No longer eligi ble based on patient's age to complete this topic MMR Vaccines Aged Out No longer eligi ble based on patient's age to complete this topic Meningococcal ACWY Vaccine Aged Out N o longer eligible based on patient's age to complete this topic Pneumococcal Vaccine: Pediat rics (0 to 5 Years) and At-Risk Patients (6 to 64 Years) Aged Out No longer eligible b ased on patient's age to complete this topic RSV Immunization Patients Un zuri 20 months Aged Out No longer eligible b ased on patient's age to complete this topic Varicella Vaccines Aged Out No longer eligible based on patient's age to complete this topic Care Teams Engineer [employer] Relationship Specialty Start Date End Date Rahel Diaz MD [address] [place] [address] PCP - General 08/13/23
[2024-08-05 13:57] LABS: Estimated Average Glucose 114 mg/dL; Hemoglobin A1C 128.9845 umol/L; Hemoglobin A1c % 5.6 % (<6.0); Total Hemoglobin (HGBA1C) 3380.5675 umol/L
[2024-08-05 14:05] LABS: Alanine Aminotransferase 13 U/L (0-31); Anion Gap 11 (12-20); Aspartate Amino Transferase 33 U/L (5-31); Blood Urea Nitrogen 10 mg/dL (9-16); Calcium 9.8 mg/dL (8.4-10.2); Carbon Dioxide 23 mmol/L (22-29); Chloride 113 mmol/L (96-108); Cholesterol 172 mg/dL (<200); Estimated Glomerular Filt Rate > 60; Glucose Fasting 98 mg/dL (60-99); HDL Cholesterol 54 mg/dL (>40); LDL Cholesterol Calculated 99 mg/dL (<100); Potassium 3.7 mmol/L (3.3-5.1); Sodium 143 mmol/L (135-145); Triglycerides 96 mg/dL (<150)
[2024-08-05 14:21] LABS: Microalbum/Creatinine Ratio Ur 5.8 ug/mg cr (<30)
[2024-08-05 14:21] LABS: Vitamin D 25-OH Total 51.2 ng/mL (>30)
== END 2024-08-05 09:39 | disposition home or self-care (01) ==
LOC: HO.HMGCLDS 09:38
PROVIDERS: PCP Internal Medicine; Visit Provider Internal Medicine
DX: I10 Essential (primary) hypertension (principal); E11.9 Type 2 diabetes mellitus without complications; E78.5 Hyperlipidemia, unspecified
CPT/HCPCS: 36415; 80048; 80061; 82043; 82306; 82570; 83036; 84450; 84460

== ENCOUNTER 2024-08-11 08:18 | Outpatient (AMB) | payer OTHER, SELFPAY ==
[2024-08-11 08:39] VITALS: BP 120/72; PULSE 94; RESP 15; TEMP 36.8; O2SAT 97; BMI 25.0
--- NOTE | 2024-08-11 08:39 | A.OFFPC_ITS ---
Vital Signs 08/11/24 08:39 Height 5 ft 3 in Weight 141 lb BMI 25.0 BP 120/72 Blood Pressure Location Lt brachial Position Sitting Respiration 15 Pulse 94 Pulse Source Pulse Oximeter Temp 98.2 F Temp Source Oral Pulse Oximetry (%) 97 Oxygen Delivery Method Room Air Intake Visit Reasons: Annual PE Intake Note: Pt is here today for her PE:last mammogram 09/21/23, colonoscopy 11/04/18 Allergies crab [CRAB] Allergy (Severe, Verified 08/11/24 09:10) MOURH SWELLING cyclobenzaprine [From FLEXERIL] Allergy (Severe, Verified 08/11/24 09:10) SEIZURE/shakey ibuprofen [From MOTRIN] Allergy (Intermediate, Verified 08/11/24 09:10) ITCHING, severe abdominal pain morphine [Morphine] Allergy (Intermediate, Verified 08/11/24 09:10) ITCHING/REDNESS, rash Medication List - Last Reconciled 08/11/24 by Rahel Diaz MD acetaminophen ER (Tylenol Arthritis Pain) 650 mg PO Q12H PRN albuterol sulfate 2.5 mg (3 mL) inhalation Q6H PRN albuterol sulfate 90 mcg/actuation 2 puffs inhalation Q4-6H PRN atorvastatin 20 mg PO DAILY blood sugar diagnostic (FreeStyle Lite Strips) Check fasting glucose once a day blood-glucose meter (FreeStyle Lite Meter kit) Check fasting glucose once a day bupropion HCl SR 150 mg PO BID brdntlcytc-dwpobabpuzpkt-bicq 50-300-40 mg 1 cap PO Q6H PRN 30 days MDD 2 capsaicin-menthol 0.025-1.25 % (Salonpas (capsaicin-menthol)) 1 patch topical DAILY PRN 7 days clonazepam 0.5 mg PO BEDTIME cyanocobalamin (vitamin B-12) 500 mcg PO DAILY 30 days duloxetine 30 mg PO BID epinephrine (EpiPen 2-Abilio) 0.3 mg (0.3 mL) IM ONCE PRN esomeprazole magnesium 20 mg PO BID fluticasone propion-salmeterol 250-50 mcg/dose (Wixela Inhub) 1 ea inhalation QAM galcanezumab-gnlm (Emgality Pen) 120 mg subcut ONCE 30 days lancets (FreeStyle Lancets) Check fasting glucose once a day lisinopril 20 mg PO DAILY loratadine (Allergy Relief (loratadine)) 10 mg PO DAILY PRN metformin ER 500 mg PO QPM nebulizers (AeroEclipse II Nebulizer) As directed nitroglycerin 0.4 mg sublingual Q5M PRN riboflavin (vitamin B2) 400 mg PO DAILY 30 days Salonpas (lidocaine) 4% (lidocaine) 1 patch topical BID PRN NS topiramate 150 mg (1.5 x 100 mg) PO BEDTIME Trulance (plecanatide) 3 mg PO DAILY NS zolpidem 10 mg PO BEDTIME Tobacco use date assessed: 08/11/24 Dental Screening Dental Screen Date: 08/11/24 Did you have a dental visit in the last 12 months?: Yes Did you have a dental problem in the last 6 months where you did not have access to dental care?: No Was dental information given to patient?: Patient has dentist HPI Annual PE HPI Details 59 year-old lady with past medical histo ry of hyperlipidemia, hypertension, chronic GERD, mild intermittent asthma , osteoarthritis status post total knee arthroplasty, history of anxiety depression and type 2 diabetes mellitus, here today for her physical exam. -she is up-to-date with her screening ma mmogram, done 09/21/2023, and is up-to-date with her colon cancer screening, last done by Dr. Shields in 2018 revealing presence of hyperplastic polyps which were removed, due again in 2028. - She reports tingling, burning sensatio ns, and numbness predominantly in the hands and feet, interfering with her sleep. Symptoms align with diabetic neuropathy despite controlled glycemic levels; cold weather is noted to exa cerbate the condition. She uses a compounded cream for her neuropathy which has been helping - recent fasting lab results reveal cont rolled diabetes (HbA1c at 5.6), normal calcium, and acceptable cholesterol levels. - She has history of chronic constipatio n, takes Trulance for which she needs a refill. -currently under the care of a psychiatrist, for treatment of anxiety depression, controlled on duloxetine and bupropion, takes clonazepam as needed for acute episodes of anxiety. She also takes zolpidem as needed for episodes of insomnia. Patient states that she is under lot of stress lately as she in her long-time boyfriend with whom she shares her son with, have parted ways -complains of pain and stiffness in lowe r back . Has been taking Tylenol and heat packs to affected area which affords only temporary relief . No history of trauma [facility], [facility] Medical History (Updated 08/14/24 @ 04:20 by Rahel Diaz MD) Diabetic neuropathy Mild intermittent asthma with (acute) exacerbation Osteoarthritis of right knee Acute hemorrhagic colitis Vitamin D deficiency Anxiety and depression Hx of renal calculi Allergic to shellfish Insomnia Mild intermittent asthma Type 2 diabetes mellitus without complication, without long-term current use of insulin Migraine GERD (gastroesophageal reflux disease) Osteoarthritis Essential hypertension Dyslipidemia Surgical History H/O colonoscopy History of total right knee replacement Hx laparoscopic cholecystectomy History of appendectomy Hx of total knee arthroplasty History of partial hysterectomy Family History Father HTN (hypertension) Hyperlipidemia Lung cancer Mother HTN (hypertension) Hyperlipidemia Diabetes mellitus Social History Housing: Apartment Alcohol intake: never Patient Tobacco Use Status: Never used Tobacco e-Cigarette/Vaping Use: Never Used Advance Directives Date on File: 09/11/23 service: No Current occupational status: unemployed Current occupation: [employer] Cognitive needs: No Hearing needs: No Vision needs: No Questionnaire PHQ-9 Over the last 2 weeks, how often have you been bothered by any of the following problems? 1. Little interest or pleasure in doing things: more than half the days 2. Feeling down, depressed, or hopeless: more than half the days 3. Trouble falling or staying asleep, or sleeping too much: more than half the days 4. Feeling tired or having little energy: more than half the days 5. Poor appetite or overeating: nearly every day 6. Feeling bad about yourself - or that you are a failure or have let yourself or your family down: not at all 7. Trouble concentrating on things, such as reading the newspaper or watching television: more than half the days 8. Moving or speaking so slowly that other people could have noticed. Or the opposite - being so fidgety or restless that you have been moving around a lot more than usual: not at all 9. Thoughts that you would be better off or of hurting yourself in some way: not at all Total score: 13 Depression Screening Interpretation: Positive (Followed by psychiatrist, Malathi Peña) Depression Screening Follow-up: Existing condition, In treatment and Community Mental Health Worker F/U Depression Screening Done: Yes 63625 - PHQ-9 Billing: Yes Source: Developed by Drs. Claudio Courtney, Hannah Mullins, Simón Castro and colleagues, with an educational luis from [employer]. Thrive Questionnaire Date Thrive assessed: 08/11/24 I am a: Patient What is your living situation today?: I have a steady place to live Within the past 12 months, did the food you bought not last and you didn't have the money to get more?: Never true Within the past 12 months, did you worry whether your food would run out before you got money to buy more?: Never true Do you have trouble paying for medicines?: No Do you have trouble getting transportation to medical appointments?: No Do you have trouble paying your heating and electricity bill?: No Do you have trouble taking care of your child, family member or friend?: No Do you have trouble with day-to-day activities such as bathing, preparing meals, shopping, managing finances, etc.?: No Are you currently unemployed and looking for a job?: No Are you interested in more education?: No Please select the resources that you would like help with: None Currently or been in a relationship where the following occur: No concerns reported THRIVE Score: 0 AUDIT C Alcohol Use Questionnaire (AUDIT-C) 1. How often do you have a drink containing alcohol?: Never Total Score: 0 RIMA-7 AMB Questionnaire RIMA-7 Date RIMA - 7 assessed: 08/11/24 Feeling nervous, anxious, or on edge: 2 = More than half the days Not being able to stop or control worryin = Not at all Worrying too much about different things: 2 = More than half the days Trouble relaxin = More than half the days Being so restless that it is hard to sit still: 0 = Not at all Becoming easily annoyed or irritable: 0 = Not at all Feeling afraid as if something awful might happen: 0 = Not at all Total RIMA-7 score (0-4 normal; 5-9 mild; 10-14 moderate; 15-21 severe): 6 Source: Developed by Drs. Claudio Courtney, Hannah Mullins, Simón Castro and colleagues, with an educational luis from [employer]. RIMA-7 Assessment Billing RIMA-7 Assessment Tool: RIMA-7 Assessment 72714 Review of Systems Const Denies fever(s), Denies headache(s) and Denies weakness Eyes Details: Goes to [facility] in [place] for her routine eye exam Denies change in vision ENT Denies dizziness, Denies headache(s), Denies nasal congestion, Denies nasal discharge and Denies sore throat Card Denies chest pain, Denies lightheadedness and Denies dyspnea Resp Denies chest congestion, Denies cough and Denies dyspnea GI Denies abdominal pain and Denies heartburn Denies hematuria, Denies difficulty voiding, Denies nocturia and Denies urinary incontinence Musc Reports back pain (Lower back), Reports arthralgias (Recurrent in knees), Denies joint swelling and Reports stiffness Skin/Breast Denies breast pain and Denies breast mass Neuro Denies dizziness, Denies headache(s), Denies Sensory deficit (Neuro) and Denies weakness Psych Reports as per HPI Endo Reports no additional complaints Hilton/Lymph Reports no additional complaints Aller/Immun Reports no additional complaints Physical exam (Primary Care) Vital Signs: Last Vital Signs Temp 98.2 F 08/11/24 08:39 Pulse 94 08/11/24 08:39 Resp 15 08/11/24 08:39 BP 120/72 08/11/24 08:39 Pulse Ox 97 08/11/24 08:39 Oxygen Delivery Method Room Air 08/11/24 08:39 BMI result Body Mass Index 25.0 Tobacco/Smoking Status: Tobacco use Status Tobacco use date assessed 08/11/24 08/11/24 08:41 Patient Tobacco Use Status Never used Tobacco 08/11/24 08:41 e-Cigarette/Vaping Use Never Used 08/11/24 08:41 PHQ-9: PHQ-9 Score PHQ-9: Total score 08/11/24 09:44 Depression Screening Interpretation: Positive (Followed by psychiatrist, Malathi Peña) Depression Screening Follow-up: Existing condition, In treatment and Community Mental Health Worker F/U Thrive Assessment: Date of Thrive Assessment Date Thrive assessed 08/11/24 08/11/24 08:41 Currently or been in a relationship where the following occur: No concerns reported Const Other: Alert oriented x3, no acute cardiorespiratory distress noted , ambulatory normal gait Orientation/consciousness: patient oriented x3 HENMT Mouth: Normal oral and palatal mucosa present, oropharynx normal and moist mucous membranes Eyes General: appearance normal, both eyes and all related structures Neck Neck: Yes full ROM, Yes no lymphadenopathy and Yes supple Chest Breast/axilla palpation: normal palpation of the breasts Resp Auscultation: clear to auscultation bilaterally Cardio Other: S1-S2 present regular rate and rhythm GI Palpation (GI): Soft to palpation, nontender, no guarding, no masses and No Rebound tenderness present General: Yes no CVA tenderness Back/Spine/Pelvis Back: no CVA tenderness Thoracic/Lumbar Spine: Lasegue's sign negative and paraspinal muscle tenderness bilaterally in the mid lumbar Skin Lesions: no lesions Rashes: no rashes Neuro General: patient oriented x3, gait normal, tone normal, no focal motor deficits, CN's II-XI intact bilaterally and decrease sensation to monofilament Sensory Exam: No Sensory deficit (Neuro) Extrem General: Yes normal to inspection, Yes full ROM, Yes no joint enlargement, Yes no pedal edema and Yes normal gait Psych Appearance: grossly normal and well kempt Mental Status: mental status grossly normal Speech and movement: Normal speech and movement present Affect: Sad affect present Thought process: Normal thought process present Thought content: Normal thought content present Results Reviewed Results Reviewed: alberto: Lyric Peña I Age/Sex: 59/F : 1965 Unit#: [id number] Attend Dr: Rahel Diaz MD Re08/05/24 Status: DEP [facility] Dis[facility]: SPEC : [id number] MARII: 08/05/24 STATUS: COMP REQ : [id number] RECD: 08/05/[address]: Rahel Diaz MD COMP: 08/05/24 ENTERED: 08/05/[address]: ORDERED: Met Prof Fast, AST, ALT, Lipid Panel, Vitamin D 25-OH Test Result Flag Reference Sodium 143 135-145 mmol/L Potassium 3.7 3.3-5.1 mmol/L CL 113 H 96-108 mmol/L CO2 23 22-29 mmol/L Gap 11 L 12-20 BUN 10 9-16 mg/dL Creat 0.85 0.5-1.4 mg/dL eGFR > 60 Chronic Kidney Disease: Estimated GFR < 60 mL/min/1.73m2 Severe Kidney Disease: Estimated GFR < 15 mL/min/1.73m2 FBS 98 60-99 mg/dL CA 9.8 8.4-10.2 mg/dL AST (GOT) 33 H 5-31 U/L ALT (GPT) 13 0-31 U/L Triglyceride 96 <150 mg/dL Desirable Triglyceride: less than 150 mg/dL Borderline High Triglyceride 150-199 mg/dL High Triglyceride: 200-499 mg/dL Very High Triglyceride: greater than or equal to 5OO mg/dL Cholesterol 172 <200 mg/dL Desirable Cholesterol: less than 200 mg/dL Borderline High Cholesterol: 200-239 mg/dL High Cholesterol: greater than 239 mg/dL LDL Calculated 99 <100 mg/dL Desirable LDL: less than 100 mg/dL Near Optimal/Above Optimal LDL: 110-129 mg/dL Borderline High LDL: 130-159 mg/dL High LDL: 160-189 mg/dL Very High LDL: greater than or equal to 190 mg/dL HDL 54 >40 mg/dL Desirable HDL: greater than 40 mg/dL Note: This HDL assay may give artificially low results in patients with liver disease. Vit D 25-OH Tot 51.2 >30 ng/mL Health Based Reference Values* < 20 ng/mL Deficient 20-30 ng/mL Insufficient > 30 ng/mL Sufficient Coding Level of Care Code Est Pt Prev Care 40-64y(05552) Diagnoses Diabetic polyneuropathy associated with type 2 diabetes mellitus E11.42 Diabetes mellitus type: type 2 Diabetes mellitus complication detail: diabetic polyneuropathy Migraine with aura and without status migrainosus, not intractable G43.109 Status migrainosus presence: without status migrainosus Intractability: not intractable Gastroesophageal reflux disease, unspecified whether esophagitis present K21.9 Esophagitis presence: esophagitis presence not specified Constipation, unspecified constipation type K59.00 Constipation type: unspecified constipation type Anxiety and depression F41.9; F32.A Mild intermittent asthma without complication J45.20 Asthma complication type: uncomplicated Type 2 diabetes mellitus without complication, without long-term current use of insulin E11.9 Essential hypertension I10 Dyslipidemia E78.5 Annual visit for general adult medical examination with abnormal findings Z00.01 Strain of lumbar region, initial encounter S39.012A Encounter type: initial encounter Additional Codes PHQ-9 - 71087 - PHQ-9 Billing: Yes ([id number]) RIMA-7 Assessment Billing - RIMA-7 Assessment Tool: RIMA-7 Assessment 84851 ([id number]) Assessment & Plan Assessment & Plan (1) Diabetic neuropathy: Code(s): E11.40 - Type 2 diabetes mellitus with diabetic neuropathy, unspecified Category: Medical Qualifiers: Diabetes mellitus type: type 2 Diabetes mellitus complication detail: diabetic polyneuropathy Qualified Code(s): E11.42 - Type 2 diabetes mellitus with diabetic polyneuropathy Plan: Started on gabapentin 100 mg per capsule to take 1 at bedtime, discussed possible side effects of medication which may include dryness of mouth and dizziness. (2) Migraine with aura: Code(s): G43.109 - Migraine with aura, not intractable, without status migrainosus Category: Medical Qualifiers: Status migrainosus presence: without status migrainosus Intractability: not intractable Qualified Code(s): G43.109 - Migraine with aura, not intractable, without status migrainosus Plan: Followed by Neurology, currently on Emgality pen and takes topiramate 150 mg at bedtime (3) GERD (gastroesophageal reflux disease): Code(s): K21.9 - Gastro-esophageal reflux disease without esophagitis Category: Medical Qualifiers: Esophagitis presence: esophagitis presence not specified Qualified Code(s): K21.9 - Gastro-esophageal reflux disease without esophagitis Plan: Currently on esomeprazole 20 mg 1 capsule twice a day, followed by GI (4) Constipation: Code(s): K59.00 - Constipation, unspecified Category: Medical Qualifiers: Constipation type: unspecified constipation type Qualified Code(s): K59.00 - Constipation, unspecified Plan: Prescription refill sent for Trulance (5) Anxiety and depression: Comment: ravi Peña NP and a therapist at [facility] Code(s): F41.9 - Anxiety disorder, unspecified; F32.A - Depression, unspecified Category: Medical Plan: Currently being followed by Psychiatry and sees therapist at [facility], currently on duloxetine, bupropion and clonazepam, takes zolpidem as needed for episodes of insomnia (6) Mild intermittent asthma: Code(s): J45.20 - Mild intermittent asthma, uncomplicated Category: Medical Qualifiers: Asthma complication type: uncomplicated Qualified Code(s): J45.20 - Mild intermittent asthma, uncomplicated Plan: Controlled on Wixela has albuterol inhaler as needed for episodes of bronchospasm and wheezing (7) Type 2 diabetes mellitus without complication, without long-term current use of insulin: Code(s): E11.9 - Type 2 diabetes mellitus without complications Category: Medical Plan: Diabetes mellitus controlled with hemoglobin A1c at 5.6%. Currently on warm and ER 500 mg 1 tablet at night with supper, up-to-date with her diabetes retinopathy screening, goes to [facility] (8) Essential hypertension: Code(s): I10 - Essential (primary) hypertension Category: Medical Plan: Blood pressure at goal of less than 130/80. Continue lisinopril 20 mg daily. Reinforced importance of following a low sodium diet, getting regular exercise, and lowering stress levels. (9) Dyslipidemia: Code(s): E78.5 - Hyperlipidemia, unspecified Category: Medical Plan: Reviewed recent fasting lipid profile with patient with levels within normal limits . Continue atorvastatin , in addition to adherence to low- cholesterol diet and regular exercise, at least 30 minutes 3 to 4 times a week. Advised patient to make healthy food choices, eat more fruits, vegetables, whole grains, wild caught fish and low-fat dairy. Limit amount of meat and fr ied or fatty food products, as well as processed foods and fast foods. Follow-up scheduled with repeat fasting lipid panel in 3 months. (10) Annual visit for general adult medical examination with abnormal findings: Code(s): Z00.01 - Encounter for general adult medical examination with abnormal findings Plan: Reviewed recent fasting lab results with patient. Continue regular dental visit every 6 months and yearly eye exams. Take adequate calcium in diet and vitamin-D 3 at 2000 IU per cap once a day, in addition to weight-bearing exercises to help maintain good muscle tone and weight control. Instructed to do self-breast exam, and continue with yearly mammogram, due again next month. She is up-to-date with her colon cancer screening, due again in 2028, and is up-to-date with all her vaccines (11) Lumbar strain: Code(s): S39.012A - Strain of muscle, fascia and tendon of lower back, initial encounter Category: Medical Qualifiers: Encounter type: initial encounter Qualified Code(s): S39.012A - Strain of muscle, fascia and tendon of lower back, initial encounter Plan: Prescription sent for Salonpas patches applied to affected area in lower back twice a day as needed Medications: New gabapentin 100 mg PO BEDTIME 30 caps 5RF E11.40 - Type 2 diabetes mellitus with diabetic neuropathy, unspecified Salonpas 3.1 %-10 %-6 % (large) (camphor-methyl salicyl-menthol) may leave on for up to 12 hrs 1 patch topical BID PRN 60 ea 1RF pain NS Refilled atorvastatin 20 mg PO DAILY 90 tabs 3RF E78.5 - Hyperlipidemia, unspecified Trulance (plecanatide) 3 mg PO DAILY 30 tabs 5RF NS K59.00 - Constipation, unspecified metformin ER 500 mg PO QPM 90 tabs 4RF E11.9 - Type 2 diabetes mellitus without complications
== END 2024-08-11 09:48 | disposition home or self-care (01) ==
PROVIDERS: PCP Internal Medicine; Visit Provider Internal Medicine
DX: Z00.01 Encounter for general adult medical examination with abnormal findings (principal); E11.42 Type 2 diabetes mellitus with diabetic polyneuropathy; G43.109 Migraine with aura, not intractable, without status migrainosus; K21.9 Gastro-esophageal reflux disease without esophagitis; K59.00 Constipation, unspecified; F41.9 Anxiety disorder, unspecified; F32.A Depression, unspecified; J45.20 Mild intermittent asthma, uncomplicated; I10 Essential (primary) hypertension; E78.5 Hyperlipidemia, unspecified; S39.012A Strain of muscle, fascia and tendon of lower back, initial encounter

== ENCOUNTER → 2024-08-11 08:18 | Outpatient (BNVA) | payer OTHER, SELFPAY | PROVIDERS: PCP Internal Medicine; Visit Provider Internal Medicine | DX: E11.42 Type 2 diabetes mellitus with diabetic polyneuropathy (principal); Z00.01 Encounter for general adult medical examination with abnormal findings; G43.109 Migraine with aura, not intractable, without status migrainosus; K21.9 Gastro-esophageal reflux disease without esophagitis; K59.00 Constipation, unspecified; F41.9 Anxiety disorder, unspecified; F32.A Depression, unspecified; J45.20 Mild intermittent asthma, uncomplicated; E11.9 Type 2 diabetes mellitus without complications; I10 Essential (primary) hypertension; E78.5 Hyperlipidemia, unspecified; S39.012D Strain of muscle, fascia and tendon of lower back, subsequent encounter | CPT/HCPCS: 96127; 99396 ==

== ENCOUNTER 2024-10-31 08:05 | Outpatient (REF) | payer OTHER, SELFPAY ==
--- OUTSIDE RECORDS SUMMARY | 2024-10-31 08:10 | XMS_ITS | Clinical Summary ---
Author Organization [facility] ity Address [address] [place] [address] Care Team Providers Care Mill Dresser Name Role Phone Rahel Diaz MD Primary Care Provider Social History Tobacco Use Types Packs/Day Years Used Date Smoking Tobacco: Never Assessed Comments Unknown Sex and Gender Information Value Date Recorded Sex Assigned at Not on file Legal Sex Female 6:18 PM EST Gender Identity Not on file Sexual Orientation Not on file Plan of Treatment Health Maintenance Due Date Last Done Comments Breast Cancer Screening 1965 DTaP,Tdap,and Td Vaccines (1 - Tdap) 01/29/1984 Hepatitis B Vaccines (1 of 3 - 19+ 3-dose series) 01/29/1984 Cervical Cancer Screening: P ap Smear 1986 Pneumococcal Vaccine: 50+ Ye ars (1 of 1 - PCV) 2015 Zoster Vaccines (1 of 2) 2015 COVID-19 Vaccine (2023-2 5 season) 2024 Influenza Vaccine (Season Ended) 2025 RSV Immunization Adult Patie nts (1 - 1-dose 75+ series) 01/29/2040 HIB [...] patient's age to complete this topic Meningococcal B Vaccine Aged Out No l onger eligible based on patient's age to complete [...] age to complete this topic Care Teams Mill Dresser Relationship Specialty Start Date End Date Rahel Diaz MD [address] [place] [address] PCP - General 08/13/23
[2024-10-31 10:35] LABS: Estimated Average Glucose 117 mg/dL; Hemoglobin A1C 127.7241 umol/L; Hemoglobin A1c % 5.7 % (<6.0); Total Hemoglobin (HGBA1C) 3287.7171 umol/L
[2024-10-31 10:50] LABS: Alanine Aminotransferase 20 U/L (0-31); Anion Gap 12 (12-20); Aspartate Amino Transferase 37 U/L (5-31); Blood Urea Nitrogen 12 mg/dL (9-16); Calcium 9.4 mg/dL (8.4-10.2); Carbon Dioxide 20 mmol/L (22-29); Chloride 113 mmol/L (96-108); Cholesterol 168 mg/dL (<200); Estimated Glomerular Filt Rate > 60; Glucose Fasting 161 mg/dL (60-99); HDL Cholesterol 61 mg/dL (>40); LDL Cholesterol Calculated 90 mg/dL (<100); Potassium 3.5 mmol/L (3.3-5.1); Sodium 141 mmol/L (135-145); Triglycerides 88 mg/dL (<150)
== END 2024-10-31 08:06 | disposition home or self-care (01) ==
LOC: HO.HMGCLDS 08:05
PROVIDERS: PCP Internal Medicine; Visit Provider Internal Medicine
DX: E11.42 Type 2 diabetes mellitus with diabetic polyneuropathy (principal); I10 Essential (primary) hypertension; E78.5 Hyperlipidemia, unspecified
CPT/HCPCS: 36415; 80048; 80061; 83036; 84450; 84460

== ENCOUNTER 2024-11-03 09:11 | Outpatient (AMB) | payer OTHER, SELFPAY ==
--- OUTSIDE RECORDS SUMMARY | 2024-11-03 09:44 | XMS_ITS | Clinical Summary ---
Author Organization [facility] ity Address [address] [place] [address] Care Team Providers Care Manager Gallery Name Role Phone Rahel Diaz MD Primary [...] age to complete this topic Care Teams Manager Gallery Relationship Specialty Start Date End Date Rahel Diaz MD [address] [place] [address] PCP - General 08/13/23
--- NOTE | 2024-11-03 09:50 | A.OFFPC_ITS ---
Vital Signs 11/03/24 10:08 Height 5 ft 3 in Weight 144 lb BMI 25.5 BP 132/88 Blood Pressure Location Rt brachial Position Sitting Respiration 16 Pulse 75 Pulse Source Pulse Oximeter Temp 98.4 F Temp Source Oral Pulse Oximetry (%) 96 Oxygen Delivery Method Room Air Intake Visit Reasons: 3m follow up Intake Note: Pt is here today for her 3mo. f/u / Also patient request a letter for housing stating she needs a one level apartment Allergies crab [CRAB] Allergy (Severe, Verified 11/06/24 19:37) MOURH SWELLING cyclobenzaprine [From FLEXERIL] Allergy (Severe, Verified 11/06/24 19:37) SEIZURE/shakey ibuprofen [From MOTRIN] Allergy (Intermediate, Verified 11/06/24 19:37) ITCHING, severe abdominal pain morphine [Morphine] Allergy (Intermediate, Verified 11/06/24 19:37) ITCHING/REDNESS, rash Medication List - Last Reconciled 11/06/24 by Rahel Diaz MD acetaminophen ER (Tylenol Arthritis Pain) 650 mg PO Q12H PRN albuterol sulfate 2.5 mg (3 mL) inhalation Q6H PRN albuterol sulfate 90 mcg/actuation 2 puffs inhalation Q4-6H PRN atorvastatin 20 mg PO DAILY blood sugar diagnostic (FreeStyle Lite Strips) Check fasting glucose once a day blood-glucose meter (FreeStyle Lite Meter kit) Check fasting glucose once a day bupropion HCl SR 150 mg PO BID eucvdimxwy-upuqdgzxuqhey-axtw 50-300-40 mg 1 cap PO Q6H PRN 30 days MDD 2 capsaicin-menthol 0.025-1.25 % (Salonpas (capsaicin-menthol)) 1 patch topical DAILY PRN 7 days clonazepam 0.5 mg PO BEDTIME cyanocobalamin (vitamin B-12) 500 mcg PO DAILY 30 days duloxetine 30 mg PO BID epinephrine (EpiPen 2-Abilio) 0.3 mg (0.3 mL) IM ONCE PRN esomeprazole magnesium 20 mg PO BID fluticasone propion-salmeterol 250-50 mcg/dose (Wixela Inhub) 1 ea inhalation QAM gabapentin 100 mg PO BEDTIME galcanezumab-gnlm (Emgality Pen) 120 mg subcut ONCE 30 days lancets (FreeStyle Lancets) Check fasting glucose once a day lisinopril 20 mg PO DAILY loratadine (Allergy Relief (loratadine)) 10 mg PO DAILY PRN metformin ER 500 mg PO QPM nebulizers (AeroEclipse II Nebulizer) As directed nitroglycerin 0.4 mg sublingual Q5M PRN riboflavin (vitamin B2) 400 mg PO DAILY 30 days Salonpas (lidocaine) 4% (lidocaine) 1 patch topical BID PRN NS topiramate 150 mg (1.5 x 100 mg) PO BEDTIME Trulance (plecanatide) 3 mg PO DAILY NS zolpidem 10 mg PO BEDTIME Tobacco use date assessed: 11/03/24 Dental Screening Dental Screen Date: 11/03/24 Did you have a dental visit in the last 12 months?: Yes Did you have a dental problem in the last 6 months where you did not have access to dental care?: No Was dental information given to patient?: Patient has dentist HPI 3m follow up HPI Details 59-year-old lady with history of diabete s mellitus, dyslipidemia, osteoarthritis of knee status post right knee arthroplasty mild intermittent asthma,, and hypertension, here today for her follow-up.. She has been compliant with taking medications, compliant with diet. His fasting lipids, hemoglobin A1c within normal limits. Blood pressure stable controlled on lisinopril 20 mg daily. Patient requesting a letter to be given to give to her housing, requesting a ground floor apartment as she has difficulty navigating the stairs due to her arthritis. [facility] Medical History Diabetic neuropathy Mild intermittent asthma with (acute) exacerbation Osteoarthritis of right knee Acute hemorrhagic colitis Vitamin D deficiency Anxiety and depression Hx of renal calculi Allergic to shellfish Insomnia Mild intermittent asthma Type 2 diabetes mellitus without complication, without long-term current use of insulin Migraine GERD (gastroesophageal reflux disease) Osteoarthritis Essential hypertension Dyslipidemia Surgical History H/O colonoscopy History of total right knee replacement Hx laparoscopic cholecystectomy History of appendectomy Hx of total knee arthroplasty History of partial hysterectomy Family History Father HTN (hypertension) Hyperlipidemia Lung cancer Mother HTN (hypertension) Hyperlipidemia Diabetes mellitus Social History Housing: Apartment Alcohol intake: never Patient Tobacco Use Status: Never used Tobacco e-Cigarette/Vaping Use: Never Used Advance Directives Date on File: 09/11/23 service: No Current occupational status: unemployed Current occupation: [employer] Cognitive needs: No Hearing needs: No Vision needs: No Questionnaire PHQ-9 Over the last 2 weeks, how often have you been bothered by any of the following problems? Depression Screening Interpretation: Positive (Followed by psychiatrist, Malathi Peña) Depression Screening Follow-up: Existing condition, In treatment and Community Mental Health Worker F/U Depression Screening Done: Yes Source: Developed by Hannah Hernández Kurt Kroenke and colleagues, with an educational luis from [employer]. Thrive Questionnaire Date Thrive assessed: 08/11/24 I am a: Patient What is your living situation today?: I have a steady place to live Within the past 12 months, did the food you bought not last and you didn't have the money to get more?: Never true Within the past 12 months, did you worry whether your food would run out before you got money to buy more?: Never true Do you have trouble paying for medicines?: No Do you have trouble getting transportation to medical appointments?: No Do you have trouble paying your heating and electricity bill?: No Do you have trouble taking care of your child, family member or friend?: No Do you have trouble with day-to-day activities such as bathing, preparing meals, shopping, managing finances, etc.?: No Are you currently unemployed and looking for a job?: No Are you interested in more education?: No Please select the resources that you would like help with: None Currently or been in a relationship where the following occur: No concerns reported THRIVE Score: 0 AUDIT C Alcohol Use Questionnaire (AUDIT-C) 3. How often do you have six or more drinks on one occasion?: Never Total Score: 0 RIMA-7 AMB Questionnaire RIMA-7 Date RIMA - 7 assessed: 08/11/24 Source: Developed by Hannah Hernández Kurt Kroenke and colleagues, with an educational luis from [employer]. Review of Systems Const Denies fever(s), Denies headache(s) and Denies weakness Eyes Details: Goes to [facility] in [place] for her routine eye exam Denies change in vision ENT Denies dizziness, Denies headache(s), Denies nasal congestion, Denies nasal discharge and Denies sore throat Card Denies chest pain, Denies lightheadedness and Denies dyspnea Resp Denies chest congestion, Denies cough and Denies dyspnea GI Denies abdominal pain and Denies heartburn Denies hematuria, Denies difficulty voiding, Denies nocturia and Denies urinary incontinence Musc Reports back pain (Lower back), Reports arthralgias (Recurrent in knees), Denies joint swelling and Reports stiffness Skin/Breast Denies breast pain and Denies breast mass Neuro Denies dizziness, Denies headache(s), Denies Sensory deficit (Neuro) and Denies weakness Psych Reports as per HPI Endo Reports no additional complaints Hilotn/Lymph Reports no additional complaints Aller/Immun Reports no additional complaints Physical exam (Primary Care) Vital Signs: Last Vital Signs Temp 98.4 F 11/03/24 10:08 Pulse 75 11/03/24 10:08 Resp 16 11/03/24 10:08 BP 132/88 11/03/24 10:08 Pulse Ox 96 11/03/24 10:08 Oxygen Delivery Method Room Air 11/03/24 10:08 BMI result Body Mass Index 25.5 Tobacco/Smoking Status: Tobacco use Status Tobacco use date assessed 11/03/24 11/03/24 09:52 Patient Tobacco Use Status Never used Tobacco 11/03/24 09:52 e-Cigarette/Vaping Use Never Used 11/03/24 09:52 Depression Screening Interpretation: Positive (Followed by psychiatrist, Malathi Peña) Depression Screening Follow-up: Existing condition, In treatment and Community Mental Health Worker F/U Thrive Assessment: Date of Thrive Assessment Date Thrive assessed 08/11/24 11/03/24 09:52 Currently or been in a relationship where the following occur: No concerns reported Const Other: Alert oriented x3, no acute cardiorespiratory distress noted , ambulatory normal gait Orientation/consciousness: patient oriented x3 HENMT Mouth: Normal oral and palatal mucosa present, oropharynx normal and moist mucous membranes Eyes General: appearance normal, both eyes and all related structures Neck Neck: Yes full ROM, Yes no lymphadenopathy and Yes supple Chest Breast/axilla palpation: normal palpation of the breasts Resp Auscultation: clear to auscultation bilaterally Cardio Other: S1-S2 present regular rate and rhythm GI Palpation (GI): Soft to palpation, nontender, no guarding, no masses and No Rebound tenderness present General: Yes no CVA tenderness Back/Spine/Pelvis Back: no CVA tenderness Thoracic/Lumbar Spine: Lasegue's sign negative and paraspinal muscle tenderness bilaterally in the mid lumbar Skin Lesions: no lesions Rashes: no rashes Neuro General: patient oriented x3, gait normal, tone normal, no focal motor deficits, CN's II-XI intact bilaterally and decrease sensation to monofilament Sensory Exam: No Sensory deficit (Neuro) Extrem General: Yes normal to inspection, Yes full ROM, Yes no joint enlargement, Yes no pedal edema and Yes normal gait Psych Appearance: grossly normal and well kempt Mental Status: mental status grossly normal Speech and movement: Normal speech and movement present Affect: Sad affect present Thought process: Normal thought process present Thought content: Normal thought content present Results Reviewed Results Reviewed: alberto: Lyric Peña I Age/Sex: 59/F : 1965 Unit#: [id number] Attend Dr: Rahel Diaz MD Re10/31/24 Status: DEP REF Location: [facility] Disch: SPEC : [id number] MARII: 10/31/24 STATUS: COMP REQ : [id number] RECD: 10/31/24-[address]: Rahel Diaz MD COMP: 10/31/24-1050 ENTERED: 10/31/[address]: ORDERED: Met Prof Fast, AST, ALT, Lipid Panel Test Result Flag Reference Sodium 141 135-145 mmol/L Potassium 3.5 3.3-5.1 mmol/L CL 113 H 96-108 mmol/L CO2 20 L 22-29 mmol/L Gap 12 12-20 BUN 12 9-16 mg/dL Creat 0.90 0.5-1.4 mg/dL eGFR > 60 Chronic Kidney Disease: Estimated GFR < 60 mL/min/1.73m2 Severe Kidney Disease: Estimated GFR < 15 mL/min/1.73m2 FBS 161 H 60-99 mg/dL A fasting glucose of 126 mg/dl or greater on more than one occasion is considered diagnostic of diabetes. CA 9.4 8.4-10.2 mg/dL AST (GOT) 37 H 5-31 U/L ALT (GPT) 20 0-31 U/L Triglyceride 88 <150 mg/dL Desirable Triglyceride: less than 150 mg/dL Borderline High Triglyceride 150-199 mg/dL High Triglyceride: 200-499 mg/dL Very High Triglyceride: greater than or equal to 5OO mg/dL Cholesterol 168 <200 mg/dL Desirable Cholesterol: less than 200 mg/dL Borderline High Cholesterol: 200-239 mg/dL High Cholesterol: greater than 239 mg/dL LDL Calculated 90 <100 mg/dL Desirable LDL: less than 100 mg/dL Near Optimal/Above Optimal LDL: 110-129 mg/dL Borderline High LDL: 130-159 mg/dL High LDL: 160-189 mg/dL Very High LDL: greater than or equal to 190 mg/dL HDL 61 >40 mg/dL Desirable HDL: greater than 40 mg/dL Note: This HDL assay may give artificially low results in patients with liver disease. Laboratory Tests 08/05/24 08/05/24 10/31/24 09:47 10:48 08:15 Estimat Average Glucose 114 117 Hemoglobin A1c % 5.6 5.7 Urine Creatinine 258.40 Urine Microalbumin 15.0 Microalb/Creat Ratio 5.8 Coding Level of Care Code Est Pt Level 4 (30979) Complex EM visit Add On G2211 Diagnoses Dyslipidemia E78.5 Type 2 diabetes mellitus without complication, without long-term current use of insulin E11.9 Constipation, unspecified constipation type K59.00 Constipation type: unspecified constipation type Primary osteoarthritis of right knee M17.11 Osteoarthritis type: primary Assessment & Plan Assessment & Plan (1) Dyslipidemia: Code(s): E78.5 - Hyperlipidemia, unspecified Category: Medical Plan: Latest fasting lipids are within normal limits, continued on atorvastatin 20 mg daily (2) Type 2 diabetes mellitus without complication, without long-term current use of insulin: Code(s): E11.9 - Type 2 diabetes mellitus without complications Category: Medical Plan: Diabetes mellitus well controlled, with latest hemoglobin A1c at 5.7%. Continue with metformin ER 500 mg 1 tablet at night with supper (3) Constipation: Code(s): K59.00 - Constipation, unspecified Category: Medical Qualifiers: Constipation type: unspecified constipation type Qualified Code(s): K59.00 - Constipation, unspecified Plan: Refill prescription sent for Trulance 3 mg once a day (4) Osteoarthritis of right knee: Code(s): M17.11 - Unilateral primary osteoarthritis, right knee Category: Medical Qualifiers: Osteoarthritis type: primary Qualified Code(s): M17.11 - Unilateral primary osteoarthritis, right knee Plan: Letter written to her housing require as needed requesting for ground level apartment done Orders: Orders Lipid Panel 03/29/25 E11.9 - Type 2 diabetes mellitus without complications, E78.5 - Hyperlipidemia, unspecified Hemoglobin A1c 03/29/25 E11.9 - Type 2 diabetes mellitus without complications, E78.5 - Hyperlipidemia, unspecified Medications: Refilled albuterol sulfate 90 mcg/actuation 2 puffs inhalation Q4-6H PRN 8.5 grams 3RF shortness of breath or wheezing epinephrine (EpiPen 2-Abilio) 0.3 mg (0.3 mL) IM ONCE PRN 2 ea 1RF anaphylaxis Z91.013 - Allergy to seafood Trulance (plecanatide) 3 mg PO DAILY 30 tabs 5RF NS K59.00 - Constipation, unspecified
[2024-11-03 10:08] VITALS: BP 132/88; PULSE 75; RESP 16; TEMP 36.9; O2SAT 96; BMI 25.5
== END 2024-11-03 10:49 | disposition home or self-care (01) ==
LOC: HO.HMCC 09:12
PROVIDERS: PCP Internal Medicine; Visit Provider Internal Medicine
DX: E78.5 Hyperlipidemia, unspecified (principal); E11.9 Type 2 diabetes mellitus without complications; K59.00 Constipation, unspecified; M17.11 Unilateral primary osteoarthritis, right knee

== ENCOUNTER → 2024-11-03 09:11 | Outpatient (BNVA) | payer OTHER, SELFPAY | PROVIDERS: PCP Internal Medicine; Visit Provider Internal Medicine | DX: E11.9 Type 2 diabetes mellitus without complications (principal); E78.5 Hyperlipidemia, unspecified; M17.11 Unilateral primary osteoarthritis, right knee; J45.20 Mild intermittent asthma, uncomplicated; I10 Essential (primary) hypertension; K59.00 Constipation, unspecified; Z91.013 Allergy to seafood | CPT/HCPCS: 99212 ==

== ENCOUNTER 2025-01-09 13:25 | Outpatient (AMB) | payer OTHER, SELFPAY ==
[2025-01-09 13:47] VITALS: BP 124/82; PULSE 78; TEMP 36.7; O2SAT 98; BMI 25.2
--- NOTE | 2025-01-09 13:47 | AM.OFFWIN_ITS ---
Intake Vital Signs 01/09/25 13:47 Height 5 ft 3 in Weight 142 lb 6 oz BMI 25.2 BP 124/82 Blood Pressure Location Lt brachial Position Sitting Pulse 78 Pulse Source Pulse Oximeter Temp 98.0 F Temp Source Oral Pulse Oximetry (%) 98 Oxygen Delivery Method Room Air Intake Visit Reasons: EP Pain in knee up to hip LT side Intake Note: Patient present with left hip pain that radiates into the groin area, last 3 days sharp pain but states she had this pain times 3weeks Patient Tobacco Use Status: Never used Tobacco Sole Scraper Required: No Is last menstrual period known: No Post menopausal: No Patient : No Allergies crab (CRAB) Allergy (Severe, Verified 01/09/25 14:02) MOURH SWELLING cyclobenzaprine (From FLEXERIL) Allergy (Severe, Verified 01/09/25 14:02) SEIZURE/shakey ibuprofen (From MOTRIN) Allergy (Intermediate, Verified 01/09/25 14:02) ITCHING, severe abdominal pain morphine (Morphine) Allergy (Intermediate, Verified 01/09/25 14:02) ITCHING/REDNESS, rash Do you need a note to return to daycare/school/sports/work: No HPI HPI Comments History of Present Illness Details 59 y/o Female patient who presents to [facility] walk [facility] with c/o left sided Hip pain that radiates to the left Groin x 3 days. She does have h/o Left knee OA and Left Hip OA. Denies injury or trauma. [facility] Medical History Diabetic neuropathy Mild intermittent asthma with (acute) exacerbation Osteoarthritis of right knee Acute hemorrhagic colitis Vitamin D deficiency Anxiety and depression Hx of renal calculi Allergic to shellfish Insomnia Mild intermittent asthma Type 2 diabetes mellitus without complication, without long-term current use of insulin Migraine GERD (gastroesophageal reflux disease) Osteoarthritis Essential hypertension Dyslipidemia Surgical History H/O colonoscopy History of total right knee replacement Hx laparoscopic cholecystectomy History of appendectomy Hx of total knee arthroplasty History of partial hysterectomy Family History Father HTN (hypertension) Hyperlipidemia Lung cancer Mother HTN (hypertension) Hyperlipidemia Diabetes mellitus Social History Housing: Apartment Alcohol intake: never Patient Tobacco Use Status: Never used Tobacco e-Cigarette/Vaping Use: Never Used Advance Directives Date on File: 09/11/23 Patient : No service: No Current occupational status: unemployed Current occupation: [employer] Cognitive needs: No Hearing needs: No Vision needs: No Review of Systems Const All systems reviewed & are unremarkable except as noted in HPI and below Physical Exam Vital Signs: Last Vital Signs Temp 98.0 F 01/09/25 13:47 Pulse 78 01/09/25 13:47 BP 124/82 01/09/25 13:47 Pulse Ox 98 01/09/25 13:47 Oxygen Delivery Method Room Air 01/09/25 13:47 BMI result Body Mass Index 25.2 Const General: no acute distress Nutritional Appearance: well nourished Orientation/consciousness: patient oriented x3 Back/Spine/Pelvis Back: back tenderness Thoracic/Lumbar Spine: pain with thoraco-lumbar ROM and lumbar spinal tenderness Neuro General: patient oriented x3, gait normal and moves all extremities Gait exam (Neuro): Other gait observations present (Slight limp due to pain) Motor exam (neuro): 5/5 motor strength present throughout Extrem Left lower extremity: hip/thigh Details: normal to inspection, tenderness Locat ion: of the hip and abnormal ROM Details: pain with active ROM and pain with passive ROM; no swelling, no abrasions and no crepitus and knee Details: normal to inspection, tenderness Location: of the patella and abnormal ROM Details: pain with active ROM and pain with passive ROM; no swelling Psych Speech and movement: Normal speech and movement present Assessment & Plan Assessment & Plan (1) Osteoarthritis of right knee: Code(s): M17.11 - Unilateral primary osteoarthritis, right knee Qualifiers: Osteoarthritis type: primary Qualified Code(s): M17.11 - Unilateral primary osteoarthritis, right knee Plan: NSAIDs and Acetaminophen for pain relief Ice/Hot Rest Placed referral to Pain management and Orthopedics. (2) Primary osteoarthritis of right hip: Code(s): M16.11 - Unilateral primary osteoarthritis, right hip Plan: NSAIDs and Acetaminophen for pain relief Ice/Hot Rest Placed referral to Pain management and Orthopedics. Orders: Referrals Orthopedics Referral M16.11 - Unilateral primary osteoarthritis, right hip, M17.11 - Unilateral primary osteoarthritis, right knee Pain Management Referral M16.11 - Unilateral primary osteoarthritis, right hip, M17.11 - Unilateral primary osteoarthritis, right knee Coding Level of Care Code Est Pt Level 4 (53840) Diagnoses Primary osteoarthritis of right knee M17.11 Osteoarthritis type: primary Primary osteoarthritis of right hip M16.11 Time Spent (min) 20
== END 2025-01-09 14:40 | disposition home or self-care (01) ==
PROVIDERS: PCP Internal Medicine; Visit Provider Nurse Practitioner Family
DX: M17.11 Unilateral primary osteoarthritis, right knee (principal); M16.11 Unilateral primary osteoarthritis, right hip

== ENCOUNTER → 2025-01-09 13:25 | Outpatient (BNVA) | payer OTHER, SELFPAY | PROVIDERS: PCP Internal Medicine; Visit Provider Nurse Practitioner Family | DX: M17.11 Unilateral primary osteoarthritis, right knee (principal); M16.11 Unilateral primary osteoarthritis, right hip | CPT/HCPCS: 99212 ==

== ENCOUNTER 2025-01-18 07:47 | Emergency (ER) | payer OTHER, SELFPAY ==
--- NOTE | ~2025-01-18 | CT_ITS ---
EXAMINATION: CT ABDOMEN PELVIS WITHOUT IV CONTRAST HISTORY: left flank pain, hx of stones COMPARISON: Comparison is made with the prior examination dated 11/09/2023. TECHNIQUE: CT scan of the abdomen and pelvis was performed without contrast using standard departmental protocol. Coronal and sagittal reformatted images were generated and reviewed. Oral contrast material was not administered per department protocol. This CT exam was performed with one or more of the following dose reduction techniques: automated exposure control, adjustment of the mA and/or kV according to patient size, use of iterative reconstruction technique. DLP: 404 mGy-cm FINDINGS: LOWER CHEST: The visualized lung bases are clear. There is no pleural effusion. CARDIOVASCULATURE: The heart is normal in size. There is no pericardial effusion. LIVER: The dome of the liver is excluded. The visualized portion of the liver demonstrates an unremarkable unenhanced appearance. The liver has an unremarkable unenhanced appearance. GALLBLADDER / BILE DUCTS: The gallbladder is surgically absent. There is no intra or extrahepatic biliary ductal dilatation. SPLEEN: The superior pole of the spleen is excluded. The remainder of the spleen demonstrates an unremarkable unenhanced appearance. PANCREAS: The pancreas has an unremarkable unenhanced appearance. ADRENAL GLANDS: Unremarkable. KIDNEYS/RETROPERITONEUM: There is a punctate nonobstructing calculus in the interpolar region of the left kidney. No right renal calculi are identified. There is no hydronephrosis or hydroureter. No ureteral calculi are identified. LYMPH NODES: No retroperitoneal lymphadenopathy is identified in the abdomen or pelvis. VASCULATURE: The abdominal aorta is normal in caliber. MESENTERY/PERITONEUM: No free fluid. No masses. There is no free intraperitoneal gas. STOMACH: The stomach is collapsed, limiting evaluation. SMALL BOWEL: The small bowel is normal in caliber. COLON: The colon is unremarkable. APPENDIX: The appendix is not seen, however no inflammatory changes are seen adjacent to the cecum. URINARY BLADDER/PELVIC ORGANS: The urinary bladder is unremarkable. The patient is status post hysterectomy. BONES / SOFT TISSUES: No suspicious bony or soft tissue abnormalities. CT/CT abdomen pelvis wo IV con IMPRESSION: Punctate nonobstructing left renal calculus. No evidence of ureteral obstruction. Electronically signed by: Claudio Raza MD 01/18/2025 09:13 AM EDT RP
[2025-01-18 07:59] VITALS: BP 151/76; PULSE 82; RESP 16; TEMP 36.3; O2SAT 98; BMI 25.6
--- OUTSIDE RECORDS SUMMARY | 2025-01-18 08:13 | XMS_ITS | Clinical Summary ---
Author Organization [facility] ity Address [address] [place] [address] Care Team Providers Care Tax Adjuster Name Role Phone Rahel Diaz MD Primary [...] 2015 COVID-19 Vaccine (2023-2 5 season) 2024 Depression Screening 06/29/2024 Influenza Vaccine (#1) 2025 RSV Immunization Adult Patie nts (1 [...] age to complete this topic Care Teams Tax Adjuster Relationship Specialty Start Date End Date Rahel Diaz MD [address] [place] [address] PCP - General 08/13/23
--- NOTE | 2025-01-18 08:18 | ED_ITS ---
HPI - General Adult General Chief complaint: Abdominal Pain Stated complaint: Pelvic/ hip pain for three weeks, urinating blood Time Seen by Provider: 01/18/25 08:17 Source: patient Mode of arrival: ambulatory Limitations: no limitations History of Present Illness ED Provider: Farheen Da Silva PA-C HPI narrative: Patient is a 59 year old assigned female at with a history of DM, migraine, insomnia, HLD, asthma, and kidney stones presenting to the emergency department today with left hip pain, groin pain, and blood in her urine. Patient states that over the last 3 weeks she has had left hip and groin pain and yesterday she developed blood in her urine with increased urinary frequency and pain with urination. Patient states that 2 days ago she saw the urgent care who recommended seeing the orthopedist and a pain specialist. Patient denies any dizziness, lightheadedness, abdominal pain, nausea, vomiting, fever, chills, blurry vision, double vision, loss of vision, chest pain, difficulty breathing, shortness of breath, back pain, night sweats, increased urinary urgency, blood in her stool, syncope or a near syncopal episode, recent trauma or falls, bowel incontinence, bladder incontinence, or any other complaints at this time. Onset (ago): week(s) (3) Location: left (hip / groin) Relieving factors: none Exacerbating factors: none Associated symptoms: denies other symptoms Treatments prior to arrival: none Related Data Home Medications ?Medication ?Instructions ?Recorded ?Confirmed clonazepam 0.5 mg tablet 0.5 mg PO BEDTIME 07/04/21 0 08/11/24 duloxetine 30 mg capsule,delayed 30 mg PO BID 09/14/23 08/11/24 release bupropion HCl 150 mg tablet,12 hr 150 mg PO BID 08/11/24 sustained-release Previous Rx's ?Medication ?Instructions ?Recorded nitroglycerin 0.4 mg sublingual 0.4 mg sublingual Q5M PRN chest 07/04/21 tablet pain #7 tabs blood-glucose meter (FreeStyle #1 ea 08/04/23 Lite Meter kit) albuterol sulfate 2.5 mg/3 mL 2.5 mg (3 mL) inhalation Q6H PRN 11/04/23 (0.083 %) solution for nebulization shortness of breat h or wheezing #90 mL nebulizers (AeroEclipse II #1 ea 11/04/23 Nebulizer) esomeprazole magnesium 20 mg 20 mg PO BID #60 caps capsule,delayed release blood sugar diagnostic (FreeStyle #50 ea 06/13/24 Lite Strips) atorvastatin 20 mg tablet 20 mg PO DAILY #90 tabs 07/30 09/20 gabapentin 100 mg capsule 100 mg PO BEDTIME #30 caps 0 08/11/24 metformin 500 mg tablet,extended 500 mg PO QPM #90 tab s 08/11/24 release 24 hr galcanezumab-gnlm 120 mg/mL 120 mg subcut ONCE 30 days #1 mL 09/30/24 subcutaneous pen injector (Emgality Pen) capsaicin-menthol 0.025 %-1.25 % 1 patch topical DAILY PRN pain 7 10/07/24 topical patch (Salonpas days #30 ea (capsaicin-menthol)) lisinopril 20 mg tablet 20 mg PO DAILY #90 tabs 09/27 08/23 htkcffehcj-lamznzbjvwvoc-ffsaucqo 1 cap PO Q6H PRN for headache 30 10/18/24 50 mg-300 mg-40 mg capsule days #30 caps Trulance 3 mg tablet (plecanatide) 3 mg PO DAILY #30 t abs 11/03/24 albuterol sulfate 90 mcg/actuation 2 puff inhalation Q 4-6H PRN 11/03/24 aerosol inhaler shortness of breath or wheez ing #8.5 grams epinephrine 0.3 mg/0.3 mL 0.3 mg (0.3 mL) IM ONCE PRN 11/03/24 injection, auto-injector (EpiPen anaphylaxis #2 ea 2-Abilio) acetaminophen 650 mg 650 mg PO Q12H PRN pain, mod erate 11/14/24 tablet,extended release (Tylenol #60 tabs Arthritis Pain) Salonpas (lidocaine) 4 % topical 1 patch topical BID P RN pain, 11/15/24 patch (lidocaine) moderate #60 ea cyanocobalamin (vitamin B-12) 500 500 mcg PO DAILY 30 days #30 tabs 11/15/24 mcg tablet topiramate 100 mg tablet 150 mg (1.5 x 100 mg) PO BED TIME 11/22/24 #135 tabs fluticasone 250 mcg-salmeterol 50 1 ea inhalation QAM #60 ea 11/29/24 mcg/dose blistr powdr for inhalation (Wixcarri Inhub) riboflavin (vitamin B2) 400 mg 400 mg PO DAILY 30 days #30 tabs 01/02/25 tablet loratadine 10 mg tablet (Allergy 10 mg PO DAILY PRN al lergy 01/08/25 Relief (loratadine)) symptoms #30 tabs lancets 28 gauge (FreeStyle #100 ea 01/15/25 Lancets) cefuroxime axetil 250 mg tablet 250 mg PO BID 7 days # 14 tabs 01/18/25 Allergies Allergy/AdvReac Type Severity Reaction Status Date / Time crab (CRAB) Allergy Severe MOURH Verified 01/18/25 08:00 SWELLING cyclobenzaprine (From Allergy Severe SEIZURE/sha Verified 01/18/25 08:00 FLEXERIL) godoy ibuprofen (From MOTRIN) Allergy Intermediate ITCHING, Verified 01/18/25 08:00 severe abdominal pain morphine (Morphine) Allergy Intermediate ITCHING/REDNESS, Verified 01/18/25 08:00 rash Review of Systems 2 Constitutional: Constitutional: Reports no additional constitutional complaints, Denies chills, Denies fever(s) and Denies night sweats Eyes: Eyes: Reports no additional eye complaints, Denies blurry vision, Denies change in vision, Denies diplopia, Denies eye discharge, Denies loss of vision and Denies eye pain ENT: Denies dizziness Cardiovascular: Cardiovascular: Reports no additional cardiovascular complaints, Denies chest pain, Denies lightheadedness, Denies Loss of Consciousness and Denies dyspnea Respiratory: Respiratory: Reports no additional respiratory complaints and Denies dyspnea Gastrointestinal: Gastrointestinal: Reports no additional gastrointestinal complaints, Denies abdominal pain, Denies melena, Denies hematochezia, Denies change in bowel habits and Denies change in stool character Genitourinary: Genitourinary: Reports hematuria, Denies urinary frequency, Reports dysuria, Denies urinary incontinence, Denies urinary hesitancy and Denies urinary urgency Comments: increased urinary frequency Musculoskeletal: Musculoskeletal: Reports no additional musculoskeletal complaints, Denies numbness and Denies tingling Comments: left hip pain and groin pain Neurologic: Denies dizziness, Denies loss of vision, Denies numbness and Denies tingling Psychiatric: Psychiatric: Reports no additional psychiatric complaints Endocrine: Endocrine: Reports no additional endocrine complaints Hematologic/Lymphatic: Hematologic/Lymphatic: Reports no additional hematologic/lymphatic complaints Allergic/Immunologic: Allergic/Immunologic: Reports no additional allergic/immunologic complaints PMFSH Past Medical History Attestation statement: The following information was validated with the patient. Source: old records reviewed and nursing notes reviewed Medical History Diabetic neuropathy Mild intermittent asthma with (acute) exacerbation Osteoarthritis of right knee Acute hemorrhagic colitis Vitamin D deficiency Anxiety and depression Hx of renal calculi Allergic to shellfish Insomnia Mild intermittent asthma Type 2 diabetes mellitus without complication, without long-term current use of insulin Migraine GERD (gastroesophageal reflux disease) Osteoarthritis Essential hypertension Dyslipidemia Surgical History H/O colonoscopy History of total right knee replacement Hx laparoscopic cholecystectomy History of appendectomy Hx of total knee arthroplasty History of partial hysterectomy Family History Family History Father HTN (hypertension) Hyperlipidemia Lung cancer Mother HTN (hypertension) Hyperlipidemia Diabetes mellitus Social History Social History Housing: Apartment Alcohol intake: never Patient Tobacco Use Status: Never used Tobacco e-Cigarette/Vaping Use: Never Used Advance Directives: Yes Advance Directives on File: Yes Advance Directives Date on File: 09/11/23 Do you have a plan to hurt others: No Plan service: No Current occupational status: unemployed Current occupation: [employer] Cognitive needs: No Hearing needs: No Vision needs: No Physical Exam ED Vital Signs: Vital Signs - 24 hr 01/18/25 07:59 01/18/25 09:39 01/18/25 09:52 Temperature 97.3 F 98.0 F Pulse Rate 82 64 64 Respiratory Rate 16 16 16 Blood Pressure 151/76 H 138/72 138/72 Pulse Oximetry 98 99 99 Oxygen Delivery Method Room Air Room Air Room Air BMI result Body Mass Index 25.6 Const General: cooperative, no acute distress, alert and awake Nutritional Appearance: well nourished Orientation/consciousness: patient oriented x3 HENMT Head: Yes normal to inspection and Yes atraumatic Ears: hearing grossly normal bilaterally and external ears normal General nose exam: Normal external nose present, no nasal discharge noted and no epistaxis Face and sinus: Yes normal facial exam, No abrasion and No laceration Mouth: Normal oral and palatal mucosa present, no drooling and no muffled voice Eyes General: appearance normal, both eyes and all related structures Periorbital: periorbital findings normal Eyelids: Yes eyelids normal Conjunctivae: conjunctivae normal Pupils: Equal, round and reactive pupils present EOM: EOMs intact bilaterally Neck Neck: Yes normal visual inspection, Yes full ROM and Yes no lymphadenopathy Resp Effort & Inspection: normal respiratory effort and able to speak in complete sentences Neuro General: patient oriented x3, moves all extremities and CN's II-XI intact bilaterally Cranial nerves: Yes Equal, round and reactive pupils present Cognition (Neuro): normal cognition Extrem General: Yes normal to inspection, Yes full ROM and Yes capillary refill normal Psych Appearance: grossly normal Mental Status: mental status grossly normal Affect: normal affect Attitude: cooperative Thought process: Normal thought process present Thought content: Normal thought content present Insight: Good insight present (Psych) Medications Administered Discontinued Medications Generic Name Dose Route Start Last Admin Trade Name Jesseq PRN Reason Stop Dose Admin Diazepam 2 mg 01/18/25 08:24 01/18/25 08:36 Diazepam 2 Mg Tablet PO 01/18/25 08:25 2 mg ONCE ONE Administration Medical Decision Making Medical Decision Making [facility] Narrative: Patient is a 59 year old assigned female at with a history of DM, migraine, insomnia, HLD, asthma, and kidney stones presenting to the emergency department today with left hip pain, groin pain, and blood in her urine. Patient's physical exam was unremarkable. Patient's blood work was unremarkable. Patient's urine showed an acute UTI. Patient's CT abd/pelvis showed no acute process. Patient's clinical presentation is most consistent with a UTI. I explained my physical exam findings as well as all test results to the patient. I answered all questions asked by the patient. I stressed the importance of the patient taking her medication as directed (either prescribed or as the over the counter packaging recommends). I stressed the importance of the patient following up with her primary care provider. I stressed the importance of the patient returning to the emergency department immediately if her symptoms were to worsen or if she were to develop any dizziness, shortness of breath, difficulty breathing, chest pain, blurry vision, loss of vision, nausea, vomiting, abdominal pain, fever, chills, back pain, or any other complaints. Patient verbalized agreement and understanding with this treatment plan and discharge. Differential Diagnosis Differential Diagnoses: The differential diagnosis associated with the presentation includes Hip pain Hip strain Kidney stone UTI Admission/Observation Consideration of admission/observation: Escalation of care including admission/observation considered Patient would have been admitted to the hospital had her work up had any findings where hospital admission was appropriate and her clinical presentation warranted hospital admission. Lab Data [facility] Lab Attestation statement: I reviewed the patient's lab results. My interpretation of these results are in the MDM Rationale portion of this note. 01/18/25 08:30 01/18/25 08:30 Labs: Lab Results 01/18/25 01/18/25 Range/Units 08:30 09:10 WBC 7.6 (4.8-10.8) X10*3/uL RBC 4.34 (4.20-5.50) X10*6/uL Hgb 12.1 (12.0-16.0) g/dl Hct 36.8 L (37.0-47.0) % MCV 84.8 (80.0-98.0) fL MCH 27.9 (27.0-33.0) pg MCHC 32.9 (31.0-35.0) g/dl RDW 13.5 (11.0-16.0) % Plt Count 203 (160-400) X10*3/uL MPV 9.7 (9.4-12.3) fL Immature Gran % (Auto) 0.3 (0.0-0.4) % Neut % (Auto) 67.1 (45-73) % Lymph % (Auto) 22.6 (20-40) % [place] % (Auto) 7.4 (2-11) % Eos % (Auto) 2.1 (0-4) % Baso % (Auto) 0.5 (0-2) % Lymph # (Auto) 1.7 (1.2-4.9) X10*3/uL [place] # (Auto) 0.6 (0.1-1.2) X10*3/uL Eos # (Auto) 0.2 (0.0-0.4) X10*3/uL Baso # (Auto) 0.0 (0.0-0.2) X10*3/uL Abs Immat Gran (auto) 0.02 (0.00-0.03) X10*3/uL Absolute Neuts (auto) 5.1 (2.0-8.3) x10*3/uL Absolute Nucleated RBC 0.000 (0.0-0.012) X10*3/uL Nucleated RBC % (auto) 0.0 (0.0-0.2) /100WBC Sodium 143 (135-145) mmol/L Potassium 3.6 (3.3-5.1) mmol/L Chloride 114 H (96-108) mmol/L Carbon Dioxide 24 (22-29) mmol/L Anion Gap 9 L (12-20) BUN 13 (9-16) mg/dL Creatinine 0.76 (0.5-1.4) mg/dL Estim Creat Clear Calc 72.5 Estimated GFR > 60 Random Glucose 97 (60-115) mg/dL Calcium 9.4 (8.4-10.2) mg/dL Total Bilirubin 0.6 (0.0-1.0) mg/dL AST 28 (5-31) U/L ALT 13 (0-31) U/L Alkaline Phosphatase 75 (39-117) U/L Total Protein 7.0 (6.5-8.0) g/dL Albumin 4.1 (3.5-5.0) g/dL Urine Color Brown A Urine Appearance Turbid Urine pH 5.5 (5.0-9.0) Ur Specific [place] 1.015 (1.005-1.025) Urine Protein 100 (2+) H (Neg-Trace) mg/dL Urine Glucose (UA) Negative (Negative) mg/dL Urine Ketones Negative (Negative) mg/dL Urine Blood Large (3+) H (Negative) Urine Nitrite Negative (Negative) Ur Leukocyte Esterase Large (3+) H (Negative) Urine RBC >20 H (0-2) /HPF Urine WBC >50 H (0-5) /HPF Ur Squamous Epith Cells 0-2 (0-2) /HPF Urine Bacteria Trace (None Seen) Hyaline Casts 0-2 (0-2) /LPF Independent Interpretation I performed an independent interpretation of an: CT Scan Interpretation: My interpretation is in agreement with the radiologist's impression of this imaging study. L Report Number: [id number]: Total DLP = 0.00 mGy-cm EXAMINATION: CT ABDOMEN PELVIS WITHOUT IV CONTRAST HISTORY: left flank pain, hx of stones COMPARISON: Comparison is made with the prior examination dated 11/09/2023. TECHNIQUE: CT scan of the abdomen and pelvis was performed without contrast using standard departmental protocol. Coronal and sagittal reformatted images were generated and reviewed. Oral contrast material was not administered per department protocol. This CT exam was performed with one or more of the following dose reduction techniques: automated exposure control, adjustment of the mA and/or kV according to patient size, use of iterative reconstruction technique. DLP: 404 mGy-cm FINDINGS: LOWER CHEST: The visualized lung bases are clear. There is no pleural effusion. CARDIOVASCULATURE: The heart is normal in size. There is no pericardial effusion. LIVER: The dome of the liver is excluded. The visualized portion of the liver demonstrates an unremarkable unenhanced appearance. The liver has an unremarkable unenhanced appearance. GALLBLADDER / BILE DUCTS: The gallbladder is surgically absent. There is no intra or extrahepatic biliary ductal dilatation. SPLEEN: The superior pole of the spleen is excluded. The remainder of the spleen demonstrates an unremarkable unenhanced appearance. PANCREAS: The pancreas has an unremarkable unenhanced appearance. ADRENAL GLANDS: Unremarkable. KIDNEYS/RETROPERITONEUM: There is a punctate nonobstructing calculus in the interpolar region of the left kidney. No right renal calculi are identified. There is no hydronephrosis or hydroureter. No ureteral calculi are identified. LYMPH NODES: No retroperitoneal lymphadenopathy is identified in the abdomen or pelvis. VASCULATURE: The abdominal aorta is normal in caliber. MESENTERY/PERITONEUM: No free fluid. No masses. There is no free intraperitoneal gas. STOMACH: The stomach is collapsed, limiting evaluation. SMALL BOWEL: The small bowel is normal in caliber. COLON: The colon is unremarkable. APPENDIX: The appendix is not seen, however no inflammatory changes are seen adjacent to the cecum. URINARY BLADDER/PELVIC ORGANS: The urinary bladder is unremarkable. The patient is status post hysterectomy. BONES / SOFT TISSUES: No suspicious bony or soft tissue abnormalities. CT/CT abdomen pelvis wo IV con IMPRESSION: Punctate nonobstructing left renal calculus. No evidence of ureteral obstruction. Electronically signed by: Claudio Raza MD 01/18/2025 09:13 AM EDT Dictated By: Claudio Raza MD Signed By: Electronically signed by Claudio Raza MD 01/18/25 0913 Radiology Impression Discussion of test interpretation with radiology: I have reviewed the radiologist's reading. Prescription Management I considered prescription management with: Antibiotic (patient prescribed an antibiotic for UTI) Discharge Plan Discharge Clinical Impression: UTI (urinary tract infection) Qualifiers: Urinary tract infection type: acute cystitis Hematuria presence: with hematuria Qualified Code(s): N30.01 - Acute cystitis with hematuria Patient Disposition: Home, Self-Care Instructions: Urinary Tract Infection in Women (DC) Additional Instructions: Follow up with your primary care provider. Return to the emergency department immediately if your symptoms worsen or if you develop any numbness, tingling, dizziness, shortness of breath, difficulty breathing, chest pain, blurry vision, loss of vision, nausea, vomiting, abdominal pain, fever, chills, back pain, or any other complaints. Please see the information below about our Patient Portal. If you are not yet enrolled in the [facility] Patient Portal, you will receive an enrollment email invitation following your visit to any [facility] [place] setting. You may also self-enroll in the Patient Portal by visiting our website: [email or web address] The following information is required to access the Patient Portal: - [place] [facility] [place] - Your personal home email address (must match what is in your electronic medical record, Registration staff can assist with this) - Name - Date of Capabilities of the Patient Portal: - Message some providers - View upcoming appointments - Access your health summary, medical history, and visit history - View current conditions and allergies - View procedure and lab results - View your medications, including guidelines, side effects, and precautions - Complete pre-appointment questionnaires requested by your provider - Ready summary reports of your office visits and procedures To access the Patient Portal Mobile [employer], follow these directions: - Search [employer] in the Tamera Store or Google Play Store - Download the Tamera - Search for [facility] - Enter your login/password Prescriptions: New cefuroxime axetil 250 mg tablet 250 mg PO BID 7 Days Qty: 14 0RF No Action esomeprazole magnesium 20 mg capsule,delayed release(DR/EC) 20 mg PO BID Qty: 60 1RF (DME) FreeStyle Lite Strips Strip See Rx Instructions .Route Qty: 50 5RF Rx Instructions: Check fasting glucose once a day Emgality Pen 120 mg/mL pen injector 120 mg subcut ONCE 30 Days Qty: 1 6RF Rx Instructions: Maintenance dose of 120 mg subcu q.month. Salonpas (capsaicin-menthol) 0.025-1.25 % adhesive patch,medicated 1 patch topical DAILY PRN (Reason: pain) 7 Days Qty: 30 4RF Rx Instructions: may leave on area for up to 8 hrs lisinopril 20 mg tablet 20 mg PO DAILY Qty: 90 1RF ndlqbzlgdt-tkyiswfyzosku-pjmf 50-300-40 mg capsule 1 cap PO Q6H MDD 2 PRN (Reason: for headache) 30 Days Qty: 30 3RF acetaminophen [Tylenol Arthritis Pain] 650 mg tablet extended release 650 mg PO Q12H PRN (Reason: pain, moderate) Qty: 60 1RF cyanocobalamin (vitamin B-12) 500 mcg tablet 500 mcg PO DAILY 30 Days Qty: 30 6RF lidocaine [Salonpas (lidocaine)] 4 % adhesive patch,medicated 1 patch topical BID PRN (Reason: pain, moderate) Qty: 60 1RF topiramate 100 mg tablet 150 mg PO BEDTIME Qty: 135 1RF fluticasone propion-salmeterol [Wixela Inhub] 250-50 mcg/dose blister with device 1 ea inhalation QAM Qty: 60 5RF riboflavin (vitamin B2) 400 mg tablet 400 mg PO DAILY 30 Days Qty: 30 6RF loratadine [Allergy Relief (loratadine)] 10 mg tablet 10 mg PO DAILY PRN (Reason: allergy symptoms) Qty: 30 2RF (DME) lancets [FreeStyle Lancets] 28 gauge misc See Rx Instructions .ROUTE .COMPLEX Qty: 100 3RF Dose Instruction: CHECK FASTING GLUCOSE ONCE A DAY Rx Instructions: CHECK FASTING GLUCOSE ONCE A DAY clonazepam 0.5 mg tablet 0.5 mg PO BEDTIME nitroglycerin 0.4 mg tablet, sublingual 0.4 mg sublingual Q5M PRN (Reason: chest pain) Qty: 7 0RF Rx Instructions: do not exceed 3 doses per episode (DME) blood-glucose meter [FreeStyle Lite Meter] Kit See Rx Instructions .Route Qty: 1 0RF Rx Instructions: Check fasting glucose once a day (DME) nebulizers [AeroEclipse II Nebulizer] Misc See Rx Instructions .Route Qty: 1 0RF Rx Instructions: As directed albuterol sulfate 2.5 mg /3 mL (0.083 %) solution for nebulization 2.5 mg inhalation Q6H PRN (Reason: shortness of breath or wheezing) Qty: 90 0RF albuterol sulfate 90 mcg/actuation HFA aerosol inhaler 2 puff inhalation Q4-6H PRN (Reason: shortness of breath or wheezing) Qty: 8.5 3RF Trulance 3 mg tablet 3 mg PO DAILY Qty: 30 5RF epinephrine [EpiPen 2-Abilio] 0.3 mg/0.3 mL auto-injector 0.3 mg IM ONCE PRN (Reason: anaphylaxis) Qty: 2 1RF duloxetine 30 mg capsule,delayed release(DR/EC) 30 mg PO BID metformin 500 mg tablet extended release 24 hr 500 mg PO QPM Qty: 90 4RF atorvastatin 20 mg tablet 20 mg PO DAILY Qty: 90 3RF gabapentin 100 mg capsule 100 mg PO BEDTIME Qty: 30 5RF bupropion HCl 150 mg tablet sustained-release 12 hr 150 mg PO BID Referrals: Rahel Diaz MD [Primary Care Provider, Internal Medicine] Interventions: ED Discharge Assessment Last Done: 01/18/25 09:52 Discharge Date/Time: 01/18/25 09:53 Print Language: Latvian
--- NOTE | 2025-01-18 08:18 | PC.NURSE ---
Addendum entered by Tamara Blackmon RN 01/18/25 08:19: Patient is a 59-year-old female with history of diabetes mellitus, dyslipidemia, osteoarthritis of knee status post right knee arthroplasty mild intermittent asthma,, and hypertension, who presents with c/p left hip pain radiating to her groin for the past 3 weeks. Patient is also c/o urinary symptoms which started last night with assoc urgency, dysuria and some hematuria. Has been seen several times for her hip including recently at an urgent care. Has an appointment with ortho in February and has an appointment with pain management Jan 27. Alert and oriented. Lungs clear bilat. Respirations even and non-labored. Abdomen soft, non-tender with positive bowel sounds with assoc urinary symptoms. Positive pedal pulses with no edema. Original Note: Medical History Diabetic neuropathy Mild intermittent asthma with (acute) exacerbation Osteoarthritis of right knee Acute hemorrhagic colitis Vitamin D deficiency Anxiety and depression Hx of renal calculi Allergic to shellfish Insomnia Mild intermittent asthma Type 2 diabetes mellitus without complication, without long-term current use of insulin Migraine GERD (gastroesophageal reflux disease) Osteoarthritis Essential hypertension Dyslipidem
[2025-01-18 08:34] LABS: MANUAL DIFF FLAG NO
[2025-01-18 08:38] LABS: Hematocrit 36.8 % (37.0-47.0); Hemoglobin 12.1 g/dl (12.0-16.0); Imm Gran Abs Auto 0.02 X10*3/uL (0.00-0.03); Imm Gran Pct Auto 0.3 % (0.0-0.4); Lymphocytes Absolute Auto 1.7 X10*3/uL (1.2-4.9); Mean Corpuscular HGB Conc 32.9 g/dl (31.0-35.0); Mean Corpuscular Hemoglobin 27.9 pg (27.0-33.0); Mean Corpuscular Volume 84.8 fL (80.0-98.0); NRBC Abs Auto 0.000 X10*3/uL (0.0-0.012); NRBC Pct Auto 0.0 /100WBC (0.0-0.2); Platelet Count 203 X10*3/uL (160-400); Red Blood Count 4.34 X10*6/uL (4.20-5.50); White Blood Count 7.6 X10*3/uL (4.8-10.8)
[2025-01-18 08:55] LABS: Alanine Aminotransferase 13 U/L (0-31); Albumin Level 4.1 g/dL (3.5-5.0); Alkaline Phosphatase 75 U/L (39-117); Anion Gap 9 (12-20); Aspartate Amino Transferase 28 U/L (5-31); Blood Urea Nitrogen 13 mg/dL (9-16); Calcium 9.4 mg/dL (8.4-10.2); Carbon Dioxide 24 mmol/L (22-29); Chloride 114 mmol/L (96-108); Creatinine Clr Calc Pharmacy 72.5; Estimated Glomerular Filt Rate > 60; Potassium 3.6 mmol/L (3.3-5.1); Sodium 143 mmol/L (135-145); Total Protein 7.0 g/dL (6.5-8.0)
[2025-01-18 09:20] LABS: Appearance Urine Turbid; Glucose Urine UA Negative (Negative); PH 5.5 (5.0-9.0); Specific Gravity - Urine 1.015 (1.005-1.025); UMIC TRIGGER UACC YES
[2025-01-18 09:24] LABS: UACC Culture Trigger YES
[2025-01-18 09:39] VITALS: BP 138/72; PULSE 64; RESP 16; O2SAT 99
[2025-01-18 09:52] VITALS: BP 138/72; PULSE 64; RESP 16; TEMP 36.7; O2SAT 99
== END 2025-01-18 09:53 | disposition home or self-care (01) ==
PROVIDERS: Emergency Provider Emergency Medicine; PCP Internal Medicine
DX: N30.01 Acute cystitis with hematuria (principal); R10.2 Pelvic and perineal pain; E11.9 Type 2 diabetes mellitus without complications; Z79.899 Other long term (current) drug therapy; Z79.84 Long term (current) use of oral hypoglycemic drugs
CPT/HCPCS: 36415; 74176; 80053; 81001; 85025; 87086; 87088; 87186; 99284

== ENCOUNTER → 2025-01-18 08:18 | Outpatient (BNV) | payer OTHER, SELFPAY | PROVIDERS: Emergency Provider Emergency Medicine; PCP Internal Medicine; Visit Provider Radiology Diagnostic Radiology | DX: N20.0 Calculus of kidney (principal) | CPT/HCPCS: 74176 ==

== ENCOUNTER 2025-02-10 11:08 | Outpatient (AMB) | payer OTHER, SELFPAY ==
--- NOTE | 2025-02-10 11:10 | A.OFFVIS_ITS ---
Vital Signs 02/10/25 11:11 Height 5 ft 3 in Weight 142 lb BMI 25.2 BP 153/97 H Blood Pressure Location Rt brachial Position Sitting Respiration 16 Pulse 94 Pulse Source Pulse Oximeter Pulse Oximetry (%) 96 Oxygen Delivery Method Room Air Intake Visit Reasons: LEFT HIP PAIN Welfare Case Worker Required: No Accompanied by: Self / Same As Patient Allergies crab (CRAB) Allergy (Severe, Verified 02/10/25 11:16) MOURH SWELLING cyclobenzaprine (From FLEXERIL) Allergy (Severe, Verified 02/10/25 11:16) SEIZURE/shakey ibuprofen (From MOTRIN) Allergy (Intermediate, Verified 02/10/25 11:16) ITCHING, severe abdominal pain morphine (Morphine) Allergy (Intermediate, Verified 02/10/25 11:16) ITCHING/REDNESS, rash HPI Comments Details: The patient is a 60-year-old female presenting with left hip pain and associated functional limitations. The pain has been present for approximately four weeks and radiates from the left hip to the front and down the leg, significantly impacting her daily activities. She reports that the pain is severe, often keeping her awake at night, and requires assistance from her ELEVATOR REPAIRER APPRENTICE and son for dressing and other activities. The patient has a history of urinary tract infections and kidney stones, which she initially suspected as the cause of her symptoms. She was treated with antibiotics for a recent UTI, which resolved, but the hip pain persisted. She has been experiencing tingling sensations in her feet, for which she was prescribed gabapentin, although she reports minimal relief from the medication. The patient also has a history of ulcers, which limits her use of NSAIDs for pain management. The patient has been prescribed Ambien for insomnia, which she attributes to the severity of her pain. She has tried Flexeril in the past but experienced adverse effects, leading to discontinuation. - Onset: Approximately four weeks ago - Quality: Severe, radiating from the left hip to the front and down the leg to the knee - Exacerbating factors: Sitting, standing, and lying on the affected side - Relieving factors: None mentioned - Interference: Affects dressing, driving, and sleep - Affect: Pain impacts sleep and daily activities, causing distress - Analgesia: Currently taking gabapentin and Ambien, with minimal relief - Adverse Effects: Gabapentin at current dose is ineffective; Flexeril caused adverse effects - Activities of Daily Living: Requires assistance for dressing and mobility due to pain - Aberrant Drug Related Behaviors: None reported PFSH Medical History Diabetic neuropathy Mild intermittent asthma with (acute) exacerbation Osteoarthritis of right knee Acute hemorrhagic colitis Vitamin D deficiency Anxiety and depression Hx of renal calculi Allergic to shellfish Insomnia Mild intermittent asthma Type 2 diabetes mellitus without complication, without long-term current use of insulin Migraine GERD (gastroesophageal reflux disease) Osteoarthritis Essential hypertension Dyslipidemia Surgical History H/O colonoscopy History of total right knee replacement Hx laparoscopic cholecystectomy History of appendectomy Hx of total knee arthroplasty History of partial hysterectomy Family History Father HTN (hypertension) Hyperlipidemia Lung cancer Mother HTN (hypertension) Hyperlipidemia Diabetes mellitus Social History Housing: Apartment Alcohol intake: never Patient Tobacco Use Status: Never used Tobacco e-Cigarette/Vaping Use: Never Used Advance Directives Date on File: 09/11/23 service: No Current occupational status: unemployed Current occupation: [employer] Cognitive needs: No Hearing needs: No Vision needs: No Review of Systems Const Details: - Musculoskeletal: Reports severe left hip pain radiating to the leg - Neurological: Reports tingling sensation in extremities - Genitourinary: Reports history of urinary tract infections - Gastrointestinal: Reports history of ulcers - Sleep: Reports insomnia due to pain Physical Exam Exam Exam: General: awake, alert, oriented. Answers questions appropriately. Fully engaged in examination. Skin: warm, dry, intact HEENT: Normocephalic. Hearing intact. Cardiac: External chest normal in appearance. Respiratory: No cough, audible wheezing or stridor. Abdomen: without gross distension. MS: No obvious swelling or deformities. Able to stand on bilateral tiptoes and bilateral heels.? Able to transition from sit to stand unassisted. Ambulates with bilaterally normal heel strike and toe off Left SIJ: - Musculoskeletal: Tenderness in the left hip and sacroiliac region, pain exacerbated by palpation. SI compression positive, Gaenslen positive, thigh thrust positive. Neurological: Oriented to person, place, time and situation. Thought process intact. No gait abnormalities appreciated. Psychiatric: Appropriate mood and affect. Good judgment and insight. Vital Signs: Last Vital Signs Pulse 94 02/10/25 11:11 Resp 16 02/10/25 11:11 BP 153/97 H 02/10/25 11:11 Pulse Ox 96 02/10/25 11:11 Oxygen Delivery Method Room Air 02/10/25 11:11 BMI result Body Mass Index 25.2 Assessment & Plan Assessment & Plan (1) Sacroiliac joint dysfunction of left side: Code(s): M53.3 - Sacrococcygeal disorders, not elsewhere classified Category: Medical Plan The plan includes ordering x-rays of the left hip and sacroiliac joint to further evaluate the source of pain. Physical therapy has been recommended to address the functional limitations caused by the pain, with a referral to [facility] at [facility] per patient request due to proximity to her home. A prescription for prednisone has been provided to reduce inflammation and alleviate pain, with instructions to monitor blood sugar levels due to potential side effects. The gabapentin dosage will be increased to 300 mg twice daily to better manage the tingling sensations and pain. The patient is advised to take gabapentin at a different time than Ambien to avoid excessive sedation. A muscle relaxer will be prescribed as an alternative to Flexeril, which previously caused adverse effects. Patient was informed and verbally consented to the use of an ambient scribe for clinic note documentation during this visit. Orders: Orders XR sacroiliac joint min 3V 02/11/25 M53.3 - Sacrococcygeal disorders, not elsewhere classified PT Evaluation and Treatment 02/10/25 M53.3 - Sacrococcygeal disorders, not elsewhere classified XR hip LT min 2V 02/11/25 M25.552 - Pain in left hip Medications: New prednisone 40 mg (2 x 20 mg) PO DAILY 10 tabs 0RF gabapentin 300 mg PO BID 60 caps 3RF Discontinued gabapentin Discontinued Reason: Doctor's Order 100 mg PO BEDTIME 30 caps 5RF E11.40 - Type 2 diabetes mellitus with diabetic neuropathy, unspecified Patient Instructions: - Schedule and attend x-ray appointments for the left hip and sacroiliac joint. - Begin physical therapy at [facility] as scheduled. - Take prednisone as prescribed, starting today, and monitor blood sugar levels. - Increase gabapentin to 300 mg twice daily, taking it separately from Ambien. - Follow up after completing physical therapy or sooner if symptoms worsen. Coding Level of Care Code New Pt Level 4 (19584) Diagnoses Sacroiliac joint dysfunction of left side M53.3
[2025-02-10 11:11] VITALS: BP 153/97; PULSE 94; RESP 16; O2SAT 96; BMI 25.2
--- OUTSIDE RECORDS SUMMARY | 2025-02-10 11:17 | XMS_ITS | Clinical Summary ---
Author Organization [employer] [facility] ity Address [address] [place] [address] Care Team Providers Care Calculation Clerk Name Role Phone Rahel Diaz MD Primary Care Provider [phone] Social History Tobacco Use Types Packs/Day Years [...] DTaP,Tdap,and Td Vaccines (1 - Tdap) 01/29/1984 Cervical Cancer Screening: P ap Smear 1986 Pneumococcal Vaccine: 50+ Ye ars (1 of 1 - PCV) 2015 Zoster Vaccines (1 of 2) 2015 COVID-19 Vaccine ( - 2023-2 5 season) 2024 Depression Screening 06/29/2024 Influenza [...] patient's age to complete this topic Hepatitis B Vaccines Aged Out No long er eligible [...] age to complete this topic Care Teams Calculation Clerk Relationship Specialty Start Date End Date Rahel Diaz MD [address] [place] [address] PCP - General 08/13/23
== END 2025-02-10 11:54 | disposition home or self-care (01) ==
LOC: HO.PMC 11:09
PROVIDERS: PCP Internal Medicine; Visit Provider Registered Nurse Emergency
DX: M53.3 Sacrococcygeal disorders, not elsewhere classified (principal)
CPT/HCPCS: 99204

== ENCOUNTER → 2025-02-10 11:08 | Outpatient (BNVA) | payer OTHER, SELFPAY | PROVIDERS: PCP Internal Medicine; Visit Provider Registered Nurse Emergency | DX: M25.552 Pain in left hip (principal); M53.3 Sacrococcygeal disorders, not elsewhere classified; E11.40 Type 2 diabetes mellitus with diabetic neuropathy, unspecified | CPT/HCPCS: 99202 ==

== ENCOUNTER 2025-02-11 08:43 | Outpatient (REF) | payer OTHER, SELFPAY ==
--- NOTE | ~2025-02-11 | XR_ITS ---
EXAMINATION: XR SACROILIAC JOINT 3 OR MORE VIEWS HISTORY: M53.3 - Sacrococcygeal disorders, not elsewhere classified COMPARISON: Comparison is made with the prior examination of the pelvis dated 10/04/2015. FINDINGS: Three views of the bilateral sacroiliac joints are submitted. The joint spaces are maintained. No erosions are seen. XR/XR sacroiliac joint min 3V IMPRESSION: Unremarkable examination of the sacroiliac joints. Electronically signed by: Claudio Raza MD 02/13/2025 07:31 AM EDT
--- NOTE | ~2025-02-11 | XR_ITS ---
EXAMINATION: XR HIP 2 OR MORE VIEWS LEFT HISTORY: M25.552 - Pain in left hip COMPARISON: Comparison is made with the prior examination dated 10/06/2017. FINDINGS: Two views of the left hip are submitted. Osseous mineralization is normal. There is no fracture or dislocation. There is mild joint space narrowing. The soft tissues are unremarkable. XR/XR hip LT min 2V IMPRESSION: Mild joint space narrowing. Electronically signed by: Claudio Raza MD 02/13/2025 07:30 AM EDT
== END 2025-02-11 08:44 | disposition home or self-care (01) ==
LOC: HO.HMGCX 08:43
PROVIDERS: PCP Internal Medicine; Visit Provider Registered Nurse Emergency
DX: M25.552 Pain in left hip (principal); M53.3 Sacrococcygeal disorders, not elsewhere classified
CPT/HCPCS: 72202; 73502

== ENCOUNTER → 2025-02-11 09:02 | Outpatient (BNV) | payer OTHER, SELFPAY | PROVIDERS: PCP Internal Medicine; Visit Provider Radiology Diagnostic Radiology | DX: M53.3 Sacrococcygeal disorders, not elsewhere classified (principal); M25.552 Pain in left hip | CPT/HCPCS: 72202; 73502 ==

== ENCOUNTER 2025-03-07 09:58 | Outpatient (AMB) | payer OTHER, SELFPAY ==
[2025-03-07 10:02] VITALS: BP 122/80; PULSE 87; TEMP 36.7; O2SAT 97; BMI 25.7
--- NOTE | 2025-03-07 10:02 | MHC.OFFWIV ---
Intake Vital Signs 03/07/25 10:02 Height 5 ft 3 in Weight 145 lb 4 oz BMI 25.7 BP 122/80 Blood Pressure Location Lt brachial Position Sitting Pulse 87 Pulse Source Pulse Oximeter Temp 98.1 F Temp Source Oral Pulse Oximetry (%) 97 Oxygen Delivery Method Room Air Intake Visit Reasons: EP Swelling in LT eye Intake Note: Pt presents to the office today for swelling and itching of her left eye x2 days. Pt denies any injury to her eye or any discharge. Patient Tobacco Use Status: Never used Tobacco Allergies crab (CRAB) Allergy (Severe, Verified 03/07/25 10:06) MOURH SWELLING cyclobenzaprine (From FLEXERIL) Allergy (Severe, Verified 03/07/25 10:06) SEIZURE/shakey ibuprofen (From MOTRIN) Allergy (Intermediate, Verified 03/07/25 10:06) ITCHING, severe abdominal pain morphine (Morphine) Allergy (Intermediate, Verified 03/07/25 10:06) ITCHING/REDNESS, rash HPI HPI Comments History of Present Illness Details History of Present Illness - The patient is a 60-year-old female presenting with swelling and pain in the left eyelid. - The swelling began mildly two days ago and worsened yesterday and today. - The patient reports pain upon touching the eyelid, but not the eyeball itself. - The eyelid is itchy, but there is no discharge or foreign body sensation. - The patient occasionally uses mascara and was advised by a friend to change it due to potential infection risk. - The patient occasionally wears colored contact lenses, last used on Thursday. Physical Exam General: Cooperative, healthy appearing, comfortable, no acute distress and well developed Orientation: Patient oriented x3 Limitations: No limitations Head: Normal to inspection Ears: Hearing grossly normal bilaterally Nose: Normal External nose present Face and sinus: Normal facial exam Eyes: pinpoint erythema with edema on left upper eyelid, no injection, no discharge noted, otherwise normal eye exam Neck: Normal visual inspection and Yes full ROM Respiratory: Normal respiratory effort and able to speak in complete sentences. Skin: No rashes or lesions noted Neuro: Patient oriented x3 Extremities: Normal to inspection [facility] Medical History Diabetic neuropathy Mild intermittent asthma with (acute) exacerbation Osteoarthritis of right knee Acute hemorrhagic colitis Vitamin D deficiency Anxiety and depression Hx of renal calculi Allergic to shellfish Insomnia Mild intermittent asthma Type 2 diabetes mellitus without complication, without long-term current use of insulin Migraine GERD (gastroesophageal reflux disease) Osteoarthritis Essential hypertension Dyslipidemia Surgical History H/O colonoscopy History of total right knee replacement Hx laparoscopic cholecystectomy History of appendectomy Hx of total knee arthroplasty History of partial hysterectomy Family History Father HTN (hypertension) Hyperlipidemia Lung cancer Mother HTN (hypertension) Hyperlipidemia Diabetes mellitus Social History Housing: Apartment Alcohol intake: never Patient Tobacco Use Status: Never used Tobacco e-Cigarette/Vaping Use: Never Used Advance Directives Date on File: 09/11/23 service: No Current occupational status: unemployed Current occupation: [employer] Cognitive needs: No Hearing needs: No Vision needs: No Review of Systems Const All systems reviewed & are unremarkable except as noted in HPI and below Physical Exam Vital Signs: Last Vital Signs Temp 98.1 F 03/07/25 10:02 Pulse 87 03/07/25 10:02 BP 122/80 03/07/25 10:02 Pulse Ox 97 03/07/25 10:02 Oxygen Delivery Method Room Air 03/07/25 10:02 BMI result Body Mass Index 25.7 Assessment & Plan Assessment & Plan (1) Hordeolum externum left upper eyelid: Code(s): H00.014 - Hordeolum externum left upper eyelid Plan: Patient was informed and verbally consented to the use of an ambient scribe for clinic note documentation during this visit. Hordeolum (Stye) - Prescribed Ciprofloxacin eye drops to be used 1-2 drops every 2 hours up to 8 times a day for 2 days, then 4 times a day for 5 more days. - Recommended warm compresses to help clear the plugged duct. - Advised to monitor for any changes in vision or if eye pain develops and to contact an baggage agent supervisor if these occur. Medications: New ciprofloxacin HCl 0.3% put 1-2 drps in affected eye(s) every 2hr up to 8 times/day x2days; then 4 times/day x5days ophthalmic (eye) 5 mL 0RF Coding Level of Care Code Est Pt Level 3 (12252) Diagnoses Hordeolum externum left upper eyelid H00.014
== END 2025-03-07 11:48 | disposition home or self-care (01) ==
PROVIDERS: PCP Internal Medicine; Visit Provider Physician Assistant
DX: H00.014 Hordeolum externum left upper eyelid (principal)

== ENCOUNTER → 2025-03-07 09:58 | Outpatient (BNVA) | payer OTHER, SELFPAY | PROVIDERS: PCP Internal Medicine; Visit Provider Physician Assistant | DX: H00.014 Hordeolum externum left upper eyelid (principal) | CPT/HCPCS: 99212 ==

== ENCOUNTER 2025-03-08 10:15 | Outpatient (REF) | payer OTHER, SELFPAY ==
--- NOTE | ~2025-03-08 | XR_ITS ---
EXAMINATION: XR PELVIS 1-2 VIEWS HISTORY: M25.559 - Pain in unspecified hip COMPARISON: Comparison is made with the prior examination of the pelvis dated 10/04/2015 and a prior examination of the left hip dated 02/11/2025. FINDINGS: A single AP view of the pelvis is submitted. The bones are osteopenic. There is no fracture or dislocation. There is mild to moderate narrowing of both hip joints. The sacroiliac joint spaces are maintained. The soft tissues are unremarkable. XR/XR pelvis 1-2V IMPRESSION: Mild to moderate narrowing of both hip joints. Electronically signed by: Claudio Raza MD 03/08/2025 03:10 PM EDT
== END 2025-03-08 10:16 | disposition home or self-care (01) ==
LOC: HO.HOSX 10:15
PROVIDERS: Visit Provider Physician Assistant
DX: M16.12 Unilateral primary osteoarthritis, left hip (principal)
CPT/HCPCS: 72170; 99212

== ENCOUNTER 2025-03-08 14:39 | Outpatient (AMB) | payer OTHER, SELFPAY ==
--- NOTE | 2025-03-08 14:52 | A.OFFVIS_ITS ---
Vital Signs 03/08/25 15:02 Height 5 ft 3 in Weight 145 lb BMI 25.7 Intake Visit Reasons: New prob-LT hip OA Intake Note: Lyric is a 60 year old female who presents today as an established patient, new problem visit to evaluate left hip OA. Referred by PCP. Patient reports ongoing constant pain for over 1.5 months. Her pain started in her lower back and is now radiating towards her groin area. She has tried and failed gabapentin and Tylenol. States physical therapy in the past that did not help. She has difficulty with sleeping getting in and out of the car. She does perform at home exercises. Allergies crab (CRAB) Allergy (Severe, Verified 03/08/25 15:02) MOURH SWELLING cyclobenzaprine (From FLEXERIL) Allergy (Severe, Verified 03/08/25 15:02) SEIZURE/shakey ibuprofen (From MOTRIN) Allergy (Intermediate, Verified 03/08/25 15:02) ITCHING, severe abdominal pain morphine (Morphine) Allergy (Intermediate, Verified 03/08/25 15:02) ITCHING/REDNESS, rash HPI HPI New prob-LT hip OA: Details: 60 yo female presents to the office today for left hip pain x2 months. She states the pain is getting worse. She is unable to walk long distances, put her shoes or socks on and climb stairs. She denies treatment to date. She states the pain is along the groin. She has been seen by pain management for SI joint/hip pain. She was given a referral to physical therapy but states she has not received a call to book an appointment. She was also given prednisone to help with inflammation. She also has diabetic neuropathy and takes gabapentin. She is a diabetic, most recent A1C 5.7, she is on metformin. She does not smoke, no alcohol or recreational drugs. [facility] Medical History Diabetic neuropathy Mild intermittent asthma with (acute) exacerbation Osteoarthritis of right knee Acute hemorrhagic colitis Vitamin D deficiency Anxiety and depression Hx of renal calculi Allergic to shellfish Insomnia Mild intermittent asthma Type 2 diabetes mellitus without complication, without long-term current use of insulin Migraine GERD (gastroesophageal reflux disease) Osteoarthritis Essential hypertension Dyslipidemia Surgical History H/O colonoscopy History of total right knee replacement Hx laparoscopic cholecystectomy History of appendectomy Hx of total knee arthroplasty History of partial hysterectomy Family History Father HTN (hypertension) Hyperlipidemia Lung cancer Mother HTN (hypertension) Hyperlipidemia Diabetes mellitus Social History Housing: Apartment Alcohol intake: never Patient Tobacco Use Status: Never used Tobacco e-Cigarette/Vaping Use: Never Used Advance Directives Date on File: 09/11/23 service: No Current occupational status: unemployed Current occupation: [employer] Cognitive needs: No Hearing needs: No Vision needs: No Review of Systems Const All systems reviewed & are unremarkable except as noted in HPI and below Physical Exam Vital Signs: BMI result Body Mass Index 25.7 Const General: cooperative and no acute distress Orientation/consciousness: patient oriented x3 Resp Effort & Inspection: normal respiratory effort and able to speak in complete sentences Cardio Peripheral pulses: Peripheral pulses 2+ throughout Neuro General: patient oriented x3 Extrem Other: Left hip is normal to inspection she has pain with hip flexion and discomfort with range of motion. She walks with antalgic gait pattern. Results Reviewed Results Reviewed: X-rays of the pelvis obtained in the office today and reviewed by me show degenerative changes through the left hip. Assessment & Plan Assessment & Plan (1) Osteoarthritis of left hip: Code(s): M16.12 - Unilateral primary osteoarthritis, left hip Category: Medical Plan: We had a lengthy discussion about the extent of his OA and options available which include surgical intervention. She is interested in pursuing Total knee arthroplasty to improve his functional capacity and daily activities. I explained to her the procedure in detail, the hospital stay and details about post op rehab and precautions. She does understand all this and would like to move forward. I did put her in contact with our Nurse Navigator, Precious who will set her up with pre op planning and book accordingly. She made appointment with Dr. Mendez to discuss further as well. All questions were answered. Orders: Orders XR pelvis 1-2V Today M25.559 - Pain in unspecified hip Coding Level of Care Code Est Pt Level 4 (32735) Complex EM visit Add On G2211 Diagnoses Osteoarthritis of left hip M16.12
[2025-03-08 15:02] VITALS: BMI 25.7
--- OUTSIDE RECORDS SUMMARY | 2025-03-08 17:52 | XMS_ITS | Clinical Summary ---
Author Organization [employer] [facility] ity Address [address] [place] [address] Care Team Providers Care Correction Worker Name Role Phone Rahel Diaz MD Primary [...] 2015 Zoster Vaccines (1 of 2) 2015 Depression Screening 06/29/2024 COVID-19 Vaccine ( - 2023-2 5 season) 2025 Influenza Vaccine (#1) 2025 RSV Immunization Adult [...] age to complete this topic Care Teams Correction Worker Relationship Specialty Start Date End Date Rahel Diaz MD [address] [place] [address] PCP - General 08/13/23
== END 2025-03-08 15:31 | disposition home or self-care (01) ==
LOC: HO.HOS 14:40
PROVIDERS: PCP Internal Medicine; Visit Provider Physician Assistant
DX: M16.12 Unilateral primary osteoarthritis, left hip (principal)
CPT/HCPCS: 99214; G2211

== ENCOUNTER → 2025-03-08 14:44 | Outpatient (BNV) | payer OTHER, SELFPAY | PROVIDERS: Visit Provider Radiology Diagnostic Radiology | DX: M25.552 Pain in left hip (principal) | CPT/HCPCS: 72170 ==

== ENCOUNTER 2025-03-13 14:07 | Outpatient (AMB) | payer OTHER, SELFPAY ==
--- NOTE | 2025-03-13 14:20 | MHC.OFFVIS ---
Intake Visit Reasons: OV- Discuss Left ALONDRA Intake Note: Lyric is a 60 year old female who presents today for a follow up of her Left Hip OA. She reports that she is scared to have surgery. Allergies crab (CRAB) Allergy (Severe, Verified 03/13/25 14:21) MOURH SWELLING cyclobenzaprine (From FLEXERIL) Allergy (Severe, Verified 03/13/25 14:21) SEIZURE/shakey ibuprofen (From MOTRIN) Allergy (Intermediate, Verified 03/13/25 14:21) ITCHING, severe abdominal pain morphine (Morphine) Allergy (Intermediate, Verified 03/13/25 14:21) ITCHING/REDNESS, rash HPI HPI OV- Discuss Left ALONDRA: Details: This is a 60 yo F with left hip pain. She has been having pain only for 2 months. he describes pain radiating from her lumbosacral region into her groin. She denies injury. She denies treatment. She is diabetic. She states she has pain with extended ambualtion. She states she has had a prior injection in the right hip. She states she has done PT in the past but not recently. She has a right TKA about 10 years ago. [facility] Medical History Diabetic neuropathy Mild intermittent asthma with (acute) exacerbation Osteoarthritis of right knee Acute hemorrhagic colitis Vitamin D deficiency Anxiety and depression Hx of renal calculi Allergic to shellfish Insomnia Mild intermittent asthma Type 2 diabetes mellitus without complication, without long-term current use of insulin Migraine GERD (gastroesophageal reflux disease) Osteoarthritis Essential hypertension Dyslipidemia Surgical History H/O colonoscopy History of total right knee replacement Hx laparoscopic cholecystectomy History of appendectomy Hx of total knee arthroplasty History of partial hysterectomy Family History Father HTN (hypertension) Hyperlipidemia Lung cancer Mother HTN (hypertension) Hyperlipidemia Diabetes mellitus Social History Housing: Apartment Alcohol intake: never Patient Tobacco Use Status: Never used Tobacco e-Cigarette/Vaping Use: Never Used Advance Directives Date on File: 09/11/23 service: No Current occupational status: unemployed Current occupation: [employer] Handed Cognitive needs: No Hearing needs: No Vision needs: No Physical Exam Extrem Other: Left hip has mildly + impingement test and a negative Stinchfield. She has 20 deg of IR while flexed. There is trace gait antalgia. DP+2 SILT LLE Results Reviewed Results Reviewed: I personally reviewed relevant radiographs. Mild-moderate bialteral hip OA iwth preserved joint space Assessment & Plan Assessment & Plan (1) Osteoarthritis of left hip: Code(s): M16.12 - Unilateral primary osteoarthritis, left hip Category: Medical Plan: This is a 60 yo F with mild left hip OA. She has preserved motion and mild pain. The pain has only been present for 2 months and I recommend an injection. She does not want surgery and she is not currently a candidate for surgery. With mild- moderate OA on radiographs and preserved motion surgical treatment would not be appropriate and should be an option if functional capacity is severly affected and conservative measures have failed. I discussed this with her and will order an injection. Orders: Referrals Pain Management Referral M16.12 - Unilateral primary osteoarthritis, left hip Coding Level of Care Code Est Pt Level 3 (58585) Diagnoses Osteoarthritis of left hip M16.12
--- OUTSIDE RECORDS SUMMARY | 2025-03-13 19:26 | XMS_ITS | Clinical Summary ---
Author Organization [facility] ity Address [address] [place] [address] Care Team Providers Care Pipe Organ Mechanic Apprentice Name Role Phone Rahel Diaz MD Primary Care Provider [phone] Social History Tobacco Use Types Packs/Day Years [...] age to complete this topic Care Teams Pipe Organ Mechanic Apprentice Relationship Specialty Start Date End Date Rahel Diaz MD [address] [place] [address] PCP - General 08/13/23
== END 2025-03-13 15:20 | disposition home or self-care (01) ==
LOC: HO.HOS 14:08
PROVIDERS: PCP Internal Medicine; Visit Provider Orthopaedic Surgery
DX: M16.12 Unilateral primary osteoarthritis, left hip (principal)
CPT/HCPCS: 99213

== ENCOUNTER → 2025-03-13 14:07 | Outpatient (BNVA) | payer OTHER, SELFPAY | PROVIDERS: PCP Internal Medicine; Visit Provider Orthopaedic Surgery | DX: M16.12 Unilateral primary osteoarthritis, left hip (principal) | CPT/HCPCS: 99212 ==

== ENCOUNTER 2025-03-17 08:52 | Outpatient (AMB) | payer OTHER, SELFPAY ==
--- NOTE | 2025-03-17 08:36 | A.OFFVIS_ITS ---
Intake Visit Reasons: f/u appt Intake Note: Patient presents for follow up. patient still having migraines Scientific Technical Writer Required: No Accompanied by: Self / Same As Patient Allergies crab (CRAB) Allergy (Severe, Verified 03/17/25 08:36) MOURH SWELLING cyclobenzaprine (From FLEXERIL) Allergy (Severe, Verified 03/17/25 08:36) SEIZURE/shakey ibuprofen (From MOTRIN) Allergy (Intermediate, Verified 03/17/25 08:36) ITCHING, severe abdominal pain morphine (Morphine) Allergy (Intermediate, Verified 03/17/25 08:36) ITCHING/REDNESS, rash Medication List - Last Reconciled 03/17/25 by RJ Bergman acetaminophen ER (Tylenol Arthritis Pain) 650 mg PO Q12H PRN albuterol sulfate 2.5 mg (3 mL) inhalation Q6H PRN albuterol sulfate 90 mcg/actuation 2 puffs inhalation Q4-6H PRN atorvastatin 20 mg PO DAILY blood sugar diagnostic (FreeStyle Lite Strips) Check fasting glucose once a day blood-glucose meter (FreeStyle Lite Meter kit) Check fasting glucose once a day bupropion HCl SR 150 mg PO BID mypvawicef-spkevmjqanroq-cmgn 50-300-40 mg 1 cap PO Q6H PRN 30 days MDD 2 capsaicin-menthol 0.025-1.25 % (Salonpas (capsaicin-menthol)) 1 patch topical DAILY PRN 7 days ciprofloxacin HCl 0.3% put 1-2 drps in affected eye(s) every 2hr up to 8 times/day x2days; then 4 times/day x5days ophthalmic (eye) clonazepam 0.5 mg PO BEDTIME cyanocobalamin (vitamin B-12) 500 mcg PO DAILY 30 days epinephrine (EpiPen 2-Abilio) 0.3 mg (0.3 mL) IM ONCE PRN fluticasone propion-salmeterol 250-50 mcg/dose (Wixela Inhub) 1 ea inhalation QAM gabapentin 300 mg PO BID galcanezumab-gnlm (Emgality Pen) 120 mg subcut ONCE 30 days lancets (FreeStyle Lancets) CHECK FASTING GLUCOSE ONCE A DAY lisinopril 20 mg PO DAILY loratadine (Allergy Relief (loratadine)) 10 mg PO DAILY PRN metformin ER 500 mg PO QPM nebulizers (AeroEclipse II Nebulizer) As directed nitroglycerin 0.4 mg sublingual Q5M PRN riboflavin (vitamin B2) 400 mg PO DAILY 30 days Salonpas (lidocaine) 4% (lidocaine) 1 patch topical BID PRN NS topiramate 150 mg (1.5 x 100 mg) PO BEDTIME Trulance (plecanatide) 3 mg PO DAILY NS HPI Comments Details: 60-yr-old female presents for f/u visit of migraine and pituitary region cyst. The patient denies any significant medical changes in the interval. She reports that the specialty pharmacy has been delivering Emgality to her old address, despite her having updated them with her new address. Thus, she has not taken her Emgality for at least 3 months at this point. And now she is having an increase in her migraine attack frequency, now at least 3 times per week, whereas on Emgality, it was usually one and just sometimes two migraine headache days per week. She notes that she has been needing to rely on her as- needed Fioricet more since she has not had her Emgality. She has been compliant with her topiramate 150 mg daily at bedtime. She needs a refill on her riboflavin and magnesium. She is curious about trying Mag or Mag complex. No interval vision changes, nipple discharge, or diplopia. Baseline headache characteristics: Aura: Sees flashing lights for a few seconds before the headache starts Mild to Severe, Unilateral facial, eye, and temporal sharp pain. Usually right- sided but can be left-sided. A/w photophobia, phonophobia, Osmophobia, nausea, difficulty concentrating, allodynia, activity intolerance, ipsilateral red eye (right or left but always ipsilateral to the head pain). Postdrome: The day after a headache attack, unilateral red eye ipsilateral to the headache pain Previous workup: 07/2023, MR/MR head/brain wo con: No acute infarction. Mild chronic microvascular ischemic change. A faintly T1 hyperintense lesion along the central/right aspect of the pituitary gland is suboptimally characterized on this examination. This was noted to look fairly similar to the previous finding in 2013. 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 PFSH Medical History Diabetic neuropathy Mild intermittent asthma with (acute) exacerbation Osteoarthritis of right knee Acute hemorrhagic colitis Vitamin D deficiency Anxiety and depression Hx of renal calculi Allergic to shellfish Insomnia Mild intermittent asthma Type 2 diabetes mellitus without complication, without long-term current use of insulin Migraine GERD (gastroesophageal reflux disease) Osteoarthritis Essential hypertension Dyslipidemia Surgical History H/O colonoscopy History of total right knee replacement Hx laparoscopic cholecystectomy History of appendectomy Hx of total knee arthroplasty History of partial hysterectomy Family History Father HTN (hypertension) Hyperlipidemia Lung cancer Mother HTN (hypertension) Hyperlipidemia Diabetes mellitus Social History Housing: Apartment Alcohol intake: never Patient Tobacco Use Status: Never used Tobacco e-Cigarette/Vaping Use: Never Used Advance Directives Date on File: 09/11/23 service: No Current occupational status: unemployed Current occupation: RT Handed Cognitive needs: No Hearing needs: No Vision needs: No Physical Exam Const General: cooperative and no acute distress Orientation/consciousness: patient oriented x3 Resp Effort & Inspection: normal respiratory effort and able to speak in complete sentences Neuro General: patient oriented x3 Cognition (Neuro): normal cognition Psych Appearance: grossly normal Mental Status: mental status grossly normal Affect: normal affect Attitude: cooperative Assessment & Plan Assessment & Plan (1) Migraine: Code(s): G43.909 - Migraine, unspecified, not intractable, without status migrainosus Category: Medical Qualifiers: Migraine type: unspecified Status migrainosus presence: without status migrainosus Intractability: not intractable Qualified Code(s): G43.909 - Migraine, unspecified, not intractable, without status migrainosus (2) Vitamin B12 deficiency: Code(s): E53.8 - Deficiency of other specified B group vitamins Category: Medical (3) Cyst of pituitary gland: Code(s): E23.6 - Other disorders of pituitary gland Category: Medical (4) Tension type headache: Code(s): G44.209 - Tension-type headache, unspecified, not intractable Category: Medical Qualifiers: Headache chronicity pattern: episodic headache Intractability: not intractable Qualified Code(s): G44.219 - Episodic tension-type headache, not intractable Plan Previous Brain MRI w/wo images- 4 x 5 x 8 mm (AP X CC X TR) right central pituitary gland cyst, Rathke's cleft cyst versus cystic microadenoma) w/ midline infundibulum remains midline and normal optic chiasm. Previously offered referral to endocrinology and/or neurosurgery- pt declines at this time. September 2023 pituitary lab workup was within normal limits Follow-up brain MRI w/wo next year. For Vit B-12 def: Continue B-12 supplement. Recheck level ? For overall headache management: Optimize good self-care, including but not limited to maintaining a healthy diet, adequate fluid intake, adequate sleep, and engaging in regular physical activity. Track headaches. ? For acute headache treatment: May continue Fioricet capsule as needed for tension type headache. Previous acute migraine medication trials: Sumatriptan caused GI upset. Naproxen caused GI upset. Naratriptan- not tolerated. Acute migraine medication contraindications: None at this time ? For headache prevention medication: Riboflavin 400mg qam. Resume magnesium 400 mg daily at bedtime * If not tolerated, may try a magnesium complex, advised that this would be an OTC purchase. Resume Emgality at loading dose as patient has not received her Emgality in at least 3 months. * Emgality 120 milligram/mL Loading dose 120mg x's 2 mg subcu injection x1, followed by 120 mg subcu injection q.month. Continue topiramate 150 mg q.h.s.. Would not increase further due to question of history of kidney stones. Previous migraine prevention medication trials: Amitriptyline: not tolerate it, Depakote: Not tolerated, Celebrex: Not tolerated, flexeril: Not tolerated, metoprolol: Not tolerated. Migraine prevention medication contraindications: Beta-blockers due to asthma diagnosis. Would use caution with Aimovig due to risk for worsening constipation and leg cramps. ? Pt to follow-up in 3 months or sooner prn. Medications: New magnesium oxide may hold for loose stools 400 mg PO BEDTIME 90 tabs 3RF 90 days Refilled topiramate 150 mg (1.5 x 100 mg) PO BEDTIME 135 tabs 1RF smtwmtxugw-wfihlzfqmeyrh-wirj 50-300-40 mg 1 cap PO Q6H PRN 30 caps 3RF for headache 30 days MDD 2 riboflavin (vitamin B2) 400 mg PO DAILY 30 tabs 11RF 30 days galcanezumab-gnlm (Emgality Pen) Maintenance dose of 120 mg subcu q.month. 120 mg subcut ONCE 1 mL 6RF 30 days Coding Level of Care Code Est Pt Level 4 (02929) Diagnoses Migraine without status migrainosus, not intractable, unspecified migraine type G43.909 Migraine type: unspecified Status migrainosus presence: without status migrainosus Intractability: not intractable Vitamin B12 deficiency E53.8 Cyst of pituitary gland E23.6 Episodic tension-type headache, not intractable G44.219 Headache chronicity pattern: episodic headache Intractability: not intractable
--- OUTSIDE RECORDS SUMMARY | 2025-03-17 09:34 | XMS_ITS | Clinical Summary ---
Author Organization [facility] ity Address [address] [place] [address] Care Team Providers Care Cashier General Name Role Phone Rahel Diaz MD Primary [...] age to complete this topic Care Teams Cashier General Relationship Specialty Start Date End Date Rahel Diaz MD [address] [place] [address] PCP - General 08/13/23
== END 2025-03-17 10:51 | disposition home or self-care (01) ==
PROVIDERS: PCP Internal Medicine; Visit Provider Nurse Practitioner Family
DX: G43.909 Migraine, unspecified, not intractable, without status migrainosus (principal); E53.8 Deficiency of other specified B group vitamins; E23.6 Other disorders of pituitary gland; G44.219 Episodic tension-type headache, not intractable
CPT/HCPCS: 99214

== ENCOUNTER → 2025-03-17 08:52 | Outpatient (BNVA) | payer OTHER, SELFPAY | PROVIDERS: PCP Internal Medicine; Visit Provider Nurse Practitioner Family | DX: G44.219 Episodic tension-type headache, not intractable (principal); G43.909 Migraine, unspecified, not intractable, without status migrainosus; E53.8 Deficiency of other specified B group vitamins; E23.6 Other disorders of pituitary gland | CPT/HCPCS: 99212 ==

== ENCOUNTER 2025-03-22 10:39 | Outpatient (REF) | payer OTHER, SELFPAY ==
--- NOTE | ~2025-03-22 | XR_ITS ---
CLINICAL HISTORY: M25.562 - Pain in left knee Two x-rays of the left knee. One x-ray of both knees standing. Comparison: None provided Findings: No fractures or dislocations. Right total knee arthroplasty hardware is unremarkable on the 1 image provided. Trace left knee joint effusion. No radiopaque foreign body. Mild tricompartmental osteoarthritis of the left knee. IMPRESSION: 1. Mild tricompartmental osteoarthritis of the left knee. 2. Trace left knee joint effusion. This document has been electronically signed by: Alcides Espino DO on 03/23/2025 14:13:26
== END 2025-03-22 10:40 | disposition home or self-care (01) ==
LOC: HO.HOSX 10:39
PROVIDERS: Visit Provider Physician Assistant
DX: M17.12 Unilateral primary osteoarthritis, left knee (principal); Z96.651 Presence of right artificial knee joint
CPT/HCPCS: 20610; 73562; 99212; J0665; J1100; J2003

== ENCOUNTER 2025-03-22 11:15 | Outpatient (AMB) | payer OTHER, SELFPAY ==
--- NOTE | 2025-03-22 11:28 | A.OFFVIS_ITS ---
Vital Signs 03/22/25 11:37 Height 5 ft 3 in Weight 145 lb BMI 25.7 Intake Visit Reasons: New prob-LT knee OA Intake Note: Lyric is a 60 year old female who presents today as an established patient, new problem visit to evaluate left knee pain. Patient reports her pain has been present for about a year, she was seen at [facility] where she was given an injection and an arthroscopy, performed over a year ago. Her pain is mostly around her knee cap and travels to the posterior aspect of knee. Complaints of her knee feel unstable and has had multiple falls from her knee giving out. States her knee feels the same to her right knee prior to her total knee replacement that was performed at [facility]. Finds no relief with Tylenol and she is unable to take ibuprofen. Allergies crab (CRAB) Allergy (Severe, Verified 03/22/25 11:37) MOURH SWELLING cyclobenzaprine (From FLEXERIL) Allergy (Severe, Verified 03/22/25 11:37) SEIZURE/shakey ibuprofen (From MOTRIN) Allergy (Intermediate, Verified 03/22/25 11:37) ITCHING, severe abdominal pain morphine (Morphine) Allergy (Intermediate, Verified 03/22/25 11:37) ITCHING/REDNESS, rash Medication List - Last Reconciled 03/22/25 by Darshana Delvalle PA-C acetaminophen ER (Tylenol Arthritis Pain) 650 mg PO Q12H PRN albuterol sulfate 2.5 mg (3 mL) inhalation Q6H PRN albuterol sulfate 90 mcg/actuation 2 puffs inhalation Q4-6H PRN atorvastatin 20 mg PO DAILY blood sugar diagnostic (FreeStyle Lite Strips) Check fasting glucose once a day blood-glucose meter (FreeStyle Lite Meter kit) Check fasting glucose once a day bupropion HCl SR 150 mg PO BID kzvmuzjgtt-wnrhkooyxjvis-fiet 50-300-40 mg 1 cap PO Q6H PRN 30 days MDD 2 capsaicin-menthol 0.025-1.25 % (Salonpas (capsaicin-menthol)) 1 patch topical DAILY PRN 7 days ciprofloxacin HCl 0.3% put 1-2 drps in affected eye(s) every 2hr up to 8 times/day x2days; then 4 times/day x5days ophthalmic (eye) clonazepam 0.5 mg PO BEDTIME cyanocobalamin (vitamin B-12) 500 mcg PO DAILY 30 days epinephrine (EpiPen 2-Abilio) 0.3 mg (0.3 mL) IM ONCE PRN fluticasone propion-salmeterol 250-50 mcg/dose (Wixela Inhub) 1 ea inhalation QAM gabapentin 300 mg PO BID galcanezumab-gnlm (Emgality Pen) 120 mg subcut ONCE 30 days lancets (FreeStyle Lancets) CHECK FASTING GLUCOSE ONCE A DAY lisinopril 20 mg PO DAILY loratadine (Allergy Relief (loratadine)) 10 mg PO DAILY PRN magnesium oxide 400 mg PO BEDTIME 90 days metformin ER 500 mg PO QPM nebulizers (AeroEclipse II Nebulizer) As directed nitroglycerin 0.4 mg sublingual Q5M PRN riboflavin (vitamin B2) 400 mg PO DAILY 30 days Salonpas (lidocaine) 4% (lidocaine) 1 patch topical BID PRN NS topiramate 150 mg (1.5 x 100 mg) PO BEDTIME Trulance (plecanatide) 3 mg PO DAILY NS HPI HPI New prob-LT knee OA: Details: 60-year-old female presents to the office today for left knee pain. She has had pain for several years in the left knee. She has a history of right total knee arthroplasty. She has a history of left knee arthroscopy. She has discomfort with stairs prolonged walking standing to sitting. She has had no treatment to the left knee recently. [facility] Medical History Diabetic neuropathy Mild intermittent asthma with (acute) exacerbation Osteoarthritis of right knee Acute hemorrhagic colitis Vitamin D deficiency Anxiety and depression Hx of renal calculi Allergic to shellfish Insomnia Mild intermittent asthma Type 2 diabetes mellitus without complication, without long-term current use of insulin Migraine GERD (gastroesophageal reflux disease) Osteoarthritis Essential hypertension Dyslipidemia Surgical History H/O colonoscopy History of total right knee replacement Hx laparoscopic cholecystectomy History of appendectomy Hx of total knee arthroplasty History of partial hysterectomy Family History Father HTN (hypertension) Hyperlipidemia Lung cancer Mother HTN (hypertension) Hyperlipidemia Diabetes mellitus Social History Housing: Apartment Alcohol intake: never Patient Tobacco Use Status: Never used Tobacco e-Cigarette/Vaping Use: Never Used Advance Directives Date on File: 09/11/23 service: No Current occupational status: unemployed Current occupation: RT Handed Cognitive needs: No Hearing needs: No Vision needs: No Review of Systems Const All systems reviewed & are unremarkable except as noted in HPI and below Physical Exam Vital Signs: BMI result Body Mass Index 25.7 Extrem Other: Left knee skin is intact no open wounds. She has full range of motion with crepitus. Medial joint line tenderness present. No ligamentous laxity. Calf supple nontender neurovascularly intact. Office Procedures AMB Joint Injection/Aspiration Joint Injection/Aspiration Primary Site: left knee Prep: site was prepped using aseptic technique, ethochloride spray was applied and injection warnings given Injected: 40 mg of (decadron), with 3 mL of, 1% plain lidocaine, 0.25% bupivacaine and in the joint Approach Used: anterolateral Procedure: The patient tolerated the procedure well and there was some relief with the local anesthesia Coding 64674 - Glenohumeral/Tronchanteric Bursa/Intraarticular Procedure code (CPT) selection complete Results Reviewed Results Reviewed: X-rays of the left knee obtained in the office today and reviewed by me show mild medial compartment arthritis Assessment & Plan Assessment & Plan (1) Osteoarthritis of left knee: Code(s): M17.12 - Unilateral primary osteoarthritis, left knee Category: Medical Plan: \We discussed options today, which include steroid injection. The patient did consent to move forward with the injection, which was tolerated well.? I recommended rest, ice and elevation and OTC antiinflammatories prn for discomfort. If symptoms persist over the next 6-8 weeks, they will contact our office, otherwise, prn Coding Level of Care Code Est Pt Level 3 (64454) Complex EM visit Add On G2211 Diagnoses Osteoarthritis of left knee M17.12 CPT Codes Coding - Joint 7: 52697 - Glenohumeral/Tronchanteric Bursa/Intraarticular ([id number])
[2025-03-22 11:37] VITALS: BMI 25.7
--- OUTSIDE RECORDS SUMMARY | 2025-03-22 14:26 | XMS_ITS | Clinical Summary ---
Author Organization [facility] ity Address [address] [place] [address] Care Team Providers Care Commercial Credit Reviewer Name Role Phone Rahel Diaz MD Primary Care Provider [phone] Social History Tobacco Use Types Packs/Day Years [...] age to complete this topic Care Teams Commercial Credit Reviewer Relationship Specialty Start Date End Date Rahel Diaz MD [address] [place] [address] PCP - General 08/13/23
== END 2025-03-22 12:50 | disposition home or self-care (01) ==
LOC: HO.HOS 11:16
PROVIDERS: PCP Internal Medicine; Visit Provider Physician Assistant
DX: M17.12 Unilateral primary osteoarthritis, left knee (principal)
CPT/HCPCS: 20610; 99213

== ENCOUNTER → 2025-03-22 11:56 | Outpatient (BNV) | payer OTHER, SELFPAY | PROVIDERS: Visit Provider Family Medicine | DX: M17.12 Unilateral primary osteoarthritis, left knee (principal); M25.462 Effusion, left knee | CPT/HCPCS: 73562 ==

== ENCOUNTER 2025-04-05 11:02 | Outpatient (AMB) | payer OTHER, SELFPAY ==
[2025-04-05 11:24] VITALS: BP 102/80; PULSE 61; RESP 16; TEMP 36.7; O2SAT 98; BMI 25.5
--- NOTE | 2025-04-05 11:24 | A.OFFPC_ITS ---
Vital Signs 04/05/25 11:24 Height 5 ft 3 in Weight 144 lb BMI 25.5 BP 102/80 Blood Pressure Location Lt brachial Position Sitting Respiration 16 Pulse 61 Pulse Source Pulse Oximeter Temp 98.1 F Temp Source Oral Pulse Oximetry (%) 98 Oxygen Delivery Method Room Air Intake Visit Reasons: general health/urine Intake Note: Pt is here today c/o urine incontience Allergies crab (CRAB) Allergy (Severe, Verified 04/05/25 11:40) MOURH SWELLING cyclobenzaprine (From FLEXERIL) Allergy (Severe, Verified 04/05/25 11:40) SEIZURE/shakey ibuprofen (From MOTRIN) Allergy (Intermediate, Verified 04/05/25 11:40) ITCHING, severe abdominal pain morphine (Morphine) Allergy (Intermediate, Verified 04/05/25 11:40) ITCHING/REDNESS, rash Medication List - Last Reconciled 04/05/25 by Rahel Diaz MD acetaminophen ER (Tylenol Arthritis Pain) 650 mg PO Q12H PRN albuterol sulfate 2.5 mg (3 mL) inhalation Q6H PRN albuterol sulfate 90 mcg/actuation 2 puffs inhalation Q4-6H PRN atorvastatin 20 mg PO DAILY blood sugar diagnostic (FreeStyle Lite Strips) Check fasting glucose once a day blood-glucose meter (FreeStyle Lite Meter kit) Check fasting glucose once a day bupropion HCl SR 150 mg PO BID kybdqebphj-jfuczrtrtuwgn-ywng 50-300-40 mg 1 cap PO Q6H PRN 30 days MDD 2 capsaicin-menthol 0.025-1.25 % (Salonpas (capsaicin-menthol)) 1 patch topical DAILY PRN 7 days clonazepam 0.5 mg PO BEDTIME cyanocobalamin (vitamin B-12) 500 mcg PO DAILY 30 days epinephrine (EpiPen 2-Abilio) 0.3 mg (0.3 mL) IM ONCE PRN fluticasone propion-salmeterol 250-50 mcg/dose (Wixela Inhub) 1 ea inhalation QAM gabapentin 300 mg PO BID galcanezumab-gnlm (Emgality Pen) 120 mg subcut ONCE 30 days lancets (FreeStyle Lancets) CHECK FASTING GLUCOSE ONCE A DAY lisinopril 20 mg PO DAILY loratadine (Allergy Relief (loratadine)) 10 mg PO DAILY PRN magnesium oxide 400 mg PO BEDTIME 90 days metformin ER 500 mg PO QPM nebulizers (AeroEclipse II Nebulizer) As directed nitroglycerin 0.4 mg sublingual Q5M PRN riboflavin (vitamin B2) 400 mg PO DAILY 30 days Salonpas (lidocaine) 4% (lidocaine) 1 patch topical BID PRN NS topiramate 150 mg (1.5 x 100 mg) PO BEDTIME Trulance (plecanatide) 3 mg PO DAILY NS Tobacco use date assessed: 04/05/25 Dental Screening Dental Screen Date: 04/05/25 Did you have a dental visit in the last 12 months?: Yes Did you have a dental problem in the last 6 months where you did not have access to dental care?: No Was dental information given to patient?: Patient has dentist HPI general health/urine HPI Details Patient states that she had bloody urine accompanied by burning on urination and left flank pain 2 days ago. Patient states that she has specs of Matilda material in her urine accompanied by gross blood. At present she states that she is feeling better with some occasional burning on urination still, but no flank pain, no fever or chills or nausea reported. CT of abdomen pelvis done in December 2024 showed presence of a nonobstructing kidney stone on left , no kidney stone in right kidney PFSH Medical History Hx of renal calculi Diabetic neuropathy Mild intermittent asthma with (acute) exacerbation Osteoarthritis of right knee Acute hemorrhagic colitis Vitamin D deficiency Anxiety and depression Allergic to shellfish Insomnia Mild intermittent asthma Type 2 diabetes mellitus without complication, without long-term current use of insulin Migraine GERD (gastroesophageal reflux disease) Osteoarthritis Essential hypertension Dyslipidemia Surgical History H/O colonoscopy History of total right knee replacement Hx laparoscopic cholecystectomy History of appendectomy Hx of total knee arthroplasty History of partial hysterectomy Family History Father HTN (hypertension) Hyperlipidemia Lung cancer Mother HTN (hypertension) Hyperlipidemia Diabetes mellitus Social History Housing: Apartment Alcohol intake: never Patient Tobacco Use Status: Never used Tobacco e-Cigarette/Vaping Use: Never Used Advance Directives Date on File: 09/11/23 service: No Current occupational status: unemployed Current occupation: [employer] Cognitive needs: No Hearing needs: No Vision needs: No Questionnaire Thrive Questionnaire Date Thrive assessed: 08/04/24 I am a: Patient What is your living situation today?: I have a steady place to live Within the past 12 months, did the food you bought not last and you didn't have the money to get more?: Never true Within the past 12 months, did you worry whether your food would run out before you got money to buy more?: Never true Do you have trouble paying for medicines?: No Do you have trouble getting transportation to medical appointments?: No Do you have trouble paying your heating and electricity bill?: No Do you have trouble taking care of your child, family member or friend?: No Do you have trouble with day-to-day activities such as bathing, preparing meals, shopping, managing finances, etc.?: No Are you currently unemployed and looking for a job?: No Are you interested in more education?: No Please select the resources that you would like help with: None Currently or been in a relationship where the following occur: No concerns reported THRIVE Score: 0 AUDIT C Alcohol Use Questionnaire (AUDIT-C) 3. How often do you have six or more drinks on one occasion?: Never Total Score: 0 RIMA-7 AMB Questionnaire RIMA-7 Date RIMA - 7 assessed: 08/11/24 Source: Developed by Drs. Claudio Courtney, Hannah Mullins, Simón Castro and colleagues, with an educational luis from [employer]. Review of Systems Const All systems reviewed & are unremarkable except as noted in HPI and below Physical exam (Primary Care) Vital Signs: Last Vital Signs Temp 98.1 F 04/05/25 11:24 Pulse 61 04/05/25 11:24 Resp 16 04/05/25 11:24 BP 102/80 04/05/25 11:24 Pulse Ox 98 04/05/25 11:24 Oxygen Delivery Method Room Air 04/05/25 11:24 BMI result Body Mass Index 25.5 Tobacco/Smoking Status: Tobacco use Status Tobacco use date assessed 04/05/25 04/05/25 11:38 Patient Tobacco Use Status Never used Tobacco 04/05/25 11:24 e-Cigarette/Vaping Use Never Used 04/05/25 11:24 Thrive Assessment: Date of Thrive Assessment Date Thrive assessed 08/04/24 04/05/25 11:24 Currently or been in a relationship where the following occur: No concerns reported Const Other: Alert oriented x3, no acute distress noted ambulatory normal gait GI Palpation (GI): Soft to palpation, nontender, no guarding and no masses Auscultation: normal bowel sounds General: Yes no CVA tenderness Back/Spine/Pelvis Back: no CVA tenderness Results AMB Urinalysis, Automated UA Leukoctes 0 Emeka/uL Last Edit by Theresa Rivera CMA on 04/05/25 11:33 UA Nitrite Negative Last Edit by Theresa Rivera CMA on 04/05/25 11:33 UA Urobilinogen 0.2 mg/dL Last Edit by Theresa Rivera CMA on 04/05/25 11:33 UA Protein 0 mg/dL Last Edit by Theresa Rivera CMA on 04/05/25 11:33 UA pH 6.0 Last Edit by Theersa Rivera CMA on 04/05/25 11:33 UA Blood 0 Juanjose/uL Last Edit by Theresa Rivera CMA on 04/05/25 11:33 UA Specific [place] 1.030 Last Edit by Theresa Rivera CMA on 04/05/25 11:33 UA Ketone Negative Last Edit by Theresa Rivera CMA on 04/05/25 11:33 UA Bilirubin 0 mg/dL Last Edit by Theresa Rivera CMA on 04/05/25 11:33 UA Glucose 0 mg/dL Last Edit by Theresa Rivera CMA on 04/05/25 11:33 Results Reviewed Results Reviewed: Laboratory Last Values Urine pH (Auto) 6.0 04/05/25 11: Specific [place] (Auto) 1.030 04/05/25 11:26 Urine Protein (Auto) 0 mg/dL 04/05/25 11:26 Glucose (UA)(Auto) 0 mg/dL 04/05/25 11:26 Urine Ketones (Auto) Negative 04/05/25 11:26 Urine Blood (Auto) 0 Juanjose/uL 04/05/25 11:26 Urine Nitrite (Auto) Negative 04/05/25 11:26 Urine Bilirubin (Auto) 0 mg/dL 04/05/25 11:26 Urine Urobilinogen (Auto) 0.2 mg/dL 04/05/25 11:26 Leukocyte Esterase (Auto) 0 Emeka/uL 04/05/25 11:26 Coding Level of Care Code Est Pt Level 4 (84386) Diagnoses Hx of renal calculi Z87.442 Assessment & Plan Assessment & Plan (1) Hx of renal calculi: Code(s): Z87.442 - Personal history of urinary calculi Category: Medical Plan: Patient already passed kidney stone, with urinalysis done today showing normal findings. Patient still however complaining of some dysuria, prescription sent for phenazopyridine 100 mg per tablet to take 1 tablet twice a day for 2 days, 6 tablets prescribed with no refill, stay well-hydrated. Drink lemon water for prevention of kidney stone Orders: Orders AMB Urinalysis Automated Today Z13.9 - Encounter for screening, unspecified Medications: New phenazopyridine (Pyridium) 100 mg PO TID 6 tabs 0RF pain 6 doses
== END 2025-04-05 11:57 | disposition home or self-care (01) ==
PROVIDERS: PCP Internal Medicine; Visit Provider Internal Medicine
DX: Z87.442 Personal history of urinary calculi (principal); Z13.9 Encounter for screening, unspecified

== ENCOUNTER → 2025-04-05 11:02 | Outpatient (BNVA) | payer OTHER, SELFPAY | PROVIDERS: PCP Internal Medicine; Visit Provider Internal Medicine | DX: R30.9 Painful micturition, unspecified (principal); R10.9 Unspecified abdominal pain; Z87.442 Personal history of urinary calculi | CPT/HCPCS: 81003; 99212 ==

== ENCOUNTER 2025-04-12 12:31 | Outpatient (REF) | payer OTHER, SELFPAY ==
--- NOTE | ~2025-04-12 | FL_ITS ---
LEFT HIP INTRA-ARTICULAR STEROID INJECTION INDICATIONS: Left hip pain. Intra-articular steroid injection is requested by provider. PROCEDURE: Risks and benefits and possible complications were discussed with the patient and the consent form was signed. The patient was placed supine on the fluoroscopy table. The left hip was prepped and draped in normal sterile fashion. 1% buffered lidocaine was used for anesthesia. A 22-gauge spinal needle was used to access the joint. Subsequently, a mixture of 40 mg Decadron, 3 mL bupivacaine, and 3 mL Omnipaque were injected into the intra-articular space (as per provider instructions). The needle was then removed and a Band-Aid was applied to the injection site. The patient tolerated the procedure well. There were no immediate complications. The patient reported decreased pain upon walking after the procedure. 2 fluoroscopic spot images were archived from the procedure. Fluoroscopic time: 17 seconds. DAP: 188.8 uGym2 FL/FL Guided Asp Inj Major Jt LT IMPRESSION: 1. Successful fluoroscopic guided intra-articular steroid injection into the left hip joint. Electronically signed by: Abiodun Whittington MD 04/12/2025 03:32 PM EDT
[2025-04-12] MEDS: BUPivacaine MPF 0.25 % 30 ML VIAL SUBCUT (15:09)
[2025-04-12] MEDS: iohexoL 300 MG/ML 50 ML INFUS..BTL INTRAARTIC (15:12)
--- OUTSIDE RECORDS SUMMARY | 2025-04-12 15:48 | XMS_ITS | Clinical Summary ---
Author Organization [facility] ity Address [address] [place] [address] Care Team Providers Care Agricultural Research Engineer Name Role Phone Rahel Diaz MD Primary [...] age to complete this topic Care Teams Agricultural Research Engineer Relationship Specialty Start Date End Date Rahel Diaz MD [address] [place] [address] PCP - General 08/13/23
== END 2025-04-12 12:32 | disposition home or self-care (01) ==
LOC: HO.XRAY 12:31
PROVIDERS: PCP Internal Medicine; Visit Provider Physician Assistant
DX: M16.12 Unilateral primary osteoarthritis, left hip (principal)
CPT/HCPCS: 20610; 77002; J0665; Q9967

== ENCOUNTER → 2025-04-12 12:33 | Outpatient (BNV) | payer OTHER, SELFPAY | PROVIDERS: PCP Internal Medicine; Visit Provider Radiology Diagnostic Radiology | DX: M16.12 Unilateral primary osteoarthritis, left hip (principal) | CPT/HCPCS: 20610; 77002 ==

== ENCOUNTER 2025-05-01 09:03 | Outpatient (REF) | payer OTHER, SELFPAY ==
--- OUTSIDE RECORDS SUMMARY | 2025-05-01 10:01 | XMS_ITS | Clinical Summary ---
Author Organization [facility] ity Address [address] [place] [address] Care Team Providers Care Chief Of Party Name Role Phone Rahel Diaz MD Primary Care Provider [phone] Social History Tobacco Use Types Packs/Day Years [...] age to complete this topic Care Teams Chief Of Party Relationship Specialty Start Date End Date Rahel Diaz MD [address] [place] [address] PCP - General 08/13/23
[2025-05-01 11:05] LABS: Cholesterol 170 mg/dL (<200); HDL Cholesterol 61 mg/dL (>40); Triglycerides 92 mg/dL (<150)
== END 2025-05-01 09:04 | disposition home or self-care (01) ==
LOC: HO.HMGCLDS 09:03
PROVIDERS: PCP Internal Medicine; Visit Provider Internal Medicine
DX: E11.9 Type 2 diabetes mellitus without complications (principal); E78.5 Hyperlipidemia, unspecified
CPT/HCPCS: 36415; 80061; 83036

== ENCOUNTER 2025-05-03 11:01 | Outpatient (AMB) | payer OTHER, SELFPAY ==
--- NOTE | 2025-05-03 11:14 | MHC.PC.OV ---
Vital Signs 05/03/25 11:22 Height 5 ft 3 in Weight 148 lb BMI 26.2 BP 110/80 Blood Pressure Location Lt brachial Position Sitting Respiration 16 Pulse 67 Pulse Source Pulse Oximeter Temp 97.7 F Temp Source Oral Pulse Oximetry (%) 97 Oxygen Delivery Method Room Air Intake Visit Reasons: 5 mo follow up Intake Note: Pt is here today for her 5mo. f/u Packaging Supervisor Required: No Allergies crab (CRAB) Allergy (Severe, Verified 05/03/25 11:41) MOURH SWELLING cyclobenzaprine (From FLEXERIL) Allergy (Severe, Verified 05/03/25 11:41) SEIZURE/shakey ibuprofen (From MOTRIN) Allergy (Intermediate, Verified 05/03/25 11:41) ITCHING, severe abdominal pain morphine (Morphine) Allergy (Intermediate, Verified 05/03/25 11:41) ITCHING/REDNESS, rash Medication List - Last Reconciled 05/03/25 by Rahel Diaz MD acetaminophen ER (Tylenol Arthritis Pain) 650 mg PO Q12H PRN albuterol sulfate 2.5 mg (3 mL) inhalation Q6H PRN albuterol sulfate 90 mcg/actuation 2 puffs inhalation Q4-6H PRN atorvastatin 20 mg PO DAILY blood sugar diagnostic (FreeStyle Lite Strips) Check fasting glucose once a day blood-glucose meter (FreeStyle Lite Meter kit) Check fasting glucose once a day bupropion HCl SR 150 mg PO BID erxxhokcaz-tamihtbgflilh-ceja 50-300-40 mg 1 cap PO Q6H PRN 30 days MDD 2 capsaicin-menthol 0.025-1.25 % (Salonpas (capsaicin-menthol)) 1 patch topical DAILY PRN 7 days clonazepam 0.5 mg PO BEDTIME cyanocobalamin (vitamin B-12) 500 mcg PO DAILY 30 days epinephrine (EpiPen 2-Abilio) 0.3 mg (0.3 mL) IM ONCE PRN fluticasone propion-salmeterol 250-50 mcg/dose (Wixela Inhub) 1 ea inhalation QAM gabapentin 300 mg PO BID galcanezumab-gnlm (Emgality Pen) 120 mg subcut ONCE 30 days lancets (FreeStyle Lancets) CHECK FASTING GLUCOSE ONCE A DAY lisinopril 20 mg PO DAILY loratadine (Allergy Relief (loratadine)) 10 mg PO DAILY PRN magnesium oxide 400 mg PO BEDTIME 90 days metformin ER 500 mg PO QPM nebulizers (AeroEclipse II Nebulizer) As directed nitroglycerin 0.4 mg sublingual Q5M PRN riboflavin (vitamin B2) 400 mg PO DAILY 30 days Salonpas (lidocaine) 4% (lidocaine) 1 patch topical BID PRN NS topiramate 150 mg (1.5 x 100 mg) PO BEDTIME Trulance (plecanatide) 3 mg PO DAILY NS Tobacco use date assessed: 05/03/25 Dental Screening Dental Screen Date: 05/03/25 Did you have a dental visit in the last 12 months?: Yes Did you have a dental problem in the last 6 months where you did not have access to dental care?: No Was dental information given to patient?: Patient has dentist HPI 5 mo follow up HPI Details 60 year-old lady with history of diabetes mellitus, dyslipidemia, osteoarthritis of knee status post right knee arthroplasty mild intermittent asthma,, and hypertension, here today for her follow-up.. Has been compliant with taking her medications, but admits to not getting any regular exercise. She has also been having difficulty in controlling her urination, has occasional accidents . [facility] Medical History (Updated 05/08/25 @ 01:55 by Rahel Diaz MD) Urinary incontinence Hx of renal calculi Diabetic neuropathy Mild intermittent asthma with (acute) exacerbation Osteoarthritis of right knee Acute hemorrhagic colitis Vitamin D deficiency Anxiety and depression Allergic to shellfish Insomnia Mild intermittent asthma Type 2 diabetes mellitus without complication, without long-term current use of insulin Migraine GERD (gastroesophageal reflux disease) Osteoarthritis Essential hypertension Dyslipidemia Surgical History H/O colonoscopy History of total right knee replacement Hx laparoscopic cholecystectomy History of appendectomy Hx of total knee arthroplasty History of partial hysterectomy Family History Father HTN (hypertension) Hyperlipidemia Lung cancer Mother HTN (hypertension) Hyperlipidemia Diabetes mellitus Social History Housing: Apartment Alcohol intake: never Patient Tobacco Use Status: Never used Tobacco e-Cigarette/Vaping Use: Never Used Advance Directives Date on File: 09/11/23 service: No Current occupational status: unemployed Current occupation: RT Handed Cognitive needs: No Hearing needs: No Vision needs: No Questionnaire Thrive Questionnaire Date Thrive assessed: 08/04/24 I am a: Patient What is your living situation today?: I have a steady place to live Within the past 12 months, did the food you bought not last and you didn't have the money to get more?: Never true Within the past 12 months, did you worry whether your food would run out before you got money to buy more?: Never true Do you have trouble paying for medicines?: No Do you have trouble getting transportation to medical appointments?: No Do you have trouble paying your heating and electricity bill?: No Do you have trouble taking care of your child, family member or friend?: No Do you have trouble with day-to-day activities such as bathing, preparing meals, shopping, managing finances, etc.?: No Are you currently unemployed and looking for a job?: No Are you interested in more education?: No Please select the resources that you would like help with: None Currently or been in a relationship where the following occur: No concerns reported THRIVE Score: 0 RIMA-7 AMB Questionnaire RIMA-7 Date RIMA - 7 assessed: 08/11/24 Source: Developed by Drs. Claudio Courtney, Hannah Mullins, Simón Castro and colleagues, with an educational luis from [employer]. Review of Systems Const Denies fever(s), Denies headache(s) and Denies weakness Eyes Details: Goes to [facility] in [place] for her routine eye exam ENT Denies dizziness, Denies headache(s), Denies nasal congestion, Denies nasal discharge and Denies sore throat Card Denies chest pain, Denies lightheadedness and Denies dyspnea Resp Denies chest congestion, Denies cough and Denies dyspnea GI Denies abdominal pain and Denies heartburn Denies hematuria, Denies difficulty voiding, Denies nocturia and Denies urinary incontinence Musc Reports no additional complaints Neuro Denies dizziness, Denies headache(s), Denies Sensory deficit (Neuro) and Denies weakness Endo Reports no additional complaints Hilton/Lymph Reports no additional complaints Aller/Immun Reports no additional complaints Physical exam (Primary Care) Vital Signs: Last Vital Signs Temp 97.7 F 05/03/25 11:22 Pulse 67 05/03/25 11:22 Resp 16 05/03/25 11:22 BP 110/80 05/03/25 11:22 Pulse Ox 97 05/03/25 11:22 Oxygen Delivery Method Room Air 05/03/25 11:22 BMI result Body Mass Index 26.2 Tobacco/Smoking Status: Tobacco use Status Tobacco use date assessed 05/03/25 05/03/25 11:19 Patient Tobacco Use Status Never used Tobacco 05/03/25 11:19 e-Cigarette/Vaping Use Never Used 05/03/25 11:19 Thrive Assessment: Date of Thrive Assessment Date Thrive assessed 08/04/24 05/03/25 11:19 Currently or been in a relationship where the following occur: No concerns reported Const Other: Alert oriented x3, no acute cardiorespiratory distress noted , ambulatory normal gait HENMT Mouth: Normal oral and palatal mucosa present, oropharynx normal and moist mucous membranes Eyes General: appearance normal, both eyes and all related structures Neck Neck: Yes full ROM, Yes no lymphadenopathy and Yes supple Chest Breast/axilla palpation: normal palpation of the breasts Resp Auscultation: clear to auscultation bilaterally Cardio Other: S1-S2 present regular rate and rhythm GI Palpation (GI): Soft to palpation, nontender, no guarding and no masses General: Yes no CVA tenderness Back/Spine/Pelvis Back: no CVA tenderness Thoracic/Lumbar Spine: Lasegue's sign negative Skin Lesions: no lesions Rashes: no rashes Neuro General: gait normal, tone normal, no focal motor deficits and decrease sensation to monofilament Sensory Exam: No Sensory deficit (Neuro) Extrem General: Yes normal to inspection, Yes full ROM, Yes no joint enlargement, Yes no pedal edema and Yes normal gait Psych Appearance: grossly normal and well kempt Mental Status: mental status grossly normal Speech and movement: Normal speech and movement present Results Reviewed Results Reviewed: Laboratory Tests 05/01/25 09:06 Estimat Average Glucose 126 Hemoglobin A1c % 6.0 . Name: Chauncey SebastiánLyric Roe Age/Sex: 60/F : 1965 Unit#: [id number] Attend Dr: Rahel Diaz MD Re05/01/25 Status: DEP REF Location: [facility] Disch: SPEC : [id number] MARII: 05/01/25 STATUS: COMP REQ : [id number] RECD: 05/01/[address]: Rahel Diaz MD COMP: 05/01/25 ENTERED: 05/01/[address]: ORDERED: Lipid Panel Test Result Flag Reference Triglyceride 92 <150 mg/dL Desirable Triglyceride: less than 150 mg/dL Borderline High Triglyceride 150-199 mg/dL High Triglyceride: 200-499 mg/dL Very High Triglyceride: greater than or equal to 5OO mg/dL Cholesterol 170 <200 mg/dL Desirable Cholesterol: less than 200 mg/dL Borderline High Cholesterol: 200-239 mg/dL High Cholesterol: greater than 239 mg/dL LDL Calculated 91 <100 mg/dL Desirable LDL: less than 100 mg/dL Near Optimal/Above Optimal LDL: 110-129 mg/dL Borderline High LDL: 130-159 mg/dL High LDL: 160-189 mg/dL Very High LDL: greater than or equal to 190 mg/dL HDL 61 >40 mg/dL Desirable HDL: greater than 40 mg/dL Note: This HDL assay may give artificially low results in patients with liver disease. Coding Level of Care Code Est Pt Level 4 (42280) Complex EM visit Add On G2211 Diagnoses Stress incontinence of urine N39.3 Urinary Incontinence type: stress incontinence Essential hypertension I10 Dyslipidemia E78.5 Type 2 diabetes mellitus without complication, without long-term current use of insulin E11.9 Assessment & Plan Assessment & Plan (1) Urinary incontinence: Code(s): R32 - Unspecified urinary incontinence Category: Medical Qualifiers: Urinary Incontinence type: stress incontinence Qualified Code(s): N39.3 - Stress incontinence (female) (male) Plan: Will try on Myrbetriq ER 25 mg 1 tablet daily. urology consult ordered (2) Essential hypertension: Code(s): I10 - Essential (primary) hypertension Category: Medical Plan: Blood pressure at goal of less than 130/80. Continue lisinopril 20 mg daily. Reinforced importance of following a low sodium diet, getting regular exercise, and lowering stress levels. (3) Dyslipidemia: Code(s): E78.5 - Hyperlipidemia, unspecified Category: Medical Plan: Continue atorvastatin 20 mg daily (4) Type 2 diabetes mellitus without complication, without long-term current use of insulin: Code(s): E11.9 - Type 2 diabetes mellitus without complications Category: Medical Plan: Recent lab results reviewed with patient, with sugar and hemoglobin A1c stable and at goal continue to check fasting blood sugar at home, maintain log and bring to next appointment for review. Reinforced diabetic diet and regular exercise with patient. Counseled regarding importance of yearly diabetes retinopathy screening. Patient advised to inspect feet daily, for any signs of injury, callus or infection. Compliance with diet and regular exercise again stressed. Blood pressure goal is less than 130/80, goal LDL is less than 100 and goal hemoglobin A1c is less than 7% follow-up appointment made in-3--months, after fasting labs done. Orders: Orders Lipid Panel 07/30/25 E11.9 - Type 2 diabetes mellitus without complications, E78.5 - Hyperlipidemia, unspecified, I10 - Essential (primary) hypertension, R32 - Unspecified urinary incontinence Microalbumin, Random (w Creat) 07/30/25 E11.9 - Type 2 diabetes mellitus without complications, E78.5 - Hyperlipidemia, unspecified, I10 - Essential (primary) hypertension, R32 - Unspecified urinary incontinence Vitamin D 25-OH Total 07/30/25 E11.9 - Type 2 diabetes mellitus without complications, E78.5 - Hyperlipidemia, unspecified, I10 - Essential (primary) hypertension, R32 - Unspecified urinary incontinence Hemoglobin A1c 07/30/25 E11.9 - Type 2 diabetes mellitus without complications, E78.5 - Hyperlipidemia, unspecified, I10 - Essential (primary) hypertension, R32 - Unspecified urinary incontinence Basic Metabolic Panel Fasting 07/30/25 E11.9 - Type 2 diabetes mellitus without complications, E78.5 - Hyperlipidemia, unspecified, I10 - Essential (primary) hypertension, R32 - Unspecified urinary incontinence Alanine Aminotransferase 07/30/25 E11.9 - Type 2 diabetes mellitus without complications, E78.5 - Hyperlipidemia, unspecified, I10 - Essential (primary) hypertension, R32 - Unspecified urinary incontinence Aspartate Amino Transferase 07/30/25 E11.9 - Type 2 diabetes mellitus without complications, E78.5 - Hyperlipidemia, unspecified, I10 - Essential (primary) hypertension, R32 - Unspecified urinary incontinence Complete Blood Count Auto Diff 07/30/25 E11.9 - Type 2 diabetes mellitus without complications, E78.5 - Hyperlipidemia, unspecified, I10 - Essential (primary) hypertension, R32 - Unspecified urinary incontinence Referrals Urology Referral R32 - Unspecified urinary incontinence Medications: New Myrbetriq ER (mirabegron) 25 mg PO DAILY 30 tabs 1RF NS
[2025-05-03 11:22] VITALS: BP 110/80; PULSE 67; RESP 16; TEMP 36.5; O2SAT 97; BMI 26.2
--- OUTSIDE RECORDS SUMMARY | 2025-05-03 13:10 | XMS_ITS | Clinical Summary ---
Author Organization [facility] ity Address [address] [place] [address] Care Team Providers Care Ignition Mechanic Name Role Phone Rahel Diaz MD Primary Care Provider [phone] Social History Tobacco Use Types Packs/Day Years [...] age to complete this topic Care Teams Ignition Mechanic Relationship Specialty Start Date End Date Rahel Diaz MD [address] [place] [address] PCP - General 08/13/23
== END 2025-05-03 12:00 | disposition home or self-care (01) ==
LOC: HO.HMCC 11:02
PROVIDERS: PCP Internal Medicine; Visit Provider Internal Medicine
DX: N39.3 Stress incontinence (female) (male) (principal); I10 Essential (primary) hypertension; E78.5 Hyperlipidemia, unspecified; E11.9 Type 2 diabetes mellitus without complications

== ENCOUNTER → 2025-05-03 11:01 | Outpatient (BNVA) | payer OTHER, SELFPAY | PROVIDERS: PCP Internal Medicine; Visit Provider Internal Medicine | DX: M17.0 Bilateral primary osteoarthritis of knee (principal); E11.9 Type 2 diabetes mellitus without complications; E78.5 Hyperlipidemia, unspecified; I10 Essential (primary) hypertension; N39.3 Stress incontinence (female) (male) | CPT/HCPCS: 99212 ==

== ENCOUNTER 2025-06-28 10:12 | Outpatient (REF) | payer OTHER, SELFPAY ==
[2025-06-28 14:10] LABS: Appearance Urine Clear; Glucose Urine UA Negative (Negative); PH 6.0 (5.0-9.0); Specific Gravity - Urine 1.020 (1.005-1.025); UMIC TRIGGER UACC YES
[2025-06-28 14:34] LABS: UACC Culture Trigger YES
== END 2025-06-28 10:13 | disposition home or self-care (01) ==
LOC: HO.HMGCLDS 10:12
PROVIDERS: PCP Internal Medicine; Visit Provider Internal Medicine
DX: R30.0 Dysuria (principal); R35.0 Frequency of micturition
CPT/HCPCS: 81001; 81003; 87086; 99212

== ENCOUNTER 2025-06-28 10:12 | Outpatient (AMB) | payer OTHER, SELFPAY ==
--- NOTE | 2025-06-28 10:13 | MHC.OFFWIV ---
Intake Vital Signs 06/28/25 10:18 Height 5 ft 3 in Weight 148 lb BMI 26.2 BP 108/70 Blood Pressure Location Lt brachial Position Sitting Pulse 85 Pulse Source Pulse Oximeter Temp 97.7 F Temp Source Oral Pulse Oximetry (%) 98 Oxygen Delivery Method Room Air Intake Visit Reasons: EP Possible UTI Intake Note: pt presents with burning sensation when voiding with little output, urine frequency x2 wks Patient Tobacco Use Status: Never used Tobacco Allergies crab (CRAB) Allergy (Severe, Verified 06/28/25 10:22) MOURH SWELLING cyclobenzaprine (From FLEXERIL) Allergy (Severe, Verified 06/28/25 10:22) SEIZURE/shakey ibuprofen (From MOTRIN) Allergy (Intermediate, Verified 06/28/25 10:22) ITCHING, severe abdominal pain morphine (Morphine) Allergy (Intermediate, Verified 06/28/25 10:22) ITCHING/REDNESS, rash Medication List - Last Reconciled 06/28/25 by Su Cutler MD acetaminophen ER (Tylenol Arthritis Pain) 650 mg PO Q12H PRN albuterol sulfate 2.5 mg (3 mL) inhalation Q6H PRN albuterol sulfate 90 mcg/actuation 2 puffs inhalation Q4-6H PRN atorvastatin 20 mg PO DAILY blood sugar diagnostic (FreeStyle Lite Strips) Check fasting glucose once a day blood-glucose meter (FreeStyle Lite Meter kit) Check fasting glucose once a day bupropion HCl SR 150 mg PO BID fwubwihdcl-qjuvrevmusxrv-tznx 50-300-40 mg 1 cap PO Q6H PRN 30 days MDD 2 capsaicin-menthol 0.025-1.25 % (Salonpas (capsaicin-menthol)) 1 patch topical DAILY PRN 7 days clonazepam 0.5 mg PO BEDTIME cyanocobalamin (vitamin B-12) 500 mcg PO DAILY 30 days epinephrine (EpiPen 2-Abilio) 0.3 mg (0.3 mL) IM ONCE PRN fluticasone propion-salmeterol 250-50 mcg/dose (Wixela Inhub) 1 ea inhalation QAM gabapentin 300 mg PO BID galcanezumab-gnlm (Emgality Pen) 120 mg subcut ONCE 30 days lancets (FreeStyle Lancets) CHECK FASTING GLUCOSE ONCE A DAY lisinopril 20 mg PO DAILY loratadine (Allergy Relief (loratadine)) 10 mg PO DAILY PRN magnesium oxide 400 mg PO BEDTIME 90 days metformin ER 500 mg PO QPM Myrbetriq ER (mirabegron) 25 mg PO DAILY NS nebulizers (AeroEclipse II Nebulizer) As directed nitrofurantoin macrocrystal 100 mg PO BID 5 days nitroglycerin 0.4 mg sublingual Q5M PRN pyridoxine (vitamin B6) 200 mg (2 x 100 mg) PO BID 1 day riboflavin (vitamin B2) 400 mg PO DAILY 30 days Salonpas (lidocaine) 4% (lidocaine) 1 patch topical BID PRN NS topiramate 150 mg (1.5 x 100 mg) PO BEDTIME Trulance (plecanatide) 3 mg PO DAILY NS Do you need a note to return to daycare/school/sports/work: No HPI EP Possible UTI HPI Details History of Present Illness The patient is a 60 year old female presenting with a burning sensation during urination. Urinary Tract Infection: - The patient reports a burning sensation on urination for approximately two weeks. - She denies any associated fever, back pain, pelvic pain, or hematuria. - She has a history of similar symptoms that were previously diagnosed as a urinary tract infection. Problem List - Urinary Tract Infection Plan - A urinalysis and urine culture will be ordered to identify the causative organism and determine antibiotic sensitivity. - The patient was advised to provide a urine sample ,[ Patient is having difficulty urinating ]before starting antibiotics if possible, but to start the medication regardless if unable to provide a sample. - Macrobid 100 mg twice daily for 5 days was prescribed for the urinary tract infection. - Pyridium will be prescribed for dysuria, to be taken twice daily for one day. - The patient was counseled that Pyridium will cause her urine to turn orange. - Increased fluid intake was recommended. - Prescriptions were sent to the [facility] pharmacy on [address] [facility] in [place]. Review of Systems - Genitourinary: Reports dysuria for two weeks. - She denies pelvic pain and hematuria. - Constitutional: Denies fever. - Musculoskeletal: Denies back pain. No fever no chills Physical Exam General: No acute distress HEENT: No acute findings Neck: Supple Respiratory system: Able to talk in full sentences, no audible wheeze Back : No CVAT Gastrointestinal: No pain, mild suprapubic discomfort Extremities: No new findings TRACKMAN: Alert awake oriented x3 motor intact Skin: Normal turgor PFSH Medical History Urinary incontinence Hx of renal calculi Diabetic neuropathy Mild intermittent asthma with (acute) exacerbation Osteoarthritis of right knee Acute hemorrhagic colitis Vitamin D deficiency Anxiety and depression Allergic to shellfish Insomnia Mild intermittent asthma Type 2 diabetes mellitus without complication, without long-term current use of insulin Migraine GERD (gastroesophageal reflux disease) Osteoarthritis Essential hypertension Dyslipidemia Surgical History H/O colonoscopy History of total right knee replacement Hx laparoscopic cholecystectomy History of appendectomy Hx of total knee arthroplasty History of partial hysterectomy Family History Father HTN (hypertension) Hyperlipidemia Lung cancer Mother HTN (hypertension) Hyperlipidemia Diabetes mellitus Social History Housing: Apartment Alcohol intake: never Patient Tobacco Use Status: Never used Tobacco e-Cigarette/Vaping Use: Never Used Advance Directives Date on File: 09/11/23 service: No Current occupational status: unemployed Current occupation: [employer] Cognitive needs: No Hearing needs: No Vision needs: No Physical Exam Vital Signs: Last Vital Signs Temp 97.7 F 06/28/25 10:18 Pulse 85 06/28/25 10:18 BP 108/70 06/28/25 10:18 Pulse Ox 98 06/28/25 10:18 Oxygen Delivery Method Room Air 06/28/25 10:18 BMI result Body Mass Index 26.2 Assessment & Plan Assessment & Plan (1) Dysuria: Code(s): R30.0 - Dysuria (2) Frequency of urination: Code(s): R35.0 - Frequency of micturition Plan Plan - A urinalysis and urine culture will be ordered to identify the causative organism and determine antibiotic sensitivity. - The patient was advised to provide a urine sample ,[ Patient is having difficulty urinating ]before starting antibiotics if possible, but to start the medication regardless if unable to provide a sample. - Macrobid 100 mg twice daily for 5 days was prescribed for the urinary tract infection. - Pyridium will be prescribed for dysuria, to be taken twice daily for one day. - The patient was counseled that Pyridium will cause her urine to turn orange. - Increased fluid intake was recommended. - Prescriptions were sent to the [facility] pharmacy on [facility] in [place]. Orders: Orders UA CC w/rflx Micro + Cult Today R30.0 - Dysuria Medications: New nitrofurantoin macrocrystal must administer with a meal/food 100 mg PO BID 10 caps 0RF 5 days pyridoxine (vitamin B6) 200 mg (2 x 100 mg) PO BID 4 tabs 0RF 1 day Coding Level of Care Code Est Pt Level 3 (60222) Diagnoses Dysuria R30.0 Frequency of urination R35.0
[2025-06-28 10:18] VITALS: BP 108/70; PULSE 85; TEMP 36.5; O2SAT 98; BMI 26.2
--- OUTSIDE RECORDS SUMMARY | 2025-06-28 11:17 | XMS_ITS | Clinical Summary ---
Author Organization [facility] ity Address [address] [place] [address] Care Team Providers Care Software Qa Manager Name Role Phone Rahel Diaz MD Primary Care Provider [phone] Social History Tobacco Use Types Packs/Day Years [...] Depression Screening 06/29/2024 COVID-19 Vaccine ( - 2024-2 6 season) 2025 Influenza Vaccine (#1) 2025 RSV [...] age to complete this topic Care Teams Software Qa Manager Relationship Specialty Start Date End Date Rahel Diaz MD [address] [place] [address] PCP - General 08/13/23
== END 2025-06-28 10:49 | disposition home or self-care (01) ==
PROVIDERS: PCP Internal Medicine; Visit Provider Internal Medicine
DX: R30.0 Dysuria (principal); R35.0 Frequency of micturition